=== PATIENT | male | born 1955 | race African-American/Black ===

== ENCOUNTER 2017-11-13 11:47 | Inpatient (IN) | payer OTHER, MEDICAID, MEDICARE ==
[2017-11-13] VITALS (7 sets, daily range): BP systolic 172–244; BP diastolic 81–112; PULSE 74–89; RESP 18–20; TEMP 97.5–99.2; O2SAT 97–100
[~2017-11-13] VITALS: Ht 188 cm; Wt 121.9 kg
[~2017-11-13 11:47] MED LIST: ALPR1TAB3 PO; BENGAY TOP; CALTTAB2 PO; CARB1DRO EACH EYE; CYAN100017 PO; DOCU100T9 PO; FURO40TA PO; GABA600T PO; GLIP5TAB8 PO; HYDROPHILIC TOP; INSU100V3 SQ; LISI10TA PO; MELOPOW PO; METF850T PO; MIRA33502 PO; OMEP20TA PO; OXYC1SOL5 PO; OXYC30TA PO; POTA1TAB4 PO; PROS5TAB2 PO; ROSU20 PO; SOMA350T PO; TERA5CAP3 PO; TERB1CRE2 TOP
[2017-11-13] MEDS ORDERED: SODIUM CHLOR 0.9% 1000 ML INJ 1,000 ML IV SCH (12:06)
[2017-11-13] MEDS ORDERED: SODIUM CHLORIDE 0.9% FLUSH 10 ML FLUSH IV FLUSH PRN ×2 (12:15→14:45)
[2017-11-13] MEDS ORDERED: ONDANSETRON HCL 4 MG/2 ML VIAL IVP ONE (12:15)
[2017-11-13] MEDS ORDERED: MORPHINE SULFATE 4 MG/ML INJ IV PUSH ONE ×2 (12:15→14:15)
--- NOTE | 2017-11-13 12:26 | PD ---
HPI Chief Complaint: Flank/Kidney Pain Time Seen by Provider: 12:00 Travel History International Travel<30 days: No Contact w/Intl Traveler<30days: No Traveled to known affect area: No History of Present Illness HPI The patient is a 62-year-old [place] male who presents emergency department for hematuria, dysuria, suprapubic discomfort, and left flank pain. The patient states his symptoms started this morning, he notes gross hematuria with visible blood clots. He does complain of dribbling with decreased ability to urinate. He does note lower abdominal pain and distention. He also complains of left flank pain. He denies any history nephrolithiasis. He does have a history of remote prostate cancer that underwent radiation therapy, he denies any previous surgeries. He does state the blood in the urine is bright, visible clots, no previous history. He denies any assisted fever, chills, or sweats. The patient's primary physician is Dr. Holt as well as the [facility]. [facility] Past Medical History Anemia: Yes Autoimmune Disease: No Blood Disorders: No Anxiety: Yes Depression: Yes Cancer: Yes (PROSTATE) High Cholesterol: Yes Chemotherapy: No Diabetes: Yes Diminished Hearing: No Endocrine: No Gastrointestinal Disorders: Yes (COLON POLYP) GERD: Yes Glaucoma: No Hypertension: Yes Immune Disorder: No Musculoskeletal: Yes (CERVICAL STENOSIS, DISC DEGENERATIVE) Neurologic: Yes (PERIPHERAL NEUROPATHY) Psychiatric: Yes Integumentary: Yes Radiation Therapy: Yes (2009) Sickle Cell Disease: No Thyroid Disease: No Past Surgical History AICD: No Arteriovenous Shunt: No Insulin Pump: No Joint Replacement: No Pacemaker: No Other Surgery: Yes (TITANIAN RODS PLACED IN LOW BACK 1996) Social History Alcohol Use: No Tobacco Use: No Substance Use: No Allergies-Medications (Allergen,Severity, Reaction): Coded Allergies: No Known Allergies (Verified Adverse Reaction, Unknown, 11/13/17) Reported Meds & Prescriptions Reported Meds & Active Scripts Active Active Prescriptions or Reported Medications Unobtainable Review of Systems Except as stated in HPI: all other systems reviewed are Neg Cardiovascular: No: Chest Pain or Discomfort Respiratory: No: Shortness of Breath Gastrointestinal: Positive: Abdominal Pain, No: Nausea, Vomiting, Diarrhea Genitourinary: Positive: Dysuria, Hematuria, Decreased Urinary Output, Pelvic Pain Musculoskeletal: No: Edema Physical Exam Narrative GENERAL: Awake, alert, pleasant 62-year-old male who appears his stated age and appears in moderate discomfort. SKIN: Focused skin assessment warm/dry. HEAD: Atraumatic. Normocephalic. EYES: No injection or drainage. ENT: No nasal bleeding or discharge. Mucous membranes pink and moist. NECK: Trachea midline. No JVD. CARDIOVASCULAR: Regular rate and rhythm. No murmur appreciated. RESPIRATORY: No accessory muscle use. Clear to auscultation. Breath sounds equal bilaterally. GASTROINTESTINAL: Abdomen distended, distended bladder to the umbilicus. Genitourinary: Uncircumcised phallus. Gross blood at the meatus with visible clots. Back: No CVA tenderness. MUSCULOSKELETAL: No obvious deformities. No clubbing. No cyanosis. No edema. NEUROLOGICAL: Awake and alert. No obvious cranial nerve deficits. Motor grossly within normal limits. Normal speech. PSYCHIATRIC: Appropriate mood and affect; insight and judgment normal. Data Data Last Documented VS Vital Signs Date Time Temp Pulse Resp B/P (MAP) Pulse Ox O2 Delivery O2 Flow Rate FiO2 11/13/17 14:23 82 19 176/81 (112) 97 Room Air 11/13/17 11:53 99.2 Orders Orders Complete Blood Count With Diff (11/13/17 12:06) Comprehensive Metabolic Panel (11/13/17 12:06) Lipase (11/13/17 12:06) Lactic Acid (11/13/17 12:06) Prothrombin Time / Inr (Pt) (11/13/17 12:06) Act Partial Throm Time (Ptt) (11/13/17 12:06) Urinalysis - C+S If Indicated (11/13/17 12:06) Iv Access Insert/Monitor (11/13/17 12:06) Ecg Monitoring (11/13/17 12:06) Oximetry (11/13/17 12:06) Morphine Inj (Morphine Inj) (11/13/17 12:15) Ondansetron Inj (Zofran Inj) (11/13/17 12:15) Sodium Chlor 0.9% 1000 Ml Inj (Ns 1000 M (11/13/17 12:06) Sodium Chloride 0.9% Flush (Ns Flush) (11/13/17 12:15) Ed Poc Ultrasound (11/13/17 ) Ct Abd/Pel W Iv Contrast(Rout) (11/13/17 ) Urine Culture (11/13/17 12:30) Ceftriaxone Inj (Rocephin Inj) (11/13/17 14:00) Morphine Inj (Morphine Inj) (11/13/17 14:15) Labs Laboratory Tests Test 11/13/17 12:20 11/13/17 12:30 White Blood Count 9.6 TH/MM3 Red Blood Count 3.62 MIL/MM3 Hemoglobin 10.1 GM/DL Hematocrit 30.0 % Mean Corpuscular Volume 82.9 FL Mean Corpuscular Hemoglobin 28.0 PG Mean Corpuscular Hemoglobin Concent 33.8 % Red Cell Distribution Width 14.2 % Platelet Count 227 TH/MM3 Mean Platelet Volume 7.2 FL Neutrophils (%) (Auto) 83.5 % Lymphocytes (%) (Auto) 9.2 % Monocytes (%) (Auto) 5.8 % Eosinophils (%) (Auto) 1.2 % Basophils (%) (Auto) 0.3 % Neutrophils # (Auto) 8.0 TH/MM3 Lymphocytes # (Auto) 0.9 TH/MM3 Monocytes # (Auto) 0.6 TH/MM3 Eosinophils # (Auto) 0.1 TH/MM3 Basophils # (Auto) 0.0 TH/MM3 CBC Comment DIFF FINAL Differential Comment Prothrombin Time 9.9 SEC Prothromb Time International Ratio 1.0 RATIO Activated Partial Thromboplast Time 25.8 SEC Blood Urea Nitrogen 26 MG/DL Creatinine 1.51 MG/DL Random Glucose 135 MG/DL Total Protein 6.7 GM/DL Albumin 3.6 GM/DL Calcium Level 8.6 MG/DL Alkaline Phosphatase 70 U/L Aspartate Amino Transf (AST/SGOT) 47 U/L Alanine Aminotransferase (ALT/SGPT) 42 U/L Total Bilirubin 0.3 MG/DL Sodium Level 136 MEQ/L Potassium Level 4.1 MEQ/L Chloride Level 99 MEQ/L Carbon Dioxide Level 30.4 MEQ/L Anion Gap 7 MEQ/L Estimat Glomerular Filtration Rate 57 ML/MIN Lactic Acid Level 1.8 mmol/L Lipase 66 U/L Urine Color RED Urine Turbidity CLOUDY Urine pH 8.5 Urine Specific [place] 1.018 Urine Protein 300 OR GREATER mg/dL Urine Glucose (UA) NEG mg/dL Urine Ketones 15 mg/dL Urine Occult Blood LARGE Urine Nitrite POS Urine Bilirubin NEG Urine Urobilinogen 2.0 MG/DL Urine Leukocyte Esterase LARGE Urine RBC /hpf Urine WBC 0-2 /hpf Urine Bacteria RARE /hpf Microscopic Urinalysis Comment CATH-CULTURE IND MDM Medical Decision Making Medical Screen Exam Complete: Yes Emergency Medical Condition: Yes Medical Record Reviewed: Yes Interpretation(s) Laboratory Tests Test 11/13/17 12:20 11/13/17 12:30 White Blood Count 9.6 TH/MM3 Red Blood Count 3.62 MIL/MM3 Hemoglobin 10.1 GM/DL Hematocrit 30.0 % Mean Corpuscular Volume 82.9 FL Mean Corpuscular Hemoglobin 28.0 PG Mean Corpuscular Hemoglobin Concent 33.8 % Red Cell Distribution Width 14.2 % Platelet Count 227 TH/MM3 Mean Platelet Volume 7.2 FL Neutrophils (%) (Auto) 83.5 % Lymphocytes (%) (Auto) 9.2 % Monocytes (%) (Auto) 5.8 % Eosinophils (%) (Auto) 1.2 % Basophils (%) (Auto) 0.3 % Neutrophils # (Auto) 8.0 TH/MM3 Lymphocytes # (Auto) 0.9 TH/MM3 Monocytes # (Auto) 0.6 TH/MM3 Eosinophils # (Auto) 0.1 TH/MM3 Basophils # (Auto) 0.0 TH/MM3 CBC Comment DIFF FINAL Differential Comment Prothrombin Time 9.9 SEC Prothromb Time International Ratio 1.0 RATIO Activated Partial Thromboplast Time 25.8 SEC Blood Urea Nitrogen 26 MG/DL Creatinine 1.51 MG/DL Random Glucose 135 MG/DL Total Protein 6.7 GM/DL Albumin 3.6 GM/DL Calcium Level 8.6 MG/DL Alkaline Phosphatase 70 U/L Aspartate Amino Transf (AST/SGOT) 47 U/L Alanine Aminotransferase (ALT/SGPT) 42 U/L Total Bilirubin 0.3 MG/DL Sodium Level 136 MEQ/L Potassium Level 4.1 MEQ/L Chloride Level 99 MEQ/L Carbon Dioxide Level 30.4 MEQ/L Anion Gap 7 MEQ/L Estimat Glomerular Filtration Rate 57 ML/MIN Lactic Acid Level 1.8 mmol/L Lipase 66 U/L Urine Color RED Urine Turbidity CLOUDY Urine pH 8.5 Urine Specific [place] 1.018 Urine Protein 300 OR GREATER mg/dL Urine Glucose (UA) NEG mg/dL Urine Ketones 15 mg/dL Urine Occult Blood LARGE Urine Nitrite POS Urine Bilirubin NEG Urine Urobilinogen 2.0 MG/DL Urine Leukocyte Esterase LARGE Urine RBC /hpf Urine WBC 0-2 /hpf Urine Bacteria RARE /hpf Microscopic Urinalysis Comment CATH-CULTURE IND CT abdomen and pelvis with IV contrast reveals large apparent clot within the bladder. I believe the majority of the density in the bladder is clot and not tumor. Amaya is in good position. There is mild thickening base of the bladder from 4 to 6 PM that could be mass. There is bilateral hydronephrosis with dilated ureters extending down to the bladder which has large spontaneously dense mass within the bladder containing and is probably all hematoma. Differential Diagnosis Differential diagnosis includes hydronephrosis, bladder cancer, hemorrhagic cystitis, nephrolithiasis, obstructive uropathy, acute renal failure. Narrative Course IV was established, labs are drawn and sent, and the patient was placed on cardiac telemetry monitoring and continuous pulse oximetry monitoring. Bedside ultrasound was performed, the patient has a large distended bladder with visible mass and/or clot within the bladder. Therefore, Amaya catheter, 3-way for CBI, was ordered to alleviate the patient's obstructive uropathy and distended bladder. CT of the abdomen and pelvis with IV contrast was ordered to evaluate the bladder mass. BMP and CBC as well as coags were sent to lab. The patient was administered morphine and Zofran for his symptoms. The patient' s Amaya catheter with drain, however, then would stop draining. Bedside ultrasound was performed, the patient has a large intra-bladder mass that appears to obstructive Amaya catheter, this was removed to the edge the mass, we were able to irrigate get a little more urine drainage, up to 600 cc. However, once again stop draining. The patient still had a distended bladder. Therefore, the on-call urologist was paged at 12:50 PM. I discussed the patient with Dr. Alcazar who recommends taking out the 3-way catheter in place in a larger [place] catheter for irrigation as needed and to help drain the blood. Therefore, the 3-way was removed and a 24 Albanian catheter was placed. Patient had urine output over [address] reveals bilateral hydronephrosis with large hematuria/blood clot in the bladder. The patient was provided morphine medication. A call was placed to Dr. Alcazar once again and to the on- call medical team for admission. Procedures Procedure Narrative Bedside ultrasound was performed using a curvilinear probe which reveals a large and distended bladder with visible mass and/or clot within the bladder. The patient tolerated the procedure without difficulty. There was no obvious complications. Physician Communication Phys[facility] Communication [facility]. Diagnosis Primary Impression: Obstructive uropathy Additional Impressions: Bilateral hydronephrosis Hematuria Qualified Codes: R31.9 - Hematuria, unspecified Admitting Information Admitting Physician Requests: Admit Scripts Unable to Obtain Active Prescriptions or Reported Meds Condition: Stable Mitch Alejo MD Nov 13, 2017 12:26
[2017-11-13 13:00] LABS: BASOPHIL % 0.3 % (0.0-2.0); EOSINOPHIL # 0.1 TH/MM3 (0-0.4); EOSINOPHIL % 1.2 % (0.0-4.0); HEMOGLOBIN 10.1 GM/DL (13.0-17.0); LYMPH % 9.2 % (9.0-44.0); LYMPHOCYTE # 0.9 TH/MM3 (1.0-4.8); MEAN CELL VOLUME 82.9 FL (80.0-100.0); MEAN CORPUSCULAR HGB CONC 33.8 % (32.0-36.0); MEAN PLATELET VOLUME 7.2 FL (7.0-11.0); MONO % 5.8 % (0.0-8.0); MONOCYTE # 0.6 TH/MM3 (0-0.9); NEUT % 83.5 % (16.0-70.0); PLATELET COUNT 227 TH/MM3 (150-450); RED BLOOD COUNT 3.62 MIL/MM3 (4.50-5.90); RED CELL DISTRIBUTION WIDTH 14.2 % (11.6-17.2); WHITE BLOOD COUNT 9.6 TH/MM3 (4.0-11.0)
[2017-11-13 13:09] LABS: PROTHROMBIN TIME - PATIENT 9.9 SEC (9.8-11.6)
[2017-11-13 13:15] LABS: ALBUMIN 3.6 GM/DL (3.4-5.0); AST (GOT) 47 U/L (15-37); BICARBONATE 30.4 MEQ/L (21.0-32.0); BLOOD UREA NITROGEN 26 MG/DL (7-18); CALCIUM 8.6 MG/DL (8.5-10.1); CHLORIDE 99 MEQ/L (98-107); CREATININE 1.51 MG/DL (0.60-1.30); GLOMERULAR FILTRATION RATE 57 ML/MIN (>89); GLUCOSE,RANDOM 135 MG/DL (74-106); SODIUM (NA) 136 MEQ/L (136-145)
[2017-11-13 13:22] LABS: ALKALINE PHOSPHATASE 70 U/L (45-117); ALT (GPT) 42 U/L (12-78); TOTAL BILIRUBIN ADULT 0.3 MG/DL (0.2-1.0); TOTAL PROTEIN 6.7 GM/DL (6.4-8.2)
[2017-11-13] MEDS ORDERED: IOHEXOL 350 MG/ML 10 ML VIAL (for RAD DIAG) IVCONTRAST ONE (13:41)
[2017-11-13 13:42] LABS: PH, URINE 8.5 (5.0-8.5); URINE COLOR RED (YELLW/STRAW)
[2017-11-13 13:45] LABS: BILIRUBIN, URINE NEG (NEG); GLUCOSE,URINE NEG (NEG); KETONE, URINE 15 mg/dL (NEG)
[2017-11-13 13:46] LABS: BACTERIA, URINE RARE /hpf; BLOOD, URINE LARGE (NEG); NITRITE,URINE POS (NEG); URINE LEUKOCYTE ESTERASE LARGE (NEG); WBC, URINE 0-2 /hpf (0-5)
[2017-11-13] MEDS ORDERED: cefTRIAXone INJ 1,000 MG in SODIUM CHLORIDE 0.9% INJ 100 ML IV ONE (14:00)
--- NOTE | 2017-11-13 14:24 | RADRPT ---
EXAM DATE/TIME: 11/13/2017 13:41 [place] COMPARISON: No previous studies available for comparison. INDICATIONS : Hematuria IV CONTRAST: 96 cc Omnipaque 350 (iohexol) IV ORAL CONTRAST: No oral contrast ingested. RADIATION DOSE: 16.34 CTDIvol (mGy) MEDICAL HISTORY : Hypertension. Carcinoma, prostate. Diabetes mellitus type 1. SURGICAL HISTORY : None. ENCOUNTER: Initial ACUITY: 2 days PAIN SCALE: 5/10 LOCATION: Left flank and lower pelvis TECHNIQUE: Volumetric scanning of the abdomen and pelvis was performed. Using automated exposure control and ad justment of the mA and/or kV according to patient size, radiation dose was kept as low as reasonably achievable to obtain optimal diagnostic quality images. DICOM format image data is available electro nically for review and comparison. FINDINGS: Lung base is are clear. The liver, spleen, pancreas are unremarkable There is bilateral hydronephrosis with dilated ureters extending down to the bladder which has large spontaneously dense mass within the bladder containing and is probably all hematoma. There is mild t hickening base of the bladder from 4 to 6 PM that could be mass. Prostate fiducials are noted. Ther e is no adenopathy. There is no free air. Review of bone windows reveals degenerative changes in the lumbar spine are previous with CONCLUSION: Large apparent clot within the bladder. I believe the majority of the density in the bladder is clot and not tumor. Amaya is in good position. Jones Lopez MD FACR on November 13, 2017 at 14:18 Board Certified Radiologist. This report was verified electronically.
[2017-11-13] MEDS ORDERED: NALOXONE HCL 0.4 MG/ML AMP IV PUSH PRN (14:45)
[2017-11-13] MEDS ORDERED: MORPHINE SULFATE 2 MG/ML INJ IV PUSH PRN ×2 (14:45→17:45)
[2017-11-13] MEDS: SODIUM CHLOR 0.9% 1000 ML INJ 1,000 ML IV SCH (14:56)
--- NOTE | 2017-11-13 15:56 | HHI.HP ---
[facility] Service [place] [facility] Primary Care Physician [facility] Admission Diagnosis bilateral hydronephrosis, obstructive uropathy, hematuria, MIAH Diagnoses: Travel History International Travel<30 Days: No Contact w/Intl Traveler <30 Da: No Traveled to Known Affected Are: No History of Present Illness History from patient, family members at the bedside, ER physician communication , and review of medical records. Patient is having severe pain at the time of my exam because of his Velazquez catheter and blood clots. He did however give history in between his cries for pain. He reports he was not able to urinate since the morning. He was also having severe pain in his bladder area. He reports it was blood in his urine with large amount of clots. Denies fever. Next and reports of nausea but did not vomit. Next I denies diarrhea. Denies seeing any black color or red color stool. Also reports of back pain. However this is chronic as well. In the emergency room, patient was found to be acutely retaining urine. Bedside sonogram was done which shows large clots of blood. Velazquez catheter initially three-way catheter was placed for irrigation. After discussion with urologist, the catheter was changed to a larger caliber for irrigation purpose. Case was discussed with urologist on-call by ER physician in detail. Patient drained 1500 cc of urine after insertion of Velazquez. Review of Systems Except as stated in HPI: all other systems reviewed are Neg Past Family Social History Past Medical History htn dm obesity prostate CA s/p radiation seedds sleep apnea anxiety Past Surgical History back sx x 2 prostate cancer radiation seeds implants right shoulder sx Allergies: Coded Allergies: No Known Allergies (Verified Allergy, Unknown, 11/13/17) Family History none that he knows of Social History denies smoking/etoh abuse/ drug abuse Physical Exam Vital Signs Vital Signs Date Time Temp Pulse Resp B/P (MAP) Pulse Ox O2 Delivery O2 Flow Rate FiO2 11/13/17 14:23 82 19 176/81 (112) 97 Room Air 11/13/17 12:37 97 Room Air 11/13/17 11:53 99.2 84 18 244/112 (521) 97 Room Air Physical Exam GENERAL: This is a well-nourished, well-developed patient, in distress from severe pain. Also seems to have anxiety. SKIN: No rashes, ecchymoses or lesions. Cool and dry. HEAD: Atraumatic. Normocephalic. No temporal or scalp tenderness. EYES: No scleral icterus. No injection or drainage. ENT: Nose without bleeding, purulent drainage or septal hematoma. Airway patent. NECK: Trachea midline. No JVD Supple, nontender, no meningeal signs. CARDIOVASCULAR: Regular rate and rhythm without murmurs, gallops, or rubs. RESPIRATORY: Clear to auscultation. Breath sounds equal bilaterally. No wheezes , rales, or rhonchi. GASTROINTESTINAL: Abdomen soft, non-tender, nondistended.. No guarding. : Velazquez catheter in place with zenaida hematuria. Pain at suprapubic MUSCULOSKELETAL: Extremities without clubbing, cyanosis, or edema. . No calf tenderness. NEUROLOGICAL: Awake and alert. Motor and sensory grossly within normal limits. Normal speech. Laboratory Laboratory Tests Test 11/13/17 12:20 11/13/17 12:30 White Blood Count 9.6 Red Blood Count 3.62 Hemoglobin 10.1 Hematocrit 30.0 Mean Corpuscular Volume 82.9 Mean Corpuscular Hemoglobin 28.0 Mean Corpuscular Hemoglobin Concent 33.8 Red Cell Distribution Width 14.2 Platelet Count 227 Mean Platelet Volume 7.2 Neutrophils (%) (Auto) 83.5 Lymphocytes (%) (Auto) 9.2 Monocytes (%) (Auto) 5.8 Eosinophils (%) (Auto) 1.2 Basophils (%) (Auto) 0.3 Neutrophils # (Auto) 8.0 Lymphocytes # (Auto) 0.9 Monocytes # (Auto) 0.6 Eosinophils # (Auto) 0.1 Basophils # (Auto) 0.0 CBC Comment DIFF FINAL Differential Comment Prothrombin Time 9.9 Prothromb Time International Ratio 1.0 Activated Partial Thromboplast Time 25.8 Blood Urea Nitrogen 26 Creatinine 1.51 Random Glucose 135 Total Protein 6.7 Albumin 3.6 Calcium Level 8.6 Alkaline Phosphatase 70 Aspartate Amino Transf (AST/SGOT) 47 Alanine Aminotransferase (ALT/SGPT) 42 Total Bilirubin 0.3 Sodium Level 136 Potassium Level 4.1 Chloride Level 99 Carbon Dioxide Level 30.4 Anion Gap 7 Estimat Glomerular Filtration Rate 57 Lactic Acid Level 1.8 Lipase 66 Urine Color RED Urine Turbidity CLOUDY Urine pH 8.5 Urine Specific [place] 1.018 Urine Protein 300 OR GREATER Urine Glucose (UA) NEG Urine Ketones 15 Urine Occult Blood LARGE Urine Nitrite POS Urine Bilirubin NEG Urine Urobilinogen 2.0 Urine Leukocyte Esterase LARGE Urine RBC Urine WBC 0-2 Urine Bacteria RARE Microscopic Urinalysis Comment CATH-CULTURE IND Date/Time Source Procedure Growth Status 11/13/17 12:30 Urine Catheterized Urine Urine Culture Pending Received Result Diagram: 11/13/17 1220 11/13/17 1220 Imaging Last 48 hours Impressions Abdomen/Pelvis CT 11/13/17 0000 Signed Impressions: Service Date/Time: Monday, November 13, 2017 13:41 - CONCLUSION: Large apparent clot within the bladder. I believe the majority of the density in the bladder is clot and not tumor. Velazquez is in good position. Jones Lopez MD FACR Caprini VTE Risk Assessment Caprini VTE Risk Assessment: Mod/High Risk (score >= 2) Caprini Risk Assessment Model Point Value = 1 Point Value = 2 Point Value = 3 Point Value = 5 Age 41-60 Minor surgery BMI > 25 kg/m2 Swollen legs Varicose veins or History of unexplained or recurrent spontaneous Oral contraceptives or hormone replacement Sepsis (< 1 month) Serious lung disease, including pneumonia (< 1 month) Abnormal pulmonary function Acute myocardial infarction Congestive heart failure (< 1 month) History of inflammatory bowel disease Medical patient at bed rest Age 61-74 Arthroscopic surgery Major open surgery (> 45 min) Laparoscopic surgery (> 45 min) Malignancy Confined to bed (> 72 hours) Immobilizing plaster cast Central venous access Age >= 75 History of VTE Family history of VTE Factor V Leiden Prothrombin [id number] Lupus anticoagulant Anticardiolipin antibodies Elevated serum homocysteine Heparin-induced thrombocytopenia Other congenital or acquired thrombophilia Stroke (< 1 month) Elective arthroplasty Hip, pelvis, or leg fracture Acute spinal cord injury (< 1 month) Prophylaxis Regimen Total Risk Factor Score Risk Level Prophylaxis Regimen 0-1 Low Early ambulation 2 Moderate Order ONE of the following: *Sequential Compression Device (SCD) *Heparin 5000 units SQ BID 3-4 Higher Order ONE of the following medications: *Heparin 5000 units SQ TID *Enoxaparin/Lovenox 40 mg SQ daily (WT < 150 kg, CrCl > 30 mL/min) *Enoxaparin/Lovenox 30 mg SQ daily (WT < 150 kg, CrCl > 10-29 mL/min) *Enoxaparin/Lovenox 30 mg SQ BID (WT < 150 kg, CrCl > 30 mL/min) AND/OR *Sequential Compression Device (SCD) 5 or more Highest Order ONE of the following medications: *Heparin 5000 units SQ TID (Preferred with Epidurals) *Enoxaparin/Lovenox 40 mg SQ daily (WT < 150 kg, CrCl > 30 mL/min) *Enoxaparin/Lovenox 30 mg SQ daily (WT < 150 kg, CrCl > 10-29 mL/min) *Enoxaparin/Lovenox 30 mg SQ BID (WT < 150 kg, CrCl > 30 mL/min) AND *Sequential Compression Device (SCD) Assessment and Plan Assessment and Plan Impression: gross hematuria with clots anxiety severe pain obstructive uropathy htn dm obesity prostate CA s/p radiation seedds sleep apnea anxiety Plan: flush velazquez q1hr urology consulted and discussed over phone by er md Likely need cystoscopy npo past midnight will cover with antibiotics for upcoming urology procedure . Ciprofloxacin 400 mg IV every 12 hours. Pain control with morphine 4 mg IV every 4 hours when necessary. Ativan 1 mg IV 1 dose now. Watch for oversedation since patient is obese, and likely has underlying sleep apnea from history. Monitor fingersticks every 4 hours. No sliding scale coverage. Start patient on D5 normal saline at 42 cc per hour. Also continue normal saline at 100 cc per hour for hydration. Patient does not remember the names and doses of his medications. Orders have been written for nursing staff to call his pharmacy to verify. DVT prophylaxis with SCD. Discussed Condition With Patient, ER physician, nursing staff Physician Certification 2 Midnight Certification Type: Admission for Inpatient Services Order for Inpatient Services The services are ordered in accordance with Medicare regulations or non- Medicare payer requirements, as applicable. In the case of services not specified as inpatient-only, they are appropriately provided as inpatient services in accordance with the 2-midnight benchmark. Estimated LOS (days): 2 days is the estimated time the patient will need to remain in the hospital, assuming treatment plan goals are met and no additional complications. Post-Hospital Plan: Home Eli Garcia MD Nov 13, 2017 15:56
[2017-11-13] MEDS ORDERED: DEXTROSE 50% IN WATER 50 ML VIAL(D50) IV PUSH PRN ×2 (16:15→20:15)
[2017-11-13] MEDS ORDERED: GLUCAGON 1 MG/ML VIAL OTHER PRN ×2 (16:15→20:15)
--- NOTE | 2017-11-13 17:24 | PD.CONS ---
[facility] Service Urology Consult Requested By Dr. Alejo Reason for Consult Gross hematuria Primary Care Physician [facility] Diagnosis: History of Present Illness Pleasant 62-year-old gentleman with history prostate cancer status post treatment with radiation therapy approximately 6-7 years ago who presents now with urinary retention and gross hematuria. A Amaya catheter was placed in the emergency room with evacuation of multiple clots. A CT scan of the abdomen and pelvis was also performed that demonstrated a markedly distended bladder with large clots and bilateral hydronephrosis. After consulting with the emergency room physician over the phone, a larger bore Amaya catheter was placed with improved drainage. At least 1500 cc of grossly bloody urine was evacuated soon after the Amaya catheter was placed. At the time of consultation the Amaya catheter continued to drain well and the patient's bladder was not distended. Patient denies a prior history of hematuria. Patient follows up over at the CT. Review of Systems Constitutional: DENIES: Fever, Night Sweats Cardiovascular: DENIES: Chest pain Gastrointestinal: COMPLAINS OF: Abdominal pain (lower abdomen) Genitourinary: COMPLAINS OF: Hematuria (gross hematuria) Musculoskeletal: COMPLAINS OF: Back pain (left flank) Except as stated in HPI: all other systems reviewed are Neg Past Family Social History Past Medical History Prostate cancer Hypertension Diabetes mellitus Sleep apnea Anxiety Past Surgical History Status post prostate brachytherapy Status post back surgery 2 Status post surgery involving the right shoulder Reported Medications Refer to EMR Allergies: Coded Allergies: No Known Allergies (Verified Allergy, Unknown, 11/13/17) Active Ordered Medications Refer to EMR Family History Reviewed and noncontributory Social History Denies tobacco, alcohol or intravenous drug abuse Physical Exam Vital Signs Date Time Temp Pulse Resp B/P (MAP) Pulse Ox O2 Delivery O2 Flow Rate FiO2 11/13/17 16:25 11/13/17 16:04 74 18 172/90 (117) 98 Room Air 11/13/17 14:23 82 19 176/81 (112) 97 Room Air 11/13/17 12:37 97 Room Air 11/13/17 11:53 99.2 84 18 244/112 (156) 97 Room Air Physical Exam GENERAL: This is a well-nourished, well-developed patient, in no apparent distress. SKIN: No rashes, ecchymoses or lesions. Cool and dry. HEAD: Atraumatic. Normocephalic. No temporal or scalp tenderness. EYES: Pupils equal round and reactive. Extraocular motions intact. No scleral icterus. No injection or drainage. ENT: Nose without bleeding, purulent drainage or septal hematoma. Throat without erythema, tonsillar hypertrophy or exudate. Uvula midline. Airway patent. NECK: Trachea midline. No JVD or lymphadenopathy. Supple, nontender, no meningeal signs. GASTROINTESTINAL: Abdomen soft, non-tender, nondistended. No hepato-splenomegaly , or palpable masses. No guarding. GENITOURINARY: Amaya catheter draining medium red urine with a few small clots, bladder not distended MUSCULOSKELETAL: Extremities without clubbing, cyanosis, or edema. No joint tenderness, effusion, or edema noted. No calf tenderness. Negative Homans sign bilaterally. NEUROLOGICAL: Awake and alert. Cranial nerves II through XII intact. Motor and sensory grossly within normal limits. Five out of 5 muscle strength in all muscle groups. Normal speech. Lab results reviewed: Yes Laboratory Tests Test 11/13/17 12:20 11/13/17 12:30 White Blood Count 9.6 Red Blood Count 3.62 Hemoglobin 10.1 Hematocrit 30.0 Mean Corpuscular Volume 82.9 Mean Corpuscular Hemoglobin 28.0 Mean Corpuscular Hemoglobin Concent 33.8 Red Cell Distribution Width 14.2 Platelet Count 227 Mean Platelet Volume 7.2 Neutrophils (%) (Auto) 83.5 Lymphocytes (%) (Auto) 9.2 Monocytes (%) (Auto) 5.8 Eosinophils (%) (Auto) 1.2 Basophils (%) (Auto) 0.3 Neutrophils # (Auto) 8.0 Lymphocytes # (Auto) 0.9 Monocytes # (Auto) 0.6 Eosinophils # (Auto) 0.1 Basophils # (Auto) 0.0 CBC Comment DIFF FINAL Differential Comment Prothrombin Time 9.9 Prothromb Time International Ratio 1.0 Activated Partial Thromboplast Time 25.8 Blood Urea Nitrogen 26 Creatinine 1.51 Random Glucose 135 Total Protein 6.7 Albumin 3.6 Calcium Level 8.6 Alkaline Phosphatase 70 Aspartate Amino Transf (AST/SGOT) 47 Alanine Aminotransferase (ALT/SGPT) 42 Total Bilirubin 0.3 Sodium Level 136 Potassium Level 4.1 Chloride Level 99 Carbon Dioxide Level 30.4 Anion Gap 7 Estimat Glomerular Filtration Rate 57 Lactic Acid Level 1.8 Lipase 66 Urine Color RED Urine Turbidity CLOUDY Urine pH 8.5 Urine Specific [place] 1.018 Urine Protein 300 OR GREATER Urine Glucose (UA) NEG Urine Ketones 15 Urine Occult Blood LARGE Urine Nitrite POS Urine Bilirubin NEG Urine Urobilinogen 2.0 Urine Leukocyte Esterase LARGE Urine RBC Urine WBC 0-2 Urine Bacteria RARE Microscopic Urinalysis Comment CATH-CULTURE IND Date/Time Source Procedure Growth Status 11/13/17 12:30 Urine Catheterized Urine Urine Culture Pending Received Result Diagram: 11/13/17 1220 11/13/17 1220 Personally reviewed images: Yes Imaging Last Impressions Abdomen/Pelvis CT 11/13/17 0000 Signed Impressions: Service Date/Time: Monday, November 13, 2017 13:41 - CONCLUSION: Large apparent clot within the bladder. I believe the majority of the density in the bladder is clot and not tumor. Amaya is in good position. Jones Lopez MD FACR Assessment and Plan Assessment and Plan Urologic impression: #1 history prostate cancer status post radiation therapy #2 gross hematuria of indeterminate etiology Recommendations: #1 continue with Amaya catheter and irrigate when necessary #2 nothing by mouth after midnight #3 will reassess tomorrow regarding further management Darryl Alcazar MD Nov 13, 2017 17:24
[2017-11-13] MEDS ORDERED: ONDANSETRON HCL 4 MG/2 ML VIAL IV PUSH PRN (17:30)
[2017-11-13] MEDS ORDERED: MORPHINE SULFATE 4 MG/ML INJ IV PUSH PRN (18:00)
[2017-11-13] MEDS: ENALAPRILAT 2.5 MG/2 ML VIAL IV PUSH PRN (18:31)
[2017-11-13] MEDS: PHENAZOPYRIDINE HCL 200 MG TAB PO PRN (18:32)
[2017-11-13] MEDS: DEXT 5%-NACL 0.9% 1000 ML INJ 1,000 ML IV SCH (18:50)
[2017-11-13] MEDS: LORazepam 2 MG/ML VIAL IV PUSH PRN (21:22)
[2017-11-13] MEDS: INSULIN ASPART SUPPLEMENTAL SCALE SQ SCH (21:28)
[2017-11-13] MEDS: oxyCODONE/ACETAMINOPHEN 5 MG/325 MG TAB PO PRN (21:29)
[2017-11-13] MEDS: SODIUM CHLORIDE 0.9% FLUSH 10 ML FLUSH IV FLUSH SCH (21:32)
[2017-11-14 00:15] VITALS: BP 137/70; PULSE 86; RESP 18; TEMP 98.1; O2SAT 95
[2017-11-14] MEDS: INSULIN ASPART SUPPLEMENTAL SCALE SQ SCH ×6 (00:19→20:00)
[2017-11-14] MEDS: SODIUM CHLOR 0.9% 1000 ML INJ 1,000 ML IV SCH ×3 (00:20→20:38)
[2017-11-14 03:35] VITALS: BP 157/66; PULSE 97; RESP 18; TEMP 99.2; O2SAT 97
[2017-11-14] MEDS: LORazepam 2 MG/ML VIAL IV PUSH PRN (04:32)
[2017-11-14] MEDS: oxyCODONE/ACETAMINOPHEN 5 MG/325 MG TAB PO PRN ×3 (04:33→20:08)
[2017-11-14] MEDS ORDERED: LACTATED RINGER'S 1000 ML IV PRN (04:45)
[2017-11-14] MEDS ORDERED: CHLORHEXIDINE GLUCONATE 2 % 1 PACK (2 CLOTHS) TOPICAL PRN (04:45)
[2017-11-14] MEDS ORDERED: POVIDONE IODINE 5% (ANTISEPSIS KIT) 4 APPLICATIONS EACH NARE PRN (04:45)
[2017-11-14 05:33] LABS: AUTOMATED NEUTROPHIL # 6.8 TH/MM3 (1.8-7.7); BASOPHIL % 0.2 % (0.0-2.0); EOSINOPHIL % 0.6 % (0.0-4.0); HEMATOCRIT 28.3 % (39.0-51.0); HEMOGLOBIN 9.4 GM/DL (13.0-17.0); LYMPH % 12.7 % (9.0-44.0); LYMPHOCYTE # 1.1 TH/MM3 (1.0-4.8); MEAN CELL VOLUME 82.4 FL (80.0-100.0); MEAN CORPUSCULAR HEMOGLOBIN 27.3 PG (27.0-34.0); MEAN CORPUSCULAR HGB CONC 33.1 % (32.0-36.0); MEAN PLATELET VOLUME 7.4 FL (7.0-11.0); MONO % 5.9 % (0.0-8.0); MONOCYTE # 0.5 TH/MM3 (0-0.9); NEUT % 80.6 % (16.0-70.0); PLATELET COUNT 229 TH/MM3 (150-450); RED BLOOD COUNT 3.44 MIL/MM3 (4.50-5.90); RED CELL DISTRIBUTION WIDTH 14.4 % (11.6-17.2); WHITE BLOOD COUNT 8.5 TH/MM3 (4.0-11.0)
[2017-11-14 05:41] LABS: BICARBONATE 29.1 MEQ/L (21.0-32.0); CALCIUM 8.5 MG/DL (8.5-10.1); CREATININE 1.35 MG/DL (0.60-1.30)
[2017-11-14 08:00] VITALS: BP 129/66; PULSE 78; PULSE 80; RESP 16; TEMP 98.5; O2SAT 96
[2017-11-14] MEDS: PHENAZOPYRIDINE HCL 200 MG TAB PO PRN ×2 (08:22→16:22)
[2017-11-14] MEDS: CIPROFLOXACIN 400 MG PREMIX 200 ML IV SCH ×2 (08:22→21:02)
[2017-11-14] MEDS: SODIUM CHLORIDE 0.9% FLUSH 10 ML FLUSH IV FLUSH SCH ×2 (09:00→21:02)
[2017-11-14 12:00] VITALS: BP 129/84; PULSE 93; RESP 18; TEMP 99.4; O2SAT 100
--- NOTE | 2017-11-14 13:20 | HHI.PR ---
Subjective Patient symptoms today Feeling better today Reports that the Amaya catheter has been draining well Objective Vital Signs Vital Signs Date Time Temp Pulse Resp B/P (MAP) Pulse Ox O2 Delivery O2 Flow Rate FiO2 11/14/17 08:00 78 11/14/17 08:00 98.5 80 16 129/66 (87) 96 11/14/17 03:35 99.2 97 18 157/66 (96) 97 11/14/17 00:15 98.1 86 18 137/70 (92) 95 11/13/17 21:45 98 Nasal Cannula 1.00 11/13/17 20:25 97.5 89 20 197/92 (127) 99 11/13/17 16:30 98.5 88 18 197/99 (131) 100 11/13/17 16:25 11/13/17 16:04 74 18 172/90 (117) 98 Room Air 11/13/17 14:23 82 19 176/81 (112) 97 Room Air Intake & Output 11/14/17 11/14/17 07:00 19:00 Intake Total 960 ml 0 ml Output Total 1500 ml 4150 ml Balance -540 ml -4150 ml Intake Oral 960 ml 0 ml Output Urine Total 1500 ml 4150 ml # Bowel Movements 1 0 Result Diagram: 11/14/17 0332 11/14/17 033 Objective Remarks Amaya catheter draining medium red-colored urine without clots Bladder not distended Medications and IVs Current Medications Medications (Trade) Dose Ordered Sig/Daisy Route Start Time Stop Time Status Last Admin Sodium Chloride 1,000 ml @ 100 mls/hr Q10H IV 11/13/17 14:38 11/13/17 14:56 (NS Flush) 2 ml UNSCH PRN IV FLUSH 11/13/17 14:45 (NS Flush) 2 ml BID IV FLUSH 11/13/17 21:00 (Narcan Inj) 0.4 mg UNSCH PRN IV PUSH 11/13/17 14:45 (Pyridium) 200 mg Q8H PRN PO 11/13/17 16:00 11/14/17 08:22 (Ativan Inj) 1 mg Q2H PRN IV PUSH 11/13/17 16:00 11/14/17 04:32 (Vasotec Inj) 2.5 mg Q6H PRN IV PUSH 11/13/17 16:15 11/13/17 18:31 Dextrose/Sodium Chloride 1,000 ml @ 42 mls/hr [id number] IV 11/13/17 16:15 11/13/17 18:50 Ciprofloxacin/ Dextrose 200 ml @ 200 mls/hr Q12H IV 11/14/17 09:00 11/14/17 08:22 (Percocet 5-325 Mg) 2 tab Q6H PRN PO 11/13/17 17:30 11/14/17 12:51 (Zofran Inj) 4 mg Q6HR PRN IV PUSH 11/13/17 17:30 11/13/17 18:32 (Morphine Inj) 4 mg Q3H PRN IV PUSH 11/13/17 18:00 (D50w (Vial) Inj) 50 ml UNSCH PRN IV PUSH 11/13/17 20:15 (Glucagon Inj) 1 mg UNSCH PRN OTHER 11/13/17 20:15 (NovoLOG SUPPLEMENTAL SCALE) 1 Q4HR SQ 11/13/17 20:15 11/14/17 00:19 Lactated Ringer's 1,000 ml @ 30 mls/hr Q24H PRN IV 11/14/17 04:45 11/17/17 04:44 11/14/17 05:02 (Betadine 5% Antisepsis Kit) 1 applic PUMP OPERATOR BYPRODUCTS PRN EACH NARE 11/14/17 04:45 11/17/17 04:44 (Chlorhexidine 2% Cloth) 3 pack PUMP OPERATOR [employer]PRODU[employer] PRN TOPICAL 11/14/17 04:45 11/17/17 04:44 Assessment and Plan Assessment and Plan Urologic impression: #1 history prostate cancer status post radiation therapy #2 gross hematuria of indeterminate etiology Recommendations: #1 continue with Amaya catheter and irrigate when necessary #2 nothing by mouth after midnight #3 schedule for cystoscopy with fulguration of bleeding sites tomorrow morning Darryl Alcazar MD Nov 14, 2017 13:20
--- NOTE | 2017-11-14 15:50 | HHI.PR ---
Subjective Remarks Plan for cystoscopy tomorrow. Renal function is improving. Hemoglobin levels are stable. Objective Vital Signs Date Time Temp Pulse Resp B/P (MAP) Pulse Ox O2 Delivery O2 Flow Rate FiO2 11/14/17 12:00 99.4 93 18 129/84 (99) 100 11/14/17 08:00 78 11/14/17 08:00 98.5 80 16 129/66 (87) 96 11/14/17 03:35 99.2 97 18 157/66 (96) 97 11/14/17 00:15 98.1 86 18 137/70 (92) 95 11/13/17 21:45 98 Nasal Cannula 1.00 11/13/17 20:25 97.5 89 20 197/92 (127) 99 11/13/17 16:30 98.5 88 18 197/99 (131) 100 11/13/17 16:25 11/13/17 16:04 74 18 172/90 (117) 98 Room Air I/O 11/13/17 11/13/17 11/13/17 11/14/17 11/14/17 11/14/17 07:00 15:00 23:00 07:00 15:00 23:00 Intake Total 388 ml 960 ml 0 ml Output Total 4350 ml 4150 ml Balance 388 ml -3390 ml -4150 ml Intake Oral 960 ml 0 ml IV Total 388 ml Output Urine Total 4350 ml 4150 ml # Voids 0 0 # Bowel Movements 1 0 Result Diagram: 11/14/17 0332 11/14/17 0332 Objective Remarks GENERAL: NAD, A&Ox3 HEAD: Normocephalic. NECK: Supple, trachea midline. No lymphadenopathy. EYES: No scleral icterus. No injection or drainage. CARDIOVASCULAR: Regular rate and rhythm without murmurs, gallops, or rubs. RESPIRATORY: Breath sounds equal bilaterally. No accessory muscle use. GASTROINTESTINAL: Abdomen soft, non-tender, nondistended. MUSCULOSKELETAL: No cyanosis, or edema. SKIN: Warm and dry. URINARY: Dark red urine in Amaya Bag. NEURO: No focal neurological deficitis. A/P Problem List: (1) Hematuria ICD Code: R31.9 - Hematuria, unspecified Status: Acute (2) Obstructive uropathy ICD Code: N13.9 - Obstructive and reflux uropathy, unspecified Status: Acute (3) Bilateral hydronephrosis ICD Code: N13.30 - Unspecified hydronephrosis Status: Acute Assessment and Plan 62-year-old male admitted secondary to gross hematuria with urinary obstruction. Gross hematuria Anemia Follow CBC Hematuria remains No obstruction after Amaya catheter placement Urology following Plan for cystoscopy tomorrow Continue morphine for pain Continue ciprofloxacin Obstructive uropathy Acute kidney injury Monitor renal function Improvement in renal function present as far Continue IV hydration Gen. anxiety disorder Sleep apnea Obesity No change to baseline treatments Continue Ativan Diabetes mellitus type 2 Follow blood sugars Insulin sliding scale Diabetic diet Hypertension Continue baseline treatment Follow blood pressures Adjust treatments as needed Hx of Prostate Cancer Possibly contributory either directly or related to treatment Hx of radiation (seeds) DVT prophylaxis SCD Problem Qualifiers (1) Hematuria: Qualified Codes: R31.9 - Hematuria, unspecified Ronan Golden MD Nov 14, 2017 15:50
[2017-11-14 16:00] VITALS: BP 153/67; PULSE 76; RESP 18; TEMP 99.4; O2SAT 96
[2017-11-14] MEDS: DEXT 5%-NACL 0.9% 1000 ML INJ 1,000 ML IV SCH (16:04)
[2017-11-14 20:05] VITALS: BP 142/69; PULSE 82; RESP 18; TEMP 99.5; O2SAT 96
--- NOTE | 2017-11-14 23:01 | EKG ---
Date Performed: 11/14/2017 Time Performed: 08:24:46 PTAGE: 62 years EKG: Sinus rhythm . Normal ECG PREVIOUS TRACING : 05/26/2012 13.10 Since the prior tracing, there has been no significant brooke DOCTOR: Fabio Shaw Interpretating Date/Time 11/14/2017 23:01:13
[2017-11-15 00:05] VITALS: BP 151/77; PULSE 76; RESP 18; TEMP 98.6; O2SAT 99
[2017-11-15] MEDS: INSULIN ASPART SUPPLEMENTAL SCALE SQ SCH ×6 (04:00→20:13)
[2017-11-15 04:03] VITALS: BP 148/85; PULSE 76; RESP 18; TEMP 99.2; O2SAT 98
[2017-11-15 05:13] LABS: AUTOMATED NEUTROPHIL # 4.8 TH/MM3 (1.8-7.7); BASOPHIL % 0.4 % (0.0-2.0); EOSINOPHIL # 0.2 TH/MM3 (0-0.4); EOSINOPHIL % 3.1 % (0.0-4.0); HEMATOCRIT 26.1 % (39.0-51.0); HEMOGLOBIN 8.7 GM/DL (13.0-17.0); LYMPH % 18.8 % (9.0-44.0); LYMPHOCYTE # 1.3 TH/MM3 (1.0-4.8); MEAN CELL VOLUME 82.6 FL (80.0-100.0); MEAN CORPUSCULAR HEMOGLOBIN 27.5 PG (27.0-34.0); MEAN CORPUSCULAR HGB CONC 33.3 % (32.0-36.0); MEAN PLATELET VOLUME 7.2 FL (7.0-11.0); MONO % 8.5 % (0.0-8.0); MONOCYTE # 0.6 TH/MM3 (0-0.9); NEUT % 69.2 % (16.0-70.0); PLATELET COUNT 196 TH/MM3 (150-450); RED BLOOD COUNT 3.16 MIL/MM3 (4.50-5.90); RED CELL DISTRIBUTION WIDTH 14.4 % (11.6-17.2); WHITE BLOOD COUNT 6.9 TH/MM3 (4.0-11.0)
[2017-11-15 05:53] LABS: ALBUMIN 2.8 GM/DL (3.4-5.0); ALKALINE PHOSPHATASE 65 U/L (45-117); ALT (GPT) 45 U/L (12-78); AST (GOT) 38 U/L (15-37); BICARBONATE 28.3 MEQ/L (21.0-32.0); BLOOD UREA NITROGEN 15 MG/DL (7-18); CALCIUM 8.5 MG/DL (8.5-10.1); CHLORIDE 106 MEQ/L (98-107); CREATININE 1.05 MG/DL (0.60-1.30); GLOMERULAR FILTRATION RATE 87 ML/MIN (>89); GLUCOSE,RANDOM 109 MG/DL (74-106); SODIUM (NA) 141 MEQ/L (136-145); TOTAL BILIRUBIN ADULT 0.3 MG/DL (0.2-1.0); TOTAL PROTEIN 5.9 GM/DL (6.4-8.2)
[2017-11-15] MEDS: SODIUM CHLOR 0.9% 1000 ML INJ 1,000 ML IV SCH ×2 (06:38→17:38)
[2017-11-15 07:31] VITALS: BP 192/85; PULSE 81; RESP 19; TEMP 99.7; O2SAT 96
[2017-11-15] MEDS: SODIUM CHLORIDE 0.9% FLUSH 10 ML FLUSH IV FLUSH SCH ×2 (09:00→20:32)
--- NOTE | 2017-11-15 11:26 | PD.OP ---
Operative Report Date of Surgery: Nov 15, 2017 Preoperative Diagnosis: (1) Hematuria Postoperative Diagnosis: (1) Radiation cystitis (2) Hematuria Procedure: Cystoscopy, clot evacuation and fulguration of bleeding sites Anesthesia: General Surgeon: Darryl Alcazar Ramp Lead(s): None Operation and Findings: Indication for procedures: Case of a pleasant 62-year-old gentleman with history prostate cancer status post creation therapy who presents now with gross hematuria and clot urinary retention. Operative procedure detail: Patient was brought to the operating room suite and placed supine on the OR table. Present placed under general anesthesia. He was then repositioned in the dorsolithotomy position and prepped and draped in normal sterile fashion. After appropriate timeout was undertaken proceed with cystoscopic evaluation utilizing the rigid cystoscope with a 22 Jamaican sheath and the 30 lens. The urethra was patent without stricture formation, the prostatic urethra was nonobstructing however there was marked enlargement to the median lobe which had dilated blood vessels that were oozing blood. Further passive cystoscope within the urinary bladder revealed dilated blood vessels at the bladder neck region oozing blood as well. The bladder was full of clots. I then proceeded with bladder irrigation with the Elik evacuator until all the clots were removed. I then proceeded with further cystoscopic evaluation and fulguration of the bleeding sites involving the median lobe of the prostate and the bladder neck region. At conclusion of procedure the still was some oozing of blood noted diffusely from the bladder related to the radiation cystitis. A decision was thus made to place a 24 [place] three-way Amaya catheter and implement continuous bladder irrigation. The patient tolerated the procedures without complications and was transferred to the PACU in satisfactory condition. Darryl Alcazar MD Nov 15, 2017 11:26
[2017-11-15] MEDS ORDERED: DO NOT ADM ANY ANTICOAGULANT DRUGS PRN (11:32)
[2017-11-15] MEDS ORDERED: MIDAZOLAM HCL 2 MG/2 ML VIAL ONE (11:44)
[2017-11-15] MEDS ORDERED: *morphine SULFATE 10 MG/ML PERIprocedure ONLY ONE (11:45)
[2017-11-15] MEDS ORDERED: LACTATED RINGER'S 1000 ML INJ 1,000 ML IV ONE (12:00)
[2017-11-15] MEDS ORDERED: LIDOCAINE HCL 1% PF 5 ML SYRINGE OTHER ONE (12:00)
[2017-11-15] MEDS ORDERED: PROPOFOL 200 MG/20 ML AMP IV ONE (12:00)
[2017-11-15] MEDS ORDERED: DEXAMETHASONE SOD PHOS 4 MG/ML VIAL IV ONE (12:00)
[2017-11-15] MEDS ORDERED: ONDANSETRON HCL 4 MG/2 ML VIAL IV ONE (12:00)
[2017-11-15] MEDS ORDERED: ROCURONIUM INJ 50 MG/5 ML SYRINGE IV PUSH ONE (12:00)
[2017-11-15] MEDS: CIPROFLOXACIN 400 MG PREMIX 200 ML IV SCH ×2 (14:01→20:13)
[2017-11-15 15:45] VITALS: BP 189/88; PULSE 77; RESP 19; TEMP 98.6; O2SAT 94
[2017-11-15] MEDS: DEXT 5%-NACL 0.9% 1000 ML INJ 1,000 ML IV SCH (15:53)
[2017-11-15] MEDS: oxyCODONE/ACETAMINOPHEN 5 MG/325 MG TAB PO PRN ×2 (15:55→22:00)
--- NOTE | 2017-11-15 17:21 | HHI.PR ---
Subjective Remarks Status post cystoscopy.. Bleed identified and cauterized. Patient seen after procedure and urine has a cad administrator color. Currently he is on CBI. Objective Vital Signs Date Time Temp Pulse Resp B/P (MAP) Pulse Ox O2 Delivery O2 Flow Rate FiO2 11/15/17 15:45 98.6 77 19 189/88 (121) 94 11/15/17 12:15 82 17 168/91 (116) 99 Room Air 11/15/17 12:00 82 17 167/94 (118) 99 Room Air 11/15/17 11:45 91 15 163/88 (113) 99 Room Air 11/15/17 11:33 97.6 95 15 153/90 (111) 99 Simple Mask 6 11/15/17 08:00 100.2 85 18 154/78 (103) 98 11/15/17 07:31 99.7 81 19 192/85 (120) 96 11/15/17 04:03 99.2 76 18 148/85 (106) 98 11/15/17 00:05 98.6 76 18 151/77 (101) 99 11/14/17 20:05 99.5 82 18 142/69 (93) 96 I/O 11/14/17 11/14/17 11/14/17 11/15/17 11/15/17 11/15/17 07:00 15:00 23:00 07:00 15:00 23:00 Intake Total 120 ml 560 ml 0 ml 1150 ml Output Total 7400 ml 750 ml 1900 ml 1210 ml 800 ml Balance -7280 ml -190 ml -1900 ml -60 ml -800 ml Intake Oral 120 ml 560 ml 0 ml IV Total 1150 ml Output Urine Total 7400 ml 750 ml 1900 ml 1200 ml 800 ml Estimated Blood Loss 10 ml # Bowel Movements 0 0 0 Result Diagram: 11/15/174 11/15/17413 Objective Remarks GENERAL: NAD, A&Ox3 HEAD: Normocephalic. NECK: Supple, trachea midline. No lymphadenopathy. EYES: No scleral icterus. No injection or drainage. CARDIOVASCULAR: Regular rate and rhythm without murmurs, gallops, or rubs. RESPIRATORY: Breath sounds equal bilaterally. No accessory muscle use. GASTROINTESTINAL: Abdomen soft, non-tender, nondistended. MUSCULOSKELETAL: No cyanosis, or edema. SKIN: Warm and dry. URINARY: Dark red urine in Amaya Bag. NEURO: No focal neurological deficitis. A/P Problem List: (1) Hematuria ICD Code: R31.9 - Hematuria, unspecified Status: Acute (2) Obstructive uropathy ICD Code: N13.9 - Obstructive and reflux uropathy, unspecified Status: Acute (3) Bilateral hydronephrosis ICD Code: N13.30 - Unspecified hydronephrosis Status: Acute Assessment and Plan 62-year-old male admitted secondary to gross hematuria with urinary obstruction. Postprocedure, cauterization performed. Presently on CBI. Continue to monitor CBC. Labs ordered for further monitoring. Gross hematuria Anemia Follow CBC Hematuria improving post procedure. No obstruction after Amaya catheter placement Urology following Continue morphine for pain Continue ciprofloxacin Obstructive uropathy Acute kidney injury Monitor renal function Improvement in renal function present as far Continue IV hydration Gen. anxiety disorder Sleep apnea Obesity No change to baseline treatments Continue Ativan Diabetes mellitus type 2 Follow blood sugars Insulin sliding scale Diabetic diet Hypertension Continue baseline treatment Follow blood pressures Adjust treatments as needed Hx of Prostate Cancer Possibly contributory either directly or related to treatment Hx of radiation (seeds) DVT prophylaxis SCD Problem Qualifiers (1) Hematuria: Qualified Codes: R31.9 - Hematuria, unspecified Ronan Golden MD Nov 15, 2017 17:21
[2017-11-15 20:00] VITALS: BP 160/78; PULSE 79; RESP 18; TEMP 100; O2SAT 98
[2017-11-16] VITALS (9 sets, daily range): BP systolic 159–172; BP diastolic 77–91; PULSE 63–78; RESP 17–18; TEMP 96.2–99.6; O2SAT 98–100
[2017-11-16] MEDS: INSULIN ASPART SUPPLEMENTAL SCALE SQ SCH ×6 (04:00→19:42)
[2017-11-16] MEDS: oxyCODONE/ACETAMINOPHEN 5 MG/325 MG TAB PO PRN ×4 (04:04→21:30)
[2017-11-16 08:32] LABS: AUTOMATED NEUTROPHIL # 5.2 TH/MM3 (1.8-7.7); BASOPHIL % 0.3 % (0.0-2.0); EOSINOPHIL # 0.2 TH/MM3 (0-0.4); EOSINOPHIL % 2.6 % (0.0-4.0); HEMATOCRIT 26.3 % (39.0-51.0); HEMOGLOBIN 8.5 GM/DL (13.0-17.0); LYMPH % 18.7 % (9.0-44.0); LYMPHOCYTE # 1.4 TH/MM3 (1.0-4.8); MEAN CELL VOLUME 83.6 FL (80.0-100.0); MEAN CORPUSCULAR HEMOGLOBIN 26.8 PG (27.0-34.0); MEAN CORPUSCULAR HGB CONC 32.1 % (32.0-36.0); MEAN PLATELET VOLUME 7.5 FL (7.0-11.0); MONO % 7.7 % (0.0-8.0); MONOCYTE # 0.6 TH/MM3 (0-0.9); NEUT % 70.7 % (16.0-70.0); PLATELET COUNT 196 TH/MM3 (150-450); RED BLOOD COUNT 3.15 MIL/MM3 (4.50-5.90); RED CELL DISTRIBUTION WIDTH 14.5 % (11.6-17.2); WHITE BLOOD COUNT 7.3 TH/MM3 (4.0-11.0)
[2017-11-16 08:40] LABS: ALBUMIN 2.7 GM/DL (3.4-5.0); AST (GOT) 31 U/L (15-37); BICARBONATE 27.4 MEQ/L (21.0-32.0); BLOOD UREA NITROGEN 11 MG/DL (7-18); CALCIUM 8.9 MG/DL (8.5-10.1); CHLORIDE 106 MEQ/L (98-107); CREATININE 1.01 MG/DL (0.60-1.30); GLOMERULAR FILTRATION RATE 91 ML/MIN (>89); GLUCOSE,RANDOM 121 MG/DL (74-106); SODIUM (NA) 140 MEQ/L (136-145)
[2017-11-16 08:41] LABS: ALT (GPT) 41 U/L (12-78)
[2017-11-16 08:44] LABS: ALKALINE PHOSPHATASE 69 U/L (45-117); TOTAL BILIRUBIN ADULT 0.3 MG/DL (0.2-1.0); TOTAL PROTEIN 5.7 GM/DL (6.4-8.2)
[2017-11-16] MEDS: SODIUM CHLORIDE 0.9% FLUSH 10 ML FLUSH IV FLUSH SCH ×2 (09:00→21:30)
[2017-11-16] MEDS: CIPROFLOXACIN 400 MG PREMIX 200 ML IV SCH ×2 (10:16→21:31)
[2017-11-16] MEDS: SODIUM CHLOR 0.9% 1000 ML INJ 1,000 ML IV SCH ×2 (12:38→21:31)
--- NOTE | 2017-11-16 13:22 | HHI.PR ---
Subjective Patient symptoms today Pt seen and examined. Still with gross hematuria. CBI on moderate rate. Objective Vital Signs Vital Signs Date Time Temp Pulse Resp B/P (MAP) Pulse Ox O2 Delivery O2 Flow Rate FiO2 11/16/17 12:28 63 11/16/17 11:40 96.6 67 18 165/90 (115) 100 11/16/17 07:37 96.2 72 18 168/91 (116) 98 11/16/17 04:00 99.1 78 18 159/77 (104) 100 11/16/17 00:00 98.9 76 18 161/80 (107) 98 11/15/17 20:00 100.0 79 18 160/78 (105) 98 11/15/17 16:55 16 11/15/17 15:45 98.6 77 19 189/88 (121) 94 Intake & Output 11/16/17 11/16/17 07:00 19:00 Intake Total 720 ml Output Total 2175 ml 1750 ml Balance -1455 ml -1750 ml Intake Oral 720 ml Output Urine Total 2175 ml 1750 ml # Bowel Movements 0 Result Diagram: 11/16/17 0652 11/16/17 0652 Objective Remarks Velazquez catheter draining medium red-colored urine without clots Bladder not distended 11/16 Abd:soft,nt,nd Velazquez on CBI with blood tinged urine Medications and IVs Current Medications Medications (Trade) Dose Ordered Sig/Daisy Route Start Time Stop Time Status Last Admin Sodium Chloride 1,000 ml @ 100 mls/hr Q10H IV 11/13/17 14:38 11/15/17 17:38 (NS Flush) 2 ml UNSCH PRN IV FLUSH 11/13/17 14:45 (NS Flush) 2 ml BID IV FLUSH 11/13/17 21:00 (Narcan Inj) 0.4 mg UNSCH PRN IV PUSH 11/13/17 14:45 (Pyridium) 200 mg Q8H PRN PO 11/13/17 16:00 11/14/17 16:22 (Ativan Inj) 1 mg Q2H PRN IV PUSH 11/13/17 16:00 11/14/17 04:32 (Vasotec Inj) 2.5 mg Q6H PRN IV PUSH 11/13/17 16:15 11/13/17 18:31 Dextrose/Sodium Chloride 1,000 ml @ 42 mls/hr [id number] IV 11/13/17 16:15 11/13/17 18:50 Ciprofloxacin/ Dextrose 200 ml @ 200 mls/hr Q12H IV 11/14/17 09:00 11/16/17 10:16 (Percocet 5-325 Mg) 2 tab Q6H PRN PO 11/13/17 17:30 11/16/17 10:22 (Zofran Inj) 4 mg Q6HR PRN IV PUSH 11/13/17 17:30 11/13/17 18:32 (Morphine Inj) 4 mg Q3H PRN IV PUSH 11/13/17 18:00 11/15/17 09:33 (D50w (Vial) Inj) 50 ml UNSCH PRN IV PUSH 11/13/17 20:15 (Glucagon Inj) 1 mg UNSCH PRN OTHER 11/13/17 20:15 (NovoLOG SUPPLEMENTAL SCALE) 1 Q4HR SQ 11/13/17 20:15 11/16/17 10:34 Lactated Ringer's 1,000 ml @ 30 mls/hr Q24H PRN IV 11/14/17 04:45 11/17/17 04:44 11/14/17 05:02 (Betadine 5% Antisepsis Kit) 1 applic RELOCATION COORDINATOR PRN EACH NARE 11/14/17 04:45 11/17/17 04:44 (Chlorhexidine 2% Cloth) 3 pack RELOCATION COORDINATOR PRN TOPICAL 11/14/17 04:45 11/17/17 04:44 (Catapres) 0.1 mg Q6H PRN PO 11/16/17 08:45 Assessment and Plan Assessment and Plan Urologic impression: #1 history prostate cancer status post radiation therapy #2 gross hematuria of indeterminate etiology Recommendations: #1 continue with Velazquez catheter and irrigate when necessary #2 nothing by mouth after midnight #3 schedule for cystoscopy with fulguration of bleeding sites tomorrow morning 11/16 62 y.o male with gross hematuria due to radiation cystitis Start Amicar CBI Irrigate velazquez prn clots Ramos Carrera DO Nov 16, 2017 13:22
[2017-11-16] MEDS: DEXT 5%-NACL 0.9% 1000 ML INJ 1,000 ML IV SCH (15:42)
--- NOTE | 2017-11-16 17:22 | HHI.PR ---
Subjective Remarks Hemoglobin and hematocrit are remaining stable. CBI continued. Urine has a bright red hue but is clearing up compared to previous days. Objective Vital Signs Date Time Temp Pulse Resp B/P (MAP) Pulse Ox O2 Delivery O2 Flow Rate FiO2 11/16/17 15:47 99.6 68 17 165/81 (109) 100 11/16/17 12:28 63 11/16/17 11:40 96.6 67 18 165/90 (115) 100 11/16/17 07:37 96.2 72 18 168/91 (116) 98 11/16/17 04:00 99.1 78 18 159/77 (104) 100 11/16/17 00:00 98.9 76 18 161/80 (107) 98 11/15/17 20:00 100.0 79 18 160/78 (105) 98 I/O 11/15/17 11/15/17 11/15/17 11/16/17 11/16/17 11/16/17 07:00 15:00 23:00 07:00 15:00 23:00 Intake Total 0 ml 1150 ml 480 ml 240 ml 200 ml 405 ml Output Total 1900 ml 1210 ml 1000 ml 1975 ml 1850 ml 150 ml Balance -1900 ml -60 ml -520 ml -1735 ml -1650 ml 255 ml Intake Oral 0 ml 480 ml 240 ml IV Total 1150 ml 200 ml 405 ml Output Urine Total 1900 ml 1200 ml 1000 ml 1975 ml 1850 ml 150 ml Estimated Blood Loss 10 ml # Bowel Movements 0 0 0 Result Diagram: 11/16/17 0652 11/16/17 0652 Objective Remarks GENERAL: NAD, A&Ox3 HEAD: Normocephalic. NECK: Supple, trachea midline. No lymphadenopathy. EYES: No scleral icterus. No injection or drainage. CARDIOVASCULAR: Regular rate and rhythm without murmurs, gallops, or rubs. RESPIRATORY: Breath sounds equal bilaterally. No accessory muscle use. GASTROINTESTINAL: Abdomen soft, non-tender, nondistended. MUSCULOSKELETAL: No cyanosis, or edema. SKIN: Warm and dry. URINARY: Dark red urine in Amaya Bag. NEURO: No focal neurological deficitis. A/P Problem List: (1) Hematuria ICD Code: R31.9 - Hematuria, unspecified Status: Acute (2) Obstructive uropathy ICD Code: N13.9 - Obstructive and reflux uropathy, unspecified Status: Acute (3) Bilateral hydronephrosis ICD Code: N13.30 - Unspecified hydronephrosis Status: Acute Assessment and Plan 62-year-old male admitted secondary to gross hematuria with urinary obstruction. Postprocedure, cauterization performed. Presently on CBI. Continue to monitor CBC. Labs ordered for further monitoring. Thus far hemoglobin and hematocrit are remaining relatively stable. Gradual improvement is seen in qualities hematuria. Gross hematuria Anemia Follow CBC Hematuria improving post procedure. No obstruction after Amaya catheter placement Urology following Continue morphine for pain Continue ciprofloxacin Obstructive uropathy Acute kidney injury Monitor renal function Improvement in renal function present as far Continue IV hydration Gen. anxiety disorder Sleep apnea Obesity No change to baseline treatments Continue Ativan Diabetes mellitus type 2 Follow blood sugars Insulin sliding scale Diabetic diet Hypertension Continue baseline treatment Follow blood pressures Adjust treatments as needed Hx of Prostate Cancer Possibly contributory either directly or related to treatment Hx of radiation (seeds) DVT prophylaxis SCD Problem Qualifiers (1) Hematuria: Qualified Codes: R31.9 - Hematuria, unspecified Ronan Golden MD Nov 16, 2017 17:22
[2017-11-16] MEDS: AMINOCAPROIC ACID INJ 3,000 MG in SODIUM CHLORIDE 0.9% IRR BAG 3,000 ML IRRIGATION SCH (19:45)
[2017-11-17] VITALS (9 sets, daily range): BP systolic 147–173; BP diastolic 73–89; PULSE 61–76; RESP 18; TEMP 97.5–99.6; O2SAT 95–99
[2017-11-17] MEDS: oxyCODONE/ACETAMINOPHEN 5 MG/325 MG TAB PO PRN ×4 (03:31→21:39)
[2017-11-17] MEDS: INSULIN ASPART SUPPLEMENTAL SCALE SQ SCH ×6 (03:39→20:00)
[2017-11-17] MEDS: AMINOCAPROIC ACID INJ 3,000 MG in SODIUM CHLORIDE 0.9% IRR BAG 3,000 ML IRRIGATION SCH ×2 (06:23→21:47)
[2017-11-17 07:01] LABS: AUTOMATED NEUTROPHIL # 4.9 TH/MM3 (1.8-7.7); BASOPHIL % 0.3 % (0.0-2.0); EOSINOPHIL # 0.3 TH/MM3 (0-0.4); EOSINOPHIL % 3.7 % (0.0-4.0); HEMATOCRIT 25.3 % (39.0-51.0); HEMOGLOBIN 8.3 GM/DL (13.0-17.0); LYMPH % 19.2 % (9.0-44.0); LYMPHOCYTE # 1.4 TH/MM3 (1.0-4.8); MEAN CELL VOLUME 82.7 FL (80.0-100.0); MEAN CORPUSCULAR HEMOGLOBIN 27.1 PG (27.0-34.0); MEAN CORPUSCULAR HGB CONC 32.7 % (32.0-36.0); MEAN PLATELET VOLUME 7.6 FL (7.0-11.0); MONO % 7.4 % (0.0-8.0); MONOCYTE # 0.5 TH/MM3 (0-0.9); NEUT % 69.4 % (16.0-70.0); PLATELET COUNT 202 TH/MM3 (150-450); RED BLOOD COUNT 3.06 MIL/MM3 (4.50-5.90); RED CELL DISTRIBUTION WIDTH 14.1 % (11.6-17.2); WHITE BLOOD COUNT 7.1 TH/MM3 (4.0-11.0)
[2017-11-17 07:45] LABS: ALBUMIN 2.6 GM/DL (3.4-5.0); ALT (GPT) 38 U/L (12-78); AST (GOT) 25 U/L (15-37); BICARBONATE 26.8 MEQ/L (21.0-32.0); BLOOD UREA NITROGEN 10 MG/DL (7-18); CALCIUM 8.4 MG/DL (8.5-10.1); CHLORIDE 108 MEQ/L (98-107); CREATININE 0.92 MG/DL (0.60-1.30); GLOMERULAR FILTRATION RATE 101 ML/MIN (>89); GLUCOSE,RANDOM 115 MG/DL (74-106); SODIUM (NA) 141 MEQ/L (136-145)
[2017-11-17 07:47] LABS: ALKALINE PHOSPHATASE 70 U/L (45-117); TOTAL BILIRUBIN ADULT 0.2 MG/DL (0.2-1.0); TOTAL PROTEIN 5.7 GM/DL (6.4-8.2)
[2017-11-17] MEDS: SODIUM CHLORIDE 0.9% FLUSH 10 ML FLUSH IV FLUSH SCH ×2 (09:19→20:30)
[2017-11-17] MEDS: CIPROFLOXACIN 400 MG PREMIX 200 ML IV SCH ×2 (09:19→20:32)
[2017-11-17] MEDS: SODIUM CHLOR 0.9% 1000 ML INJ 1,000 ML IV SCH ×2 (09:29→18:38)
--- NOTE | 2017-11-17 11:47 | HHI.PR ---
Subjective Patient symptoms today Pt seen and examined. Urine clearing. Now on Amicar CBI. Objective Vital Signs Vital Signs Date Time Temp Pulse Resp B/P (MAP) Pulse Ox O2 Delivery O2 Flow Rate FiO2 11/17/17 08:00 98.7 69 18 166/86 (112) 98 11/17/17 04:30 18 11/17/17 04:00 99.5 76 18 173/83 (113) 96 11/17/17 03:51 64 11/17/17 00:00 99.5 74 18 163/75 (104) 95 11/16/17 23:47 65 11/16/17 21:50 Room Air 11/16/17 20:00 98.5 66 18 172/89 (116) 98 11/16/17 19:42 68 11/16/17 15:47 99.6 68 17 165/81 (109) 100 11/16/17 12:28 63 Intake & Output 11/17/17 11/17/17 07:00 19:00 Intake Total 4515 ml Output Total 3025 ml Balance 1490 ml Intake Oral 720 ml IV Total 3795 ml Output Urine Total 3025 ml # Bowel Movements 0 Result Diagram: 11/17/1751811/17/17518 Objective Remarks Velazquez catheter draining medium red-colored urine without clots Bladder not distended 11/16 Abd:soft,nt,nd Velazquez on CBI with blood tinged urine 11/17 Abd:soft,nt,nd Velazquez: clearing on Amicar CBI Medications and IVs Current Medications Medications (Trade) Dose Ordered Sig/Daisy Route Start Time Stop Time Status Last Admin Sodium Chloride 1,000 ml @ 100 mls/hr Q10H IV 11/13/17 14:38 11/17/17 09:29 (NS Flush) 2 ml UNSCH PRN IV FLUSH 11/13/17 14:45 (NS Flush) 2 ml BID IV FLUSH 11/13/17 21:00 11/17/17 09:19 (Narcan Inj) 0.4 mg UNSCH PRN IV PUSH 11/13/17 14:45 (Pyridium) 200 mg Q8H PRN PO 11/13/17 16:00 11/14/17 16:22 (Ativan Inj) 1 mg Q2H PRN IV PUSH 11/13/17 16:00 11/14/17 04:32 (Vasotec Inj) 2.5 mg Q6H PRN IV PUSH 11/13/17 16:15 11/13/17 18:31 Dextrose/Sodium Chloride 1,000 ml @ 42 mls/hr [id number] IV 11/13/17 16:15 11/13/17 18:50 Ciprofloxacin/ Dextrose 200 ml @ 200 mls/hr Q12H IV 11/14/17 09:00 11/17/17 09:19 (Percocet 5-325 Mg) 2 tab Q6H PRN PO 11/13/17 17:30 11/17/17 09:19 (Zofran Inj) 4 mg Q6HR PRN IV PUSH 11/13/17 17:30 11/13/17 18:32 (Morphine Inj) 4 mg Q3H PRN IV PUSH 11/13/17 18:00 11/15/17 09:33 (D50w (Vial) Inj) 50 ml UNSCH PRN IV PUSH 11/13/17 20:15 (Glucagon Inj) 1 mg UNSCH PRN OTHER 11/13/17 20:15 (NovoLOG SUPPLEMENTAL SCALE) 1 Q4HR SQ 11/13/17 20:15 11/17/17 09:41 (Catapres) 0.1 mg Q6H PRN PO 11/16/17 08:45 Aminocaproic Acid 3000 mg/Sodium Chloride 3,012 ml @ 0 mls/hr UNSCH IRRIGATION 11/16/17 15:00 11/17/17 06:23 Assessment and Plan Assessment and Plan Urologic impression: #1 history prostate cancer status post radiation therapy #2 gross hematuria of indeterminate etiology Recommendations: #1 continue with Velazquez catheter and irrigate when necessary #2 nothing by mouth after midnight #3 schedule for cystoscopy with fulguration of bleeding sites tomorrow morning 11/16 62 y.o male with 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
[2017-11-17] MEDS: DEXT 5%-NACL 0.9% 1000 ML INJ 1,000 ML IV SCH (15:31)
[2017-11-17] MEDS: PHENAZOPYRIDINE HCL 200 MG TAB PO PRN (15:54)
--- NOTE | 2017-11-17 16:32 | HHI.PR ---
Subjective Remarks Pt is feeling ok today, main complaint is lower back pain, left side. He has a history of low back pain and is requesting a better mattress. Objective Vitals Vital Signs Date Time Temp Pulse Resp B/P (MAP) Pulse Ox O2 Delivery O2 Flow Rate FiO2 11/17/17 12:00 97.5 65 18 147/81 (103) 98 11/17/17 08:00 98.7 69 18 166/86 (112) 98 11/17/17 04:30 18 11/17/17 04:00 99.5 76 18 173/83 (113) 96 11/17/17 03:51 64 11/17/17 00:00 99.5 74 18 163/75 (104) 95 11/16/17 23:47 65 11/16/17 21:50 Room Air 11/16/17 20:00 98.5 66 18 172/89 (116) 98 11/16/17 19:42 68 I/O 11/16/17 11/16/17 11/16/17 11/17/17 11/17/17 11/17/17 07:00 15:00 23:00 07:00 15:00 23:00 Intake Total 240 ml 200 ml 1680 ml 3240 ml 600 ml Output Total 1975 ml 1850 ml 1325 ml 1850 ml 1000 ml Balance -1735 ml -1650 ml 355 ml 1390 ml -400 ml Intake Oral 240 ml 480 ml 240 ml 600 ml IV Total 200 ml 1200 ml 3000 ml Output Urine Total 1975 ml 1850 ml 1325 ml 1850 ml 1000 ml # Bowel Movements 0 0 0 0 Result Diagram: 11/17/1751811/17/17518 Objective Remarks GENERAL: Well-nourished, well-developed patient. SKIN: Warm and dry. HEAD: Normocephalic. EYES: No scleral icterus. No injection or drainage. NECK: Supple, trachea midline. No JVD or lymphadenopathy. CARDIOVASCULAR: Regular rate and rhythm without murmurs, gallops, or rubs. RESPIRATORY: Breath sounds equal bilaterally. No accessory muscle use. GASTROINTESTINAL: Abdomen soft, non-tender, nondistended. URINARY: Gross hematuria in catheter bag BACK: Nontender without obvious deformity. No CVA tenderness. EXTREMITIES: no edema A/P Problem List: (1) Obstructive uropathy ICD Code: N13.9 - Obstructive and reflux uropathy, unspecified Status: Acute (2) Bilateral hydronephrosis ICD Code: N13.30 - Unspecified hydronephrosis Status: Acute (3) Hematuria ICD Code: R31.9 - Hematuria, unspecified Status: Acute Assessment and Plan Gross hematuria Anemia Follow CBC Hematuria improving slowly on continuous bladder irrigation No obstruction after Amaay catheter placement Urology following Continue morphine PRN Continue ciprofloxacin Obstructive uropathy Acute kidney injury History of prostate cancer and radiation Monitor renal function Continue IV hydration Gen. anxiety disorder Sleep apnea Obesity No change to baseline treatments Continue Ativan PRN Diabetes mellitus type 2 Insulin sliding scale w/ accuchecks Diabetic diet Hypertension Continue baseline treatment Follow blood pressures Adjust treatments as needed Hx of Prostate Cancer Possibly contributory either directly or related to treatment Hx of radiation (seeds) DVT prophylaxis SCD Problem Qualifiers (1) Hematuria: Qualified Codes: R31.9 - Hematuria, unspecified Missael Golden MD Nov 17, 2017 16:32
[2017-11-18] VITALS (9 sets, daily range): BP systolic 157–197; BP diastolic 82–96; PULSE 66–75; RESP 17–19; TEMP 96.8–99.4; O2SAT 98–100
[2017-11-18] MEDS: SODIUM CHLOR 0.9% 1000 ML INJ 1,000 ML IV SCH ×2 (00:30→14:38)
[2017-11-18] MEDS: AMINOCAPROIC ACID INJ 3,000 MG in SODIUM CHLORIDE 0.9% IRR BAG 3,000 ML IRRIGATION SCH ×4 (01:02→17:59)
[2017-11-18] MEDS: oxyCODONE/ACETAMINOPHEN 5 MG/325 MG TAB PO PRN ×4 (03:40→21:38)
[2017-11-18] MEDS: ENALAPRILAT 2.5 MG/2 ML VIAL IV PUSH PRN (03:49)
[2017-11-18] MEDS: INSULIN ASPART SUPPLEMENTAL SCALE SQ SCH ×6 (03:50→20:00)
[2017-11-18] MEDS: PHENAZOPYRIDINE HCL 200 MG TAB PO PRN ×2 (09:19→21:44)
[2017-11-18] MEDS: CIPROFLOXACIN 400 MG PREMIX 200 ML IV SCH ×2 (09:19→21:26)
[2017-11-18] MEDS: SODIUM CHLORIDE 0.9% FLUSH 10 ML FLUSH IV FLUSH SCH ×2 (09:36→21:00)
[2017-11-18] MEDS: DEXT 5%-NACL 0.9% 1000 ML INJ 1,000 ML IV SCH (15:20)
--- NOTE | 2017-11-18 15:39 | HHI.PR ---
Subjective Patient symptoms today Denies complaints. Reports catheter draining well. Objective Vital Signs Vital Signs Date Time Temp Pulse Resp B/P (MAP) Pulse Ox O2 Delivery O2 Flow Rate FiO2 11/18/17 12:00 97.1 68 19 177/86 (116) 98 11/18/17 08:00 99.4 69 18 182/84 (116) 98 11/18/17 04:21 19 11/18/17 03:47 75 11/18/17 03:00 98.7 70 18 193/89 (123) 98 11/18/17 00:00 96.8 66 18 157/82 (107) 99 11/17/17 22:42 Room Air 11/17/17 20:00 99.6 71 18 159/73 (101) 96 11/17/17 19:46 72 11/17/17 17:27 74 11/17/17 16:00 99.1 61 18 169/89 (115) 99 Intake & Output 11/18/17 11/18/17 07:00 19:00 Intake Total 4141 ml Output Total 2925 ml 2550 ml Balance 1216 ml -2550 ml Intake Oral 720 ml IV Total 3421 ml Output Urine Total 2925 ml 2550 ml # Bowel Movements 0 Result Diagram: 11/17/1751811/17/17518 Objective Remarks Velazquez catheter draining medium red-colored urine without clots Bladder not distended 11/16 Abd:soft,nt,nd Velazquez on CBI with blood tinged urine 11/17 Abd:soft,nt,nd Velazquez: clearing on Amicar CBI 11/18 Bladder not distended Velazquez catheter in place with light pink output, CBI almost completely clamped off Medications and IVs Current Medications Medications (Trade) Dose Ordered Sig/Daisy Route Start Time Stop Time Status Last Admin Sodium Chloride 1,000 ml @ 100 mls/hr Q10H IV 11/13/17 14:38 11/18/17 00:30 (NS Flush) 2 ml UNSCH PRN IV FLUSH 11/13/17 14:45 (NS Flush) 2 ml BID IV FLUSH 11/13/17 21:00 11/17/17 09:19 (Narcan Inj) 0.4 mg UNSCH PRN IV PUSH 11/13/17 14:45 (Pyridium) 200 mg Q8H PRN PO 11/13/17 16:00 11/18/17 09:19 (Ativan Inj) 1 mg Q2H PRN IV PUSH 11/13/17 16:00 11/14/17 04:32 (Vasotec Inj) 2.5 mg Q6H PRN IV PUSH 11/13/17 16:15 11/18/17 03:49 Dextrose/Sodium Chloride 1,000 ml @ 42 mls/hr [id number] IV 11/13/17 16:15 11/13/17 18:50 Ciprofloxacin/ Dextrose 200 ml @ 200 mls/hr Q12H IV 11/14/17 09:00 11/18/17 09:19 (Percocet 5-325 Mg) 2 tab Q6H PRN PO 11/13/17 17:30 11/18/17 09:53 (Zofran Inj) 4 mg Q6HR PRN IV PUSH 11/13/17 17:30 11/13/17 18:32 (Morphine Inj) 4 mg Q3H PRN IV PUSH 11/13/17 18:00 11/15/17 09:33 (D50w (Vial) Inj) 50 ml UNSCH PRN IV PUSH 11/13/17 20:15 (Glucagon Inj) 1 mg UNSCH PRN OTHER 11/13/17 20:15 (NovoLOG SUPPLEMENTAL SCALE) 1 Q4HR SQ 11/13/17 20:15 11/18/17 11:59 (Catapres) 0.1 mg Q6H PRN PO 11/16/17 08:45 Aminocaproic Acid 3000 mg/Sodium Chloride 3,012 ml @ 0 mls/hr UNSCH IRRIGATION 11/16/17 15:00 11/18/17 11:59 Assessment and Plan Assessment and Plan Urologic impression: #1 history prostate cancer status post radiation therapy #2 gross hematuria of indeterminate etiology Recommendations: #1 continue with Velazquez catheter and irrigate when necessary #2 nothing by mouth after midnight #3 schedule for cystoscopy with fulguration of bleeding sites tomorrow morning 11/16 62 y.o male with 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 Once urine output remains clear yellow for a minimum of 48 hours, the Velazquez can be removed either at my office for over at the [facility]. Darryl Alcazar MD Nov 18, 2017 15:39
--- NOTE | 2017-11-18 18:15 | HHI.PR ---
Subjective Remarks Only complaint is low back pain, persistant. He notes daily improvement in the clarity of his hematuria tinted urine. Objective Vitals Vital Signs Date Time Temp Pulse Resp B/P (MAP) Pulse Ox O2 Delivery O2 Flow Rate FiO2 11/18/17 16:00 99.0 66 17 172/84 (113) 99 11/18/17 12:00 97.1 68 19 177/86 (116) 98 11/18/17 08:00 99.4 69 18 182/84 (116) 98 11/18/17 04:21 19 11/18/17 03:47 75 11/18/17 03:00 98.7 70 18 193/89 (123) 98 11/18/17 00:00 96.8 66 18 157/82 (107) 99 11/17/17 22:42 Room Air 11/17/17 20:00 99.6 71 18 159/73 (101) 96 11/17/17 19:46 72 I/O 11/17/17 11/17/17 11/17/17 11/18/17 11/18/17 11/18/17 07:00 15:00 23:00 07:00 15:00 23:00 Intake Total 3240 ml 800 ml 1219 ml 3701 ml Output Total 1850 ml 1000 ml 900 ml 2025 ml 2550 ml 2950 ml Balance 1390 ml -200 ml 319 ml 1676 ml -2550 ml -2950 ml Intake Oral 240 ml 600 ml 240 ml 480 ml IV Total 3000 ml 200 ml 979 ml 3221 ml Output Urine Total 1850 ml 1000 ml 900 ml 2025 ml 2550 ml 2950 ml # Bowel Movements 0 0 0 0 Result Diagram: 11/17/1751811/17/17 05 Objective Remarks GENERAL: Well-nourished, well-developed patient. SKIN: Warm and dry. HEAD: Normocephalic. EYES: No scleral icterus. No injection or drainage. NECK: Supple, trachea midline. No JVD or lymphadenopathy. CARDIOVASCULAR: Regular rate and rhythm without murmurs, gallops, or rubs. RESPIRATORY: Breath sounds equal bilaterally. No accessory muscle use. GASTROINTESTINAL: Abdomen soft, non-tender, nondistended. URINARY: Gross hematuria in catheter bag BACK: Nontender without obvious deformity. No CVA tenderness. EXTREMITIES: no edema A/P Problem List: (1) Obstructive uropathy ICD Code: N13.9 - Obstructive and reflux uropathy, unspecified Status: Acute (2) Bilateral hydronephrosis ICD Code: N13.30 - Unspecified hydronephrosis Status: Acute (3) Hematuria ICD Code: R31.9 - Hematuria, unspecified Status: Acute Assessment and Plan Gross hematuria Anemia Hematuria improving slowly on continuous bladder irrigation Urology following Continue ciprofloxacin Following CBC trend Obstructive uropathy Acute kidney injury History of prostate cancer and radiation Monitor renal function Continue IV hydration Gen. anxiety disorder Sleep apnea Obesity No change to baseline treatments Continue Ativan PRN Diabetes mellitus type 2 Insulin sliding scale w/ accuchecks Diabetic diet Hypertension Continue home meds, monitor BP, adjust meds as needed Hx of Prostate Cancer Possibly contributory either directly or related to treatment Hx of radiation (seeds) DVT prophylaxis SCD Encouraged ambulation as possible Problem Qualifiers (1) Hematuria: Qualified Codes: R31.9 - Hematuria, unspecified Missael Golden MD Nov 18, 2017 18:15
[2017-11-18] MEDS: cloNIDine HCL 0.1 MG TAB PO PRN (21:26)
[2017-11-19] VITALS (7 sets, daily range): BP systolic 153–181; BP diastolic 80–86; PULSE 58–73; RESP 18–20; TEMP 97.1–99.8; O2SAT 97–100
[2017-11-19] MEDS: SODIUM CHLOR 0.9% 1000 ML INJ 1,000 ML IV SCH ×3 (00:38→20:38)
[2017-11-19] MEDS: oxyCODONE/ACETAMINOPHEN 5 MG/325 MG TAB PO PRN ×4 (03:39→21:26)
[2017-11-19] MEDS: INSULIN ASPART SUPPLEMENTAL SCALE SQ SCH ×6 (03:44→20:00)
[2017-11-19] MEDS: CIPROFLOXACIN 400 MG PREMIX 200 ML IV SCH ×2 (08:11→21:27)
[2017-11-19] MEDS: SODIUM CHLORIDE 0.9% FLUSH 10 ML FLUSH IV FLUSH SCH ×2 (08:13→21:27)
[2017-11-19] MEDS: cloNIDine HCL 0.1 MG TAB PO PRN ×2 (08:19→08:20)
[2017-11-19] MEDS ORDERED: LISI10TA PO (08:22)
[2017-11-19] MEDS: AMINOCAPROIC ACID INJ 3,000 MG in SODIUM CHLORIDE 0.9% IRR BAG 3,000 ML IRRIGATION SCH (09:24)
[2017-11-19] MEDS: DEXT 5%-NACL 0.9% 1000 ML INJ 1,000 ML IV SCH (15:09)
[2017-11-19] MEDS: PHENAZOPYRIDINE HCL 200 MG TAB PO PRN (15:18)
--- NOTE | 2017-11-19 18:26 | HHI.PR ---
Subjective Remarks Hematuria slowly improving. Urology is anticipating timing for discharge soon with indwelling catheter. Patient is apprehensive about this and says he is not sure he can take care of himself at home, prepare meals, etc. Objective Vitals Vital Signs Date Time Temp Pulse Resp B/P (MAP) Pulse Ox O2 Delivery O2 Flow Rate FiO2 11/19/17 16:19 18 11/19/17 16:00 97.1 68 20 153/86 (108) 97 11/19/17 16:00 63 11/19/17 12:37 68 11/19/17 12:00 98.4 58 20 159/80 (106) 97 11/19/17 08:10 98 Room Air 11/19/17 08:00 98.1 73 19 172/83 (112) 98 11/19/17 08:00 60 11/19/17 04:00 97.3 66 18 169/82 (111) 99 11/19/17 00:00 97.8 63 18 171/84 (113) 100 11/18/17 23:54 66 11/18/17 20:00 Room Air 11/18/17 20:00 98.3 68 18 197/96 (129) 100 11/18/17 19:45 66 I/O 11/18/17 11/18/17 11/18/17 11/19/17 11/19/17 11/19/17 07:00 15:00 23:00 07:00 15:00 23:00 Intake Total 3701 ml 360 ml 120 ml Output Total 2025 ml 2550 ml 2950 ml 4500 ml 4825 ml 900 ml Balance 1676 ml -2550 ml -2590 ml -4500 ml -4705 ml -900 ml Intake Oral 480 ml 360 ml 120 ml IV Total 3221 ml Output Urine Total 2025 ml 2550 ml 2950 ml 4500 ml 4825 ml 900 ml # Voids 0 # Bowel Movements 0 0 Result Diagram: 11/17/1751811/17/17518 Objective Remarks GENERAL: Well-nourished, well-developed patient. SKIN: Warm and dry. HEAD: Normocephalic. EYES: No scleral icterus. No injection or drainage. NECK: Supple, trachea midline. No JVD or lymphadenopathy. CARDIOVASCULAR: Regular rate and rhythm without murmurs, gallops, or rubs. RESPIRATORY: Breath sounds equal bilaterally. No accessory muscle use. GASTROINTESTINAL: Abdomen soft, non-tender, nondistended. URINARY: Gross hematuria in catheter bag BACK: Nontender without obvious deformity. No CVA tenderness. EXTREMITIES: no edema A/P Problem List: (1) Obstructive uropathy ICD Code: N13.9 - Obstructive and reflux uropathy, unspecified Status: Acute (2) Bilateral hydronephrosis ICD Code: N13.30 - Unspecified hydronephrosis Status: Acute (3) Hematuria ICD Code: R31.9 - Hematuria, unspecified Status: Acute Assessment and Plan Gross hematuria Anemia Hematuria improving slowly on continuous bladder irrigation Urology following Continue ciprofloxacin Discharge anticipated soon, SNF vs. [facility] Obstructive uropathy Acute kidney injury History of prostate cancer and radiation Monitor renal function Continue IV hydration Gen. anxiety disorder Sleep apnea Obesity No change to baseline treatments Continue Ativan PRN Diabetes mellitus type 2 Insulin sliding scale w/ accuchecks Diabetic diet Hypertension Continue home meds, monitor BP, adjust meds as needed Hx of Prostate Cancer Possibly contributory either directly or related to treatment Hx of radiation (seeds) DVT prophylaxis SCD Encouraged ambulation as possible Discharge Planning Patient feels he will not be able to do well at home alone, he is anxious about the prospect of cooking, bathing, etc. Problem Qualifiers (1) Hematuria: Qualified Codes: R31.9 - Hematuria, unspecified Missael Golden MD Nov 19, 2017 18:26
[2017-11-19] MEDS ORDERED: LISINOPRIL PO SCH (21:00)
[2017-11-19] MEDS ORDERED: HCTZ PO SCH (21:00)
[2017-11-19] MEDS: LISINOPRIL 10 MG TAB PO SCH (21:25)
[2017-11-19] MEDS: HYDROCHLOROTHIAZIDE 25 MG TAB PO SCH (21:25)
[2017-11-20] VITALS (7 sets, daily range): BP systolic 134–174; BP diastolic 67–84; PULSE 66–77; RESP 16–20; TEMP 99.1–100; O2SAT 95–100
[2017-11-20] MEDS: PHENAZOPYRIDINE HCL 200 MG TAB PO PRN ×3 (01:30→18:04)
[2017-11-20] MEDS: oxyCODONE/ACETAMINOPHEN 5 MG/325 MG TAB PO PRN ×4 (03:31→21:31)
[2017-11-20] MEDS: SODIUM CHLOR 0.9% 1000 ML INJ 1,000 ML IV SCH ×2 (03:34→16:38)
[2017-11-20] MEDS: INSULIN ASPART SUPPLEMENTAL SCALE SQ SCH ×6 (03:34→21:40)
[2017-11-20] MEDS: HYDROCHLOROTHIAZIDE 25 MG TAB PO SCH ×2 (09:00→21:30)
[2017-11-20] MEDS: SODIUM CHLORIDE 0.9% FLUSH 10 ML FLUSH IV FLUSH SCH ×2 (09:00→21:33)
[2017-11-20] MEDS: LISINOPRIL 10 MG TAB PO SCH ×2 (09:09→21:31)
[2017-11-20] MEDS: CIPROFLOXACIN 400 MG PREMIX 200 ML IV SCH ×2 (09:10→21:33)
--- NOTE | 2017-11-20 12:48 | HHI.PR ---
Subjective Patient symptoms today Reports feeling somewhat better today Velazquez catheter has been draining well Objective Vital Signs Vital Signs Date Time Temp Pulse Resp B/P (MAP) Pulse Ox O2 Delivery O2 Flow Rate FiO2 11/20/17 12:00 99.1 74 18 165/79 (107) 96 11/20/17 08:00 99.7 66 17 168/84 (112) 98 11/20/17 04:00 99.7 70 20 174/83 (113) 98 11/20/17 01:25 66 11/20/17 00:00 99.6 67 20 157/77 (103) 100 11/19/17 20:00 99.8 69 20 181/86 (117) 100 11/19/17 16:19 18 11/19/17 16:00 97.1 68 20 153/86 (108) 97 11/19/17 16:00 63 Intake & Output 11/20/17 11/20/17 07:00 19:00 Intake Total 440 ml Output Total 1690 ml Balance -1250 ml Intake Oral 240 ml IV Total 200 ml Output Urine Total 1690 ml # Bowel Movements 1 Result Diagram: 11/17/1751811/17/17518 Objective Remarks Urologic impression: #1 hematuria related to radiation cystitis which is slowly improving #2 history prostate cancer status post radiation therapy Recommendations: #1 continue with Amicar CBI and titrate off as urine clears #2 would not remove Velazquez until urine remains clear yellow for at least 2 days after CBI discontinued #3 eventual outpatient follow up with [facility] Medications and IVs Current Medications Medications (Trade) Dose Ordered Sig/Daisy Route Start Time Stop Time Status Last Admin Sodium Chloride 1,000 ml @ 100 mls/hr Q10H IV 11/13/17 14:38 11/18/17 00:30 (NS Flush) 2 ml UNSCH PRN IV FLUSH 11/13/17 14:45 11/19/17 09:23 (NS Flush) 2 ml BID IV FLUSH 11/13/17 21:00 11/20/17 09:00 (Narcan Inj) 0.4 mg UNSCH PRN IV PUSH 11/13/17 14:45 (Pyridium) 200 mg Q8H PRN PO 11/13/17 16:00 11/20/17 09:09 (Ativan Inj) 1 mg Q2H PRN IV PUSH 11/13/17 16:00 11/14/17 04:32 (Vasotec Inj) 2.5 mg Q6H PRN IV PUSH 11/13/17 16:15 11/18/17 03:49 Dextrose/Sodium Chloride 1,000 ml @ 42 mls/hr [id number] IV 11/13/17 16:15 11/13/17 18:50 Ciprofloxacin/ Dextrose 200 ml @ 200 mls/hr Q12H IV 11/14/17 09:00 11/20/17 09:10 (Percocet 5-325 Mg) 2 tab Q6H PRN PO 11/13/17 17:30 11/20/17 09:09 (Zofran Inj) 4 mg Q6HR PRN IV PUSH 11/13/17 17:30 11/13/17 18:32 (Morphine Inj) 4 mg Q3H PRN IV PUSH 11/13/17 18:00 11/15/17 09:33 (D50w (Vial) Inj) 50 ml UNSCH PRN IV PUSH 11/13/17 20:15 (Glucagon Inj) 1 mg UNSCH PRN OTHER 11/13/17 20:15 (NovoLOG SUPPLEMENTAL SCALE) 1 Q4HR SQ 11/13/17 20:15 11/20/17 12:00 (Catapres) 0.1 mg Q6H PRN PO 11/16/17 08:45 11/19/17 08:20 Aminocaproic Acid 3000 mg/Sodium Chloride 3,012 ml @ 0 mls/hr UNSCH IRRIGATION 11/16/17 15:00 11/19/17 09:24 (Prinivil) 10 mg BID PO 11/19/17 21:00 11/20/17 09:09 (Hydrodiuril) 12.5 mg BID PO 11/19/17 21:00 11/20/17 09:00 Assessment and Plan Assessment and Plan Urologic impression: #1 history prostate cancer status post radiation therapy #2 gross hematuria of indeterminate etiology Recommendations: #1 continue with Velazquez catheter and irrigate when necessary #2 nothing by mouth after midnight #3 schedule for cystoscopy with fulguration of bleeding sites tomorrow morning 11/16 62 y.o male with 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 Once urine output remains clear yellow for a minimum of 48 hours, the Velazquez can be removed either at [facility]. Darryl Alcazar MD Nov 20, 2017 12:48
[2017-11-20] MEDS: DEXT 5%-NACL 0.9% 1000 ML INJ 1,000 ML IV SCH (14:58)
--- NOTE | 2017-11-20 19:00 | HHI.PR ---
Subjective Remarks Pt is concerned about urine leakage around catheter, it is a small amount. The urine looks improved, yellow today instead of pink. Objective Vitals Vital Signs Date Time Temp Pulse Resp B/P (MAP) Pulse Ox O2 Delivery O2 Flow Rate FiO2 11/20/17 16:00 100.0 77 16 134/67 (89) 95 11/20/17 12:00 99.1 74 18 165/79 (107) 96 11/20/17 08:00 99.7 66 17 168/84 (112) 98 11/20/17 04:00 99.7 70 20 174/83 (113) 98 11/20/17 01:25 66 11/20/17 00:00 99.6 67 20 157/77 (103) 100 11/19/17 20:00 99.8 69 20 181/86 (117) 100 I/O 11/19/17 11/19/17 11/19/17 11/20/17 11/20/17 11/20/17 07:00 15:00 23:00 07:00 15:00 23:00 Intake Total 120 ml 960 ml 440 ml 1800 ml Output Total 4500 ml 4825 ml 2110 ml 1690 ml Balance -4500 ml -4705 ml -1150 ml -1250 ml 1800 ml Intake Oral 120 ml 960 ml 240 ml 1800 ml IV Total 200 ml Output Urine Total 4500 ml 4825 ml 2110 ml 1690 ml # Bowel Movements 0 1 0 Result Diagram: 11/17/1751811/17/17518 Objective Remarks GENERAL: Well-nourished, well-developed patient. SKIN: Warm and dry. HEAD: Normocephalic. EYES: No scleral icterus. No injection or drainage. NECK: Supple, trachea midline. No JVD or lymphadenopathy. CARDIOVASCULAR: Regular rate and rhythm without murmurs, gallops, or rubs. RESPIRATORY: Breath sounds equal bilaterally. No accessory muscle use. GASTROINTESTINAL: Abdomen soft, non-tender, nondistended. URINARY: Gross hematuria in catheter bag BACK: Nontender without obvious deformity. No CVA tenderness. EXTREMITIES: no edema A/P Problem List: (1) Obstructive uropathy ICD Code: N13.9 - Obstructive and reflux uropathy, unspecified Status: Acute (2) Bilateral hydronephrosis ICD Code: N13.30 - Unspecified hydronephrosis Status: Acute (3) Hematuria ICD Code: R31.9 - Hematuria, unspecified Status: Acute Assessment and Plan Gross hematuria Anemia Hematuria appears mostly resolved today, urine is yellow in color Urology following Continue ciprofloxacin Obstructive uropathy Acute kidney injury History of prostate cancer and radiation Monitor renal function Gen. anxiety disorder Sleep apnea Obesity Home meds Ativan PRN Diabetes mellitus type 2 Insulin sliding scale w/ accuchecks Diabetic diet Hypertension Continue home meds, monitor BP, adjust meds as needed Hx of Prostate Cancer Possibly contributory either directly or related to treatment Hx of radiation (seeds) DVT prophylaxis SCD Discharge Planning Pt did not qualify for SNF, so home health care will need to be arrange on discharge Problem Qualifiers (1) Hematuria: Qualified Codes: R31.9 - Hematuria, unspecified Missael Golden MD Nov 20, 2017 19:00
[2017-11-21] VITALS: BP 159/83; PULSE 73; RESP 20; TEMP 100.2; O2SAT 98
--- NOTE | 2017-11-21 00:27 | HHI.FF ---
Face to Face Verification Diagnosis: (1) Hematuria (2) Obstructive uropathy Physical Therapy Order: Evaluate and Treat Home Health Nursing Order: Amaya catheter maintenance I have seen patient Sid Mckeon on 11/21/17. My clinical findings support the need for the requested home health care services because: Deconditioned w/ increased weakness I certify that my clinical findings support that this patient is homebound because: Post-op weakness Columba Naranjo MD Nov 21, 2017 00:27
[2017-11-21] MEDS: SODIUM CHLOR 0.9% 1000 ML INJ 1,000 ML IV SCH ×3 (02:38→21:43)
[2017-11-21] MEDS: oxyCODONE/ACETAMINOPHEN 5 MG/325 MG TAB PO PRN ×4 (03:34→21:36)
[2017-11-21] MEDS: INSULIN ASPART SUPPLEMENTAL SCALE SQ SCH ×5 (03:34→15:41)
[2017-11-21 05:11] VITALS: BP 142/73; PULSE 74; RESP 18; TEMP 99.7; O2SAT 97
[2017-11-21] MEDS: SODIUM CHLORIDE 0.9% FLUSH 10 ML FLUSH IV FLUSH SCH ×2 (08:40→21:43)
[2017-11-21] MEDS: HYDROCHLOROTHIAZIDE 25 MG TAB PO SCH ×2 (08:44→21:36)
[2017-11-21] MEDS: LISINOPRIL 10 MG TAB PO SCH ×2 (08:45→21:36)
[2017-11-21 12:00] VITALS: BP 163/81; PULSE 72; RESP 18; TEMP 99.1; O2SAT 97
[2017-11-21 13:33] VITALS: PULSE 72
--- NOTE | 2017-11-21 13:42 | HHI.PR ---
Subjective Patient symptoms today Reports catheter draining well Objective Vital Signs Vital Signs Date Time Temp Pulse Resp B/P (MAP) Pulse Ox O2 Delivery O2 Flow Rate FiO2 11/21/17 13:33 72 11/21/17 12:00 99.1 72 18 163/81 (108) 97 11/21/17 05:11 99.7 74 18 142/73 (96) 97 11/21/17 00:00 100.2 73 20 159/83 (108) 98 11/20/17 20:00 99.1 72 20 150/74 (99) 97 11/20/17 16:00 100.0 77 16 134/67 (89) 95 Intake & Output 11/21/17 11/21/17 07:00 19:00 Intake Total 980 ml 0 ml Output Total 3500 ml Balance -2520 ml 0 ml Intake Oral 780 ml IV Total 200 ml 0 ml Output Urine Total 3500 ml # Bowel Movements 0 Result Diagram: 11/17/1751811/17/17518 Objective Remarks CBI running at slow rate with white-pink output Medications and IVs Current Medications Medications (Trade) Dose Ordered Sig/Daisy Route Start Time Stop Time Status Last Admin Sodium Chloride 1,000 ml @ 100 mls/hr Q10H IV 11/13/17 14:38 11/18/17 00:30 (NS Flush) 2 ml UNSCH PRN IV FLUSH 11/13/17 14:45 11/19/17 09:23 (NS Flush) 2 ml BID IV FLUSH 11/13/17 21:00 11/20/17 21:33 (Narcan Inj) 0.4 mg UNSCH PRN IV PUSH 11/13/17 14:45 (Pyridium) 200 mg Q8H PRN PO 11/13/17 16:00 11/20/17 18:04 (Ativan Inj) 1 mg Q2H PRN IV PUSH 11/13/17 16:00 11/14/17 04:32 (Vasotec Inj) 2.5 mg Q6H PRN IV PUSH 11/13/17 16:15 11/18/17 03:49 Dextrose/Sodium Chloride 1,000 ml @ 42 mls/hr [id number] IV 11/13/17 16:15 11/13/17 18:50 (Percocet 5-325 Mg) 2 tab Q6H PRN PO 11/13/17 17:30 11/21/17 09:40 (Zofran Inj) 4 mg Q6HR PRN IV PUSH 11/13/17 17:30 11/13/17 18:32 (Morphine Inj) 4 mg Q3H PRN IV PUSH 11/13/17 18:00 11/15/17 09:33 (D50w (Vial) Inj) 50 ml UNSCH PRN IV PUSH 11/13/17 20:15 (Glucagon Inj) 1 mg UNSCH PRN OTHER 11/13/17 20:15 (NovoLOG SUPPLEMENTAL SCALE) 1 Q4HR SQ 11/13/17 20:15 11/21/17 12:00 (Catapres) 0.1 mg Q6H PRN PO 11/16/17 08:45 11/19/17 08:20 Aminocaproic Acid 3000 mg/Sodium Chloride 3,012 ml @ 0 mls/hr UNSCH IRRIGATION 11/16/17 15:00 11/19/17 09:24 (Prinivil) 10 mg BID PO 11/19/17 21:00 11/21/17 08:45 (Hydrodiuril) 12.5 mg BID PO 11/19/17 21:00 11/21/17 08:44 Assessment and Plan Assessment and Plan Urologic impression: #1 history prostate cancer status post radiation therapy #2 radiation cystitis #3 status post recent cystoscopy with fulguration of bleeding sites #4 slowly resolving hematuria with Amicar CBI Recommendations: #1 slowly titrate off CBI as urine continues to clear #2 Amaya catheter should not be removed until urine remains clear yellow for at least 2 days #3 Follow-up as an outpatient over at [facility] with his established physicians Darryl Alcazar MD Nov 21, 2017 13:42
[2017-11-21] MEDS: DEXT 5%-NACL 0.9% 1000 ML INJ 1,000 ML IV SCH ×2 (14:30→21:44)
--- NOTE | 2017-11-21 15:48 | HHI.PR ---
Subjective Remarks Patient states some discomfort around catheter area otherwise no significant abdominal pain. Tolerating diet Objective Vitals Vital Signs Date Time Temp Pulse Resp B/P (MAP) Pulse Ox O2 Delivery O2 Flow Rate FiO2 11/21/17 13:33 72 11/21/17 12:00 99.1 72 18 163/81 (108) 97 11/21/17 05:11 99.7 74 18 142/73 (96) 97 11/21/17 00:00 100.2 73 20 159/83 (108) 98 11/20/17 20:00 99.1 72 20 150/74 (99) 97 11/20/17 16:00 100.0 77 16 134/67 (89) 95 I/O 11/20/17 11/20/17 11/20/17 11/21/17 11/21/17 11/21/17 06:59 14:59 22:59 06:59 14:59 22:59 Intake Total 440 ml 1800 ml 980 ml 0 ml Output Total 1690 ml 1000 ml 3500 ml Balance -1250 ml 800 ml -2520 ml 0 ml Intake Oral 240 ml 1800 ml 780 ml IV Total 200 ml 200 ml 0 ml Output Urine Total 1690 ml 1000 ml 3500 ml # Bowel Movements 1 0 0 Result Diagram: 11/17/17 0519 11/17/17 0519 Other Results Microbiology Date/Time Source Procedure Growth Status 11/13/17 12:30 Urine Catheterized Urine Urine Culture - Final NO GROWTH IN 48 HOURS. Complete Item Value Date Time Bedside Blood Glucose 206 mg/dl 11/21/17 1258 Bedside Blood Glucose 158 mg/dl 11/21/17 0800 Bedside Blood Glucose 136 mg/dl 11/21/17 0334 Objective Remarks GENERAL: This is a well-nourished, well-developed patient, in no apparent distress. CARDIOVASCULAR: Regular rate and rhythm RESPIRATORY: Clear to auscultation. Breath sounds equal bilaterally. No wheezes , rales, or rhonchi. GASTROINTESTINAL: Abdomen soft, non-tender, nondistended. Normal active bowel sounds MUSCULOSKELETAL: Extremities without clubbing, cyanosis, or edema. NEURO: Alert & Oriented x4 to person, place, time, situation. Moves all ext x4 A/P Problem List: (1) Obstructive uropathy ICD Code: N13.9 - Obstructive and reflux uropathy, unspecified Status: Acute (2) Bilateral hydronephrosis ICD Code: N13.30 - Unspecified hydronephrosis Status: Acute (3) Hematuria ICD Code: R31.9 - Hematuria, unspecified Status: Acute Assessment and Plan Gross hematuria Anemia Hematuria appears to be improving and slightly clearing up Urology following recommending continuing with CBI but slowing down and transitioning to stopping it in the next 24 hours Continue ciprofloxacin After continuous bladder irrigation stops will need indwelling Amaya catheter for next 48 hours and then removal for trial voiding Obstructive uropathy Acute kidney injury History of prostate cancer and radiation Monitor renal function General. anxiety disorder Sleep apnea Obesity Home meds Ativan PRN Diabetes mellitus type 2 - Overall blood sugars controlled ; Insulin sliding scale w/ accuchecks Diabetic diet Hypertension Continue home medications, lisinopril, monitor BP, adjust meds as needed Hx of Prostate Cancer -follow-up as an outpatient with urology Hx of radiation (seeds) DVT prophylaxis SCD Discharge Planning Significant other prefers going to [facility] facility however patient does not qualify through insurance, will need to consider home health care nursing care for Amaya bag and continued PT Problem Qualifiers (1) Hematuria: Qualified Codes: R31.9 - Hematuria, unspecified Columba Naranjo MD Nov 21, 2017 15:48
[2017-11-21 16:00] VITALS: BP 138/78; PULSE 80; RESP 18; TEMP 98.3; O2SAT 93
[2017-11-21] MEDS ORDERED: BISACODYL 10 MG SUPP RECTAL PRN (16:00)
[2017-11-21] MEDS ORDERED: MAGNESIUM HYDROXIDE SUSP 30 ML CUP PO PRN (16:00)
[2017-11-21] MEDS ORDERED: SENNOSIDES 8.6 MG TAB PO PRN (16:00)
[2017-11-21] MEDS ORDERED: LACTULOSE SYRUP 20 GM/30 ML CUP PO PRN (16:00)
[2017-11-21] MEDS ORDERED: GLUCAGON 1 MG/ML VIAL OTHER PRN (16:30)
[2017-11-21] MEDS ORDERED: DEXTROSE 50% IN WATER 50 ML VIAL(D50) IV PUSH PRN (16:30)
[2017-11-21 20:00] VITALS: BP 160/70; PULSE 85; RESP 20; TEMP 100.4; O2SAT 97
[2017-11-21] MEDS: PHENAZOPYRIDINE HCL 200 MG TAB PO PRN (21:37)
[2017-11-22] VITALS (7 sets, daily range): BP systolic 119–154; BP diastolic 59–74; PULSE 70–77; RESP 18; TEMP 97.6–99.9; O2SAT 93–100
[2017-11-22] MEDS: oxyCODONE/ACETAMINOPHEN 5 MG/325 MG TAB PO PRN ×4 (03:56→22:06)
[2017-11-22] MEDS ORDERED: METF1000 PO (06:46)
[2017-11-22] MEDS: SODIUM CHLOR 0.9% 1000 ML INJ 1,000 ML IV SCH ×2 (08:38→17:35)
[2017-11-22] MEDS: HYDROCHLOROTHIAZIDE 25 MG TAB PO SCH ×2 (08:57→22:05)
[2017-11-22] MEDS: LISINOPRIL 10 MG TAB PO SCH ×2 (08:57→22:05)
[2017-11-22] MEDS: SODIUM CHLORIDE 0.9% FLUSH 10 ML FLUSH IV FLUSH SCH ×2 (08:59→22:22)
--- NOTE | 2017-11-22 10:24 | RADRPT ---
EXAM DATE/TIME: 11/22/2017 09:19 [facility] COMPARISON: No previous studies available for comparison. INDICATIONS : Left arm swelling and pain. MEDICAL HISTORY : Hypercholesterolemia. Carcinoma, prostate. Peripheral neuropathy. HTN. Sleep apnea. Colon polyp. VIRAL D. Hematuria. Cervical stenosis. Disc degenerative. Diabetes. Anemia. PTSD. Anxiety. SURGICAL HISTORY : Bone fusion with titanium in back. Right shoulder surgery. Both knees orthoscopic. Blood transfusions . Radiation therapy. ENCOUNTER: Initial ACUITY: 4 - 6 days PAIN SCORE: 10/10 LOCATION: Left arm. FINDINGS: There is spontaneous flow documented in the brachial, basilic, axillary, and subclavian veins. There is superficial thrombosis of the cephalic vein extending into the forearm. The flow is phasic with re spiration. Direction of flow in the jugular vein is caudal. CONCLUSION: 1. Superficial thrombus in the cephalic vein. 2. No deep venous thrombosis. Noe Ray MD on November 22, 2017 at 10:21 Board Certified Radiologist. This report was verified electronically.
--- NOTE | 2017-11-22 12:46 | HHI.PR ---
Subjective Remarks Patient reports no abdominal pain overnight. No chills or fever. Objective Vitals Vital Signs Date Time Temp Pulse Resp B/P (MAP) Pulse Ox O2 Delivery O2 Flow Rate FiO2 11/22/17 12:00 98.4 76 18 134/71 (92) 93 11/22/17 08:00 98.4 70 18 126/59 (81) 95 11/22/17 03:38 97.6 75 18 134/64 (87) 96 11/22/17 00:00 98.8 72 18 154/74 (100) 100 11/21/17 20:00 100.4 85 20 160/70 (100) 97 11/21/17 16:00 98.3 80 18 138/78 (98) 93 11/21/17 13:33 72 I/O 11/21/17 11/21/17 11/21/17 11/22/17 11/22/17 11/22/17 07:00 15:00 23:00 07:00 15:00 23:00 Intake Total 980 ml 0 ml 1614 ml 0 ml Output Total 3500 ml 2450 ml Balance -2520 ml 0 ml 1614 ml -2450 ml 0 ml Intake Oral 780 ml 1320 ml IV Total 200 ml 0 ml 294 ml 0 ml Output Urine Total 3500 ml 2450 ml # Bowel Movements 0 1 Other Results Item Value Date Time Bedside Blood Glucose 200 mg/dl 11/22/17 1126 Bedside Blood Glucose 139 mg/dl 11/22/17 0949 Imaging Last 24 hours Impressions Upper Extremity Ultrasound 11/22/17 0000 Signed Impressions: Service Date/Time: Wednesday, November 22, 2017 09:19 - CONCLUSION: 1. Superficial thrombus in the cephalic vein. 2. No deep venous thrombosis. Noe Ray MD Objective Remarks GENERAL: This is a well-nourished, well-developed patient, in no apparent distress. CARDIOVASCULAR: Regular rate and rhythm RESPIRATORY: Clear to auscultation. Breath sounds equal bilaterally. No wheezes , rales, or rhonchi. GASTROINTESTINAL: Abdomen soft, non-tender, nondistended. Normal active bowel sounds Extremities : Left upper antecubital area showed more swelling and hardness with no induration seen NEURO: Alert & Oriented x4 to person, place, time, situation. Moves all ext x4 A/P Problem List: (1) Obstructive uropathy ICD Code: N13.9 - Obstructive and reflux uropathy, unspecified Status: Acute (2) Bilateral hydronephrosis ICD Code: N13.30 - Unspecified hydronephrosis Status: Acute (3) Hematuria ICD Code: R31.9 - Hematuria, unspecified Status: Acute Assessment and Plan Gross hematuria Anemia Hematuria appears to be improving with CBI Urology following recommending continuing with CBI but slowing down and transitioning to stopping it in the next 24 hours Discontinued ciprofloxacin After continuous bladder irrigation stops will need indwelling Amaya catheter for next 48 hours and then removal for trial voiding; Patient can be sent home with a indwelling Amaya catheter with home health care and follow-up with urology for Amaya catheter removal next week if CBI is able to be discontinued in the morning. Obstructive uropathy Acute kidney injury History of prostate cancer and radiation Monitor renal function General. anxiety disorder Sleep apnea Obesity Home meds Ativan PRN Diabetes mellitus type 2 - Overall blood sugars controlled ; Insulin sliding scale w/ accuchecks Diabetic diet Hypertension Continue home medications, lisinopril, monitor BP, adjust meds as needed Hx of Prostate Cancer -follow-up as an outpatient with urology Hx of radiation (seeds) Left arm swelling from previous IV site, ultrasound revealed no deep venous thrombosis. Ice pack to the area, elevation. DVT prophylaxis SCD Discharge Planning Significant other prefers going to nursing home facility however patient does not qualify through insurance, will need to consider home health care nursing care for Amaya bag and continued PT; discharge to home with home health care in the morning if CBI is discontinued a hematuria improves. Follow- up with urology in the office next week for Amaya removal Problem Qualifiers (1) Hematuria: Qualified Codes: R31.9 - Hematuria, unspecified Columba Naranjo MD Nov 22, 2017 12:46
[2017-11-22] MEDS: INSULIN ASPART SUPPLEMENTAL SCALE SQ SCH ×2 (16:51→22:20)
[2017-11-23] VITALS: BP 122/65; PULSE 77; RESP 18; TEMP 99.7; O2SAT 92
[2017-11-23] MEDS: oxyCODONE/ACETAMINOPHEN 5 MG/325 MG TAB PO PRN ×4 (03:31→21:55)
[2017-11-23] MEDS: SODIUM CHLOR 0.9% 1000 ML INJ 1,000 ML IV SCH ×2 (04:38→14:38)
[2017-11-23] MEDS: AMINOCAPROIC ACID INJ 3,000 MG in SODIUM CHLORIDE 0.9% IRR BAG 3,000 ML IRRIGATION SCH (06:43)
[2017-11-23 08:00] VITALS: BP 139/72; PULSE 73; RESP 17; TEMP 98.2; O2SAT 97
[2017-11-23] MEDS: INSULIN ASPART SUPPLEMENTAL SCALE SQ SCH ×4 (08:00→19:30)
[2017-11-23] MEDS: HYDROCHLOROTHIAZIDE 25 MG TAB PO SCH ×2 (08:42→19:26)
[2017-11-23] MEDS: LISINOPRIL 10 MG TAB PO SCH ×2 (08:42→19:26)
[2017-11-23] MEDS: SODIUM CHLORIDE 0.9% FLUSH 10 ML FLUSH IV FLUSH SCH ×2 (08:43→19:26)
--- NOTE | 2017-11-23 11:06 | HHI.PR ---
Subjective Patient symptoms today CBI running at a very low rate Denies bladder pain. Objective Vital Signs Vital Signs Date Time Temp Pulse Resp B/P (MAP) Pulse Ox O2 Delivery O2 Flow Rate FiO2 11/23/17 08:00 98.2 73 17 139/72 (94) 97 11/23/17 00:00 99.7 77 18 122/65 (84) 92 11/22/17 20:00 98.2 72 18 146/70 (95) 99 11/22/17 19:56 76 11/22/17 16:00 99.9 77 18 119/67 (84) 97 11/22/17 12:00 98.4 76 18 134/71 (92) 93 Intake & Output 11/23/17 11/23/17 07:00 19:00 Output Total 800 ml Balance -800 ml Output Urine Total 800 ml # Voids 0 Objective Remarks CBI running at slow rate with white-pink output Medications and IVs Current Medications Medications (Trade) Dose Ordered Sig/Daisy Route Start Time Stop Time Status Last Admin Sodium Chloride 1,000 ml @ 100 mls/hr Q10H IV 11/13/17 14:38 11/18/17 00:30 (NS Flush) 2 ml UNSCH PRN IV FLUSH 11/13/17 14:45 11/19/17 09:23 (NS Flush) 2 ml BID IV FLUSH 11/13/17 21:00 11/23/17 08:43 (Narcan Inj) 0.4 mg UNSCH PRN IV PUSH 11/13/17 14:45 (Pyridium) 200 mg Q8H PRN PO 11/13/17 16:00 11/21/17 21:37 (Ativan Inj) 1 mg Q2H PRN IV PUSH 11/13/17 16:00 11/14/17 04:32 (Vasotec Inj) 2.5 mg Q6H PRN IV PUSH 11/13/17 16:15 11/18/17 03:49 Dextrose/Sodium Chloride 1,000 ml @ 42 mls/hr [id number] IV 11/13/17 16:15 11/13/17 18:50 (Percocet 5-325 Mg) 2 tab Q6H PRN PO 11/13/17 17:30 11/23/17 09:55 (Zofran Inj) 4 mg Q6HR PRN IV PUSH 11/13/17 17:30 11/13/17 18:32 (Morphine Inj) 4 mg Q3H PRN IV PUSH 11/13/17 18:00 11/15/17 09:33 (Catapres) 0.1 mg Q6H PRN PO 11/16/17 08:45 11/19/17 08:20 Aminocaproic Acid 3000 mg/Sodium Chloride 3,012 ml @ 0 mls/hr UNSCH IRRIGATION 11/16/17 15:00 11/23/17 06:43 (Prinivil) 10 mg BID PO 11/19/17 21:00 11/23/17 08:42 (Hydrodiuril) 12.5 mg BID PO 11/19/17 21:00 11/23/17 08:42 (Milk Of Magnesia Liq) 30 ml Q12H PRN PO 11/21/17 16:00 (Senokot) 17.2 mg Q12H PRN PO 11/21/17 16:00 (Dulcolax Supp) 10 mg DAILY PRN RECTAL 11/21/17 16:00 (Lactulose Liq) 30 ml DAILY PRN PO 11/21/17 16:00 (D50w (Vial) Inj) 50 ml UNSCH PRN IV PUSH 11/21/17 16:30 (Glucagon Inj) 1 mg UNSCH PRN OTHER 11/21/17 16:30 (NovoLOG SUPPLEMENTAL SCALE) 1 ACHS SLIDING SCALE SQ 11/22/17 17:00 11/22/17 22:20 Assessment and Plan Assessment and Plan Urologic impression: #1 history prostate cancer status post radiation therapy #2 radiation cystitis #3 status post recent cystoscopy with fulguration of bleeding sites #4 slowly resolving hematuria with Amicar CBI Recommendations: #1 titrate off CBI as urine continues to clear #2 Amaya catheter should not be removed until urine remains clear yellow for at least 2 days #3 Follow-up as an outpatient over at [facility] with his established physicians Darryl Alcazar MD Nov 23, 2017 11:06
--- NOTE | 2017-11-23 11:09 | HHI.PR ---
Subjective Remarks Still having hematuria from the Amaya Denies any abdominal pain Explained that he will need to be discharged with the Amaya catheter in place Not ready for discharge YET We'll get stat labs today since then it been on multiple days Discussed with urology Objective Vitals Vital Signs Date Time Temp Pulse Resp B/P (MAP) Pulse Ox O2 Delivery O2 Flow Rate FiO2 11/23/17 08:00 98.2 73 17 139/72 (94) 97 11/23/17 00:00 99.7 77 18 122/65 (84) 92 11/22/17 20:00 98.2 72 18 146/70 (95) 99 11/22/17 19:56 76 11/22/17 16:00 99.9 77 18 119/67 (84) 97 11/22/17 12:00 98.4 76 18 134/71 (92) 93 I/O 11/22/17 11/22/17 11/22/17 11/23/17 11/23/17 11/23/17 07:00 15:00 23:00 07:00 15:00 23:00 Intake Total 0 ml 960 ml Output Total 2450 ml 800 ml Balance -2450 ml 0 ml 160 ml Intake Oral 960 ml IV Total 0 ml Output Urine Total 2450 ml 800 ml # Voids 0 # Bowel Movements 0 Imaging Last Impressions Upper Extremity Ultrasound 11/22/17 0000 Signed Impressions: Service Date/Time: Wednesday, November 22, 2017 09:19 - CONCLUSION: 1. Superficial thrombus in the cephalic vein. 2. No deep venous thrombosis. Noe Ray MD Abdomen/Pelvis CT 11/13/17 0000 Signed Impressions: Service Date/Time: Monday, November 13, 2017 13:41 - CONCLUSION: Large apparent clot within the bladder. I believe the majority of the density in the bladder is clot and not tumor. Amaya is in good position. Jones Lopez MD FACR Objective Remarks GENERAL: Awake alert oriented talkative and cooperative SKIN: Warm and dry. HEAD: Atraumatic. Normocephalic. EYES: Pupils equal and round. No scleral icterus. No injection or drainage. Extraocular muscles intact ENT: No nasal bleeding or discharge. Mucous membranes pink and moist. Tongue is midline NECK: Trachea midline. No JVD. Supple CARDIOVASCULAR: Regular rate and rhythm. S1 and S2 no S3 or S4 RESPIRATORY: No accessory muscle use. Clear to auscultation. Breath sounds equal bilaterally. GASTROINTESTINAL: Abdomen soft, non-tender, nondistended. Hepatic and splenic margins not palpable. Obese MUSCULOSKELETAL: Extremities without clubbing, cyanosis, or edema. No obvious deformities. NEUROLOGICAL: Awake and alert. No obvious cranial nerve deficits. Motor grossly within normal limits. Five out of 5 muscle strength in the arms and legs. Normal speech. PSYCHIATRIC: Appropriate mood and affect; insight and judgment normal. Amaya catheter in place with "fruit punch colored urine" Procedures Operative Report Date of Surgery: Nov 15, 2017 Preoperative Diagnosis: (1) Hematuria Postoperative Diagnosis: (1) Radiation cystitis (2) Hematuria Procedure: Cystoscopy, clot evacuation and fulguration of bleeding sites Anesthesia: General Surgeon: Darryl Alcazar Title Agent(s): None Operation and Findings: Indication for procedures: Case of a pleasant 62-year-old gentleman with history prostate cancer status post creation therapy who presents now with gross hematuria and clot urinary retention. Operative procedure detail: Patient was brought to the operating room suite and placed supine on the OR table. Present placed under general anesthesia. He was then repositioned in the dorsolithotomy position and prepped and draped in normal sterile fashion. After appropriate timeout was undertaken proceed with cystoscopic evaluation utilizing the rigid cystoscope with a 22 Burkinan sheath and the 30 lens. The urethra was patent without stricture formation, the prostatic urethra was nonobstructing however there was marked enlargement to the median lobe which had dilated blood vessels that were oozing blood. Further passive cystoscope within the urinary bladder revealed dilated blood vessels at the bladder neck region oozing blood as well. The bladder was full of clots. I then proceeded with bladder irrigation with the Elik evacuator until all the clots were removed. I then proceeded with further cystoscopic evaluation and fulguration of the bleeding sites involving the median lobe of the prostate and the bladder neck region. At conclusion of procedure the still was some oozing of blood noted diffusely from the bladder related to the radiation cystitis. A decision was thus made to place a 24 Burkinan three-way Amaya catheter and implement continuous bladder irrigation. The patient tolerated the procedures without complications and was transferred to the PACU in satisfactory condition. Darryl Alcazar MD Nov 15, 2017 11:26 Medications and IVs Current Medications Morphine Sulfate (Morphine Inj) 4 mg ONCE ONCE IV PUSH Last administered on at 12:17; Start 11/13/17 at 12:15; Stop 11/13/17 at 12:16; Status DC Ondansetron HCl (Zofran Inj) 4 mg ONCE ONCE IVP Last administered on at 12:17; Start 11/13/17 at 12:15; Stop 11/13/17 at 12:16; Status DC Sodium Chloride 1,000 ml @ 125 mls/hr Q8H IV Last administered on 11/13/17at 12 :16; Start 11/13/17 at 12:06; Stop 11/13/17 at 15:58; Status DC Sodium Chloride (NS Flush) 2 ml UNSCH PRN IV FLUSH FLUSH AFTER USING IV ACCESS ; Start 11/13/17 at 12:15; Stop 11/13/17 at 15:51; Status DC Ceftriaxone Sodium 1000 mg/ Sodium Chloride 100 ml @ 200 mls/hr ONCE ONCE IV Last administered on 11/13/17at 14:21; Start 11/13/17 at 14:00; Stop 11/13/17 at 14:29; Status DC Morphine Sulfate (Morphine Inj) 4 mg ONCE ONCE IV PUSH Last administered on at 14:21; Start 11/13/17 at 14:15; Stop 11/13/17 at 14:16; Status DC Sodium Chloride 1,000 ml @ 100 mls/hr Q10H IV Last administered on 11/18/17at 00:30; Start 11/13/17 at 14:38 Sodium Chloride (NS Flush) 2 ml UNSCH PRN IV FLUSH FLUSH AFTER USING IV ACCESS Last administered on 11/19/17at 09:23; Start 11/13/17 at 14:45 Sodium Chloride (NS Flush) 2 ml BID IV FLUSH Last administered on 11/23/17at 08: 43; Start 11/13/17 at 21:00 Naloxone HCl (Narcan Inj) 0.4 mg UNSCH PRN IV PUSH SEE LABEL COMMENTS; Start at 14:45 Morphine Sulfate (Morphine Inj) 2 mg Q3H PRN IV PUSH pain >5; Start 11/13/17 at 14:45; Stop 11/13/17 at 15:50; Status DC Morphine Sulfate (Morphine Inj) 4 mg Q3H PRN IV PUSH pain >5 Last administered on 11/13/17 16:04; Start 11/13/17 at 17:45; Stop 11/13/17 at 17:46; Status DC Phenazopyridine HCl (Pyridium) 200 mg Q8H PRN PO urethral spasms Last administered on 11/21/17at 21:37; Start 11/13/17 at 16:00 Lorazepam (Ativan Inj) 1 mg Q2H PRN IV PUSH anxiety Last administered on at 04:32; Start 11/13/17 at 16:00 Enalaprilat (Vasotec Inj) 2.5 mg Q6H PRN IV PUSH bp>160/90 despite pain control Last administered on 11/18/17 03:49; Start 11/13/17 at 16:15 Dextrose (D50w (Vial) Inj) 50 ml UNSCH PRN IV PUSH HYPOGLYCEMIA-SEE COMMENTS; Start 11/13/17 at 16:15; Stop 11/13/17 at 21:14; Status DC Glucagon (Glucagon Inj) 1 mg UNSCH PRN OTHER HYPOGLYCEMIA-SEE COMMENTS; Start 11/13/17 at 16:15; Stop 11/13/17 at 21:14; Status DC Dextrose/Sodium Chloride 1,000 ml @ 42 mls/hr [id number] IV Last administered on 11/13/17at 18:50; Start 11/13/17 at 16:15 Ciprofloxacin/ Dextrose 200 ml @ 200 mls/hr Q12H IV Last administered on at 21:33; Start 11/14/17 at 09:00; Stop 11/21/17 at 00:24; Status DC Oxycodone/ Acetaminophen (Percocet 5-325 Mg) 2 tab Q6H PRN PO PAIN SCALE 1 TO 10 Last administered on 11/23/17at 09:55; Start 11/13/17 at 17:30 Ondansetron HCl (Zofran Inj) 4 mg Q6HR PRN IV PUSH NAUSEA Last administered on 11/13/17at 18:32; Start 11/13/17 at 17:30 Morphine Sulfate (Morphine Inj) 4 mg Q3H PRN IV PUSH pain >5 Last administered on 11/15/17at 09:33; Start 11/13/17 at 18:00 Dextrose (D50w (Vial) Inj) 50 ml UNSCH PRN IV PUSH HYPOGLYCEMIA-SEE COMMENTS; Start 11/13/17 at 20:15; Stop 11/21/17 at 16:54; Status DC Glucagon (Glucagon Inj) 1 mg UNSCH PRN OTHER HYPOGLYCEMIA-SEE COMMENTS; Start 11/13/17 at 20:15; Stop 11/21/17 at 16:54; Status DC Insulin Aspart (NovoLOG SUPPLEMENTAL SCALE) 1 Q4HR SQ Last administered on at 15:41; Start 11/13/17 at 20:15; Stop 11/21/17 at 16:54; Status DC Lactated Ringer's 1,000 ml @ 30 mls/hr Q24H PRN IV SEE LABEL COMMENTS Last administered on 11/14/17at 05:02; Start 11/14/17 at 04:45; Stop 11/17/17 at 04:44 ; Status DC Povidone Iodine (Betadine 5% Antisepsis Kit) 1 applic [employer]MENT [employer]INEER PRN EACH NARE SEE LABEL COMMENTS; Start 11/14/17 at 04:45; Stop 11/17/17 at 04:44; Status DC Chlorhexidine Gluconate (Chlorhexidine 2% Cloth) 3 pack [employer]ER PRN TOPICAL SEE LABEL COMMENTS; Start 11/14/17 at 04:45; Stop 11/17/17 at 04:44; Status DC Midazolam HCl (Versed Inj) 2 mg STK-MED ONCE .ROUTE ; Start 11/15/17 at 11:44; Stop 11/15/17 at 11:45; Status DC Fentanyl Citrate (fentaNYL INJ) 200 mcg STK-MED ONCE .ROUTE ; Start 11/15/17 at 11:44; Stop 11/15/17 at 11:45; Status DC Morphine Sulfate (*morphine INJ PERIprocedure ONLY) 10 mg STK-MED ONCE .ROUTE Last administered on 11/15/17at 11:45; Start 11/15/17 at 11:45; Stop 11/15/17 at 11:46; Status DC Miscellaneous Information ALL NURSING DEPARTME... UNSCH PRN .XX SEE LABEL COMMENTS; Start 11/15/17 at 11:32; Stop 11/16/17 at 11:31; Status DC Clonidine (Catapres) 0.1 mg Q6H PRN PO SBP>160, DBP>90 Last administered on at 08:20; Start 11/16/17 at 08:45 Aminocaproic Acid 3000 mg/Sodium Chloride 3,012 ml @ 0 mls/hr UNSCH IRRIGATION Last administered on 11/23/17at 06:43; Start 11/16/17 at 15:00 Iohexol (Omnipaque 350 Inj) 96 ml STK-MED ONCE IVCONTRAST Last administered on 11/13/17at 13:41; Start 11/13/17 at 13:41; Stop 11/18/17 at 14:33; Status DC Non-Formulary Medication 1 tab BID PO ; Start 11/19/17 at 21:00; Status UNV Lisinopril (Prinivil) 10 mg BID PO Last administered on 11/23/17at 08:42; Start 11/19/17 at 21:00 Hydrochlorothiazide (Hydrodiuril) 12.5 mg BID PO Last administered on 11/23/17at 08:42; Start 11/19/17 at 21:00 Magnesium Hydroxide (Milk Of Magnesia Liq) 30 ml Q12H PRN PO Mild constipation ; Start 11/21/17 at 16:00 Sennosides (Senokot) 17.2 mg Q12H PRN PO Moderate constipation; Start 11/21/17 at 16:00 Bisacodyl (Dulcolax Supp) 10 mg DAILY PRN RECTAL SEVERE CONSITIPATION; Start at 16:00 Lactulose (Lactulose Liq) 30 ml DAILY PRN PO SEVERE CONSITIPATION; Start at 16:00 Dextrose (D50w (Vial) Inj) 50 ml UNSCH PRN IV PUSH HYPOGLYCEMIA-SEE COMMENTS; Start 11/21/17 at 16:30 Glucagon (Glucagon Inj) 1 mg UNSCH PRN OTHER HYPOGLYCEMIA-SEE COMMENTS; Start 11/21/17 at 16:30 Insulin Aspart (NovoLOG SUPPLEMENTAL SCALE) 1 ACHS SLIDING SCALE SQ Last administered on 11/22/17at 22:20; Start 11/22/17 at 17:00 A/P Problem List: (1) Obstructive uropathy ICD Code: N13.9 - Obstructive and reflux uropathy, unspecified Status: Acute (2) Bilateral hydronephrosis ICD Code: N13.30 - Unspecified hydronephrosis Status: Acute (3) Hematuria ICD Code: R31.9 - Hematuria, unspecified Status: Acute Assessment and Plan Assessment and Plan Gross hematuria Anemia Hematuria appears to be improving with CBI Urology following recommending continuing with CBI but slowing down and transitioning to stopping it in the next 24 hours Discontinued ciprofloxacin After continuous bladder irrigation stops will need indwelling Amaya catheter for next 48 hours and then removal for trial voiding; Patient can be sent home with a indwelling Amaya catheter with home health care and follow-up with urology for Amaya catheter removal next week if CBI is able to be discontinued in the morning. Obstructive uropathy Acute kidney injury History of prostate cancer and radiation Monitor renal function General. anxiety disorder Sleep apnea Obesity Home meds Ativan PRN Diabetes mellitus type 2 - Overall blood sugars controlled ; Insulin sliding scale w/ accuchecks Diabetic diet Hypertension Continue home medications, lisinopril, monitor BP, adjust meds as needed Hx of Prostate Cancer -follow-up as an outpatient with urology Hx of radiation (seeds) Left arm swelling from previous IV site, ultrasound revealed no deep venous thrombosis. Ice pack to the area, elevation. DVT prophylaxis SCD Discharge Planning Will need home health care at discharge Did not qualify FOR SNF Problem Qualifiers (1) Hematuria: Qualified Codes: R31.9 - Hematuria, unspecified Jones Valentine DO Nov 23, 2017 11:09
[2017-11-23 12:00] VITALS: BP 145/76; PULSE 77; RESP 17; TEMP 99.1; O2SAT 97
[2017-11-23] MEDS: DEXT 5%-NACL 0.9% 1000 ML INJ 1,000 ML IV SCH (14:25)
[2017-11-23] MEDS: NEOMYCIN/POLYMYXIN/BACITRACIN OINT 15 GM TUBE TOPICAL SCH ×2 (15:22→19:27)
[2017-11-23 15:40] LABS: AUTOMATED NEUTROPHIL # 4.7 TH/MM3 (1.8-7.7); BASOPHIL % 0.5 % (0.0-2.0); EOSINOPHIL # 0.2 TH/MM3 (0-0.4); EOSINOPHIL % 3.1 % (0.0-4.0); HEMATOCRIT 26.6 % (39.0-51.0); HEMOGLOBIN 8.6 GM/DL (13.0-17.0); LYMPH % 14.4 % (9.0-44.0); LYMPHOCYTE # 0.9 TH/MM3 (1.0-4.8); MEAN CELL VOLUME 81.9 FL (80.0-100.0); MEAN CORPUSCULAR HEMOGLOBIN 26.5 PG (27.0-34.0); MEAN CORPUSCULAR HGB CONC 32.3 % (32.0-36.0); MONO % 9.5 % (0.0-8.0); MONOCYTE # 0.6 TH/MM3 (0-0.9); NEUT % 72.5 % (16.0-70.0); PLATELET COUNT 402 TH/MM3 (150-450); RED BLOOD COUNT 3.25 MIL/MM3 (4.50-5.90); RED CELL DISTRIBUTION WIDTH 14.3 % (11.6-17.2); WHITE BLOOD COUNT 6.5 TH/MM3 (4.0-11.0)
[2017-11-23 16:00] VITALS: BP 120/66; PULSE 77; RESP 17; TEMP 98.9; O2SAT 98
[2017-11-23 16:03] LABS: ALBUMIN 2.8 GM/DL (3.4-5.0); ALT (GPT) 25 U/L (12-78); AST (GOT) 13 U/L (15-37); BICARBONATE 31.6 MEQ/L (21.0-32.0); BLOOD UREA NITROGEN 9 MG/DL (7-18); CALCIUM 8.7 MG/DL (8.5-10.1); CHLORIDE 100 MEQ/L (98-107); CREATININE 0.99 MG/DL (0.60-1.30); GLOMERULAR FILTRATION RATE 93 ML/MIN (>89); GLUCOSE,RANDOM 177 MG/DL (74-106); PHOSPHORUS 3.1 MG/DL (2.5-4.9); SODIUM (NA) 138 MEQ/L (136-145)
[2017-11-23 16:13] LABS: ALKALINE PHOSPHATASE 99 U/L (45-117); FREE T4 0.93 NG/DL (0.76-1.46); TOTAL BILIRUBIN ADULT 0.2 MG/DL (0.2-1.0)
[2017-11-23 20:00] VITALS: BP 118/61; PULSE 84; RESP 19; TEMP 99.3; O2SAT 99
[2017-11-24] VITALS: BP 140/74; PULSE 71; RESP 19; TEMP 98.5; O2SAT 100
[2017-11-24] MEDS: SODIUM CHLOR 0.9% 1000 ML INJ 1,000 ML IV SCH ×3 (00:38→19:40)
[2017-11-24] MEDS: oxyCODONE/ACETAMINOPHEN 5 MG/325 MG TAB PO PRN ×4 (03:52→21:53)
[2017-11-24 06:35] LABS: AUTOMATED NEUTROPHIL # 3.6 TH/MM3 (1.8-7.7); BASOPHIL % 0.8 % (0.0-2.0); EOSINOPHIL # 0.3 TH/MM3 (0-0.4); EOSINOPHIL % 4.8 % (0.0-4.0); HEMOGLOBIN 8.3 GM/DL (13.0-17.0); LYMPH % 22.7 % (9.0-44.0); LYMPHOCYTE # 1.3 TH/MM3 (1.0-4.8); MEAN CELL VOLUME 80.6 FL (80.0-100.0); MEAN CORPUSCULAR HEMOGLOBIN 26.7 PG (27.0-34.0); MEAN CORPUSCULAR HGB CONC 33.1 % (32.0-36.0); MEAN PLATELET VOLUME 7.1 FL (7.0-11.0); MONO % 11.8 % (0.0-8.0); MONOCYTE # 0.7 TH/MM3 (0-0.9); NEUT % 59.9 % (16.0-70.0); PLATELET COUNT 374 TH/MM3 (150-450); RED CELL DISTRIBUTION WIDTH 14.1 % (11.6-17.2); WHITE BLOOD COUNT 5.9 TH/MM3 (4.0-11.0)
[2017-11-24 06:39] LABS: ALBUMIN 2.6 GM/DL (3.4-5.0); AST (GOT) 14 U/L (15-37); BICARBONATE 32.1 MEQ/L (21.0-32.0); BLOOD UREA NITROGEN 8 MG/DL (7-18); CHLORIDE 101 MEQ/L (98-107); CREATININE 0.96 MG/DL (0.60-1.30); GLOMERULAR FILTRATION RATE 97 ML/MIN (>89); GLUCOSE,RANDOM 128 MG/DL (74-106); MAGNESIUM 1.9 MG/DL (1.5-2.5); PHOSPHORUS 3.6 MG/DL (2.5-4.9); SODIUM (NA) 139 MEQ/L (136-145)
[2017-11-24 06:40] LABS: ALT (GPT) 23 U/L (12-78)
[2017-11-24 06:43] LABS: ALKALINE PHOSPHATASE 91 U/L (45-117); TOTAL BILIRUBIN ADULT 0.3 MG/DL (0.2-1.0); TOTAL PROTEIN 6.3 GM/DL (6.4-8.2)
[2017-11-24 08:00] VITALS: BP 132/63; PULSE 75; RESP 17; TEMP 98.9; O2SAT 99
[2017-11-24] MEDS: NEOMYCIN/POLYMYXIN/BACITRACIN OINT 15 GM TUBE TOPICAL SCH ×2 (08:33→19:44)
[2017-11-24] MEDS: SODIUM CHLORIDE 0.9% FLUSH 10 ML FLUSH IV FLUSH SCH ×2 (08:33→19:44)
[2017-11-24] MEDS: HYDROCHLOROTHIAZIDE 25 MG TAB PO SCH ×2 (08:33→19:43)
[2017-11-24] MEDS: LISINOPRIL 10 MG TAB PO SCH ×2 (08:33→19:44)
[2017-11-24] MEDS: INSULIN ASPART SUPPLEMENTAL SCALE SQ SCH ×4 (08:39→19:46)
--- NOTE | 2017-11-24 11:31 | HHI.PR ---
Subjective Remarks 2-3 Still having hematuria from the Solitario Denies any abdominal pain Explained that he will need to be discharged with the Solitario catheter in place Not ready for discharge YET We'll get stat labs today since then it been on multiple days Discussed with urology 2-4 STILL HAVING DARK HEMATURIA PER SOLITARIO DW PT AND RN AND FAMILY MONITOR UNTIL TOMORROW AM LABS Objective Vitals Vital Signs Date Time Temp Pulse Resp B/P (MAP) Pulse Ox O2 Delivery O2 Flow Rate FiO2 11/24/17 08:00 98.9 75 17 132/63 (86) 99 11/24/17 04:52 18 11/24/17 00:00 98.5 71 19 140/74 (96) 100 11/23/17 20:00 99.3 84 19 118/61 (80) 99 11/23/17 16:00 98.9 77 17 120/66 (84) 98 11/23/17 12:00 99.1 77 17 145/76 (99) 97 I/O 11/23/17 11/23/17 11/23/17 11/24/17 11/24/17 11/24/17 07:00 15:00 23:00 07:00 15:00 23:00 Intake Total 3960 ml 3000 ml Output Total 3600 ml 3150 ml Balance 360 ml -150 ml Intake Oral 3960 ml 3000 ml Output Urine Total 3600 ml 3150 ml # Voids 0 # Bowel Movements 0 0 Result Diagram: 11/24/17 0500 11/24/17 0500 Other Results Laboratory Tests Test 11/23/17 14:58 11/24/17 05:00 White Blood Count 6.5 TH/MM3 5.9 TH/MM3 Red Blood Count 3.25 MIL/MM3 3.10 MIL/MM3 Hemoglobin 8.6 GM/DL 8.3 GM/DL Hematocrit 26.6 % 25.0 % Mean Corpuscular Volume 81.9 FL 80.6 FL Mean Corpuscular Hemoglobin 26.5 PG 26.7 PG Mean Corpuscular Hemoglobin Concent 32.3 % 33.1 % Red Cell Distribution Width 14.3 % 14.1 % Platelet Count 402 TH/MM3 374 TH/MM3 Mean Platelet Volume 7.0 FL 7.1 FL Neutrophils (%) (Auto) 72.5 % 59.9 % Lymphocytes (%) (Auto) 14.4 % 22.7 % Monocytes (%) (Auto) 9.5 % 11.8 % Eosinophils (%) (Auto) 3.1 % 4.8 % Basophils (%) (Auto) 0.5 % 0.8 % Neutrophils # (Auto) 4.7 TH/MM3 3.6 TH/MM3 Lymphocytes # (Auto) 0.9 TH/MM3 1.3 TH/MM3 Monocytes # (Auto) 0.6 TH/MM3 0.7 TH/MM3 Eosinophils # (Auto) 0.2 TH/MM3 0.3 TH/MM3 Basophils # (Auto) 0.0 TH/MM3 0.0 TH/MM3 CBC Comment DIFF FINAL DIFF FINAL Differential Comment Blood Urea Nitrogen 9 MG/DL 8 MG/DL Creatinine 0.99 MG/DL 0.96 MG/DL Random Glucose 177 MG/DL 128 MG/DL Total Protein 7.0 GM/DL 6.3 GM/DL Albumin 2.8 GM/DL 2.6 GM/DL Calcium Level 8.7 MG/DL 9.0 MG/DL Phosphorus Level 3.1 MG/DL 3.6 MG/DL Alkaline Phosphatase 99 U/L 91 U/L Aspartate Amino Transf (AST/SGOT) 13 U/L 14 U/L Alanine Aminotransferase (ALT/SGPT) 25 U/L 23 U/L Total Bilirubin 0.2 MG/DL 0.3 MG/DL Sodium Level 138 MEQ/L 139 MEQ/L Potassium Level 3.9 MEQ/L 3.6 MEQ/L Chloride Level 100 MEQ/L 101 MEQ/L Carbon Dioxide Level 31.6 MEQ/L 32.1 MEQ/L Anion Gap 6 MEQ/L 6 MEQ/L Estimat Glomerular Filtration Rate 93 ML/MIN 97 ML/MIN Magnesium Level 2.0 MG/DL 1.9 MG/DL Free Thyroxine 0.93 NG/DL Thyroid Stimulating Hormone 3rd Gen 1.770 uIU/ML Imaging Last Impressions Upper Extremity Ultrasound 11/22/17 0000 Signed Impressions: Service Date/Time: Wednesday, November 22, 2017 09:19 - CONCLUSION: 1. Superficial thrombus in the cephalic vein. 2. No deep venous thrombosis. Noe Ray MD Abdomen/Pelvis CT 11/13/17 0000 Signed Impressions: Service Date/Time: Monday, November 13, 2017 13:41 - CONCLUSION: Large apparent clot within the bladder. I believe the majority of the density in the bladder is clot and not tumor. Solitario is in good position. Jones Lopez MD FACR Objective Remarks GENERAL: Awake alert oriented talkative and cooperative SKIN: Warm and dry. HEAD: Atraumatic. Normocephalic. EYES: Pupils equal and round. No scleral icterus. No injection or drainage. Extraocular muscles intact ENT: No nasal bleeding or discharge. Mucous membranes pink and moist. Tongue is midline NECK: Trachea midline. No JVD. Supple CARDIOVASCULAR: Regular rate and rhythm. S1 and S2 no S3 or S4 RESPIRATORY: No accessory muscle use. Clear to auscultation. Breath sounds equal bilaterally. GASTROINTESTINAL: Abdomen soft, non-tender, nondistended. Hepatic and splenic margins not palpable. Obese MUSCULOSKELETAL: Extremities without clubbing, cyanosis, or edema. No obvious deformities. NEUROLOGICAL: Awake and alert. No obvious cranial nerve deficits. Motor grossly within normal limits. Five out of 5 muscle strength in the arms and legs. Normal speech. PSYCHIATRIC: Appropriate mood and affect; insight and judgment normal. Solitario catheter in place with "fruit punch colored urine" Procedures Operative Report Date of Surgery: Nov 15, 2017 Preoperative Diagnosis: (1) Hematuria Postoperative Diagnosis: (1) Radiation cystitis (2) Hematuria Procedure: Cystoscopy, clot evacuation and fulguration of bleeding sites Anesthesia: General Surgeon: Darryl Alcazar Cdl Team Truck Driver(s): None Operation and Findings: Indication for procedures: Case of a pleasant 62-year-old gentleman with history prostate cancer status post creation therapy who presents now with gross hematuria and clot urinary retention. Operative procedure detail: Patient was brought to the operating room suite and placed supine on the OR table. Present placed under general anesthesia. He was then repositioned in the dorsolithotomy position and prepped and draped in normal sterile fashion. After appropriate timeout was undertaken proceed with cystoscopic evaluation utilizing the rigid cystoscope with a 22 Montenegrin sheath and the 30 lens. The urethra was patent without stricture formation, the prostatic urethra was nonobstructing however there was marked enlargement to the median lobe which had dilated blood vessels that were oozing blood. Further passive cystoscope within the urinary bladder revealed dilated blood vessels at the bladder neck region oozing blood as well. The bladder was full of clots. I then proceeded with bladder irrigation with the Elik evacuator until all the clots were removed. I then proceeded with further cystoscopic evaluation and fulguration of the bleeding sites involving the median lobe of the prostate and the bladder neck region. At conclusion of procedure the still was some oozing of blood noted diffusely from the bladder related to the radiation cystitis. A decision was thus made to place a 24 Montenegrin three-way Solitario catheter and implement continuous bladder irrigation. The patient tolerated the procedures without complications and was transferred to the PACU in satisfactory condition. Darryl Alcazar MD Nov 15, 2017 11:26 Medications and IVs Current Medications Morphine Sulfate (Morphine Inj) 4 mg ONCE ONCE IV PUSH Last administered on 12:17; Start 11/13/17 at 12:15; Stop 11/13/17 at 12:16; Status DC Ondansetron HCl (Zofran Inj) 4 mg ONCE ONCE IVP Last administered on 12:17; Start 11/13/17 at 12:15; Stop 11/13/17 at 12:16; Status DC Sodium Chloride 1,000 ml @ 125 mls/hr Q8H IV Last administered on 11/13/17at 12 :16; Start 11/13/17 at 12:06; Stop 11/13/17 at 15:58; Status DC Sodium Chloride (NS Flush) 2 ml UNSCH PRN IV FLUSH FLUSH AFTER USING IV ACCESS ; Start 11/13/17 at 12:15; Stop 11/13/17 at 15:51; Status DC Ceftriaxone Sodium 1000 mg/ Sodium Chloride 100 ml @ 200 mls/hr ONCE ONCE IV Last administered on 11/13/17at 14:21; Start 11/13/17 at 14:00; Stop 11/13/17 at 14:29; Status DC Morphine Sulfate (Morphine Inj) 4 mg ONCE ONCE IV PUSH Last administered on at 14:21; Start 11/13/17 at 14:15; Stop 11/13/17 at 14:16; Status DC Sodium Chloride 1,000 ml @ 100 mls/hr Q10H IV Last administered on 11/18/17at 00:30; Start 11/13/17 at 14:38 Sodium Chloride (NS Flush) 2 ml UNSCH PRN IV FLUSH FLUSH AFTER USING IV ACCESS Last administered on 11/19/17at 09:23; Start 11/13/17 at 14:45 Sodium Chloride (NS Flush) 2 ml BID IV FLUSH Last administered on 11/24/17at 08: 33; Start 11/13/17 at 21:00 Naloxone HCl (Narcan Inj) 0.4 mg UNSCH PRN IV PUSH SEE LABEL COMMENTS; Start at 14:45 Morphine Sulfate (Morphine Inj) 2 mg Q3H PRN IV PUSH pain >5; Start 11/13/17 at 14:45; Stop 11/13/17 at 15:50; Status DC Morphine Sulfate (Morphine Inj) 4 mg Q3H PRN IV PUSH pain >5 Last administered on 11/13/17at 16:04; Start 11/13/17 at 17:45; Stop 11/13/17 at 17:46; Status DC Phenazopyridine HCl (Pyridium) 200 mg Q8H PRN PO urethral spasms Last administered on 11/21/17at 21:37; Start 11/13/17 at 16:00 Lorazepam (Ativan Inj) 1 mg Q2H PRN IV PUSH anxiety Last administered on at 04:32; Start 11/13/17 at 16:00 Enalaprilat (Vasotec Inj) 2.5 mg Q6H PRN IV PUSH bp>160/90 despite pain control Last administered on 11/18/17at 03:49; Start 11/13/17 at 16:15 Dextrose (D50w (Vial) Inj) 50 ml UNSCH PRN IV PUSH HYPOGLYCEMIA-SEE COMMENTS; Start 11/13/17 at 16:15; Stop 11/13/17 at 21:14; Status DC Glucagon (Glucagon Inj) 1 mg UNSCH PRN OTHER HYPOGLYCEMIA-SEE COMMENTS; Start 11/13/17 at 16:15; Stop 11/13/17 at 21:14; Status DC Dextrose/Sodium Chloride 1,000 ml @ 42 mls/hr [id number] IV Last administered on 11/13/17at 18:50; Start 11/13/17 at 16:15 Ciprofloxacin/ Dextrose 200 ml @ 200 mls/hr Q12H IV Last administered on at 21:33; Start 11/14/17 at 09:00; Stop 11/21/17 at 00:24; Status DC Oxycodone/ Acetaminophen (Percocet 5-325 Mg) 2 tab Q6H PRN PO PAIN SCALE 1 TO 10 Last administered on 11/24/17at 09:51; Start 11/13/17 at 17:30 Ondansetron HCl (Zofran Inj) 4 mg Q6HR PRN IV PUSH NAUSEA Last administered on 11/13/17at 18:32; Start 11/13/17 at 17:30 Morphine Sulfate (Morphine Inj) 4 mg Q3H PRN IV PUSH pain >5 Last administered on 11/15/17at 09:33; Start 11/13/17 at 18:00 Dextrose (D50w (Vial) Inj) 50 ml UNSCH PRN IV PUSH HYPOGLYCEMIA-SEE COMMENTS; Start 11/13/17 at 20:15; Stop 11/21/17 at 16:54; Status DC Glucagon (Glucagon Inj) 1 mg UNSCH PRN OTHER HYPOGLYCEMIA-SEE COMMENTS; Start 11/13/17 at 20:15; Stop 11/21/17 at 16:54; Status DC Insulin Aspart (NovoLOG SUPPLEMENTAL SCALE) 1 Q4HR SQ Last administered on at 15:41; Start 11/13/17 at 20:15; Stop 11/21/17 at 16:54; Status DC Lactated Ringer's 1,000 ml @ 30 mls/hr Q24H PRN IV SEE LABEL COMMENTS Last administered on 11/14/17at 05:02; Start 11/14/17 at 04:45; Stop 11/17/17 at 04:44 ; Status DC Povidone Iodine (Betadine 5% Antisepsis Kit) 1 applic RESTAURANT SERVICE MANAGER PRN EACH NARE SEE LABEL COMMENTS; Start 11/14/17 at 04:45; Stop 11/17/17 at 04:44; Status DC Chlorhexidine Gluconate (Chlorhexidine 2% Cloth) 3 pack RESTAURANT SERVICE MANAGER PRN TOPICAL SEE LABEL COMMENTS; Start 11/14/17 at 04:45; Stop 11/17/17 at 04:44; Status DC Midazolam HCl (Versed Inj) 2 mg STK-MED ONCE .ROUTE ; Start 11/15/17 at 11:44; Stop 11/15/17 at 11:45; Status DC Fentanyl Citrate (fentaNYL INJ) 200 mcg STK-MED ONCE .ROUTE ; Start 11/15/17 at 11:44; Stop 11/15/17 at 11:45; Status DC Morphine Sulfate (*morphine INJ PERIprocedure ONLY) 10 mg STK-MED ONCE .ROUTE Last administered on 11/15/17at 11:45; Start 11/15/17 at 11:45; Stop 11/15/17 at 11:46; Status DC Miscellaneous Information ALL NURSING DEPARTME... UNSCH PRN .XX SEE LABEL COMMENTS; Start 11/15/17 at 11:32; Stop 11/16/17 at 11:31; Status DC Clonidine (Catapres) 0.1 mg Q6H PRN PO SBP>160, DBP>90 Last administered on at 08:20; Start 11/16/17 at 08:45 Aminocaproic Acid 3000 mg/Sodium Chloride 3,012 ml @ 0 mls/hr UNSCH IRRIGATION Last administered on 11/23/17at 06:43; Start 11/16/17 at 15:00 Iohexol (Omnipaque 350 Inj) 96 ml STK-MED ONCE IVCONTRAST Last administered on 11/13/17at 13:41; Start 11/13/17 at 13:41; Stop 11/18/17 at 14:33; Status DC Non-Formulary Medication 1 tab BID PO ; Start 11/19/17 at 21:00; Status UNV Lisinopril (Prinivil) 10 mg BID PO Last administered on 11/24/17at 08:33; Start 11/19/17 at 21:00 Hydrochlorothiazide (Hydrodiuril) 12.5 mg BID PO Last administered on 11/24/17at 08:33; Start 11/19/17 at 21:00 Magnesium Hydroxide (Milk Of Magnesia Liq) 30 ml Q12H PRN PO Mild constipation ; Start 11/21/17 at 16:00 Sennosides (Senokot) 17.2 mg Q12H PRN PO Moderate constipation; Start 11/21/17 at 16:00 Bisacodyl (Dulcolax Supp) 10 mg DAILY PRN RECTAL SEVERE CONSITIPATION; Start at 16:00 Lactulose (Lactulose Liq) 30 ml DAILY PRN PO SEVERE CONSITIPATION; Start at 16:00 Dextrose (D50w (Vial) Inj) 50 ml UNSCH PRN IV PUSH HYPOGLYCEMIA-SEE COMMENTS; Start 11/21/17 at 16:30 Glucagon (Glucagon Inj) 1 mg UNSCH PRN OTHER HYPOGLYCEMIA-SEE COMMENTS; Start 11/21/17 at 16:30 Insulin Aspart (NovoLOG SUPPLEMENTAL SCALE) 1 ACHS SLIDING SCALE SQ Last administered on 11/24/17at 08:39; Start 11/22/17 at 17:00 Neomycin/ Polymyxin/ Bacitracin (Neosporin Oint) 1 applic BID TOPICAL Last administered on 11/24/17at 08:33; Start 11/23/17 at 13:06 Urinary Catheter: Yes Assessment to: Continue Solitario insert reason: Obstruction/Retention A/P Problem List: (1) Obstructive uropathy ICD Code: N13.9 - Obstructive and reflux uropathy, unspecified Status: Acute (2) Bilateral hydronephrosis ICD Code: N13.30 - Unspecified hydronephrosis Status: Acute (3) Hematuria ICD Code: R31.9 - Hematuria, unspecified Status: Acute Assessment and Plan Assessment and Plan Gross hematuria Anemia Hematuria appears to be improving with CBI Urology following recommending continuing with CBI but slowing down and transitioning to stopping it in the next 24 hours Discontinued ciprofloxacin After continuous bladder irrigation stops will need indwelling Solitario catheter for next 48 hours and then removal for trial voiding; Patient can be sent home with a indwelling Solitario catheter with home health care and follow-up with urology for Solitario catheter removal next week if CBI is able to be discontinued in the morning. PROBABLE DC TO HOME TOMORROW- WATCH ONE MORE DAY Obstructive uropathy Acute kidney injury History of prostate cancer and radiation Monitor renal function General. anxiety disorder Sleep apnea Obesity Home meds Ativan PRN Diabetes mellitus type 2 - Overall blood sugars controlled ; Insulin sliding scale w/ accuchecks Diabetic diet Hypertension Continue home medications, lisinopril, monitor BP, adjust meds as needed Hx of Prostate Cancer -follow-up as an outpatient with urology Hx of radiation (seeds) Left arm swelling from previous IV site, ultrasound revealed no deep venous thrombosis. Ice pack to the area, elevation. DVT prophylaxis SCD AM LABS Discharge Planning Will need home health care at discharge Did not qualify FOR SNF Problem Qualifiers (1) Hematuria: Qualified Codes: R31.9 - Hematuria, unspecified Jones Valentine DO Nov 24, 2017 11:31
[2017-11-24 12:00] VITALS: BP 129/58; PULSE 78; RESP 17; TEMP 98; O2SAT 98
[2017-11-24 12:05] LABS: HEMOGLOBIN A1C 6.5 % (4.3-6.0)
[2017-11-24] MEDS: DEXT 5%-NACL 0.9% 1000 ML INJ 1,000 ML IV SCH (14:14)
[2017-11-24 16:00] VITALS: BP 121/62; PULSE 63; RESP 17; TEMP 98.4; O2SAT 100
[2017-11-24 20:00] VITALS: BP 112/57; PULSE 89; RESP 20; TEMP 99.6; O2SAT 97
[2017-11-25] VITALS: BP 111/57; PULSE 73; RESP 18; TEMP 97.8; O2SAT 97
[2017-11-25] MEDS: oxyCODONE/ACETAMINOPHEN 5 MG/325 MG TAB PO PRN ×4 (04:15→21:51)
[2017-11-25] MEDS: SODIUM CHLOR 0.9% 1000 ML INJ 1,000 ML IV SCH ×3 (06:38→21:20)
[2017-11-25 08:00] VITALS: BP 128/69; PULSE 111; RESP 18; TEMP 98.2; O2SAT 92
[2017-11-25] MEDS: INSULIN ASPART SUPPLEMENTAL SCALE SQ SCH ×4 (08:00→21:19)
[2017-11-25] MEDS: SODIUM CHLORIDE 0.9% FLUSH 10 ML FLUSH IV FLUSH SCH ×2 (08:55→21:19)
[2017-11-25] MEDS: HYDROCHLOROTHIAZIDE 25 MG TAB PO SCH ×2 (08:56→21:17)
[2017-11-25] MEDS: NEOMYCIN/POLYMYXIN/BACITRACIN OINT 15 GM TUBE TOPICAL SCH ×2 (08:57→21:20)
[2017-11-25] MEDS: LISINOPRIL 10 MG TAB PO SCH ×2 (08:57→21:18)
--- NOTE | 2017-11-25 11:57 | HHI.PR ---
Subjective Remarks in no acute distress. denies pain or sob or dizziness. velazquez in place - still with reddish urine. d/w the RN. Objective Vitals Vital Signs Date Time Temp Pulse Resp B/P (MAP) Pulse Ox O2 Delivery O2 Flow Rate FiO2 11/25/17 08:00 98.2 111 18 128/69 (88) 92 11/25/17 05:15 18 11/25/17 00:00 97.8 73 18 111/57 (75) 97 11/24/17 20:00 99.6 89 20 112/57 (75) 97 11/24/17 16:00 98.4 63 17 121/62 (81) 100 11/24/17 12:00 98.0 78 17 129/58 (81) 98 I/O 11/24/17 11/24/17 11/24/17 11/25/17 11/25/17 11/25/17 07:00 15:00 23:00 07:00 15:00 23:00 Intake Total 3000 ml 3000 ml 780 ml Output Total 3150 ml 2300 ml 3000 ml Balance -150 ml 700 ml -2220 ml Intake Oral 3000 ml 3000 ml 780 ml Output Urine Total 3150 ml 2300 ml 3000 ml # Bowel Movements 0 1 0 Result Diagram: 11/24/17 0500 11/24/17 0500 Imaging Last Impressions Upper Extremity Ultrasound 11/22/17 0000 Signed Impressions: Service Date/Time: Wednesday, November 22, 2017 09:19 - CONCLUSION: 1. Superficial thrombus in the cephalic vein. 2. No deep venous thrombosis. Noe Ray MD Abdomen/Pelvis CT 11/13/17 0000 Signed Impressions: Service Date/Time: Monday, November 13, 2017 13:41 - CONCLUSION: Large apparent clot within the bladder. I believe the majority of the density in the bladder is clot and not tumor. Velazquez is in good position. Jones Lopez MD FACR Objective Remarks GENERAL: This is a well-nourished, well-developed patient, in no apparent distress. CARDIOVASCULAR: Regular rate and regular rhythm without murmurs, gallops, or rubs. RESPIRATORY: Clear to auscultation. Breath sounds equal bilaterally. No wheezes , rales, or rhonchi. GASTROINTESTINAL: Abdomen soft, non-tender, nondistended. Normal, active bowel sounds MUSCULOSKELETAL: Extremities without clubbing, cyanosis, or edema. NEURO: Alert & Oriented x4 to person, place, time, situation. Moves all ext x4 Procedures Operative Report Date of Surgery: Nov 15, 2017 Preoperative Diagnosis: (1) Hematuria Postoperative Diagnosis: (1) Radiation cystitis (2) Hematuria Procedure: Cystoscopy, clot evacuation and fulguration of bleeding sites Anesthesia: General Surgeon: Darryl Alcazar Tools Programmer(s): None Operation and Findings: Indication for procedures: Case of a pleasant 62-year-old gentleman with history prostate cancer status post creation therapy who presents now with gross hematuria and clot urinary retention. Operative procedure detail: Patient was brought to the operating room suite and placed supine on the OR table. Present placed under general anesthesia. He was then repositioned in the dorsolithotomy position and prepped and draped in normal sterile fashion. After appropriate timeout was undertaken proceed with cystoscopic evaluation utilizing the rigid cystoscope with a 22 Kyrgyz sheath and the 30 lens. The urethra was patent without stricture formation, the prostatic urethra was nonobstructing however there was marked enlargement to the median lobe which had dilated blood vessels that were oozing blood. Further passive cystoscope within the urinary bladder revealed dilated blood vessels at the bladder neck region oozing blood as well. The bladder was full of clots. I then proceeded with bladder irrigation with the Elik evacuator until all the clots were removed. I then proceeded with further cystoscopic evaluation and fulguration of the bleeding sites involving the median lobe of the prostate and the bladder neck region. At conclusion of procedure the still was some oozing of blood noted diffusely from the bladder related to the radiation cystitis. A decision was thus made to place a 24 Kyrgyz three-way Velazquez catheter and implement continuous bladder irrigation. The patient tolerated the procedures without complications and was transferred to the PACU in satisfactory condition. Darryl Alcazar MD Nov 15, 2017 11:26 Medications and IVs Inpatient Medications Aminocaproic Acid 3000 mg/Sodium Chloride 3,012 ml @ 0 mls/hr UNSCH IRRIGATION Last administered on 11/23/17at 06:43; Start 11/16/17 at 15:00 Bisacodyl (Dulcolax Supp) 10 mg DAILY PRN RECTAL SEVERE CONSITIPATION; Start at 16:00 Ceftriaxone Sodium 1000 mg/ Sodium Chloride 100 ml @ 200 mls/hr ONCE ONCE IV Last administered on 11/13/17at 14:21; Start 11/13/17 at 14:00; Stop 11/13/17 at 14:29; Status DC Chlorhexidine Gluconate (Chlorhexidine 2% Cloth) 3 pack COMMUNITY RECREATION COORDINATOR PRN TOPICAL SEE LABEL COMMENTS; Start 11/14/17 at 04:45; Stop 11/17/17 at 04:44; Status DC Ciprofloxacin/ Dextrose 200 ml @ 200 mls/hr Q12H IV Last administered on at 21:33; Start 11/14/17 at 09:00; Stop 11/21/17 at 00:24; Status DC Clonidine (Catapres) 0.1 mg Q6H PRN PO SBP>160, DBP>90 Last administered on at 08:20; Start 11/16/17 at 08:45 Dextrose (D50w (Vial) Inj) 50 ml UNSCH PRN IV PUSH HYPOGLYCEMIA-SEE COMMENTS; Start 11/21/17 at 16:30 Dextrose/Sodium Chloride 1,000 ml @ 42 mls/hr [id number] IV Last administered on 11/13/17at 18:50; Start 11/13/17 at 16:15 Enalaprilat (Vasotec Inj) 2.5 mg Q6H PRN IV PUSH bp>160/90 despite pain control Last administered on 11/18/17at 03:49; Start 11/13/17 at 16:15 Glucagon (Glucagon Inj) 1 mg UNSCH PRN OTHER HYPOGLYCEMIA-SEE COMMENTS; Start 11/21/17 at 16:30 Hydrochlorothiazide (Hydrodiuril) 12.5 mg BID PO Last administered on 11/25/17at 08:56; Start 11/19/17 at 21:00 Insulin Aspart (NovoLOG SUPPLEMENTAL SCALE) 1 ACHS SLIDING SCALE SQ Last administered on 11/24/17at 19:46; Start 11/22/17 at 17:00 Lactated Ringer's 1,000 ml @ 30 mls/hr Q24H PRN IV SEE LABEL COMMENTS Last administered on 11/14/17at 05:02; Start 11/14/17 at 04:45; Stop 11/17/17 at 04:44 ; Status DC Lactulose (Lactulose Liq) 30 ml DAILY PRN PO SEVERE CONSITIPATION; Start at 16:00 Lisinopril (Prinivil) 10 mg BID PO Last administered on 11/25/17at 08:57; Start 11/19/17 at 21:00 Lorazepam (Ativan Inj) 1 mg Q2H PRN IV PUSH anxiety Last administered on at 04:32; Start 11/13/17 at 16:00 Magnesium Hydroxide (Milk Of Magnesia Liq) 30 ml Q12H PRN PO Mild constipation ; Start 11/21/17 at 16:00 Miscellaneous Information ALL NURSING DEPARTME... UNSCH PRN .XX SEE LABEL COMMENTS; Start 11/15/17 at 11:32; Stop 11/16/17 at 11:31; Status DC Morphine Sulfate (Morphine Inj) 4 mg Q3H PRN IV PUSH pain >5 Last administered on 11/15/17at 09:33; Start 11/13/17 at 18:00 Naloxone HCl (Narcan Inj) 0.4 mg UNSCH PRN IV PUSH SEE LABEL COMMENTS; Start at 14:45 Neomycin/ Polymyxin/ Bacitracin (Neosporin Oint) 1 applic BID TOPICAL Last administered on 11/25/17at 08:57; Start 11/23/17 at 13:06 Ondansetron HCl (Zofran Inj) 4 mg Q6HR PRN IV PUSH NAUSEA Last administered on 11/13/17at 18:32; Start 11/13/17 at 17:30 Oxycodone/ Acetaminophen (Percocet 5-325 Mg) 2 tab Q6H PRN PO PAIN SCALE 1 TO 10 Last administered on 11/25/17at 10:23; Start 11/13/17 at 17:30 Phenazopyridine HCl (Pyridium) 200 mg Q8H PRN PO urethral spasms Last administered on 11/21/17at 21:37; Start 11/13/17 at 16:00 Povidone Iodine (Betadine 5% Antisepsis Kit) 1 applic COMMUNITY RECREATION COORDINATOR PRN EACH NARE SEE LABEL COMMENTS; Start 11/14/17 at 04:45; Stop 11/17/17 at 04:44; Status DC Sennosides (Senokot) 17.2 mg Q12H PRN PO Moderate constipation; Start 11/21/17 at 16:00 Sodium Chloride (NS Flush) 2 ml BID IV FLUSH Last administered on 11/25/17at 08: 55; Start 11/13/17 at 21:00 A/P Problem List: (1) Obstructive uropathy ICD Code: N13.9 - Obstructive and reflux uropathy, unspecified Status: Acute (2) Bilateral hydronephrosis ICD Code: N13.30 - Unspecified hydronephrosis Status: Acute (3) Hematuria ICD Code: R31.9 - Hematuria, unspecified Status: Acute Assessment and Plan Gross hematuria Anemia Hematuria appears to be improving with CBI- although urine is still not clear. Urology following recommending continuing with CBI but slowing down . Discontinued ciprofloxacin After continuous bladder irrigation stops will need indwelling Velazquez catheter for next 48 hours and then removal for trial voiding; Patient can be sent home with a indwelling Velazquez catheter with home health care and follow-up with urology for Velazquez catheter removal next week if CBI is able to be discontinued in the morning. Obstructive uropathy Acute kidney injury History of prostate cancer and radiation Monitor renal function General. anxiety disorder Sleep apnea Obesity Home meds Ativan PRN Diabetes mellitus type 2 - Overall blood sugars controlled ; Insulin sliding scale w/ accuchecks Diabetic diet Hypertension Continue home medications, lisinopril, monitor BP, adjust meds as needed Hx of Prostate Cancer -follow-up as an outpatient with urology Hx of radiation (seeds) Left arm swelling from previous IV site, ultrasound revealed no deep venous thrombosis. Ice pack to the area, elevation. DVT prophylaxis SCD Discharge Planning urine is still reddish- is back on CBI. will monitor for one more day and hopefully discharge home tomorrow. Problem Qualifiers (1) Hematuria: Qualified Codes: R31.9 - Hematuria, unspecified Yovani Meade MD Nov 25, 2017 11:56
[2017-11-25 12:00] VITALS: BP 130/65; PULSE 67; RESP 18; TEMP 98.7; O2SAT 98
[2017-11-25 12:18] LABS: AUTOMATED NEUTROPHIL # 3.3 TH/MM3 (1.8-7.7); BASOPHIL % 0.5 % (0.0-2.0); EOSINOPHIL # 0.2 TH/MM3 (0-0.4); EOSINOPHIL % 4.4 % (0.0-4.0); HEMATOCRIT 24.9 % (39.0-51.0); HEMOGLOBIN 8.1 GM/DL (13.0-17.0); LYMPH % 22.4 % (9.0-44.0); LYMPHOCYTE # 1.2 TH/MM3 (1.0-4.8); MEAN CORPUSCULAR HEMOGLOBIN 26.4 PG (27.0-34.0); MEAN CORPUSCULAR HGB CONC 32.6 % (32.0-36.0); MEAN PLATELET VOLUME 6.8 FL (7.0-11.0); MONO % 9.8 % (0.0-8.0); MONOCYTE # 0.5 TH/MM3 (0-0.9); NEUT % 62.9 % (16.0-70.0); PLATELET COUNT 404 TH/MM3 (150-450); RED BLOOD COUNT 3.07 MIL/MM3 (4.50-5.90); RED CELL DISTRIBUTION WIDTH 14.6 % (11.6-17.2); WHITE BLOOD COUNT 5.3 TH/MM3 (4.0-11.0)
[2017-11-25 12:43] LABS: ALBUMIN 2.6 GM/DL (3.4-5.0); AST (GOT) 15 U/L (15-37); BLOOD UREA NITROGEN 12 MG/DL (7-18); CALCIUM 9.2 MG/DL (8.5-10.1); CHLORIDE 100 MEQ/L (98-107); CREATININE 0.98 MG/DL (0.60-1.30); GLOMERULAR FILTRATION RATE 94 ML/MIN (>89); GLUCOSE,RANDOM 174 MG/DL (74-106); MAGNESIUM 1.9 MG/DL (1.5-2.5); SODIUM (NA) 138 MEQ/L (136-145)
[2017-11-25 12:47] LABS: ALKALINE PHOSPHATASE 96 U/L (45-117); ALT (GPT) 22 U/L (12-78); PHOSPHORUS 3.5 MG/DL (2.5-4.9); TOTAL BILIRUBIN ADULT 0.2 MG/DL (0.2-1.0); TOTAL PROTEIN 6.3 GM/DL (6.4-8.2)
--- NOTE | 2017-11-25 13:49 | HHI.PR ---
Subjective Patient symptoms today Denies complaints Reports Amaya draining well Objective Vital Signs Vital Signs Date Time Temp Pulse Resp B/P (MAP) Pulse Ox O2 Delivery O2 Flow Rate FiO2 11/25/17 12:00 98.7 67 18 130/65 (86) 98 11/25/17 08:00 98.2 111 18 128/69 (88) 92 11/25/17 05:15 18 11/25/17 00:00 97.8 73 18 111/57 (75) 97 11/24/17 20:00 99.6 89 20 112/57 (75) 97 11/24/17 16:00 98.4 63 17 121/62 (81) 100 Intake & Output 11/25/17 11/25/17 07:00 19:00 Intake Total 780 ml Output Total 3000 ml Balance -2220 ml Intake Oral 780 ml Output Urine Total 3000 ml # Bowel Movements 0 Result Diagram: 11/25/17 1123 11/25/17 1123 Objective Remarks CBI running at slow rate with pink output Medications and IVs Current Medications Medications (Trade) Dose Ordered Sig/Daisy Route Start Time Stop Time Status Last Admin Sodium Chloride 1,000 ml @ 100 mls/hr Q10H IV 11/13/17 14:38 11/18/17 00:30 (NS Flush) 2 ml UNSCH PRN IV FLUSH 11/13/17 14:45 11/19/17 09:23 (NS Flush) 2 ml BID IV FLUSH 11/13/17 21:00 11/25/17 08:55 (Narcan Inj) 0.4 mg UNSCH PRN IV PUSH 11/13/17 14:45 (Pyridium) 200 mg Q8H PRN PO 11/13/17 16:00 11/21/17 21:37 (Ativan Inj) 1 mg Q2H PRN IV PUSH 11/13/17 16:00 11/14/17 04:32 (Vasotec Inj) 2.5 mg Q6H PRN IV PUSH 11/13/17 16:15 11/18/17 03:49 Dextrose/Sodium Chloride 1,000 ml @ 42 mls/hr [id number] IV 11/13/17 16:15 11/13/17 18:50 (Percocet 5-325 Mg) 2 tab Q6H PRN PO 11/13/17 17:30 11/25/17 10:23 (Zofran Inj) 4 mg Q6HR PRN IV PUSH 11/13/17 17:30 11/13/17 18:32 (Morphine Inj) 4 mg Q3H PRN IV PUSH 11/13/17 18:00 11/15/17 09:33 (Catapres) 0.1 mg Q6H PRN PO 11/16/17 08:45 11/19/17 08:20 Aminocaproic Acid 3000 mg/Sodium Chloride 3,012 ml @ 0 mls/hr UNSCH IRRIGATION 11/16/17 15:00 11/23/17 06:43 (Prinivil) 10 mg BID PO 11/19/17 21:00 11/25/17 08:57 (Hydrodiuril) 12.5 mg BID PO 11/19/17 21:00 11/25/17 08:56 (Milk Of Magnesia Liq) 30 ml Q12H PRN PO 11/21/17 16:00 (Senokot) 17.2 mg Q12H PRN PO 11/21/17 16:00 (Dulcolax Supp) 10 mg DAILY PRN RECTAL 11/21/17 16:00 (Lactulose Liq) 30 ml DAILY PRN PO 11/21/17 16:00 (D50w (Vial) Inj) 50 ml UNSCH PRN IV PUSH 11/21/17 16:30 (Glucagon Inj) 1 mg UNSCH PRN OTHER 11/21/17 16:30 (NovoLOG SUPPLEMENTAL SCALE) 1 ACHS SLIDING SCALE SQ 11/22/17 17:00 11/25/17 13:17 (Neosporin Oint) 1 applic BID TOPICAL 11/23/17 13:06 11/25/17 08:57 Assessment and Plan Assessment and Plan Urologic impression: #1 history prostate cancer status post radiation therapy #2 radiation cystitis #3 status post recent cystoscopy with fulguration of bleeding sites #4 Hematuria almost completely resolved Recommendations: #1 Discontinue CBI and resume as needed #2 Amaya catheter should not be removed until urine remains clear yellow for at least 2 days #3 Urologically cleared for discharge home tomorrow if urine output remains light red to clear #4 Follow-up as an outpatient over at the [facility] with his established physicians Darryl Alcazar MD Nov 25, 2017 13:49
[2017-11-25] MEDS: DEXT 5%-NACL 0.9% 1000 ML INJ 1,000 ML IV SCH ×2 (14:03→21:23)
--- NOTE | 2017-11-25 14:04 | HHI.DS ---
Discharge Summary Admission Date Nov 13, 2017 at 15:00 Discharge Date: Nov 26, 2017 Admitting Diagnosis bilateral hydronephrosis, obstructive uropathy, hematuria, MIAH (1) Obstructive uropathy ICD Code: N13.9 - Obstructive and reflux uropathy, unspecified Diagnosis: Principal Status: Acute (2) Bilateral hydronephrosis ICD Code: N13.30 - Unspecified hydronephrosis Diagnosis: Principal Status: Acute (3) Hematuria ICD Code: R31.9 - Hematuria, unspecified Diagnosis: Principal Status: Acute Procedures Operative Report Date of Surgery: Nov 15, 2017 Preoperative Diagnosis: (1) Hematuria Postoperative Diagnosis: (1) Radiation cystitis (2) Hematuria Procedure: Cystoscopy, clot evacuation and fulguration of bleeding sites Anesthesia: General Surgeon: Darryl Alcazar Slot Router(s): None Operation and Findings: Indication for procedures: Case of a pleasant 62-year-old gentleman with history prostate cancer status post creation therapy who presents now with gross hematuria and clot urinary retention. Operative procedure detail: Patient was brought to the operating room suite and placed supine on the OR table. Present placed under general anesthesia. He was then repositioned in the dorsolithotomy position and prepped and draped in normal sterile fashion. After appropriate timeout was undertaken proceed with cystoscopic evaluation utilizing the rigid cystoscope with a 22 [place] sheath and the 30 lens. The urethra was patent without stricture formation, the prostatic urethra was nonobstructing however there was marked enlargement to the median lobe which had dilated blood vessels that were oozing blood. Further passive cystoscope within the urinary bladder revealed dilated blood vessels at the bladder neck region oozing blood as well. The bladder was full of clots. I then proceeded with bladder irrigation with the Elik evacuator until all the clots were removed. I then proceeded with further cystoscopic evaluation and fulguration of the bleeding sites involving the median lobe of the prostate and the bladder neck region. At conclusion of procedure the still was some oozing of blood noted diffusely from the bladder related to the radiation cystitis. A decision was thus made to place a 24 [place] three-way Amaya catheter and implement continuous bladder irrigation. The patient tolerated the procedures without complications and was transferred to the PACU in satisfactory condition. Darryl Alcazar MD Nov 15, 2017 11:26 Brief History - From Admission History from patient, family members at the bedside, ER physician communication , and review of medical records. Patient is having severe pain at the time of my exam because of his Amaya catheter and blood clots. He did however give history in between his cries for pain. He reports he was not able to urinate since the morning. He was also having severe pain in his bladder area. He reports it was blood in his urine with large amount of clots. Denies fever. Next and reports of nausea but did not vomit. Next I denies diarrhea. Denies seeing any black color or red color stool. Also reports of back pain. However this is chronic as well. In the emergency room, patient was found to be acutely retaining urine. Bedside sonogram was done which shows large clots of blood. Amaya catheter initially three-way catheter was placed for irrigation. After discussion with urologist, the catheter was changed to a larger caliber for irrigation purpose. Case was discussed with urologist on-call by ER physician in detail. Patient drained 1500 cc of urine after insertion of Amaya. CBC/BMP: 11/25/17 1123 11/25/17 1123 Significant Findings Laboratory Tests Test 11/23/17 14:58 11/24/17 05:00 11/25/17 11:23 Red Blood Count 3.25 MIL/MM3 (4.50-5.90) 3.10 MIL/MM3 (4.50-5.90) 3.07 MIL/MM3 (4.50-5.90) Hemoglobin 8.6 GM/DL (13.0-17.0) 8.3 GM/DL (13.0-17.0) 8.1 GM/DL (13.0-17.0) Hematocrit 26.6 % (39.0-51.0) 25.0 % (39.0-51.0) 24.9 % (39.0-51.0) Mean Corpuscular Hemoglobin 26.5 PG (27.0-34.0) 26.7 PG (27.0-34.0) 26.4 PG (27.0-34.0) Neutrophils (%) (Auto) 72.5 % (16.0-70.0) Monocytes (%) (Auto) 9.5 % (0.0-8.0) 11.8 % (0.0-8.0) 9.8 % (0.0-8.0) Lymphocytes # (Auto) 0.9 TH/MM3 (1.0-4.8) Random Glucose 177 MG/DL (74-106) 128 MG/DL (74-106) 174 MG/DL (74-106) Albumin 2.8 GM/DL (3.4-5.0) 2.6 GM/DL (3.4-5.0) 2.6 GM/DL (3.4-5.0) Aspartate Amino Transf (AST/SGOT) 13 U/L (15-37) 14 U/L (15-37) Hemoglobin A1c 6.5 % (4.3-6.0) Eosinophils (%) (Auto) 4.8 % (0.0-4.0) 4.4 % (0.0-4.0) Total Protein 6.3 GM/DL (6.4-8.2) 6.3 GM/DL (6.4-8.2) Carbon Dioxide Level 32.1 MEQ/L (21.0-32.0) Mean Platelet Volume 6.8 FL (7.0-11.0) Imaging Last Impressions Upper Extremity Ultrasound 11/22/17 0000 Signed Impressions: Service Date/Time: Wednesday, November 22, 2017 09:19 - CONCLUSION: 1. Superficial thrombus in the cephalic vein. 2. No deep venous thrombosis. Noe Ray MD Abdomen/Pelvis CT 11/13/17 0000 Signed Impressions: Service Date/Time: Monday, November 13, 2017 13:41 - CONCLUSION: Large apparent clot within the bladder. I believe the majority of the density in the bladder is clot and not tumor. Amaya is in good position. Jones Lopez MD FACR PE at Discharge GENERAL: This is a well-nourished, well-developed patient, in no apparent distress. CARDIOVASCULAR: Regular rate and regular rhythm without murmurs, gallops, or rubs. RESPIRATORY: Clear to auscultation. Breath sounds equal bilaterally. No wheezes , rales, or rhonchi. GASTROINTESTINAL: Abdomen soft, non-tender, nondistended. Normal, active bowel sounds MUSCULOSKELETAL: Extremities without clubbing, cyanosis, or edema. NEURO: Alert & Oriented x4 to person, place, time, situation. Moves all ext x4 Hospital Course patient was admitted with hematuria. he underwent cystoscopy and clot evacuation. he was started on CBI. he will be discharged home with f/u with pcp and urology as outpatient. Pt Condition on Discharge: Fair Discharge Disposition: Discharge Home Discharge Time: <= 30 minutes Discharge Instructions DIET: Follow Instructions for: Heart Healthy Diet, Diabetic Diet Activities you can perform: Regular-No Restrictions Yovani Meade MD Nov 25, 2017 14:04
[2017-11-25 16:00] VITALS: BP 113/64; PULSE 90; RESP 18; TEMP 99.5; O2SAT 95
[2017-11-25 20:00] VITALS: BP 101/57; PULSE 73; RESP 16; TEMP 99; O2SAT 98
[2017-11-26] VITALS: BP 107/55; PULSE 72; RESP 16; TEMP 97.3; O2SAT 96
[2017-11-26] MEDS: oxyCODONE/ACETAMINOPHEN 5 MG/325 MG TAB PO PRN ×4 (03:53→21:15)
[2017-11-26 08:00] VITALS: BP 117/55; PULSE 72; RESP 18; TEMP 98.6; O2SAT 98
--- NOTE | 2017-11-26 08:33 | HHI.PR ---
Subjective Remarks in no acute distress. velazquez in place; still with some hematuria. has mild lower abdominal pain. afebrile. d/w the RN. Objective Vitals Vital Signs Date Time Temp Pulse Resp B/P (MAP) Pulse Ox O2 Delivery O2 Flow Rate FiO2 11/26/17 00:00 97.3 72 16 107/55 (72) 96 11/25/17 20:00 99.0 73 16 101/57 (72) 98 11/25/17 16:00 99.5 90 18 113/64 (80) 95 11/25/17 12:00 98.7 67 18 130/65 (86) 98 I/O 11/25/17 11/25/17 11/25/17 11/26/17 11/26/17 11/26/17 07:00 15:00 23:00 07:00 15:00 23:00 Intake Total 780 ml 640 ml Output Total 3000 ml 1850 ml 2500 ml Balance -2220 ml -1210 ml -2500 ml Intake Oral 780 ml 640 ml Output Urine Total 3000 ml 1850 ml 2500 ml # Bowel Movements 0 0 Result Diagram: 11/25/17 1123 11/25/17 1123 Imaging Last Impressions Upper Extremity Ultrasound 11/22/17 0000 Signed Impressions: Service Date/Time: Wednesday, November 22, 2017 09:19 - CONCLUSION: 1. Superficial thrombus in the cephalic vein. 2. No deep venous thrombosis. Noe Ray MD Abdomen/Pelvis CT 11/13/17 0000 Signed Impressions: Service Date/Time: Monday, November 13, 2017 13:41 - CONCLUSION: Large apparent clot within the bladder. I believe the majority of the density in the bladder is clot and not tumor. Velazquez is in good position. Jones Lopez MD FACR Objective Remarks GENERAL: This is a well-nourished, well-developed patient, in no apparent distress. CARDIOVASCULAR: Regular rate and regular rhythm without murmurs, gallops, or rubs. RESPIRATORY: Clear to auscultation. Breath sounds equal bilaterally. No wheezes , rales, or rhonchi. GASTROINTESTINAL: Abdomen soft, non-tender, nondistended. Normal, active bowel sounds MUSCULOSKELETAL: Extremities without clubbing, cyanosis, or edema. NEURO: Alert & Oriented x4 to person, place, time, situation. Moves all ext x4 Procedures Operative Report Date of Surgery: Nov 15, 2017 Preoperative Diagnosis: (1) Hematuria Postoperative Diagnosis: (1) Radiation cystitis (2) Hematuria Procedure: Cystoscopy, clot evacuation and fulguration of bleeding sites Anesthesia: General Surgeon: Darryl Alcazar Baby Doctor(s): None Operation and Findings: Indication for procedures: Case of a pleasant 62-year-old gentleman with history prostate cancer status post creation therapy who presents now with gross hematuria and clot urinary retention. Operative procedure detail: Patient was brought to the operating room suite and placed supine on the OR table. Present placed under general anesthesia. He was then repositioned in the dorsolithotomy position and prepped and draped in normal sterile fashion. After appropriate timeout was undertaken proceed with cystoscopic evaluation utilizing the rigid cystoscope with a 22 [place]ian sheath and the 30 lens. The urethra was patent without stricture formation, the prostatic urethra was nonobstructing however there was marked enlargement to the median lobe which had dilated blood vessels that were oozing blood. Further passive cystoscope within the urinary bladder revealed dilated blood vessels at the bladder neck region oozing blood as well. The bladder was full of clots. I then proceeded with bladder irrigation with the Elik evacuator until all the clots were removed. I then proceeded with further cystoscopic evaluation and fulguration of the bleeding sites involving the median lobe of the prostate and the bladder neck region. At conclusion of procedure the still was some oozing of blood noted diffusely from the bladder related to the radiation cystitis. A decision was thus made to place a 24 [place]ian three-way Velazquez catheter and implement continuous bladder irrigation. The patient tolerated the procedures without complications and was transferred to the PACU in satisfactory condition. Darryl Alcazar MD Nov 15, 2017 11:26 Medications and IVs Inpatient Medications Aminocaproic Acid 3000 mg/Sodium Chloride 3,012 ml @ 0 mls/hr UNSCH IRRIGATION Last administered on 11/23/17at 06:43; Start 11/16/17 at 15:00 Bisacodyl (Dulcolax Supp) 10 mg DAILY PRN RECTAL SEVERE CONSITIPATION; Start at 16:00 Ceftriaxone Sodium 1000 mg/ Sodium Chloride 100 ml @ 200 mls/hr ONCE ONCE IV Last administered on 11/13/17at 14:21; Start 11/13/17 at 14:00; Stop 11/13/17 at 14:29; Status DC Chlorhexidine Gluconate (Chlorhexidine 2% Cloth) 3 pack [facility] PRN TOPICAL SEE LABEL COMMENTS; Start 11/14/17 at 04:45; Stop 11/17/17 at 04:44; Status DC Ciprofloxacin/ Dextrose 200 ml @ 200 mls/hr Q12H IV Last administered on at 21:33; Start 11/14/17 at 09:00; Stop 11/21/17 at 00:24; Status DC Clonidine (Catapres) 0.1 mg Q6H PRN PO SBP>160, DBP>90 Last administered on at 08:20; Start 11/16/17 at 08:45 Dextrose (D50w (Vial) Inj) 50 ml UNSCH PRN IV PUSH HYPOGLYCEMIA-SEE COMMENTS; Start 11/21/17 at 16:30 Dextrose/Sodium Chloride 1,000 ml @ 42 mls/hr [id number] IV Last administered on 11/13/17at 18:50; Start 11/13/17 at 16:15 Enalaprilat (Vasotec Inj) 2.5 mg Q6H PRN IV PUSH bp>160/90 despite pain control Last administered on 11/18/17at 03:49; Start 11/13/17 at 16:15 Glucagon (Glucagon Inj) 1 mg UNSCH PRN OTHER HYPOGLYCEMIA-SEE COMMENTS; Start 11/21/17 at 16:30 Hydrochlorothiazide (Hydrodiuril) 12.5 mg BID PO Last administered on 11/25/17at 21:17; Start 11/19/17 at 21:00 Insulin Aspart (NovoLOG SUPPLEMENTAL SCALE) 1 ACHS SLIDING SCALE SQ Last administered on 11/25/17at 21:19; Start 11/22/17 at 17:00 Lactated Ringer's 1,000 ml @ 30 mls/hr Q24H PRN IV SEE LABEL COMMENTS Last administered on 11/14/17at 05:02; Start 11/14/17 at 04:45; Stop 11/17/17 at 04:44 ; Status DC Lactulose (Lactulose Liq) 30 ml DAILY PRN PO SEVERE CONSITIPATION; Start at 16:00 Lisinopril (Prinivil) 10 mg BID PO Last administered on 11/25/17 21:18; Start 11/19/17 at 21:00 Lorazepam (Ativan Inj) 1 mg Q2H PRN IV PUSH anxiety Last administered on at 04:32; Start 11/13/17 at 16:00 Magnesium Hydroxide (Milk Of Magnkarlee Liq) 30 ml Q12H PRN PO Mild constipation ; Start 11/21/17 at 16:00 Miscellaneous Information ALL NURSING DEPARTME... UNSCH PRN .XX SEE LABEL COMMENTS; Start 11/15/17 at 11:32; Stop 11/16/17 at 11:31; Status DC Morphine Sulfate (Morphine Inj) 4 mg Q3H PRN IV PUSH pain >5 Last administered on 11/15/17at 09:33; Start 11/13/17 at 18:00 Naloxone HCl (Narcan Inj) 0.4 mg UNSCH PRN IV PUSH SEE LABEL COMMENTS; Start at 14:45 Neomycin/ Polymyxin/ Bacitracin (Neosporin Oint) 1 applic BID TOPICAL Last administered on 11/25/17at 21:20; Start 11/23/17 at 13:06 Ondansetron HCl (Zofran Inj) 4 mg Q6HR PRN IV PUSH NAUSEA Last administered on 11/13/17at 18:32; Start 11/13/17 at 17:30 Oxycodone/ Acetaminophen (Percocet 5-325 Mg) 2 tab Q6H PRN PO PAIN SCALE 1 TO 10 Last administered on 11/26/17 03:53; Start 11/13/17 at 17:30 Phenazopyridine HCl (Pyridium) 200 mg Q8H PRN PO urethral spasms Last administered on 11/21/17at 21:37; Start 11/13/17 at 16:00 Povidone Iodine (Betadine 5% Antisepsis Kit) 1 applic [facility] PRN EACH NARE SEE LABEL COMMENTS; Start 11/14/17 at 04:45; Stop 11/17/17 at 04:44; Status DC Sennosides (Senokot) 17.2 mg Q12H PRN PO Moderate constipation; Start 11/21/17 at 16:00 Sodium Chloride (NS Flush) 2 ml BID IV FLUSH Last administered on 11/25/17at 21: 19; Start 11/13/17 at 21:00 A/P Problem List: (1) Obstructive uropathy ICD Code: N13.9 - Obstructive and reflux uropathy, unspecified Status: Acute (2) Bilateral hydronephrosis ICD Code: N13.30 - Unspecified hydronephrosis Status: Acute (3) Hematuria ICD Code: R31.9 - Hematuria, unspecified Status: Acute Assessment and Plan Gross hematuria Anemia Hematuria appears to be improving with CBI- although urine is still not clear. Urology following recommending continuing with CBI but slowing down . Patient can be sent home with a indwelling Velazquez catheter with home health care and follow-up with urology for Velazquez catheter removal next week if CBI is able to be discontinued in the morning. Obstructive uropathy Acute kidney injury History of prostate cancer and radiation Monitor renal function General. anxiety disorder Sleep apnea Obesity Home meds Ativan PRN Diabetes mellitus type 2 - Insulin sliding scale w/ accuchecks Diabetic diet Hypertension Continue home medications, lisinopril, monitor BP, adjust meds as needed Hx of Prostate Cancer -follow-up as an outpatient with urology Hx of radiation (seeds) Left arm swelling from previous IV site, ultrasound revealed no deep venous thrombosis. Ice pack to the area, elevation. DVT prophylaxis SCD Discharge Planning urine is still reddish- awaiting urology recommendations; dc home when cleared by urology. d/w the patient. Problem Qualifiers (1) Hematuria: Qualified Codes: R31.9 - Hematuria, unspecified Yovani Meade MD Nov 26, 2017 08:33
[2017-11-26] MEDS: LISINOPRIL 10 MG TAB PO SCH ×2 (08:53→21:05)
[2017-11-26] MEDS: HYDROCHLOROTHIAZIDE 25 MG TAB PO SCH ×2 (08:53→21:05)
[2017-11-26] MEDS: INSULIN ASPART SUPPLEMENTAL SCALE SQ SCH ×4 (08:54→20:30)
[2017-11-26] MEDS: SODIUM CHLORIDE 0.9% FLUSH 10 ML FLUSH IV FLUSH SCH ×2 (08:54→20:27)
[2017-11-26] MEDS: NEOMYCIN/POLYMYXIN/BACITRACIN OINT 15 GM TUBE TOPICAL SCH ×2 (08:55→22:09)
[2017-11-26 12:00] VITALS: BP 123/63; PULSE 75; RESP 18; TEMP 98.1; O2SAT 99
[2017-11-26] MEDS: SODIUM CHLOR 0.9% 1000 ML INJ 1,000 ML IV SCH ×2 (12:38→22:38)
--- NOTE | 2017-11-26 15:24 | HHI.PR ---
Subjective Patient symptoms today Patient reports that catheter was not draining well early this morning and had leakage around the catheter. The leakage resolved after the catheter was irrigated. Continues to have mild hematuria. Objective Vital Signs Vital Signs Date Time Temp Pulse Resp B/P (MAP) Pulse Ox O2 Delivery O2 Flow Rate FiO2 11/26/17 12:00 98.1 75 18 123/63 (83) 99 11/26/17 08:00 98.6 72 18 117/55 (75) 98 11/26/17 00:00 97.3 72 16 107/55 (72) 96 11/25/17 20:00 99.0 73 16 101/57 (72) 98 11/25/17 16:00 99.5 90 18 113/64 (80) 95 Intake & Output 11/26/17 11/26/17 06:59 18:59 Output Total 2500 ml Balance -2500 ml Output Urine Total 2500 ml Result Diagram: 11/25/17 1123 11/25/17 1123 Objective Remarks CBI clamped off Amaya draining light red colored urine Medications and IVs Current Medications Medications (Trade) Dose Ordered Sig/Daisy Route Start Time Stop Time Status Last Admin Sodium Chloride 1,000 ml @ 100 mls/hr Q10H IV 11/13/17 14:38 11/18/17 00:30 (NS Flush) 2 ml UNSCH PRN IV FLUSH 11/13/17 14:45 11/19/17 09:23 (NS Flush) 2 ml BID IV FLUSH 11/13/17 21:00 11/25/17 21:19 (Narcan Inj) 0.4 mg UNSCH PRN IV PUSH 11/13/17 14:45 (Pyridium) 200 mg Q8H PRN PO 11/13/17 16:00 11/21/17 21:37 (Ativan Inj) 1 mg Q2H PRN IV PUSH 11/13/17 16:00 11/14/17 04:32 (Vasotec Inj) 2.5 mg Q6H PRN IV PUSH 11/13/17 16:15 11/18/17 03:49 Dextrose/Sodium Chloride 1,000 ml @ 42 mls/hr [id number] IV 11/13/17 16:15 11/13/17 18:50 (Percocet 5-325 Mg) 2 tab Q6H PRN PO 11/13/17 17:30 11/26/17 09:38 (Zofran Inj) 4 mg Q6HR PRN IV PUSH 11/13/17 17:30 11/13/17 18:32 (Morphine Inj) 4 mg Q3H PRN IV PUSH 11/13/17 18:00 11/15/17 09:33 (Catapres) 0.1 mg Q6H PRN PO 11/16/17 08:45 11/19/17 08:20 Aminocaproic Acid 3000 mg/Sodium Chloride 3,012 ml @ 0 mls/hr UNSCH IRRIGATION 11/16/17 15:00 11/23/17 06:43 (Prinivil) 10 mg BID PO 11/19/17 21:00 11/26/17 08:53 (Hydrodiuril) 12.5 mg BID PO 11/19/17 21:00 11/26/17 08:53 (Milk Of Magnesia Liq) 30 ml Q12H PRN PO 11/21/17 16:00 (Senokot) 17.2 mg Q12H PRN PO 11/21/17 16:00 (Dulcolax Supp) 10 mg DAILY PRN RECTAL 11/21/17 16:00 (Lactulose Liq) 30 ml DAILY PRN PO 11/21/17 16:00 (D50w (Vial) Inj) 50 ml UNSCH PRN IV PUSH 11/21/17 16:30 (Glucagon Inj) 1 mg UNSCH PRN OTHER 11/21/17 16:30 (NovoLOG SUPPLEMENTAL SCALE) 1 ACHS SLIDING SCALE SQ 11/22/17 17:00 11/26/17 12:52 (Neosporin Oint) 1 applic BID TOPICAL 11/23/17 13:06 11/26/17 08:55 Assessment and Plan Assessment and Plan Urologic impression: #1 history prostate cancer status post radiation therapy #2 radiation cystitis #3 status post recent cystoscopy with fulguration of bleeding sites #4 Hematuria almost completely resolved Recommendations: #1 Discontinue CBI #2 replace CBI catheter with a 20 [place]i two-way Amaya catheter. #2 Amaya catheter should not be removed until urine remains clear yellow for at least 2 days #3 Urologically cleared for discharge home tomorrow if urine output remains light red to clear #4 Follow-up as an outpatient over at the [facility] with his established physicians Darryl Alcazar MD Nov 26, 2017 15:24
[2017-11-26 15:25] VITALS: BP 120/61; PULSE 78; RESP 16; TEMP 99; O2SAT 99
[2017-11-26 20:00] VITALS: BP 142/69; PULSE 70; RESP 18; TEMP 97.8; O2SAT 100
[2017-11-27] VITALS: BP 111/53; PULSE 72; RESP 18; TEMP 98.6; O2SAT 98
[2017-11-27] MEDS: oxyCODONE/ACETAMINOPHEN 5 MG/325 MG TAB PO PRN ×2 (03:48→09:54)
[2017-11-27 08:00] VITALS: BP 118/59; PULSE 76; RESP 16; TEMP 98.2; O2SAT 96
[2017-11-27] MEDS: SODIUM CHLORIDE 0.9% FLUSH 10 ML FLUSH IV FLUSH SCH (08:20)
[2017-11-27] MEDS: LISINOPRIL 10 MG TAB PO SCH (08:20)
[2017-11-27] MEDS: HYDROCHLOROTHIAZIDE 25 MG TAB PO SCH (08:20)
[2017-11-27] MEDS: SODIUM CHLOR 0.9% 1000 ML INJ 1,000 ML IV SCH (08:20)
[2017-11-27] MEDS: NEOMYCIN/POLYMYXIN/BACITRACIN OINT 15 GM TUBE TOPICAL SCH (08:21)
[2017-11-27] MEDS: INSULIN ASPART SUPPLEMENTAL SCALE SQ SCH ×2 (08:21→11:50)
--- NOTE | 2017-11-27 08:39 | HHI.PR ---
Subjective Remarks in no acute distress. denies pain. no fever. velazquez in place- urine is not clear yet. d/w the RN and no acute issues over night. Objective Vitals Vital Signs Date Time Temp Pulse Resp B/P (MAP) Pulse Ox O2 Delivery O2 Flow Rate FiO2 11/27/17 00:00 98.6 72 18 111/53 (72) 98 11/26/17 20:00 97.8 70 18 142/69 (93) 100 11/26/17 15:25 99.0 78 16 120/61 (80) 99 11/26/17 12:00 98.1 75 18 123/63 (83) 99 I/O 11/26/17 11/26/17 11/26/17 11/27/17 11/27/17 11/27/17 07:00 15:00 23:00 07:00 15:00 23:00 Intake Total 720 ml Output Total 2500 ml 4450 ml 2400 ml Balance -2500 ml -3730 ml -2400 ml Intake Oral 720 ml Output Urine Total 2500 ml 4450 ml 2400 ml # Bowel Movements 0 Result Diagram: 11/25/17 1123 11/25/17 1123 Imaging Last Impressions Upper Extremity Ultrasound 11/22/17 0000 Signed Impressions: Service Date/Time: Wednesday, November 22, 2017 09:19 - CONCLUSION: 1. Superficial thrombus in the cephalic vein. 2. No deep venous thrombosis. Noe Ray MD Abdomen/Pelvis CT 11/13/17 0000 Signed Impressions: Service Date/Time: Monday, November 13, 2017 13:41 - CONCLUSION: Large apparent clot within the bladder. I believe the majority of the density in the bladder is clot and not tumor. Velazquez is in good position. Jones Lopez MD FACR Objective Remarks GENERAL: This is a well-nourished, well-developed patient, in no apparent distress. CARDIOVASCULAR: Regular rate and regular rhythm without murmurs, gallops, or rubs. RESPIRATORY: Clear to auscultation. Breath sounds equal bilaterally. No wheezes , rales, or rhonchi. GASTROINTESTINAL: Abdomen soft, non-tender, nondistended. Normal, active bowel sounds MUSCULOSKELETAL: Extremities without clubbing, cyanosis, or edema. NEURO: Alert & Oriented x4 to person, place, time, situation. Moves all ext x4 Procedures Operative Report Date of Surgery: Nov 15, 2017 Preoperative Diagnosis: (1) Hematuria Postoperative Diagnosis: (1) Radiation cystitis (2) Hematuria Procedure: Cystoscopy, clot evacuation and fulguration of bleeding sites Anesthesia: General Surgeon: Darryl Alcazar Pediatric Social Worker(s): None Operation and Findings: Indication for procedures: Case of a pleasant 62-year-old gentleman with history prostate cancer status post creation therapy who presents now with gross hematuria and clot urinary retention. Operative procedure detail: Patient was brought to the operating room suite and placed supine on the OR table. Present placed under general anesthesia. He was then repositioned in the dorsolithotomy position and prepped and draped in normal sterile fashion. After appropriate timeout was undertaken proceed with cystoscopic evaluation utilizing the rigid cystoscope with a 22 Tongan sheath and the 30 lens. The urethra was patent without stricture formation, the prostatic urethra was nonobstructing however there was marked enlargement to the median lobe which had dilated blood vessels that were oozing blood. Further passive cystoscope within the urinary bladder revealed dilated blood vessels at the bladder neck region oozing blood as well. The bladder was full of clots. I then proceeded with bladder irrigation with the Elik evacuator until all the clots were removed. I then proceeded with further cystoscopic evaluation and fulguration of the bleeding sites involving the median lobe of the prostate and the bladder neck region. At conclusion of procedure the still was some oozing of blood noted diffusely from the bladder related to the radiation cystitis. A decision was thus made to place a 24 Tongan three-way Velazquez catheter and implement continuous bladder irrigation. The patient tolerated the procedures without complications and was transferred to the PACU in satisfactory condition. Darryl Alcazar MD Nov 15, 2017 11:26 Medications and IVs Inpatient Medications Aminocaproic Acid 3000 mg/Sodium Chloride 3,012 ml @ 0 mls/hr UNSCH IRRIGATION Last administered on 11/23/17at 06:43; Start 11/16/17 at 15:00 Bisacodyl (Dulcolax Supp) 10 mg DAILY PRN RECTAL SEVERE CONSITIPATION; Start at 16:00 Ceftriaxone Sodium 1000 mg/ Sodium Chloride 100 ml @ 200 mls/hr ONCE ONCE IV Last administered on 11/13/17at 14:21; Start 11/13/17 at 14:00; Stop 11/13/17 at 14:29; Status DC Chlorhexidine Gluconate (Chlorhexidine 2% Cloth) 3 pack INVESTMENT BANKER PRN TOPICAL SEE LABEL COMMENTS; Start 11/14/17 at 04:45; Stop 11/17/17 at 04:44; Status DC Ciprofloxacin/ Dextrose 200 ml @ 200 mls/hr Q12H IV Last administered on at 21:33; Start 11/14/17 at 09:00; Stop 11/21/17 at 00:24; Status DC Clonidine (Catapres) 0.1 mg Q6H PRN PO SBP>160, DBP>90 Last administered on at 08:20; Start 11/16/17 at 08:45 Dextrose (D50w (Vial) Inj) 50 ml UNSCH PRN IV PUSH HYPOGLYCEMIA-SEE COMMENTS; Start 11/21/17 at 16:30 Dextrose/Sodium Chloride 1,000 ml @ 42 mls/hr [id number] IV Last administered on 11/13/17at 18:50; Start 11/13/17 at 16:15 Enalaprilat (Vasotec Inj) 2.5 mg Q6H PRN IV PUSH bp>160/90 despite pain control Last administered on 11/18/17at 03:49; Start 11/13/17 at 16:15 Glucagon (Glucagon Inj) 1 mg UNSCH PRN OTHER HYPOGLYCEMIA-SEE COMMENTS; Start 11/21/17 at 16:30 Hydrochlorothiazide (Hydrodiuril) 12.5 mg BID PO Last administered on 11/27/17at 08:20; Start 11/19/17 at 21:00 Insulin Aspart (NovoLOG SUPPLEMENTAL SCALE) 1 ACHS SLIDING SCALE SQ Last administered on 11/27/17at 08:21; Start 11/22/17 at 17:00 Lactated Ringer's 1,000 ml @ 30 mls/hr Q24H PRN IV SEE LABEL COMMENTS Last administered on 11/14/17at 05:02; Start 11/14/17 at 04:45; Stop 11/17/17 at 04:44 ; Status DC Lactulose (Lactulose Liq) 30 ml DAILY PRN PO SEVERE CONSITIPATION; Start at 16:00 Lisinopril (Prinivil) 10 mg BID PO Last administered on 11/27/17 08:20; Start 11/19/17 at 21:00 Lorazepam (Ativan Inj) 1 mg Q2H PRN IV PUSH anxiety Last administered on 04:32; Start 11/13/17 at 16:00 Magnesium Hydroxide (Milk Of Magnkarlee Liq) 30 ml Q12H PRN PO Mild constipation ; Start 11/21/17 at 16:00 Miscellaneous Information ALL NURSING DEPARTME... UNSCH PRN .XX SEE LABEL COMMENTS; Start 11/15/17 at 11:32; Stop 11/16/17 at 11:31; Status DC Morphine Sulfate (Morphine Inj) 4 mg Q3H PRN IV PUSH pain >5 Last administered on 11/15/17 09:33; Start 11/13/17 at 18:00 Naloxone HCl (Narcan Inj) 0.4 mg UNSCH PRN IV PUSH SEE LABEL COMMENTS; Start at 14:45 Neomycin/ Polymyxin/ Bacitracin (Neosporin Oint) 1 applic BID TOPICAL Last administered on 11/27/17at 08:21; Start 11/23/17 at 13:06 Ondansetron HCl (Zofran Inj) 4 mg Q6HR PRN IV PUSH NAUSEA Last administered on 11/13/17 18:32; Start 11/13/17 at 17:30 Oxycodone/ Acetaminophen (Percocet 5-325 Mg) 2 tab Q6H PRN PO PAIN SCALE 1 TO 10 Last administered on 11/27/17 03:48; Start 11/13/17 at 17:30 Phenazopyridine HCl (Pyridium) 200 mg Q8H PRN PO urethral spasms Last administered on 11/21/17at 21:37; Start 11/13/17 at 16:00 Povidone Iodine (Betadine 5% Antisepsis Kit) 1 applic INVESTMENT BANKER PRN EACH NARE SEE LABEL COMMENTS; Start 11/14/17 at 04:45; Stop 11/17/17 at 04:44; Status DC Sennosides (Senokot) 17.2 mg Q12H PRN PO Moderate constipation; Start 11/21/17 at 16:00 Sodium Chloride (NS Flush) 2 ml BID IV FLUSH Last administered on 2/5/18at 21: 19; Start 11/13/17 at 21:00 A/P Problem List: (1) Obstructive uropathy ICD Code: N13.9 - Obstructive and reflux uropathy, unspecified Status: Acute (2) Bilateral hydronephrosis ICD Code: N13.30 - Unspecified hydronephrosis Status: Acute (3) Hematuria ICD Code: R31.9 - Hematuria, unspecified Status: Acute Assessment and Plan Gross hematuria Anemia Hematuria appears to be improving with CBI- although urine is still not clear. Urology following. Patient can be sent home with a indwelling Velazquez catheter with home health care and follow-up with urology for Velazuqez catheter removal next week . Obstructive uropathy Acute kidney injury History of prostate cancer and radiation Monitor renal function General. anxiety disorder Sleep apnea Obesity Home meds Ativan PRN Diabetes mellitus type 2 - Insulin sliding scale w/ accuchecks Diabetic diet Hypertension Continue home medications, lisinopril, monitor BP, adjust meds as needed Hx of Prostate Cancer -follow-up as an outpatient with urology Hx of radiation (seeds) Left arm swelling from previous IV site, ultrasound revealed no deep venous thrombosis. Ice pack to the area, elevation. DVT prophylaxis SCD Discharge Planning dc home today if cleared by Urology. see med list. f/u; pcp and urology. d/w the patient and RN. Problem Qualifiers (1) Hematuria: Qualified Codes: R31.9 - Hematuria, unspecified Yovani Meade MD Nov 27, 2017 08:39
--- NOTE | 2017-11-27 10:57 | HHI.PR ---
Subjective Patient symptoms today CBI has been off since yesterday and catheter replaced. Patient reports that the catheter has been draining well. Anxious to go home. Reports taking baby aspirin and I advised patient to stop this until the hematuria is fully resolved. Objective Vital Signs Vital Signs Date Time Temp Pulse Resp B/P (MAP) Pulse Ox O2 Delivery O2 Flow Rate FiO2 11/27/17 08:00 98.2 76 16 118/59 (78) 96 11/27/17 00:00 98.6 72 18 111/53 (72) 98 11/26/17 20:00 97.8 70 18 142/69 (93) 100 11/26/17 15:25 99.0 78 16 120/61 (80) 99 11/26/17 12:00 98.1 75 18 123/63 (83) 99 Intake & Output 11/27/17 11/27/17 07:00 19:00 Output Total 3850 ml Balance -3850 ml Output Urine Total 3850 ml Result Diagram: 11/25/17 1123 11/25/17 1123 Objective Remarks Amaya draining light red colored urine without clots. Bladder not distended. Medications and IVs Current Medications Medications (Trade) Dose Ordered Sig/Daisy Route Start Time Stop Time Status Last Admin Sodium Chloride 1,000 ml @ 100 mls/hr Q10H IV 11/13/17 14:38 11/18/17 00:30 (NS Flush) 2 ml UNSCH PRN IV FLUSH 11/13/17 14:45 11/19/17 09:23 (NS Flush) 2 ml BID IV FLUSH 11/13/17 21:00 11/25/17 21:19 (Narcan Inj) 0.4 mg UNSCH PRN IV PUSH 11/13/17 14:45 (Pyridium) 200 mg Q8H PRN PO 11/13/17 16:00 11/21/17 21:37 (Ativan Inj) 1 mg Q2H PRN IV PUSH 11/13/17 16:00 11/14/17 04:32 (Vasotec Inj) 2.5 mg Q6H PRN IV PUSH 11/13/17 16:15 11/18/17 03:49 Dextrose/Sodium Chloride 1,000 ml @ 42 mls/hr [id number] IV 11/13/17 16:15 11/13/17 18:50 (Percocet 5-325 Mg) 2 tab Q6H PRN PO 11/13/17 17:30 11/27/17 09:54 (Zofran Inj) 4 mg Q6HR PRN IV PUSH 11/13/17 17:30 11/13/17 18:32 (Morphine Inj) 4 mg Q3H PRN IV PUSH 11/13/17 18:00 11/15/17 09:33 (Catapres) 0.1 mg Q6H PRN PO 11/16/17 08:45 11/19/17 08:20 Aminocaproic Acid 3000 mg/Sodium Chloride 3,012 ml @ 0 mls/hr UNSCH IRRIGATION 11/16/17 15:00 11/23/17 06:43 (Prinivil) 10 mg BID PO 11/19/17 21:00 11/27/17 08:20 (Hydrodiuril) 12.5 mg BID PO 11/19/17 21:00 11/27/17 08:20 (Milk Of Magnesia Liq) 30 ml Q12H PRN PO 11/21/17 16:00 (Senokot) 17.2 mg Q12H PRN PO 11/21/17 16:00 (Dulcolax Supp) 10 mg DAILY PRN RECTAL 11/21/17 16:00 (Lactulose Liq) 30 ml DAILY PRN PO 11/21/17 16:00 (D50w (Vial) Inj) 50 ml UNSCH PRN IV PUSH 11/21/17 16:30 (Glucagon Inj) 1 mg UNSCH PRN OTHER 11/21/17 16:30 (NovoLOG SUPPLEMENTAL SCALE) 1 ACHS SLIDING SCALE SQ 11/22/17 17:00 11/27/17 08:21 (Neosporin Oint) 1 applic BID TOPICAL 11/23/17 13:06 11/27/17 08:21 Assessment and Plan Assessment and Plan Urologic impression: #1 history prostate cancer status post radiation therapy #2 radiation cystitis #3 status post recent cystoscopy with fulguration of bleeding sites #4 Hematuria slowly resolving/CBI discontinued #5 hematocrit has remained stable Recommendations: #1 urologically cleared to discharge home with Amaya to leg bag. #2 Amaya catheter should not be removed until urine remains clear yellow for at least 2 days #3 patient advised to contact my office if the urine is not light pink to clear by Saturday as I may want to repeat a hematocrit #4 patient advised not to take baby aspirin until urine remains clear yellow. #5 Follow-up as an outpatient over at the [facility] with his established physicians Darryl Alcazar MD Nov 27, 2017 10:57
[2017-11-27 12:00] VITALS: BP 112/68; PULSE 92; RESP 16; TEMP 99.6; O2SAT 97
== END 2017-11-27 14:43 | disposition home health service (06) | DRG 663 ==
LOC: NEPC 11:47 → NEDA 15:00 → N06A 17:04 → N07B 11-18 15:31
PROVIDERS: ADMIT Internal Medicine; ATTEND Internal Medicine
PROC: 0T9B70Z Drainage of Bladder with Drainage Device, Via Natural or Artificial Opening (ICD-10-PCS; 2017-11-13)
PROC: 0TCB8ZZ Extirpation of Matter from Bladder, Via Natural or Artificial Opening Endoscopic (ICD-10-PCS; 2017-11-15)
PROC: 0T9B80Z Drainage of Bladder with Drainage Device, Via Natural or Artificial Opening Endoscopic (ICD-10-PCS; 2017-11-15)
PROC: 0W3R8ZZ Control Bleeding in Genitourinary Tract, Via Natural or Artificial Opening Endoscopic (ICD-10-PCS; principal; 2017-11-15 09:40)
DX: N30.41 Irradiation cystitis with hematuria (principal); N17.9 Acute kidney failure, unspecified; N13.30 Unspecified hydronephrosis; E11.9 Type 2 diabetes mellitus without complications; I10 Essential (primary) hypertension; D64.9 Anemia, unspecified; F41.1 Generalized anxiety disorder; R33.9 Retention of urine, unspecified; G47.30 Sleep apnea, unspecified; R22.32 Localized swelling, mass and lump, left upper limb; E66.9 Obesity, unspecified; Y84.2 Radiological procedure and radiotherapy as the cause of abnormal reaction of the patient, or of later complication, without mention of misadventure at the time of the procedure; Z85.46 Personal history of malignant neoplasm of prostate; Z92.3 Personal history of irradiation; Z68.34 Body mass index [BMI] 34.0-34.9, adult
CPT/HCPCS: 51700; 74177; 76937; 80048; 80053; 81001; 82948; 83036; 83605; 83690; 83735; 84100; 84439; 84443; 85025; 85610; 85730; 87086; 93005; 93971; 96361; 96365; 96375; 96376; J0696; J0744; J1100; J1815; J2060; J2250; J2270; J2405; J3010; J7030; J7042; J7120; Q9967

== ENCOUNTER 2017-12-16 17:54 | Inpatient (IN) | payer OTHER, MEDICARE ==
[~2017-12-16] VITALS: Ht 188 cm; Wt 118.8 kg
[2017-12-16] VITALS (7 sets, daily range): BP systolic 121–159; BP diastolic 57–99; PULSE 79–101; RESP 16–20; TEMP 96.7–99.9; O2SAT 97–100
[~2017-12-16 17:54] MED LIST changes: -ALPR1TAB3 PO; -BENGAY TOP; -CALTTAB2 PO; -CARB1DRO EACH EYE; -CYAN100017 PO; -DOCU100T9 PO; -FURO40TA PO; -GABA600T PO; -GLIP5TAB8 PO; -HYDROPHILIC TOP; -INSU100V3 SQ; -MELOPOW PO; +METF1000 PO; -METF850T PO; -MIRA33502 PO; -OMEP20TA PO; -OXYC1SOL5 PO; -OXYC30TA PO; -POTA1TAB4 PO; -PROS5TAB2 PO; -ROSU20 PO; -SOMA350T PO; -TERA5CAP3 PO; -TERB1CRE2 TOP
[2017-12-16 18:37] LABS: AUTOMATED NEUTROPHIL # 4.7 TH/MM3 (1.8-7.7); BASOPHIL # 0.1 TH/MM3 (0-0.2); BASOPHIL % 0.8 % (0.0-2.0); EOSINOPHIL # 0.3 TH/MM3 (0-0.4); EOSINOPHIL % 4.5 % (0.0-4.0); LYMPH % 20.6 % (9.0-44.0); LYMPHOCYTE # 1.5 TH/MM3 (1.0-4.8); MEAN CELL VOLUME 79.4 FL (80.0-100.0); MEAN CORPUSCULAR HEMOGLOBIN 25.8 PG (27.0-34.0); MEAN CORPUSCULAR HGB CONC 32.4 % (32.0-36.0); MEAN PLATELET VOLUME 6.3 FL (7.0-11.0); MONOCYTE # 0.6 TH/MM3 (0-0.9); NEUT % 65.1 % (16.0-70.0); PLATELET COUNT 375 TH/MM3 (150-450); RED BLOOD COUNT 2.36 MIL/MM3 (4.50-5.90); RED CELL DISTRIBUTION WIDTH 16.3 % (11.6-17.2); WHITE BLOOD COUNT 7.2 TH/MM3 (4.0-11.0)
[2017-12-16 18:46] LABS: PROTHROMBIN TIME - PATIENT 10.2 SEC (9.8-11.6)
[2017-12-16 18:53] LABS: BICARBONATE 30.6 MEQ/L (21.0-32.0); BLOOD UREA NITROGEN 14 MG/DL (7-18); CHLORIDE 100 MEQ/L (98-107); CREATININE 1.11 MG/DL (0.60-1.30); GLOMERULAR FILTRATION RATE 82 ML/MIN (>89); GLUCOSE,RANDOM 116 MG/DL (74-106); MAGNESIUM 2.4 MG/DL (1.5-2.5); SODIUM (NA) 135 MEQ/L (136-145)
--- NOTE | 2017-12-16 18:54 | PD ---
HPI Chief Complaint: Abnormal Results Time Seen by Provider: 18:27 Travel History International Travel<30 days: No Contact w/Intl Traveler<30days: No Traveled to known affect area: No History of Present Illness HPI 62-year-old male presents to the emergency department sent by his physician for anemia. He states he was told his hemoglobin was critically low. The patient has a Amaya catheter in place. Hematuria noted. Patient was recently discharged on November 26, 2017 for bilateral hydronephrosis, obstructing uropathy, hematuria, acute kidney injury. Patient had cystoscopy completed on November 15, 2017 which showed dilated blood vessels of the bladder neck region oozing blood and the bladder was full of clots. He was discharged home to follow primary care physician and urology. He states his urologist is Dr. Del Toro. Patient reports some low back pain, but denies any abdominal pain. He states that he feels weak and fatigued. Patient denies any chest pain or shortness of breath. He states that his urine was clearing up, but then became more bloody again recently. Patient denies any history of anemia or needing blood transfusions. He denies any black or tarry stools. No blood in his stool. PFSH Past Medical History Anemia: Yes Autoimmune Disease: No Blood Disorders: No Anxiety: Yes Depression: Yes Cancer: Yes (PROSTATE) Cardiovascular Problems: Yes High Cholesterol: Yes Chemotherapy: No Diabetes: Yes Diminished Hearing: No Endocrine: No Gastrointestinal Disorders: Yes (COLON POLYP) GERD: Yes Glaucoma: No Genitourinary: Yes (prostate CA) Hypertension: Yes Immune Disorder: No Musculoskeletal: Yes (CERVICAL STENOSIS, DISC DEGENERATIVE) Neurologic: Yes (PERIPHERAL NEUROPATHY) Psychiatric: Yes Reproductive: No Respiratory: Yes (sleep apnea) Integumentary: Yes Radiation Therapy: Yes (2009) Sickle Cell Disease: No Sleep Apnea: Yes (no Cpap) Thyroid Disease: No Past Surgical History AICD: No Arteriovenous Shunt: No Insulin Pump: No Joint Replacement: No Pacemaker: No Other Surgery: Yes (TITANIAN RODS PLACED IN LOW BACK 1996) Social History Alcohol Use: No Tobacco Use: No Substance Use: No Allergies-Medications (Allergen,Severity, Reaction): Coded Allergies: No Known Allergies (Verified Allergy, Unknown, 11/13/17) Reported Meds & Prescriptions Reported Meds & Active Scripts Active Reported Hydrocodone-Acetaminophen 10-325 mg Tab 1 Tab PO Q6H PRN Soma (Carisoprodol) 350 Mg Tab 350 Mg PO DAILY PRN Oxycodone (Oxycodone HCl) 30 Mg Tab 30 Mg PO Q6H PRN Hydrochlorothiazide 12.5 Mg Cap 12.5 Mg PO BID Lisinopril 10 Mg Tab 10 Mg PO DAILY Metformin (Metformin HCl) 1,000 Mg Tab 1,000 Mg PO BIDPC Review of Systems Except as stated in HPI: all other systems reviewed are Neg Physical Exam Narrative GENERAL: Well-nourished, well-developed male patient, afebrile. SKIN: Focused skin assessment warm/dry. HEAD: Normocephalic. Atraumatic. EYES: No scleral icterus. No injection or drainage. NECK: Supple, trachea midline. No JVD or lymphadenopathy. CARDIOVASCULAR: Regular rate and rhythm without murmurs, gallops, or rubs. RESPIRATORY: Breath sounds equal bilaterally. No accessory muscle use. Lungs sounds are clear to auscultation. GASTROINTESTINAL: Abdomen soft, non-tender, nondistended. Amaya catheter is noted with bloody urine in tube. Amaya is draining well. MUSCULOSKELETAL: No cyanosis, or edema. BACK: Nontender without obvious deformity. No CVA tenderness. RECTAL EXAM: No masses or tenderness, stool is brown. Hemoccult is negative. This exam was done with RN at bedside. Data Data Last Documented VS Vital Signs Date Time Temp Pulse Resp B/P (MAP) Pulse Ox O2 Delivery O2 Flow Rate FiO2 12/16/17 19:12 89 20 146/99 (115) 99 Room Air 12/16/17 18:04 99.9 Orders Orders Electrocardiogram (12/16/17 18:07) Basic Metabolic Panel (Bmp) (12/16/17 18:07) Ckmb (Isoenzyme) Profile (12/16/17 18:07) Complete Blood Count With Diff (12/16/17 18:07) Magnesium (Mg) (12/16/17 18:07) Prothrombin Time / Inr (Pt) (12/16/17 18:07) Act Partial Throm Time (Ptt) (12/16/17 18:07) Troponin I (12/16/17 18:07) Chest, Pa & Lat (12/16/17 18:07) Type And Screen (12/16/17 18:07) Urinalysis - C+S If Indicated (12/16/17 18:54) CKMB (12/16/17 18:15) CKMB% (12/16/17 18:15) Red Blood Cells (Rbc) (12/16/17 18:58) Blood Product Administration (12/16/17 18:58) Sodium Chlor 0.9% 250 Ml Inj (Ns 250 Ml (12/16/17 19:00) Admit Order (Ed Use Only) (12/16/17 19:31) Labs Laboratory Tests Test 12/16/17 18:15 12/16/17 19:00 White Blood Count 7.2 TH/MM3 Red Blood Count 2.36 MIL/MM3 Hemoglobin 6.1 GM/DL Hematocrit 18.8 % Mean Corpuscular Volume 79.4 FL Mean Corpuscular Hemoglobin 25.8 PG Mean Corpuscular Hemoglobin Concent 32.4 % Red Cell Distribution Width 16.3 % Platelet Count 375 TH/MM3 Mean Platelet Volume 6.3 FL Neutrophils (%) (Auto) 65.1 % Lymphocytes (%) (Auto) 20.6 % Monocytes (%) (Auto) 9.0 % Eosinophils (%) (Auto) 4.5 % Basophils (%) (Auto) 0.8 % Neutrophils # (Auto) 4.7 TH/MM3 Lymphocytes # (Auto) 1.5 TH/MM3 Monocytes # (Auto) 0.6 TH/MM3 Eosinophils # (Auto) 0.3 TH/MM3 Basophils # (Auto) 0.1 TH/MM3 CBC Comment DIFF FINAL Differential Comment Prothrombin Time 10.2 SEC Prothromb Time International Ratio 1.0 RATIO Activated Partial Thromboplast Time 22.9 SEC Blood Urea Nitrogen 14 MG/DL Creatinine 1.11 MG/DL Random Glucose 116 MG/DL Calcium Level 9.0 MG/DL Magnesium Level 2.4 MG/DL Sodium Level 135 MEQ/L Potassium Level 3.8 MEQ/L Chloride Level 100 MEQ/L Carbon Dioxide Level 30.6 MEQ/L Anion Gap 4 MEQ/L Estimat Glomerular Filtration Rate 82 ML/MIN Total Creatine Kinase 281 U/L Creatine Kinase MB 3.4 NG/ML Troponin I 0.03 NG/ML MDM Medical Decision Making Medical Screen Exam Complete: Yes Emergency Medical Condition: Yes Medical Record Reviewed: Yes Differential Diagnosis Symptomatic anemia versus hematuria versus electrolyte abnormality Narrative Course 62-year-old male presents to the emergency department sent by his primary care physician for low hemoglobin. Reports weakness and feeling fatigued. EKG shows sinus rhythm, 81, no acute ST changes. CBC, BMP, CK, magnesium, troponin , PTT, PT/INR, UA, type and screen, chest x-ray are ordered and pending. CBC shows anemia with hemoglobin 6.1, hematocrit 18.8. BMP shows no acute abnormality. CK is 281. Troponin 0.03. Magnesium is 2.4. Coags show no acute abnormality. UA is pending. Chest x-ray shows no acute disease. 2 units PRBCs are ordered. Dr. Capps [facility] Internal Pos. & Neg. Controls: Passed Fecal Specimen Occult Blood: Negative Diagnosis Primary Impression: Symptomatic anemia Additional Impression: Hematuria Qualified Codes: R31.0 - Gross hematuria Admitting Information Admitting Physician Requests: Admit Valentine Armendariz Dec 16, 2017 18:54
[2017-12-16 18:55] LABS: HEMATOCRIT 18.8 % (39.0-51.0); HEMOGLOBIN 6.1 GM/DL (13.0-17.0)
[2017-12-16] MEDS ORDERED: HYDR12.57 PO (18:55)
[2017-12-16] MEDS ORDERED: HYDR-3583 PO (18:55)
[2017-12-16] MEDS ORDERED: SOMA350T PO (18:55)
[2017-12-16] MEDS ORDERED: OXYC30TA PO (18:55)
[2017-12-16] MEDS ORDERED: LISI10TA3 PO (18:55)
--- NOTE | 2017-12-16 18:55 | RADRPT ---
EXAM DATE/TIME: 12/16/2017 18:35 [facility] COMPARISON: No previous studies available for comparison. INDICATIONS : Short of breath since bladder surgery last week. MEDICAL HISTORY : Diabetes mellitus type II. SURGICAL HISTORY : Bladder surgery. ENCOUNTER: Initial ACUITY: 3 days PAIN SCORE: 0/10 LOCATION: Bilateral chest FINDINGS: PA and lateral views of the chest demonstrate the lungs to be symmetrically aerated without evidence of mass, infiltrate or effusion. The cardiomediastinal contours are unremarkable. Osseous structure s are intact. CONCLUSION: No acute disease. Naga Stewart MD on December 16, 2017 at 18:54 Board Certified Radiologist. This report was verified electronically.
[2017-12-16 18:57] LABS: TROPONIN I 0.03 NG/ML (0.02-0.05)
[2017-12-16] MEDS ORDERED: SODIUM CHLOR 0.9% 250 ML INJ 250 ML IV ONE (19:00)
[2017-12-16] MEDS ORDERED: ONDANSETRON HCL 4 MG/2 ML VIAL IVP PRN (19:45)
[2017-12-16] MEDS ORDERED: GLUCAGON 1 MG/ML VIAL OTHER PRN (19:45)
[2017-12-16] MEDS ORDERED: SODIUM CHLORIDE 0.9% FLUSH 10 ML FLUSH IV FLUSH PRN (19:45)
[2017-12-16] MEDS ORDERED: ACETAMINOPHEN 325 MG TAB PO PRN (19:45)
[2017-12-16] MEDS ORDERED: NALOXONE HCL 0.4 MG/ML AMP IV PUSH PRN (19:45)
[2017-12-16] MEDS ORDERED: DEXTROSE 50% IN WATER 50 ML VIAL(D50) IV PUSH PRN (19:45)
[2017-12-16 19:56] LABS: BILIRUBIN, URINE NEG (NEG); BLOOD, URINE LARGE (NEG); GLUCOSE,URINE NEG (NEG); KETONE, URINE NEG (NEG); NITRITE,URINE NEG (NEG); PH, URINE 8.5 (5.0-8.5); URINE LEUKOCYTE ESTERASE TRACE (NEG)
[2017-12-16 19:57] LABS: BACTERIA, URINE OCC /hpf; URINE COLOR RED (YELLW/STRAW)
[2017-12-16] MEDS: INSULIN ASPART SUPPLEMENTAL SCALE SQ SCH (21:00)
--- NOTE | 2017-12-16 21:09 | HHI.HP ---
HPI Service [facility] Primary Care Physician [facility] Admission Diagnosis symptomatic anemia, hematuria Diagnoses: Travel History International Travel<30 Days: No Contact w/Intl Traveler <30 Da: No Traveled to Known Affected Are: No History of Present Illness 62-year-old male with a past medical history significant for prostate cancer status post radiation seeds, GABRIELE, anxiety, hypertension, diabetes mellitus, hyperlipidemia, GERD, chronic back pain and recent hematuria presents to the emergency department with a one-day history of middleton-colored urine. The patient reports that he was sent to the emergency department by his physician for anemia. He has a Amaya catheter in place. The patient was discharged on 11/26/17 for bilateral hydronephrosis with obstructing uropathy hematuria and AK I. He had a cystoscopy completed by Dr. Alcazar which showed dilated blood vessels of the bladder neck region oozing blood and the bladder was full of clots. He was discharged home to follow-up with his primary care physician and urology with a Amaya catheter in place. His H&H is 6.1/18.8. He denies any dizziness or lightheadedness. Denies fatigue. Denies chest pain or shortness of breath. No nausea/vomiting/diarrhea. No fever/chills. Review of Systems Except as stated in HPI: all other systems reviewed are Neg Past Family Social History Past Medical History prostate cancer status post radiation seeds, GABRIELE, anxiety, hypertension, diabetes mellitus, hyperlipidemia, GERD, chronic back pain and recent hematuria Past Surgical History Back surgery Right shoulder surgery Right carpal tunnel release Reported Medications Reported Meds & Active Scripts Active Reported Hydrocodone-Acetaminophen 10-325 mg Tab 1 Tab PO Q6H PRN Soma (Carisoprodol) 350 Mg Tab 350 Mg PO DAILY PRN Oxycodone (Oxycodone HCl) 30 Mg Tab 30 Mg PO Q6H PRN Hydrochlorothiazide 12.5 Mg Cap 12.5 Mg PO BID Lisinopril 10 Mg Tab 10 Mg PO DAILY Metformin (Metformin HCl) 1,000 Mg Tab 1,000 Mg PO BIDPC Allergies: Coded Allergies: No Known Allergies (Verified Allergy, Unknown, 11/13/17) Family History Father with diabetes mellitus Social History Negative for alcohol, tobacco and illicit drugs. Physical Exam Vital Signs Vital Signs Date Time Temp Pulse Resp B/P (MAP) Pulse Ox O2 Delivery O2 Flow Rate FiO2 12/16/17 20:33 12/16/17 19:12 89 20 146/99 (115) 99 Room Air 12/16/17 18:48 83 18 121/57 (78) 99 Room Air 12/16/17 18:45 Room Air 12/16/17 18:04 99.9 86 18 159/66 (97) 100 Physical Exam GENERAL: male sitting up in bed SKIN: No rashes, ecchymoses or lesions. Cool and dry. HEAD: Atraumatic. Normocephalic. No temporal or scalp tenderness. EYES: Pupils equal round and reactive. Extraocular motions intact. No scleral icterus. No injection or drainage. ENT: Nose without bleeding, purulent drainage or septal hematoma. Throat without erythema, tonsillar hypertrophy or exudate. Uvula midline. Airway patent. NECK: Trachea midline. No JVD or lymphadenopathy. Supple, nontender, no meningeal signs. CARDIOVASCULAR: Regular rate and rhythm without murmurs, gallops, or rubs. RESPIRATORY: Clear to auscultation. Breath sounds equal bilaterally. No wheezes , rales, or rhonchi. GASTROINTESTINAL: Abdomen soft, non-tender, nondistended. No hepato-splenomegaly , or palpable masses. No guarding. : Amaya in place draining middleton-colored urine. No clots visible in the bag. MUSCULOSKELETAL: Extremities without clubbing, cyanosis, or edema. No joint tenderness, effusion, or edema noted. No calf tenderness. NEUROLOGICAL: Awake and alert. Cranial nerves II through XII intact. Motor and sensory grossly within normal limits. Normal speech. Laboratory Laboratory Tests Test 12/16/17 18:15 12/16/17 19:00 White Blood Count 7.2 Red Blood Count 2.36 Hemoglobin 6.1 Hematocrit 18.8 Mean Corpuscular Volume 79.4 Mean Corpuscular Hemoglobin 25.8 Mean Corpuscular Hemoglobin Concent 32.4 Red Cell Distribution Width 16.3 Platelet Count 375 Mean Platelet Volume 6.3 Neutrophils (%) (Auto) 65.1 Lymphocytes (%) (Auto) 20.6 Monocytes (%) (Auto) 9.0 Eosinophils (%) (Auto) 4.5 Basophils (%) (Auto) 0.8 Neutrophils # (Auto) 4.7 Lymphocytes # (Auto) 1.5 Monocytes # (Auto) 0.6 Eosinophils # (Auto) 0.3 Basophils # (Auto) 0.1 CBC Comment DIFF FINAL Differential Comment Prothrombin Time 10.2 Prothromb Time International Ratio 1.0 Activated Partial Thromboplast Time 22.9 Blood Urea Nitrogen 14 Creatinine 1.11 Random Glucose 116 Calcium Level 9.0 Magnesium Level 2.4 Sodium Level 135 Potassium Level 3.8 Chloride Level 100 Carbon Dioxide Level 30.6 Anion Gap 4 Estimat Glomerular Filtration Rate 82 Total Creatine Kinase 281 Creatine Kinase MB 3.4 Troponin I 0.03 Urine Color RED Urine Turbidity MOD Urine pH 8.5 Urine Specific [place] 1.014 Urine Protein 300 Urine Glucose (UA) NEG Urine Ketones NEG Urine Occult Blood LARGE Urine Nitrite NEG Urine Bilirubin NEG Urine Urobilinogen LESS THAN 2.0 Urine Leukocyte Esterase TRACE Urine RBC Urine WBC 104 Urine Bacteria OCC Microscopic Urinalysis Comment CATH-CULTURE IND Date/Time Source Procedure Growth Status 12/16/17 19:00 Urine Catheterized Urine Urine Culture Pending Received Result Diagram: 12/16/17181412/16/171814 Caprini VTE Risk Assessment Caprini VTE Risk Assessment: Mod/High Risk (score >= 2) Caprini Risk Assessment Model Point Value = 1 Point Value = 2 Point Value = 3 Point Value = 5 Age 41-60 Minor surgery BMI > 25 kg/m2 Swollen legs Varicose veins or History of unexplained or recurrent spontaneous Oral contraceptives or hormone replacement Sepsis (< 1 month) Serious lung disease, including pneumonia (< 1 month) Abnormal pulmonary function Acute myocardial infarction Congestive heart failure (< 1 month) History of inflammatory bowel disease Medical patient at bed rest Age 61-74 Arthroscopic surgery Major open surgery (> 45 min) Laparoscopic surgery (> 45 min) Malignancy Confined to bed (> 72 hours) Immobilizing plaster cast Central venous access Age >= 75 History of VTE Family history of VTE Factor V Leiden Prothrombin [id number] Lupus anticoagulant Anticardiolipin antibodies Elevated serum homocysteine Heparin-induced thrombocytopenia Other congenital or acquired thrombophilia Stroke (< 1 month) Elective arthroplasty Hip, pelvis, or leg fracture Acute spinal cord injury (< 1 month) Prophylaxis Regimen Total Risk Factor Score Risk Level Prophylaxis Regimen 0-1 Low Early ambulation 2 Moderate Order ONE of the following: *Sequential Compression Device (SCD) *Heparin 5000 units SQ BID 3-4 Higher Order ONE of the following medications: *Heparin 5000 units SQ TID *Enoxaparin/Lovenox 40 mg SQ daily (WT < 150 kg, CrCl > 30 mL/min) *Enoxaparin/Lovenox 30 mg SQ daily (WT < 150 kg, CrCl > 10-29 mL/min) *Enoxaparin/Lovenox 30 mg SQ BID (WT < 150 kg, CrCl > 30 mL/min) AND/OR *Sequential Compression Device (SCD) 5 or more Highest Order ONE of the following medications: *Heparin 5000 units SQ TID (Preferred with Epidurals) *Enoxaparin/Lovenox 40 mg SQ daily (WT < 150 kg, CrCl > 30 mL/min) *Enoxaparin/Lovenox 30 mg SQ daily (WT < 150 kg, CrCl > 10-29 mL/min) *Enoxaparin/Lovenox 30 mg SQ BID (WT < 150 kg, CrCl > 30 mL/min) AND *Sequential Compression Device (SCD) Assessment and Plan Assessment and Plan Assessment/plan: 1. Hematuria/severe anemia Transfuse 2 units PRBCs Urology consulted, appreciate recommendations Monitor CBC 2. Diabetes mellitus Sliding scale insulin Monitor blood glucose 3. Hypertension/hyperlipidemia Continue home medications 4. Chronic pain Continue home [place] FEN NPO Electrolytes: monitor and replete prn Holding pharmacologic anticoagulation for active bleed Physician Certification 2 Midnight Certification Type: Admission for Inpatient Services Order for Inpatient Services The services are ordered in accordance with Medicare regulations or non- Medicare payer requirements, as applicable. In the case of services not specified as inpatient-only, they are appropriately provided as inpatient services in accordance with the 2-midnight benchmark. Estimated LOS (days): 2 2 days is the estimated time the patient will need to remain in the hospital, assuming treatment plan goals are met and no additional complications. Post-Hospital Plan: Not yet determined Grace Capps MD Dec 16, 2017 21:09
[2017-12-16] MEDS: HYDROCHLOROTHIAZIDE 12.5 MG CAP PO SCH (21:52)
[2017-12-16] MEDS: SODIUM CHLORIDE 0.9% FLUSH 10 ML FLUSH IV FLUSH SCH (21:53)
[2017-12-17] VITALS (11 sets, daily range): BP systolic 117–168; BP diastolic 68–84; PULSE 72–85; RESP 15–18; TEMP 98.8–99.8; O2SAT 97–100
[2017-12-17] MEDS ORDERED: PHENAZOPYRIDINE HCL 100 MG TAB PO ONE (00:45)
[2017-12-17] MEDS ORDERED: FUROSEMIDE 20 MG/2 ML VIAL IV PUSH ONE (00:45)
[2017-12-17] MEDS: ACETAMINOPHEN/HYDROcodone 325 MG/10 MG TAB PO PRN ×4 (01:35→22:06)
[2017-12-17] MEDS: INSULIN ASPART SUPPLEMENTAL SCALE SQ SCH ×4 (08:00→20:55)
[2017-12-17] MEDS: SODIUM CHLORIDE 0.9% FLUSH 10 ML FLUSH IV FLUSH SCH ×2 (08:09→20:52)
[2017-12-17] MEDS: HYDROCHLOROTHIAZIDE 12.5 MG CAP PO SCH ×2 (08:09→20:52)
[2017-12-17] MEDS: LISINOPRIL 10 MG TAB PO SCH (08:09)
[2017-12-17 08:14] LABS: BASOPHIL # 0.1 TH/MM3 (0-0.2); BASOPHIL % 0.8 % (0.0-2.0); EOSINOPHIL # 0.4 TH/MM3 (0-0.4); HEMATOCRIT 23.8 % (39.0-51.0); HEMOGLOBIN 7.8 GM/DL (13.0-17.0); LYMPH % 17.6 % (9.0-44.0); LYMPHOCYTE # 1.3 TH/MM3 (1.0-4.8); MEAN CELL VOLUME 81.2 FL (80.0-100.0); MEAN CORPUSCULAR HEMOGLOBIN 26.8 PG (27.0-34.0); MEAN PLATELET VOLUME 6.4 FL (7.0-11.0); MONO % 7.9 % (0.0-8.0); MONOCYTE # 0.6 TH/MM3 (0-0.9); NEUT % 68.7 % (16.0-70.0); PLATELET COUNT 362 TH/MM3 (150-450); RED BLOOD COUNT 2.93 MIL/MM3 (4.50-5.90); WHITE BLOOD COUNT 7.3 TH/MM3 (4.0-11.0)
[2017-12-17 08:57] LABS: ALBUMIN 3.3 GM/DL (3.4-5.0); AST (GOT) 22 U/L (15-37); BICARBONATE 31.7 MEQ/L (21.0-32.0); BLOOD UREA NITROGEN 12 MG/DL (7-18); CALCIUM 9.6 MG/DL (8.5-10.1); CHLORIDE 100 MEQ/L (98-107); CREATININE 1.01 MG/DL (0.60-1.30); GLOMERULAR FILTRATION RATE 91 ML/MIN (>89); GLUCOSE,RANDOM 129 MG/DL (74-106); SODIUM (NA) 137 MEQ/L (136-145)
[2017-12-17 09:02] LABS: ALKALINE PHOSPHATASE 94 U/L (45-117); ALT (GPT) 24 U/L (12-78); TOTAL BILIRUBIN ADULT 0.4 MG/DL (0.2-1.0); TOTAL PROTEIN 6.5 GM/DL (6.4-8.2)
--- NOTE | 2017-12-17 11:43 | HHI.PR ---
Subjective Remarks 62-year-old male with a past medical history significant for prostate cancer status post radiation seeds, GABRIELE, anxiety, hypertension, diabetes mellitus, hyperlipidemia, GERD, chronic back pain and recent hematuria presents to the emergency department with a one-day history of middleton-colored urine. The patient reports that he was sent to the emergency department by his physician for anemia. He has a Amaya catheter in place. The patient was discharged on 11/26/17 for bilateral hydronephrosis with obstructing uropathy hematuria and AK I. He had a cystoscopy completed by Dr. Alcazar which showed dilated blood vessels of the bladder neck region oozing blood and the bladder was full of clots. He was discharged home to follow-up with his primary care physician and urology with a Amaya catheter in place. His H&H is 6.1/18.8. He denies any dizziness or lightheadedness. Denies fatigue. Denies chest pain or shortness of breath. No nausea/vomiting/diarrhea. No fever/chills. 12-17 still having some hematuria from the Amaya Has Amaya catheter in place Wants to eat Await urology input Will hang IV fluids Discussed with patient and RN Objective Vitals Vital Signs Date Time Temp Pulse Resp B/P (MAP) Pulse Ox O2 Delivery O2 Flow Rate FiO2 12/17/17 09:18 18 12/17/17 08:23 98.8 85 17 150/81 (104) 97 12/17/17 04:39 99.2 74 18 158/78 100 12/17/17 04:00 99.2 74 18 158/78 (104) 100 12/17/17 01:44 99.0 72 16 148/76 99 12/17/17 01:22 99.1 72 18 151/84 99 12/17/17 00:32 99.4 76 18 135/77 98 12/17/17 00:00 99.0 76 15 126/68 (87) 98 12/16/17 22:52 99.5 82 18 124/70 98 12/16/17 22:27 99.0 79 18 136/69 97 12/16/17 21:43 101 12/16/17 20:33 12/16/17 20:00 96.7 80 16 142/66 (91) 97 12/16/17 19:12 89 20 146/99 (115) 99 Room Air 12/16/17 18:48 83 18 121/57 (78) 99 Room Air 12/16/17 18:45 Room Air 12/16/17 18:04 99.9 86 18 159/66 (97) 100 I/O 12/16/17 12/16/17 12/16/17 12/17/17 12/17/17 12/17/17 07:00 15:00 23:00 07:00 15:00 23:00 Intake Total 510 ml 870 ml Output Total 1000 ml 1450 ml Balance -490 ml -580 ml Intake Oral 500 ml Packed Cells 800 ml Blood Product IV Normal Saline Flush 10 ml 70 ml Output Urine Total 1000 ml 1450 ml Result Diagram: 12/17/17 0747 12/17/17 0747 Other Results Laboratory Tests Test 12/16/17 18:15 12/16/17 19:00 12/17/17 07:47 White Blood Count 7.2 TH/MM3 7.3 TH/MM3 Red Blood Count 2.36 MIL/MM3 2.93 MIL/MM3 Hemoglobin 6.1 GM/DL 7.8 GM/DL Hematocrit 18.8 % 23.8 % Mean Corpuscular Volume 79.4 FL 81.2 FL Mean Corpuscular Hemoglobin 25.8 PG 26.8 PG Mean Corpuscular Hemoglobin Concent 32.4 % 33.0 % Red Cell Distribution Width 16.3 % 17.0 % Platelet Count 375 TH/MM3 362 TH/MM3 Mean Platelet Volume 6.3 FL 6.4 FL Neutrophils (%) (Auto) 65.1 % 68.7 % Lymphocytes (%) (Auto) 20.6 % 17.6 % Monocytes (%) (Auto) 9.0 % 7.9 % Eosinophils (%) (Auto) 4.5 % 5.0 % Basophils (%) (Auto) 0.8 % 0.8 % Neutrophils # (Auto) 4.7 TH/MM3 5.0 TH/MM3 Lymphocytes # (Auto) 1.5 TH/MM3 1.3 TH/MM3 Monocytes # (Auto) 0.6 TH/MM3 0.6 TH/MM3 Eosinophils # (Auto) 0.3 TH/MM3 0.4 TH/MM3 Basophils # (Auto) 0.1 TH/MM3 0.1 TH/MM3 CBC Comment DIFF FINAL DIFF FINAL Differential Comment Prothrombin Time 10.2 SEC Prothromb Time International Ratio 1.0 RATIO Activated Partial Thromboplast Time 22.9 SEC Blood Urea Nitrogen 14 MG/DL 12 MG/DL Creatinine 1.11 MG/DL 1.01 MG/DL Random Glucose 116 MG/DL 129 MG/DL Calcium Level 9.0 MG/DL 9.6 MG/DL Magnesium Level 2.4 MG/DL Sodium Level 135 MEQ/L 137 MEQ/L Potassium Level 3.8 MEQ/L 4.1 MEQ/L Chloride Level 100 MEQ/L 100 MEQ/L Carbon Dioxide Level 30.6 MEQ/L 31.7 MEQ/L Anion Gap 4 MEQ/L 5 MEQ/L Estimat Glomerular Filtration Rate 82 ML/MIN 91 ML/MIN Total Creatine Kinase 281 U/L Creatine Kinase MB 3.4 NG/ML Troponin I 0.03 NG/ML Urine Color RED Urine Turbidity MOD Urine pH 8.5 Urine Specific [place] 1.014 Urine Protein 300 mg/dL Urine Glucose (UA) NEG mg/dL Urine Ketones NEG mg/dL Urine Occult Blood LARGE Urine Nitrite NEG Urine Bilirubin NEG Urine Urobilinogen LESS THAN 2.0 MG/DL Urine Leukocyte Esterase TRACE Urine RBC /hpf Urine WBC 104 /hpf Urine Bacteria OCC /hpf Microscopic Urinalysis Comment CATH-CULTURE IND Total Protein 6.5 GM/DL Albumin 3.3 GM/DL Alkaline Phosphatase 94 U/L Aspartate Amino Transf (AST/SGOT) 22 U/L Alanine Aminotransferase (ALT/SGPT) 24 U/L Total Bilirubin 0.4 MG/DL Imaging Last Impressions Chest X-Ray 12/16/17 1807 Signed Impressions: Service Date/Time: Saturday, December 16, 2017 18:35 - CONCLUSION: No acute disease. Naga Stewart MD Objective Remarks GENERAL: Awake alert oriented 3 talkative and cooperative and in no acute distress SKIN: Warm and dry. HEAD: Atraumatic. Normocephalic. EYES: Pupils equal and round. No scleral icterus. No injection or drainage. Extraocular muscles intact ENT: No nasal bleeding or discharge. Mucous membranes pink and moist. Tongue is midline NECK: Trachea midline. No JVD. Supple CARDIOVASCULAR: Regular rate and rhythm. S1-S2 no S3 or S4 RESPIRATORY: No accessory muscle use. Clear to auscultation. Breath sounds equal bilaterally. GASTROINTESTINAL: Abdomen soft, non-tender, nondistended. Hepatic and splenic margins not palpable. MUSCULOSKELETAL: Extremities without clubbing, cyanosis, or edema. No obvious deformities. NEUROLOGICAL: Awake and alert. No obvious cranial nerve deficits. Motor grossly within normal limits. Five out of 5 muscle strength in the arms and legs. Normal speech. PSYCHIATRIC: Appropriate mood and affect; insight and judgment normal. Amaya catheter in place with hematuria Medications and IVs Current Medications Sodium Chloride 250 ml @ 15 mls/hr ONCE ONCE IV Last administered on at 21:54; Start 12/16/17 at 19:00; Stop 12/17/17 at 11:39 Sodium Chloride (NS Flush) 2 ml UNSCH PRN IV FLUSH FLUSH AFTER USING IV ACCESS ; Start 12/16/17 at 19:45 Sodium Chloride (NS Flush) 2 ml BID IV FLUSH Last administered on 12/17/17at 08: 09; Start 12/16/17 at 21:00 Acetaminophen (Tylenol) 650 mg Q4H PRN PO TEMP > 100.4; Start 12/16/17 at 19:45 Ondansetron HCl (Zofran Inj) 4 mg Q6H PRN IVP NAUSEA OR VOMITING; Start at 19:45 Naloxone HCl (Narcan Inj) 0.4 mg UNSCH PRN IV PUSH SEE LABEL COMMENTS; Start at 19:45 Hydrochlorothiazide (Microzide) 12.5 mg BID PO Last administered on 12/17/17at 08:09; Start 12/16/17 at 21:00 Acetaminophen/ Hydrocodone Bitart ([place] 10-325 Mg) 1 tab Q6H PRN PO PAIN Last administered on 12/17/17at 08:10; Start 12/16/17 at 19:45 Lisinopril (Prinivil) 10 mg DAILY PO Last administered on 12/17/17at 08:09; Start 12/17/17 at 09:00 Dextrose (D50w (Vial) Inj) 50 ml UNSCH PRN IV PUSH HYPOGLYCEMIA-SEE COMMENTS; Start 12/16/17 at 19:45 Glucagon (Glucagon Inj) 1 mg UNSCH PRN OTHER HYPOGLYCEMIA-SEE COMMENTS; Start 12/16/17 at 19:45 Insulin Aspart (NovoLOG SUPPLEMENTAL SCALE) 1 ACHS SLIDING SCALE SQ ; Start at 21:00 Furosemide (Lasix Inj) 20 mg ONCE ONCE IV PUSH Last administered on 12/17/17at 01:09; Start 12/17/17 at 00:45; Stop 12/17/17 at 00:54; Status DC Phenazopyridine HCl (Pyridium) 100 mg ONCE ONCE PO ; Start 12/17/17 at 00:45; Stop 12/17/17 at 00:54; Status DC A/P Assessment and Plan Assessment/plan: 1. Hematuria/severe anemia Transfuse 2 units PRBCs Urology consulted, appreciate recommendations Monitor CBC 2. Diabetes mellitus Sliding scale insulin Monitor blood glucose 3. Hypertension/hyperlipidemia Continue home medications 4. Chronic pain Continue home [place] FEN NPO Electrolytes: monitor and replete prn Holding pharmacologic anticoagulation for active bleed Discharge Planning Pending urology improvement and clearance Jones Valentine DO Dec 17, 2017 11:42
[2017-12-17] MEDS ORDERED: DEXTROSE 50% IN WATER 50 ML VIAL(D50) IV PUSH PRN (11:45)
[2017-12-17] MEDS ORDERED: GLUCAGON 1 MG/ML VIAL OTHER PRN (11:45)
[2017-12-17] MEDS: CARISOPRODOL 350 MG TAB PO PRN ×2 (12:05→23:02)
[2017-12-17] MEDS: DEXT 5%-NACL 0.9% 1000 ML INJ 1,000 ML IV SCH ×2 (12:06→21:45)
--- NOTE | 2017-12-17 12:13 | PD.CONS ---
HPI Service Urology Consult Requested By Purnima Reason for Consult Hematuria Primary Care Physician [facility] Diagnosis: (1) Prostate cancer ICD Code: C61 - Malignant neoplasm of prostate (2) Hematuria ICD Code: R31.9 - Hematuria, unspecified (3) Radiation cystitis ICD Code: N30.40 - Irradiation cystitis without hematuria History of Present Illness 62-year-old male with a past medical history significant for prostate cancer status post radiation, GABRIELE, anxiety, hypertension, diabetes mellitus, hyperlipidemia, GERD, chronic back pain presents to the emergency department with a one-day history of middleton-colored urine. The patient reports that he was sent to the emergency department by his physician for anemia. He has a Velazquez catheter in place. The patient was discharged on 11/26/17 for bilateral hydronephrosis with obstructing uropathy hematuria and AK I. He had a cystoscopy completed by Dr. Alcazar which showed dilated blood vessels of the bladder neck region oozing blood and the bladder was full of clots. He was discharged home to follow-up with his primary care physician and urology with a Velazquez catheter in place. His H&H is 6.1/18.8. He denies any dizziness or lightheadedness. Denies fatigue. Denies chest pain or shortness of breath. No nausea/vomiting/diarrhea. No fever/chills. He has 20Fr velazquez in place which is draining light red color urine, no clots seen. He also admits having bladder spasms. he came with Hgb of 6.1, had blood transfusion and now its 7.8. UC is c/ w no growth in 24hrs. Cr is stable at 1.01 Review of Systems Except as stated in HPI: all other systems reviewed are Neg Past Family Social History Past Medical History prostate cancer status post radiation seeds, GABRIELE, anxiety, hypertension, diabetes mellitus, hyperlipidemia, GERD, chronic back pain and recent hematuria Past Surgical History Back surgery Right shoulder surgery Right carpal tunnel release Allergies: Coded Allergies: No Known Allergies (Verified Allergy, Unknown, 11/13/17) Family History Father with diabetes mellitus Social History Negative for alcohol, tobacco and illicit drugs Physical Exam Vital Signs Date Time Temp Pulse Resp B/P (MAP) Pulse Ox O2 Delivery O2 Flow Rate FiO2 12/17/17 12:00 99.3 72 18 168/83 (111) 100 12/17/17 09:18 18 12/17/17 08:23 98.8 85 17 150/81 (104) 97 12/17/17 04:39 99.2 74 18 158/78 100 12/17/17 04:00 99.2 74 18 158/78 (104) 100 12/17/17 01:44 99.0 72 16 148/76 99 12/17/17 01:22 99.1 72 18 151/84 99 12/17/17 00:32 99.4 76 18 135/77 98 12/17/17 00:00 99.0 76 15 126/68 (87) 98 12/16/17 22:52 99.5 82 18 124/70 98 12/16/17 22:27 99.0 79 18 136/69 97 12/16/17 21:43 101 12/16/17 20:33 12/16/17 20:00 96.7 80 16 142/66 (91) 97 12/16/17 19:12 89 20 146/99 (115) 99 Room Air 12/16/17 18:48 83 18 121/57 (78) 99 Room Air 12/16/17 18:45 Room Air 12/16/17 18:04 99.9 86 18 159/66 (97) 100 Physical Exam GENERAL: This is a well-nourished, well-developed patient, in no apparent distress. SKIN: No rashes, ecchymoses or lesions. HEAD: Atraumatic. Normocephalic. CARDIOVASCULAR: Regular rate and rhythm without murmurs, gallops, or rubs. RESPIRATORY: Clear to auscultation. Breath sounds equal bilaterally. No wheezes , rales, or rhonchi. GASTROINTESTINAL: Abdomen soft, non-tender, nondistended. GENITOURINARY:Normal exam. Velazquez catheter is in place MUSCULOSKELETAL: Not assessed NEUROLOGICAL: Awake and alert. . Lab results reviewed: Yes Laboratory Tests Test 12/16/17 18:15 12/16/17 19:00 12/17/17 07:47 White Blood Count 7.2 7.3 Red Blood Count 2.36 2.93 Hemoglobin 6.1 7.8 Hematocrit 18.8 23.8 Mean Corpuscular Volume 79.4 81.2 Mean Corpuscular Hemoglobin 25.8 26.8 Mean Corpuscular Hemoglobin Concent 32.4 33.0 Red Cell Distribution Width 16.3 17.0 Platelet Count 375 362 Mean Platelet Volume 6.3 6.4 Neutrophils (%) (Auto) 65.1 68.7 Lymphocytes (%) (Auto) 20.6 17.6 Monocytes (%) (Auto) 9.0 7.9 Eosinophils (%) (Auto) 4.5 5.0 Basophils (%) (Auto) 0.8 0.8 Neutrophils # (Auto) 4.7 5.0 Lymphocytes # (Auto) 1.5 1.3 Monocytes # (Auto) 0.6 0.6 Eosinophils # (Auto) 0.3 0.4 Basophils # (Auto) 0.1 0.1 CBC Comment DIFF FINAL DIFF FINAL Differential Comment Prothrombin Time 10.2 Prothromb Time International Ratio 1.0 Activated Partial Thromboplast Time 22.9 Blood Urea Nitrogen 14 12 Creatinine 1.11 1.01 Random Glucose 116 129 Calcium Level 9.0 9.6 Magnesium Level 2.4 Sodium Level 135 137 Potassium Level 3.8 4.1 Chloride Level 100 100 Carbon Dioxide Level 30.6 31.7 Anion Gap 4 5 Estimat Glomerular Filtration Rate 82 91 Total Creatine Kinase 281 Creatine Kinase MB 3.4 Troponin I 0.03 Urine Color RED Urine Turbidity MOD Urine pH 8.5 Urine Specific [place] 1.014 Urine Protein 300 Urine Glucose (UA) NEG Urine Ketones NEG Urine Occult Blood LARGE Urine Nitrite NEG Urine Bilirubin NEG Urine Urobilinogen LESS THAN 2.0 Urine Leukocyte Esterase TRACE Urine RBC Urine WBC 104 Urine Bacteria OCC Microscopic Urinalysis Comment CATH-CULTURE IND Total Protein 6.5 Albumin 3.3 Alkaline Phosphatase 94 Aspartate Amino Transf (AST/SGOT) 22 Alanine Aminotransferase (ALT/SGPT) 24 Total Bilirubin 0.4 Date/Time Source Procedure Growth Status 12/16/17 19:00 Urine Catheterized Urine Urine Culture Pending Received Result Diagram: 12/17/17 0747 12/17/17 0747 Personally reviewed images: Yes Imaging Last Impressions Chest X-Ray 12/16/17 3156 Signed Impressions: Service Date/Time: Saturday, December 16, 2017 18:35 - CONCLUSION: No acute disease. Naga Stewart MD Assessment and Plan Assessment and Plan 62y.o. m with Hemorrhagic radiation cystitis. He has h/o Prostate cancer treated with radiation 7y/a. Also came with low h/h which is slightly improving after 2U blood transfusion - Continue management as per primary team - No acute intervention needed. Keep velazquez cath in - Perform bladder scan to make sure velazquez is draining urine well and he has no high residual - Irrigate velazquez/bladder if clogging is suspected - Start Proscar daily and Oxybutynin daily - Pt needs to follow up as outpt with Dr Wallace as planned previously for Velazquez removal and further management. Possibly will need hyperbaric treatment for radiation cystitis . Discussed Condition With Discussed with Dr Matthew SOLOMON attending who agrees with this plan Problem Qualifiers (1) Hematuria: Qualified Codes: R31.0 - Gross hematuria Barry Howard Dec 17, 2017 12:13
[2017-12-17] MEDS ORDERED: OXYBUTYNIN CHLORIDE 5 MG TAB PO ONE ×2 (15:15→23:30)
--- NOTE | 2017-12-17 22:37 | EKG ---
Date Performed: 12/16/2017 Time Performed: 18:10:42 PTAGE: 62 years EKG: Sinus rhythm WITH OCCASIONAL SUPRAVENTRICULAR PREMATURE COMPLEXES NONSPECIFIC T-WAVE ABNORMALITY BORDERLINE ECG PREVIOUS TRACING : 11/14/2017 08.24 Since the prior tracing, there has been no significant brooke DOCTOR: Herrera Noland Interpretating Date/Time 12/17/2017 22:35:56
[2017-12-18] VITALS (11 sets, daily range): BP systolic 107–175; BP diastolic 65–92; PULSE 65–96; RESP 18–20; TEMP 96.1–100.1; O2SAT 97–100
[2017-12-18] MEDS: ACETAMINOPHEN/HYDROcodone 325 MG/10 MG TAB PO PRN ×3 (03:53→17:49)
[2017-12-18 07:15] LABS: AUTOMATED NEUTROPHIL # 6.6 TH/MM3 (1.8-7.7); BASOPHIL # 0.1 TH/MM3 (0-0.2); BASOPHIL % 0.7 % (0.0-2.0); EOSINOPHIL # 0.4 TH/MM3 (0-0.4); HEMATOCRIT 22.6 % (39.0-51.0); HEMOGLOBIN 7.5 GM/DL (13.0-17.0); LYMPH % 14.3 % (9.0-44.0); LYMPHOCYTE # 1.3 TH/MM3 (1.0-4.8); MEAN CELL VOLUME 81.5 FL (80.0-100.0); MEAN CORPUSCULAR HEMOGLOBIN 26.9 PG (27.0-34.0); MEAN PLATELET VOLUME 6.3 FL (7.0-11.0); MONO % 7.5 % (0.0-8.0); MONOCYTE # 0.7 TH/MM3 (0-0.9); NEUT % 73.5 % (16.0-70.0); PLATELET COUNT 360 TH/MM3 (150-450); RED BLOOD COUNT 2.77 MIL/MM3 (4.50-5.90); RED CELL DISTRIBUTION WIDTH 17.6 % (11.6-17.2)
[2017-12-18] MEDS: LISINOPRIL 10 MG TAB PO SCH (07:17)
[2017-12-18] MEDS: FINASTERIDE 5 MG TAB PO SCH (07:17)
[2017-12-18] MEDS: CARISOPRODOL 350 MG TAB PO PRN (07:18)
[2017-12-18] MEDS: HYDROCHLOROTHIAZIDE 12.5 MG CAP PO SCH ×2 (07:18→20:41)
[2017-12-18] MEDS: DEXT 5%-NACL 0.9% 1000 ML INJ 1,000 ML IV SCH ×2 (07:18→17:32)
[2017-12-18] MEDS: SODIUM CHLORIDE 0.9% FLUSH 10 ML FLUSH IV FLUSH SCH ×2 (07:18→20:42)
[2017-12-18 07:32] LABS: ALBUMIN 3.3 GM/DL (3.4-5.0); AST (GOT) 15 U/L (15-37); BICARBONATE 29.3 MEQ/L (21.0-32.0); BLOOD UREA NITROGEN 14 MG/DL (7-18); CALCIUM 8.9 MG/DL (8.5-10.1); CHLORIDE 98 MEQ/L (98-107); CREATININE 1.05 MG/DL (0.60-1.30); GLOMERULAR FILTRATION RATE 87 ML/MIN (>89); GLUCOSE,RANDOM 129 MG/DL (74-106); MAGNESIUM 1.9 MG/DL (1.5-2.5); SODIUM (NA) 134 MEQ/L (136-145)
[2017-12-18 07:43] LABS: ALKALINE PHOSPHATASE 93 U/L (45-117); ALT (GPT) 21 U/L (12-78); FREE T4 0.96 NG/DL (0.76-1.46); PHOSPHORUS 4.1 MG/DL (2.5-4.9); TOTAL BILIRUBIN ADULT 0.5 MG/DL (0.2-1.0); TOTAL PROTEIN 6.4 GM/DL (6.4-8.2)
[2017-12-18] MEDS: INSULIN ASPART SUPPLEMENTAL SCALE SQ SCH ×4 (07:43→20:41)
[2017-12-18 10:47] LABS: HEMOGLOBIN A1C 6.1 % (4.3-6.0)
[2017-12-18] MEDS ORDERED: SODIUM CHLOR 0.9% 250 ML INJ 250 ML IV ONE (11:30)
--- NOTE | 2017-12-18 15:57 | HHI.PR ---
Subjective Remarks Patient is feeling discouraged today after 1 month of ongoing hematuria. He received a transfusion of blood yesterday that had minimal impact on his still low hemoglobin. His chief complaint this morning was bladder pain. Nurse did a bladder scan which revealed 900 cc in the bladder. Amaya was removed and multiple clots came out. Objective Vitals Vital Signs Date Time Temp Pulse Resp B/P (MAP) Pulse Ox O2 Delivery O2 Flow Rate FiO2 12/18/17 15:10 99.9 96 18 175/92 100 12/18/17 13:11 98.8 65 18 139/76 100 12/18/17 13:09 18 12/18/17 13:01 98.8 70 18 116/65 99 12/18/17 11:47 98.4 69 18 144/71 (95) 100 12/18/17 08:50 18 12/18/17 08:00 98.0 73 18 141/67 (91) 99 12/18/17 04:00 98.7 70 20 175/84 (114) 100 12/18/17 04:00 65 12/18/17 00:00 100.1 76 20 107/69 (82) 97 12/17/17 23:30 75 12/17/17 20:00 99.8 82 18 117/69 (85) 100 12/17/17 20:00 77 12/17/17 16:00 98.8 73 18 150/82 (104) 99 I/O 12/17/17 12/17/17 12/17/17 12/18/17 12/18/17 12/18/17 06:59 14:59 22:59 06:59 14:59 22:59 Intake Total 870 ml 0 ml 580 ml 480 ml 420 ml Output Total 1450 ml 1200 ml 460 ml 825 ml Balance -580 ml -1200 ml 120 ml -345 ml 420 ml Intake Oral 0 ml 580 ml 480 ml Packed Cells 800 ml 400 ml Blood Product IV Normal Saline Flush 70 ml 20 ml Output Urine Total 1450 ml 1200 ml 460 ml 825 ml Bladder Scan Volume Amount 160 ml 99 ml # Bowel Movements 0 1 0 Result Diagram: 12/18/1753 12/18/17 06 Objective Remarks GENERAL: Well-nourished, well-developed patient. SKIN: Warm and dry. HEAD: Normocephalic. EYES: No scleral icterus. No injection or drainage. NECK: Supple, trachea midline. No JVD or lymphadenopathy. CARDIOVASCULAR: Regular rate and rhythm without murmurs, gallops, or rubs. RESPIRATORY: Breath sounds equal bilaterally. No accessory muscle use. GASTROINTESTINAL: Abdomen soft, lower abdominal tenderness (bladder), nondistended. EXTREMITIES: No cyanosis, or edema. NEUROLOGICAL: Awake, alert, and oriented x 3. Non-focal. 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 Urinary Retention Patient had worsening bladder pain, bladder scan revealed 900 cc retention. Current Amaya was removed after being in place for 1 month, 4-5 thumb-sized clots were produced on the floor, she immediately became much more comfortable Recommend monitoring urine output for the next 6 hours and replace with dual- lumen Amaya if necessary for option of continuous bladder irrigation Diabetes mellitus Accu-Cheks with sliding scale insulin coverage Diabetic diet Hypertension/hyperlipidemia Continue home medications Chronic pain Continue home [place] DVT prophylaxis Holding anticoagulation for active bleed Discharge Planning Currently still in need of blood transfusions Problem Qualifiers (1) Hematuria: Qualified Codes: R31.0 - Gross hematuria Missael Golden MD Dec 18, 2017 15:57
[2017-12-18] MEDS: OXYBUTYNIN CHLORIDE 5 MG TAB PO SCH (20:41)
[2017-12-18 21:23] LABS: HEMATOCRIT 27.3 % (39.0-51.0); HEMOGLOBIN 9.2 GM/DL (13.0-17.0)
[2017-12-19] VITALS (8 sets, daily range): BP systolic 123–149; BP diastolic 59–83; PULSE 56–89; RESP 17–18; TEMP 98.3–99.7; O2SAT 98–100
[2017-12-19] MEDS: ACETAMINOPHEN/HYDROcodone 325 MG/10 MG TAB PO PRN ×4 (03:37→20:34)
[2017-12-19] MEDS: DEXT 5%-NACL 0.9% 1000 ML INJ 1,000 ML IV SCH ×3 (03:45→23:45)
[2017-12-19 07:14] LABS: AUTOMATED NEUTROPHIL # 5.1 TH/MM3 (1.8-7.7); BASOPHIL # 0.1 TH/MM3 (0-0.2); BASOPHIL % 0.7 % (0.0-2.0); EOSINOPHIL # 0.4 TH/MM3 (0-0.4); EOSINOPHIL % 5.5 % (0.0-4.0); HEMATOCRIT 25.6 % (39.0-51.0); HEMOGLOBIN 8.8 GM/DL (13.0-17.0); LYMPH % 15.2 % (9.0-44.0); LYMPHOCYTE # 1.1 TH/MM3 (1.0-4.8); MEAN CELL VOLUME 80.4 FL (80.0-100.0); MEAN CORPUSCULAR HEMOGLOBIN 27.5 PG (27.0-34.0); MEAN CORPUSCULAR HGB CONC 34.2 % (32.0-36.0); MEAN PLATELET VOLUME 6.8 FL (7.0-11.0); MONO % 8.3 % (0.0-8.0); MONOCYTE # 0.6 TH/MM3 (0-0.9); NEUT % 70.3 % (16.0-70.0); PLATELET COUNT 330 TH/MM3 (150-450); RED BLOOD COUNT 3.18 MIL/MM3 (4.50-5.90); RED CELL DISTRIBUTION WIDTH 16.8 % (11.6-17.2); WHITE BLOOD COUNT 7.2 TH/MM3 (4.0-11.0)
[2017-12-19] MEDS: OXYBUTYNIN CHLORIDE 5 MG TAB PO SCH ×2 (07:37→20:34)
[2017-12-19] MEDS: FINASTERIDE 5 MG TAB PO SCH (07:37)
[2017-12-19] MEDS: LISINOPRIL 10 MG TAB PO SCH (07:37)
[2017-12-19] MEDS: HYDROCHLOROTHIAZIDE 12.5 MG CAP PO SCH ×2 (07:37→20:34)
[2017-12-19] MEDS: INSULIN ASPART SUPPLEMENTAL SCALE SQ SCH ×4 (07:39→21:00)
[2017-12-19] MEDS: SODIUM CHLORIDE 0.9% FLUSH 10 ML FLUSH IV FLUSH SCH ×2 (07:39→20:34)
[2017-12-19] MEDS: LIDOCAINE HCL 5% PATCH T-DERMAL SCH (09:49)
--- NOTE | 2017-12-19 11:21 | HHI.PR ---
Subjective Remarks Patient is more comfortable today compared to yesterday. Continuous bladder irrigation is in place. Objective Vitals Vital Signs Date Time Temp Pulse Resp B/P (MAP) Pulse Ox O2 Delivery O2 Flow Rate FiO2 12/19/17 10:53 18 12/19/17 08:10 99.0 62 17 149/83 (105) 100 12/19/17 04:59 98.3 70 18 139/73 (95) 99 12/19/17 04:00 66 12/19/17 00:10 59 12/18/17 23:44 98.2 75 18 127/66 (86) 98 12/18/17 21:11 99.5 71 18 119/65 (83) 99 12/18/17 20:00 73 12/18/17 16:00 96.1 78 18 175/91 (119) 100 12/18/17 15:10 99.9 96 18 175/92 100 12/18/17 13:11 98.8 65 18 139/76 100 12/18/17 13:01 98.8 70 18 116/65 99 12/18/17 11:47 98.4 69 18 144/71 (95) 100 I/O 12/18/17 12/18/17 12/18/17 12/19/17 12/19/17 12/19/17 07:00 15:00 23:00 07:00 15:00 23:00 Intake Total 480 ml 900 ml 880 ml 720 ml Output Total 825 ml 1525 ml 4950 ml 5950 ml Balance -345 ml -625 ml -4070 ml -5230 ml Intake Oral 480 ml 480 ml 480 ml 720 ml Packed Cells 400 ml 400 ml Blood Product IV Normal Saline Flush 20 ml Output Urine Total 825 ml 1525 ml 4950 ml 5950 ml Bladder Scan Volume Amount 950 ml 672 ml 674 ml 674 ml # Voids 4 # Bowel Movements 0 0 0 Result Diagram: 12/19/17 0502 12/18/17 0653 Objective Remarks GENERAL: Well-nourished, well-developed patient. SKIN: Warm and dry. HEAD: Normocephalic. EYES: No scleral icterus. No injection or drainage. NECK: Supple, trachea midline. No JVD or lymphadenopathy. CARDIOVASCULAR: Regular rate and rhythm without murmurs, gallops, or rubs. RESPIRATORY: Breath sounds equal bilaterally. No accessory muscle use. GASTROINTESTINAL: Abdomen soft, lower abdominal tenderness (bladder), nondistended. EXTREMITIES: No cyanosis, or edema. NEUROLOGICAL: Awake, alert, and oriented x 3. Non-focal. 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 4-5 thumb-sized clots were produced on the floor when Amaya was removed, immediate improvement to discomfort Patient then produced 1000 cc of urine, but still retained greater than 700 cc on bladder scan Three-way catheter was placed and patient was placed on continuous bladder irrigation He remains comfortable today Diabetes mellitus Accu-Cheks with sliding scale insulin coverage Diabetic diet Hypertension/hyperlipidemia Continue home medications Chronic pain Continue home [place] Lidocaine patch added Air mattress requested DVT prophylaxis Holding anticoagulation for active bleed Discharge Planning Currently still in need of blood transfusions Problem Qualifiers (1) Hematuria: Qualified Codes: R31.0 - Gross hematuria Missael Golden MD Dec 19, 2017 11:21
--- NOTE | 2017-12-19 14:30 | HHI.PR ---
Subjective Patient symptoms today 62-year-old male with a past medical history significant for prostate cancer status post radiation, GABRIELE, anxiety, hypertension, diabetes mellitus, hyperlipidemia, GERD, chronic back pain presents to the emergency department with a one-day history of [place]-colored urine. The patient reports that he was sent to the emergency department by his physician for anemia. He has a Velazquez catheter in place. The patient was discharged on 11/26/17 for bilateral hydronephrosis with obstructing uropathy hematuria and AK I. He had a cystoscopy completed by Dr. Alcazar which showed dilated blood vessels of the bladder neck region oozing blood and the bladder was full of clots. He was discharged home to follow-up with his primary care physician and urology with a Velazquez catheter in place. His H&H is 6.1/18.8. He denies any dizziness or lightheadedness. Denies fatigue. Denies chest pain or shortness of breath. No nausea/vomiting/diarrhea. No fever/chills. He has 20Fr velazquez in place which is draining light red color urine, no clots seen. He also admits having bladder spasms. he came with Hgb of 6.1, had blood transfusion and now its 7.8. UC is c/ w no growth in 24hrs. Cr is stable at 1.01 12/19/17: Pt was seen today at his bedside. NAD, no pain, no f/c/n/v. He developed clot retention and velazquez stopped draining yesterday. He is now on CBI , drains clear light red color urine. No other c/o. He had another 2U of blood transfused, his Hg improved to 9.2, this AM its 8.8 Objective Vital Signs Vital Signs Date Time Temp Pulse Resp B/P (MAP) Pulse Ox O2 Delivery O2 Flow Rate FiO2 12/19/17 12:13 99.6 67 18 123/69 (87) 100 12/19/17 10:53 18 12/19/17 08:10 99.0 62 17 149/83 (105) 100 12/19/17 08:00 56 12/19/17 04:59 98.3 70 18 139/73 (95) 99 12/19/17 04:00 66 12/19/17 00:10 59 2/28/18 23:44 98.2 75 18 127/66 (86) 98 12/18/17 21:11 99.5 71 18 119/65 (83) 99 12/18/17 20:00 73 12/18/17 16:00 96.1 78 18 175/91 (119) 100 12/18/17 15:10 99.9 96 18 175/92 100 Intake & Output 12/19/17 12/19/17 07:00 19:00 Intake Total 1200 ml Output Total 9850 ml Balance -8650 ml Intake Oral 1200 ml Output Urine Total 9850 ml Bladder Scan Volume Amount 674 ml 674 ml # Bowel Movements 0 Result Diagram: 12/19/17 0502 12/18/17 0653 Other Results GENERAL: Well-nourished, well-developed patient. SKIN: Warm and dry. HEAD: Normocephalic. EYES: No scleral icterus. No injection or drainage. NECK: Supple, trachea midline. No JVD or lymphadenopathy. CARDIOVASCULAR: Regular rate and rhythm without murmurs, gallops, or rubs. RESPIRATORY: Breath sounds equal bilaterally. No accessory muscle use. GASTROINTESTINAL: Abdomen soft, lower abdominal tenderness (bladder), nondistended. EXTREMITIES: No cyanosis, or edema. NEUROLOGICAL: Awake, alert, and oriented x 3. Non-focal. Medications and IVs Current Medications Medications (Trade) Dose Ordered Sig/Daisy Route Start Time Stop Time Status Last Admin (NS Flush) 2 ml UNSCH PRN IV FLUSH 12/16/17 19:45 (NS Flush) 2 ml BID IV FLUSH 12/16/17 21:00 12/19/17 07:39 (Tylenol) 650 mg Q4H PRN PO 12/16/17 19:45 (Zofran Inj) 4 mg Q6H PRN IVP 12/16/17 19:45 (Narcan Inj) 0.4 mg UNSCH PRN IV PUSH 12/16/17 19:45 (Microzide) 12.5 mg BID PO 12/16/17 21:00 12/19/17 07:37 ([place] 10-325 Mg) 1 tab Q6H PRN PO 12/16/17 19:45 12/19/17 09:48 (Prinivil) 10 mg DAILY PO 12/17/17 09:00 12/19/17 07:37 (D50w (Vial) Inj) 50 ml UNSCH PRN IV PUSH 12/16/17 19:45 (Glucagon Inj) 1 mg UNSCH PRN OTHER 12/16/17 19:45 (NovoLOG SUPPLEMENTAL SCALE) 1 ACHS SLIDING SCALE SQ 12/16/17 21:00 12/19/17 12:28 Dextrose/Sodium Chloride 1,000 ml @ 100 mls/hr Q10H IV 12/17/17 11:45 12/17/17 12:06 (Soma) 350 mg DAILY PRN PO 12/17/17 11:45 12/18/17 07:18 (Proscar) 5 mg DAILY PO 12/18/17 09:00 12/19/17 07:37 (Ditropan) 5 mg Q12HR PO 12/18/17 21:00 12/19/17 07:37 (Lidoderm 5% Patch.12 Hr) 1 patch DAILY T-DERMAL 12/19/17 09:45 12/19/17 09:49 Assessment and Plan Assessment and Plan 62y.o. m with Hemorrhagic radiation cystitis. He has h/o Prostate cancer treated with radiation 7y/a. H/H is improving with 4U blood transfusion - Continue management as per primary team - No acute intervention needed. Keep velazquez cath in. he will need to be d/c with velazquez catheter - Continue CBI - Continue Proscar daily and Oxybutynin daily - Pt needs to follow up as outpt with Dr Wallace as planned previously for Velazquez removal and further management. Possibly will need hyperbaric treatment for radiation cystitis Barry Howard Dec 19, 2017 14:30
[2017-12-19] MEDS: CARISOPRODOL 350 MG TAB PO PRN (20:34)
[2017-12-20] MEDS: ACETAMINOPHEN/HYDROcodone 325 MG/10 MG TAB PO PRN ×4 (02:46→19:59)
[2017-12-20 06:39] LABS: AUTOMATED NEUTROPHIL # 5.2 TH/MM3 (1.8-7.7); BASOPHIL % 0.6 % (0.0-2.0); EOSINOPHIL # 0.3 TH/MM3 (0-0.4); EOSINOPHIL % 4.2 % (0.0-4.0); HEMATOCRIT 26.1 % (39.0-51.0); HEMOGLOBIN 8.8 GM/DL (13.0-17.0); LYMPH % 18.9 % (9.0-44.0); LYMPHOCYTE # 1.5 TH/MM3 (1.0-4.8); MEAN CELL VOLUME 81.1 FL (80.0-100.0); MEAN CORPUSCULAR HEMOGLOBIN 27.2 PG (27.0-34.0); MEAN CORPUSCULAR HGB CONC 33.6 % (32.0-36.0); MEAN PLATELET VOLUME 6.7 FL (7.0-11.0); MONO % 8.8 % (0.0-8.0); MONOCYTE # 0.7 TH/MM3 (0-0.9); NEUT % 67.5 % (16.0-70.0); PLATELET COUNT 333 TH/MM3 (150-450); RED BLOOD COUNT 3.22 MIL/MM3 (4.50-5.90); RED CELL DISTRIBUTION WIDTH 17.1 % (11.6-17.2); WHITE BLOOD COUNT 7.7 TH/MM3 (4.0-11.0)
[2017-12-20 07:07] LABS: BICARBONATE 26.7 MEQ/L (21.0-32.0); CALCIUM 9.2 MG/DL (8.5-10.1)
[2017-12-20] MEDS: INSULIN ASPART SUPPLEMENTAL SCALE SQ SCH ×4 (07:23→19:51)
[2017-12-20 08:00] VITALS: BP 128/74; PULSE 75; RESP 18; TEMP 98.8; O2SAT 100
[2017-12-20] MEDS: FINASTERIDE 5 MG TAB PO SCH (08:26)
[2017-12-20] MEDS: SODIUM CHLORIDE 0.9% FLUSH 10 ML FLUSH IV FLUSH SCH ×2 (08:26→19:51)
[2017-12-20] MEDS: OXYBUTYNIN CHLORIDE 5 MG TAB PO SCH ×2 (08:26→19:50)
[2017-12-20] MEDS: HYDROCHLOROTHIAZIDE 12.5 MG CAP PO SCH ×2 (08:26→19:50)
[2017-12-20] MEDS: LIDOCAINE HCL 5% PATCH T-DERMAL SCH (08:26)
[2017-12-20] MEDS: LISINOPRIL 10 MG TAB PO SCH (08:26)
[2017-12-20] MEDS: DEXT 5%-NACL 0.9% 1000 ML INJ 1,000 ML IV SCH ×2 (08:30→19:45)
[2017-12-20 12:00] VITALS: BP 123/67; PULSE 57; RESP 19; TEMP 98.5; O2SAT 100
--- NOTE | 2017-12-20 14:31 | HHI.PR ---
Subjective Remarks 62-year-old male with 1 month of ongoing hematuria who presented 3 days ago with anemia, hemoglobin down to 6.1. He is tolerating his new catheter well following replacement after old catheter failed to pass urine. He states he is comfortable, denies any fevers, tolerating food well, pain well controlled. Objective Vitals Vital Signs Date Time Temp Pulse Resp B/P (MAP) Pulse Ox O2 Delivery O2 Flow Rate FiO2 12/20/17 12:00 98.5 57 19 123/67 (85) 100 12/20/17 08:02 Room Air 12/20/17 08:00 98.8 75 18 128/74 (92) 100 12/19/17 22:47 99.1 89 18 128/65 (86) 99 12/19/17 18:49 Room Air 12/19/17 16:55 18 12/19/17 16:40 99.7 83 17 124/59 (80) 98 I/O 12/19/17 12/19/17 12/19/17 12/20/17 12/20/17 12/20/17 07:00 15:00 23:00 07:00 15:00 23:00 Intake Total 720 ml 2000 ml Output Total 5950 ml 3925 ml 2125 ml 1780 ml 2300 ml Balance -5230 ml -1925 ml -2125 ml -1780 ml -2300 ml Intake Oral 720 ml 2000 ml Output Urine Total 5950 ml 3925 ml 2125 ml 1780 ml 2300 ml # Voids 2 Result Diagram: 12/20/17 0615 12/20/17 0615 Objective Remarks GENERAL: Well-nourished, well-developed patient. SKIN: Warm and dry. HEAD: Normocephalic. EYES: No scleral icterus. No injection or drainage. NECK: Supple, trachea midline. No JVD or lymphadenopathy. CARDIOVASCULAR: Regular rate and rhythm without murmurs, gallops, or rubs. RESPIRATORY: Breath sounds equal bilaterally. No accessory muscle use. GASTROINTESTINAL: Abdomen soft, lower abdominal tenderness (bladder), nondistended. EXTREMITIES: No cyanosis, or edema. NEUROLOGICAL: Awake, alert, and oriented x 3. Non-focal. 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 If urine turns more yellow and remains clot free to continuous bladder irrigation can be held If off of CBI urine remains clear and hemoglobin remains stable patient can be considered for discharge He has outpatient follow-up arranged for next week with urology Urinary Retention Patient had worsening bladder pain, bladder scan revealed 900 cc retention on 4-5 thumb-sized clots were produced on the floor when Amaya was removed, immediate improvement to discomfort Patient then produced 1000 cc of urine, but still retained greater than 700 cc on bladder scan Three-way catheter was placed and patient was placed on continuous bladder irrigation He remains comfortable, urine is the color is the color of strawberry lemonade ( improving) Diabetes mellitus Accu-Cheks with sliding scale insulin coverage Diabetic diet Hypertension/hyperlipidemia Continue home medications Chronic pain Continue home [place] Lidocaine patch added Air mattress requested DVT prophylaxis Holding anticoagulation for active bleed Discharge Planning If hemoglobin remains stable and urine clears up patient may go home with catheter in place He has follow-up arranged for next week with urology Problem Qualifiers (1) Hematuria: Qualified Codes: R31.0 - Gross hematuria Missael Golden MD Dec 20, 2017 14:31
[2017-12-20 16:00] VITALS: BP 112/69; PULSE 75; RESP 18; TEMP 98.4; O2SAT 100
[2017-12-20] MEDS: CARISOPRODOL 350 MG TAB PO PRN (19:59)
[2017-12-20 20:00] VITALS: BP 133/64; PULSE 80; RESP 18; TEMP 97.8; O2SAT 100
[2017-12-21] VITALS (7 sets, daily range): BP systolic 121–135; BP diastolic 61–74; PULSE 59–82; RESP 18; TEMP 97.5–99.2; O2SAT 95–100
[2017-12-21] MEDS: ACETAMINOPHEN/HYDROcodone 325 MG/10 MG TAB PO PRN ×2 (02:05→07:51)
[2017-12-21] MEDS: DEXT 5%-NACL 0.9% 1000 ML INJ 1,000 ML IV SCH ×2 (05:45→15:45)
[2017-12-21] MEDS: INSULIN ASPART SUPPLEMENTAL SCALE SQ SCH ×4 (07:09→21:20)
[2017-12-21] MEDS: LISINOPRIL 10 MG TAB PO SCH (07:51)
[2017-12-21] MEDS: LIDOCAINE HCL 5% PATCH T-DERMAL SCH (07:51)
[2017-12-21] MEDS: HYDROCHLOROTHIAZIDE 12.5 MG CAP PO SCH ×2 (07:52→20:14)
[2017-12-21] MEDS: OXYBUTYNIN CHLORIDE 5 MG TAB PO SCH ×2 (07:52→20:14)
[2017-12-21] MEDS: SODIUM CHLORIDE 0.9% FLUSH 10 ML FLUSH IV FLUSH SCH ×2 (07:52→20:14)
[2017-12-21] MEDS: FINASTERIDE 5 MG TAB PO SCH (07:52)
--- NOTE | 2017-12-21 08:15 | HHI.PR ---
Subjective Remarks Pt seen and examined this morning. AFVSS. No acute events overnight. Reports suprapubic pain and burning. States he is still having clots as of this morning. Urine in bag is bright red. Patient states Percocet works better for him than Archer and causes less constipation. No other issues, denies CP, SOB, N/ V, diarrhea. Ambulating and tolerating PO. Objective Vital Signs Date Time Temp Pulse Resp B/P (MAP) Pulse Ox O2 Delivery O2 Flow Rate FiO2 12/21/17 07:39 97.5 59 18 123/69 (87) 100 12/21/17 07:30 Room Air 12/21/17 04:00 97.8 63 18 121/68 (85) 100 12/21/17 00:00 98.8 67 18 130/61 (84) 98 12/20/17 20:00 97.8 80 18 133/64 (87) 100 12/20/17 16:00 98.4 75 18 112/69 (83) 100 12/20/17 12:00 98.5 57 19 123/67 (85) 100 I/O 12/20/17 12/20/17 12/20/17 12/21/17 12/21/17 12/21/17 07:00 15:00 23:00 07:00 15:00 23:00 Intake Total 1440 ml 480 ml 360 ml Output Total 1780 ml 2300 ml 1625 ml 1300 ml Balance -1780 ml -860 ml -1145 ml -940 ml Intake Oral 1440 ml 480 ml 360 ml Output Urine Total 1780 ml 2300 ml 1625 ml 1300 ml # Bowel Movements 2 0 Result Diagram: 12/21/17 0505 12/20/17 0615 Objective Remarks GENERAL: WN, WD male sitting up in bed in NAD. HEENT: Pupils equal and round. MMM. NECK: Supple no tender LAD or JVD. HEART: RRR no m/r/g. LUNGS: CTAB without wheezes or crackles. ABDOMEN: +BS, soft, ND. Suprapubic TTP. : Amaya in place to CBI. EXTREMITIES: No LE edema or calf tenderness. NEURO: Awake and alert. PSYCH: Appropriate mood and affect. 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 Hematuria/severe anemia Total of 4 units of blood received Hemoglobin has remained stable. Continue to follow while hospitalized If urine turns more yellow and remains clot free to continuous bladder irrigation can be held Urine continues to be bright red this morning with small clots He has outpatient follow-up arranged for next week with urology Urinary Retention Patient had worsening bladder pain, bladder scan revealed 900 cc retention on 4-5 thumb-sized clots were produced on the floor when Amaya was removed, immediate improvement to discomfort Patient then produced 1000 cc of urine, but still retained greater than 700 cc on bladder scan Three-way catheter was placed and patient was placed on continuous bladder irrigation Percocet PRN pain Diabetes mellitus Accu-Cheks with sliding scale insulin coverage Diabetic diet Hypertension/hyperlipidemia Continue home medications Chronic pain Lidocaine patch Air mattress requested Constipation Add Arianna-colace BID DVT prophylaxis Holding anticoagulation for active bleed Discharge Planning If hemoglobin remains stable and urine clears up patient may go home with catheter in place He has follow-up arranged for next week with urology Problem Qualifiers (1) Hematuria: Qualified Codes: R31.0 - Gross hematuria Jayleen Alan MD Dec 21, 2017 08:15
[2017-12-21] MEDS: DOCUSATE SODIUM 50 MG/SENNA 8.6 MG TAB PO SCH ×2 (09:58→20:14)
[2017-12-21] MEDS ORDERED: oxyCODONE/ACETAMINOPHEN 5 MG/325 MG TAB PO PRN (12:00)
[2017-12-21] MEDS ORDERED: oxyCODONE/ACETAMINOPHEN 10 MG/325 MG TAB PO PRN (18:00)
[2017-12-21] MEDS: CARISOPRODOL 350 MG TAB PO PRN (23:30)
[2017-12-22] VITALS (11 sets, daily range): BP systolic 114–156; BP diastolic 62–76; PULSE 55–78; RESP 17–18; TEMP 97.7–99.4; O2SAT 98–100
[2017-12-22] MEDS: DEXT 5%-NACL 0.9% 1000 ML INJ 1,000 ML IV SCH ×3 (01:45→21:45)
[2017-12-22] MEDS: oxyCODONE/ACETAMINOPHEN 10 MG/325 MG TAB PO PRN ×4 (01:52→20:52)
--- NOTE | 2017-12-22 07:42 | HHI.PR ---
Subjective Remarks Pt seen and examined this morning. AFVSS. Continues to have bright red urine with small clots in the tube. Still has burning discomfort in penis and mild suprapubic tenderness. Denies CP, SOB, N/V, or edema. Tolerating PO. Objective Vitals Vital Signs Date Time Temp Pulse Resp B/P (MAP) Pulse Ox O2 Delivery O2 Flow Rate FiO2 12/22/17 04:10 60 12/22/17 04:00 98.2 70 18 114/62 (79) 100 12/22/17 00:20 78 12/22/17 00:00 99.4 71 18 146/75 (98) 98 12/21/17 20:15 73 12/21/17 20:00 95 Room Air 12/21/17 19:55 97.8 82 18 121/71 (88) 95 12/21/17 16:00 98.5 72 18 131/74 (93) 100 12/21/17 11:49 99.2 67 18 135/69 (91) 100 I/O 12/21/17 12/21/17 12/21/17 12/22/17 12/22/17 12/22/17 07:00 15:00 23:00 07:00 15:00 23:00 Intake Total 360 ml 720 ml 480 ml 360 ml Output Total 1300 ml 1650 ml 2450 ml 1350 ml Balance -940 ml -930 ml -1970 ml -990 ml Intake Oral 360 ml 720 ml 480 ml 360 ml Output Urine Total 1300 ml 1650 ml 2450 ml 1350 ml # Bowel Movements 0 1 0 0 Result Diagram: 12/21/17 0505 12/20/17 0615 Objective Remarks GENERAL: WN, WD male sitting up in bed in NAD. HEENT: Pupils equal and round. MMM. NECK: Supple no tender LAD or JVD. HEART: RRR w/ 2/6 CLEVE. LUNGS: CTAB without wheezes or crackles. ABDOMEN: +BS, soft, ND. Suprapubic TTP. : Amaya in place to CBI. Bright red urine in bag with small clots. EXTREMITIES: No LE edema or calf tenderness. NEURO: Awake and alert. PSYCH: Appropriate mood and affect. 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 Hematuria/severe anemia Total of 4 units of blood received H&H improved to 9.5/28.9 today (up from mid-8's) Urine continues to be bright red this morning with small clots If urine turns more yellow and remains clot free continuous bladder irrigation can be held He has outpatient follow-up arranged for next week with urology Urinary Retention Patient had worsening bladder pain, bladder scan revealed 900 cc retention on 4-5 thumb-sized clots were produced on the floor when Amaya was removed, immediate improvement to discomfort Patient then produced 1000 cc of urine, but still retained greater than 700 cc on bladder scan Three-way catheter was placed and patient was placed on continuous bladder irrigation Percocet PRN pain Diabetes mellitus Accu-Cheks with sliding scale insulin coverage Diabetic diet Hypertension/hyperlipidemia Continue home medications Chronic pain Lidocaine patch Air mattress requested Constipation Add Arianna-colace BID DVT prophylaxis Holding anticoagulation for active bleed Discharge Planning If hemoglobin remains stable and urine clears up patient may go home with catheter in place He has follow-up arranged for with urology Problem Qualifiers (1) Hematuria: Qualified Codes: R31.0 - Gross hematuria Jayleen Alan MD Dec 22, 2017 07:42
[2017-12-22] MEDS: INSULIN ASPART SUPPLEMENTAL SCALE SQ SCH ×4 (08:00→20:59)
[2017-12-22 08:24] LABS: AUTOMATED NEUTROPHIL # 4.8 TH/MM3 (1.8-7.7); BASOPHIL # 0.1 TH/MM3 (0-0.2); BASOPHIL % 0.8 % (0.0-2.0); EOSINOPHIL # 0.4 TH/MM3 (0-0.4); EOSINOPHIL % 5.5 % (0.0-4.0); HEMATOCRIT 28.9 % (39.0-51.0); HEMOGLOBIN 9.5 GM/DL (13.0-17.0); LYMPH % 22.1 % (9.0-44.0); LYMPHOCYTE # 1.7 TH/MM3 (1.0-4.8); MEAN CELL VOLUME 80.8 FL (80.0-100.0); MEAN CORPUSCULAR HEMOGLOBIN 26.7 PG (27.0-34.0); MEAN PLATELET VOLUME 7.3 FL (7.0-11.0); MONO % 11.2 % (0.0-8.0); MONOCYTE # 0.9 TH/MM3 (0-0.9); NEUT % 60.4 % (16.0-70.0); PLATELET COUNT 333 TH/MM3 (150-450); RED BLOOD COUNT 3.57 MIL/MM3 (4.50-5.90); RED CELL DISTRIBUTION WIDTH 17.6 % (11.6-17.2); WHITE BLOOD COUNT 7.9 TH/MM3 (4.0-11.0)
[2017-12-22 08:45] LABS: POLYCHROMASIA 2.3 % (0.0-1.9)
[2017-12-22] MEDS: OXYBUTYNIN CHLORIDE 5 MG TAB PO SCH ×2 (08:49→20:21)
[2017-12-22] MEDS: DOCUSATE SODIUM 50 MG/SENNA 8.6 MG TAB PO SCH ×2 (08:49→20:21)
[2017-12-22] MEDS: HYDROCHLOROTHIAZIDE 12.5 MG CAP PO SCH ×2 (08:50→20:21)
[2017-12-22] MEDS: FINASTERIDE 5 MG TAB PO SCH (08:50)
[2017-12-22] MEDS: SODIUM CHLORIDE 0.9% FLUSH 10 ML FLUSH IV FLUSH SCH ×2 (08:50→20:21)
[2017-12-22] MEDS: LISINOPRIL 10 MG TAB PO SCH (08:50)
[2017-12-22] MEDS: LIDOCAINE HCL 5% PATCH T-DERMAL SCH (08:51)
[2017-12-22] MEDS: CARISOPRODOL 350 MG TAB PO PRN (17:30)
[2017-12-23] VITALS (11 sets, daily range): BP systolic 119–139; BP diastolic 68–85; PULSE 58–85; RESP 17–18; TEMP 98–98.8; O2SAT 95–100
[2017-12-23] MEDS: oxyCODONE/ACETAMINOPHEN 10 MG/325 MG TAB PO PRN ×4 (03:19→21:16)
[2017-12-23] MEDS: DEXT 5%-NACL 0.9% 1000 ML INJ 1,000 ML IV SCH ×3 (07:45→21:18)
[2017-12-23] MEDS: LIDOCAINE HCL 5% PATCH T-DERMAL SCH (09:00)
[2017-12-23] MEDS: SODIUM CHLORIDE 0.9% FLUSH 10 ML FLUSH IV FLUSH SCH ×3 (09:00→20:34)
[2017-12-23] MEDS: OXYBUTYNIN CHLORIDE 5 MG TAB PO SCH ×2 (09:14→20:25)
[2017-12-23] MEDS: LISINOPRIL 10 MG TAB PO SCH (09:14)
[2017-12-23] MEDS: FINASTERIDE 5 MG TAB PO SCH (09:14)
[2017-12-23] MEDS: HYDROCHLOROTHIAZIDE 12.5 MG CAP PO SCH ×2 (09:15→20:25)
[2017-12-23] MEDS: DOCUSATE SODIUM 50 MG/SENNA 8.6 MG TAB PO SCH ×2 (09:15→20:25)
[2017-12-23] MEDS: CARISOPRODOL 350 MG TAB PO PRN (09:24)
[2017-12-23] MEDS: INSULIN ASPART SUPPLEMENTAL SCALE SQ SCH ×4 (09:25→20:26)
--- NOTE | 2017-12-23 15:01 | HHI.PR ---
Subjective Remarks Patient seen this morning around 9 AM. Says he is feeling all right. Denies any chest pain shortness of breath. Denies any nausea vomiting. Denies any constipation. Objective Vital Signs Date Time Temp Pulse Resp B/P (MAP) Pulse Ox O2 Delivery O2 Flow Rate FiO2 12/23/17 13:15 67 12/23/17 11:50 98.8 72 17 126/71 (89) 100 12/23/17 08:04 58 12/23/17 08:01 98.7 59 17 123/70 (87) 95 12/23/17 04:23 98.0 60 17 131/69 (89) 100 12/22/17 23:57 97.7 72 17 156/75 (102) 98 12/22/17 20:00 65 12/22/17 20:00 100 Room Air 12/22/17 19:47 99.0 76 17 129/72 (91) 100 12/22/17 18:22 16 12/22/17 16:15 18 12/22/17 16:00 78 12/22/17 16:00 98.2 64 18 126/72 (90) 100 I/O 12/22/17 12/22/17 12/22/17 12/23/17 12/23/17 12/23/17 07:00 15:00 23:00 07:00 15:00 23:00 Intake Total 360 ml 960 ml 480 ml 360 ml Output Total 1950 ml 1775 ml 2100 ml 2050 ml Balance -1590 ml -815 ml -1620 ml -1690 ml Intake Oral 360 ml 960 ml 480 ml 360 ml Output Urine Total 1950 ml 1775 ml 2100 ml 2050 ml # Bowel Movements 0 Result Diagram: 12/22/17 0725 12/20/17 0615 Objective Remarks GENERAL: Patient sitting up on edge of bed. Appears comfortable. SKIN: Warm and dry. HEAD: Normocephalic. EYES: No scleral icterus. No injection or drainage. NECK: Supple, trachea midline. No JVD or lymphadenopathy. CARDIOVASCULAR: Regular rate and rhythm without murmurs, gallops, or rubs. RESPIRATORY: Breath sounds equal bilaterally. No accessory muscle use. GASTROINTESTINAL: Abdomen soft, non-tender, nondistended. MUSCULOSKELETAL: No cyanosis, or edema. Urine has just been flushed. BACK: Nontender without obvious deformity. No CVA tenderness. A/P Assessment and Plan 62 YOAAM admitted for symptomatic anemia secondary to gross hematuria. //Hematuria/severe anemia Total of 4 units of blood received H&H improved to 9.5/28.9 today (up from mid-8's) Urine continues to be bright red this morning with small clots If urine turns more yellow and remains clot free continuous bladder irrigation can be held He has outpatient follow-up arranged for next week with urology = Still with blood clots per nursing. Nursing to contact urology to reevaluate. //Urinary Retention Patient had worsening bladder pain, bladder scan revealed 900 cc retention on 4-5 thumb-sized clots were produced on the floor when Amaya was removed, immediate improvement to discomfort Patient then produced 1000 cc of urine, but still retained greater than 700 cc on bladder scan Three-way catheter was placed and patient was placed on continuous bladder irrigation Percocet PRN pain //Diabetes mellitus Accu-Cheks with sliding scale insulin coverage Diabetic diet = Blood sugars acceptable. Continue to monitor. //Hypertension/hyperlipidemia Continue home medications //Chronic pain Lidocaine patch Air mattress requested //Constipation Add Arianna-colace BID //DVT prophylaxis Holding anticoagulation for active bleed Discharge Planning Discussed with nursing at [facility] Waiting for urine to clear up. We will need to follow-up with urology as outpatient. Jerrell Montes MD Dec 23, 2017 15:01
[2017-12-24 01:35] VITALS: BP 127/60; PULSE 74; RESP 17; TEMP 99; O2SAT 99
[2017-12-24] MEDS: oxyCODONE/ACETAMINOPHEN 10 MG/325 MG TAB PO PRN ×2 (03:19→09:11)
[2017-12-24 07:07] VITALS: BP 132/67; PULSE 62; RESP 17; TEMP 97.7; O2SAT 99
[2017-12-24 08:00] VITALS: BP 123/75; PULSE 61; RESP 17; TEMP 97.8; O2SAT 99
[2017-12-24] MEDS: INSULIN ASPART SUPPLEMENTAL SCALE SQ SCH (08:00)
[2017-12-24] MEDS: LIDOCAINE HCL 5% PATCH T-DERMAL SCH (09:00)
[2017-12-24] MEDS: DOCUSATE SODIUM 50 MG/SENNA 8.6 MG TAB PO SCH (09:10)
[2017-12-24] MEDS: LISINOPRIL 10 MG TAB PO SCH (09:10)
[2017-12-24] MEDS: HYDROCHLOROTHIAZIDE 12.5 MG CAP PO SCH (09:10)
[2017-12-24] MEDS: FINASTERIDE 5 MG TAB PO SCH (09:10)
[2017-12-24] MEDS: OXYBUTYNIN CHLORIDE 5 MG TAB PO SCH (09:10)
[2017-12-24] MEDS: CARISOPRODOL 350 MG TAB PO PRN (09:16)
[2017-12-24] MEDS: SODIUM CHLORIDE 0.9% FLUSH 10 ML FLUSH IV FLUSH SCH (09:18)
[2017-12-24] MEDS ORDERED: OXYB5TAB8 PO (09:37)
[2017-12-24] MEDS ORDERED: FINA5TAB2 PO (09:37)
--- NOTE | 2017-12-24 09:40 | HHI.FF ---
Face to Face Verification Diagnosis: (1) Hematuria (2) Radiation cystitis (3) Prostate cancer (4) Symptomatic anemia Physical Therapy Order: Evaluate and Treat Home Health Nursing Order: Nursing assessment with vital signs Amaya catheter maintenance I have seen patient Sid Mckeon on 12/24/17. My clinical findings support the need for the requested home health care services because: Limited ability to care for self I certify that my clinical findings support that this patient is homebound because: Need for psychosocial assistance Jerrell Montes MD Dec 24, 2017 09:40
--- NOTE | 2017-12-24 13:39 | HHI.PR ---
Subjective Remarks Patient says he is feeling well. Urine is clear this morning. Objective Vital Signs Date Time Temp Pulse Resp B/P (MAP) Pulse Ox O2 Delivery O2 Flow Rate FiO2 12/24/17 08:00 97.8 61 17 123/75 (91) 99 12/24/17 07:07 97.7 62 17 132/67 (88) 99 12/24/17 01:35 99.0 74 17 127/60 (82) 99 12/23/17 22:16 18 12/23/17 21:15 98.8 80 18 139/85 (103) 99 12/23/17 17:42 80 12/23/17 15:53 98.6 65 17 119/68 (85) 100 12/23/17 15:45 61 12/23/17 14:35 59 I/O 12/23/17 12/23/17 12/23/17 12/24/17 12/24/17 12/24/17 06:59 14:59 22:59 06:59 14:59 22:59 Intake Total 360 ml 1200 ml 1020 ml Output Total 2050 ml 3300 ml 3750 ml Balance -1690 ml -2100 ml -2730 ml Intake Oral 360 ml 1200 ml 1020 ml Output Urine Total 2050 ml 3300 ml 3750 ml # Bowel Movements 0 Result Diagram: 12/22/17 0725 12/20/17 0615 Objective Remarks GENERAL: Patient sitting up on edge of bed. Appears comfortable. SKIN: Warm and dry. HEAD: Normocephalic. EYES: No scleral icterus. No injection or drainage. NECK: Supple, trachea midline. No JVD or lymphadenopathy. CARDIOVASCULAR: Regular rate and rhythm without murmurs, gallops, or rubs. RESPIRATORY: Breath sounds equal bilaterally. No accessory muscle use. GASTROINTESTINAL: Abdomen soft, non-tender, nondistended. MUSCULOSKELETAL: No cyanosis, or edema. Urine in bag is clear. BACK: Nontender without obvious deformity. No CVA tenderness. A/P Assessment and Plan 62 YOAAM admitted for symptomatic anemia secondary to gross hematuria. //Hematuria/severe anemia Total of 4 units of blood received H&H improved to 9.5/28.9 today (up from mid-8's) Urine continues to be bright red this morning with small clots If urine turns more yellow and remains clot free continuous bladder irrigation can be held He has outpatient follow-up arranged for next week with urology = Still with blood clots per nursing. Nursing to contact urology to reevaluate. = 12/24. Urine clear this morning. Discharged to follow-up with urology as outpatient. //Urinary Retention Patient had worsening bladder pain, bladder scan revealed 900 cc retention on 4-5 thumb-sized clots were produced on the floor when Amaya was removed, immediate improvement to discomfort Patient then produced 1000 cc of urine, but still retained greater than 700 cc on bladder scan Three-way catheter was placed and patient was placed on continuous bladder irrigation Percocet PRN pain = Continue with Amaya. Urine clear this morning. Follow-up with urology as outpatient //Diabetes mellitus Accu-Cheks with sliding scale insulin coverage Diabetic diet = Blood sugars acceptable. Continue to monitor. //Hypertension/hyperlipidemia Continue home medications //Chronic pain Lidocaine patch Air mattress requested //Constipation Add Arianna-colace BID //DVT prophylaxis Holding anticoagulation for active bleed Discharge Planning Discussed with nursing at [facility] again Discharge home with Amaya catheter in place. Amaya teaching administered by nursing. Follow-up with urology as outpatient. Jerrell Montes MD Dec 24, 2017 13:39
--- NOTE | 2017-12-24 13:45 | HHI.DS ---
Discharge Summary Admission Date Dec 16, 2017 at 19:33 Discharge Date: Dec 24, 2017 Admitting Diagnosis symptomatic anemia, hematuria (1) Prostate cancer ICD Code: C61 - Malignant neoplasm of prostate Status: Chronic (2) Hematuria ICD Code: R31.9 - Hematuria, unspecified Status: Acute (3) Radiation cystitis ICD Code: N30.40 - Irradiation cystitis without hematuria Status: Chronic Procedures No invasive procedures Brief History - From Admission 62-year-old male with a past medical history significant for prostate cancer status post radiation seeds, GABRIELE, anxiety, hypertension, diabetes mellitus, hyperlipidemia, GERD, chronic back pain and recent hematuria presents to the emergency department with a one-day history of middleton-colored urine. The patient reports that he was sent to the emergency department by his physician for anemia. He has a Amaya catheter in place. The patient was discharged on 11/26/17 for bilateral hydronephrosis with obstructing uropathy hematuria and AK I. He had a cystoscopy completed by Dr. Alcazar which showed dilated blood vessels of the bladder neck region oozing blood and the bladder was full of clots. He was discharged home to follow-up with his primary care physician and urology with a Amaya catheter in place. His H&H is 6.1/18.8. He denies any dizziness or lightheadedness. Denies fatigue. Denies chest pain or shortness of breath. No nausea/vomiting/diarrhea. No fever/chills. CBC/BMP: 12/22/17 0725 12/20/17 0615 Significant Findings Laboratory Tests Test 12/22/17 07:25 Red Blood Count 3.57 MIL/MM3 (4.50-5.90) Hemoglobin 9.5 GM/DL (13.0-17.0) Hematocrit 28.9 % (39.0-51.0) Mean Corpuscular Hemoglobin 26.7 PG (27.0-34.0) Red Cell Distribution Width 17.6 % (11.6-17.2) Monocytes (%) (Auto) 11.2 % (0.0-8.0) Eosinophils (%) (Auto) 5.5 % (0.0-4.0) Polychromasia 2.3 % (0.0-1.9) Imaging Last Impressions Chest X-Ray 12/16/17 1807 Signed Impressions: Service Date/Time: Saturday, December 16, 2017 18:35 - CONCLUSION: No acute disease. Naga Stewart MD Hospital Course Patient presented with hemoglobin of 6.1, which improved to 9 point 4:05 units of PRBCs. Patient found to have marketed urinary retention for which urology was consulted. Patient was started on Proscar and oxybutynin. Amaya was placed and patient underwent continuous bladder irrigation with improvement in hematuria. Continuous irrigation was discontinued on 12/23, and urine remained clear. Patient was discharged to follow-up with urology as outpatient. For problem-based summary from most recent progress note, please see below. 62 YOAAM admitted for symptomatic anemia secondary to gross hematuria. //Hematuria/severe anemia Total of 4 units of blood received H&H improved to 9.5/28.9 today (up from mid-'s) Urine continues to be bright red this morning with small clots If urine turns more yellow and remains clot free continuous bladder irrigation can be held He has outpatient follow-up arranged for next week with urology = Still with blood clots per nursing. Nursing to contact urology to reevaluate. = 12/24. Urine clear this morning. Discharged to follow-up with urology as outpatient. //Urinary Retention Patient had worsening bladder pain, bladder scan revealed 900 cc retention on 4-5 thumb-sized clots were produced on the floor when Amaya was removed, immediate improvement to discomfort Patient then produced 1000 cc of urine, but still retained greater than 700 cc on bladder scan Three-way catheter was placed and patient was placed on continuous bladder irrigation Percocet PRN pain = Continue with Amaya. Urine clear this morning. Follow-up with urology as outpatient //Diabetes mellitus Accu-Cheks with sliding scale insulin coverage Diabetic diet = Blood sugars acceptable. Continue to monitor. //Hypertension/hyperlipidemia Continue home medications //Chronic pain Lidocaine patch Air mattress requested //Constipation Add Arianna-colace BID //DVT prophylaxis Holding anticoagulation for active bleed Discharge Planning Discussed with nursing at [facility] again Discharge home with Amaya catheter in place. Amaya teaching administered by nursing. Follow-up with urology as outpatient. Pt Condition on Discharge: Good Discharge Disposition: Discharge Home Discharge Time: > 30 minutes Discharge Instructions DIET: Follow Instructions for: Diabetic Diet Activities you can perform: Regular-No Restrictions Follow up Referrals: PCP Follow-up - 1 Week with [facility] - 3-5 Days with Derrick Wallace MD New Medications: Finasteride (Finasteride) 5 Mg Tab 5 MG PO DAILY for urinary retention for 30 Days, #30 TAB Do not crush. Oxybutynin (Ditropan) 5 Mg Tab 5 MG PO Q12HR for bladder spasms for 30 Days, TAB Continued Medications: Carisoprodol (Soma) 350 Mg Tab 350 MG PO DAILY PRN for PAIN, TAB 0 Refills Hydrochlorothiazide (Hydrochlorothiazide) 12.5 Mg Cap 12.5 MG PO BID, #60 CAP 0 Refills Hydrocodone-Acetaminophen (Hydrocodone-Acetaminophen) 10-325 mg Tab 1 TAB PO Q6H PRN for PAIN, TAB 0 Refills Lisinopril (Lisinopril) 10 Mg Tab 10 MG PO DAILY, #30 TAB 0 Refills Metformin (Metformin) 1,000 Mg Tab 1000 MG PO BIDPC for Blood Sugar Management, #60 TAB 0 Refills Oxycodone (Oxycodone) 30 Mg Tab 30 MG PO Q6H PRN for PAIN, TAB 0 Refills Jerrell Montes MD Dec 24, 2017 13:45
== END 2017-12-24 11:20 | disposition home or self-care (01) | DRG 812 ==
LOC: NEPE 17:54 → NEDA 19:33 → N06B 20:41
PROVIDERS: ADMIT Internal Medicine; ATTEND Internal Medicine
PROC: 30233N1 Transfusion of Nonautologous Red Blood Cells into Peripheral Vein, Percutaneous Approach (ICD-10-PCS; principal; 2017-12-16)
DX: D50.0 Iron deficiency anemia secondary to blood loss (chronic) (principal); E11.42 Type 2 diabetes mellitus with diabetic polyneuropathy; C61 Malignant neoplasm of prostate; N30.41 Irradiation cystitis with hematuria; M48.02 Spinal stenosis, cervical region; N32.89 Other specified disorders of bladder; I10 Essential (primary) hypertension; K21.9 Gastro-esophageal reflux disease without esophagitis; G47.33 Obstructive sleep apnea (adult) (pediatric); E78.5 Hyperlipidemia, unspecified; R33.9 Retention of urine, unspecified; K59.00 Constipation, unspecified; M54.5 Low back pain; G89.29 Other chronic pain; M50.30 Other cervical disc degeneration, unspecified cervical region; F32.9 Major depressive disorder, single episode, unspecified; F41.9 Anxiety disorder, unspecified; Y84.2 Radiological procedure and radiotherapy as the cause of abnormal reaction of the patient, or of later complication, without mention of misadventure at the time of the procedure; Z79.84 Long term (current) use of oral hypoglycemic drugs; Z92.3 Personal history of irradiation
CPT/HCPCS: 36430; 71046; 80048; 80053; 81001; 82550; 82552; 82948; 83036; 83735; 84100; 84439; 84443; 84484; 85014; 85018; 85025; 85610; 85730; 86850; 86900; 86901; 86920; 87086; 93005; 99285; J1815; J1940; J7042; J7050; P9016

== ENCOUNTER 2018-01-06 01:56 | Inpatient (IN) | payer OTHER, MEDICARE ==
[~2018-01-06] VITALS: Ht 188 cm; Wt 125.0 kg
[2018-01-06] VITALS (8 sets, daily range): BP systolic 116–163; BP diastolic 59–84; PULSE 72–93; RESP 16–22; TEMP 98–99.6; O2SAT 93–100
[~2018-01-06 01:56] MED LIST changes: +FINA5TAB2 PO; +HYDR-3583 PO; +HYDR12.57 PO; -LISI10TA PO; +LISI10TA3 PO; +OXYB5TAB8 PO; +OXYC30TA PO; +SOMA350T PO
--- NOTE | 2018-01-06 02:27 | PD ---
HPI Chief Complaint: Complaint Time Seen by Provider: : Travel History International Travel<30 days: No Contact w/Intl Traveler<30days: No Traveled to known affect area: No History of Present Illness HPI 62-year-old male came to the emergency room with history of urinary retention. Patient says that he urinated last sometime yesterday afternoon. He has been passing blood clots. Patient seems to be in extreme discomfort currently. His is here with him who is giving some additional history. She mentioned that patient had a bladder surgery in November 15 of [address] Dr. Alcazar. He had a catheter in which was taken out last Saturday. Since then he has been urinating with occasional blood and up until yesterday when he developed urinary retention. Vital signs are stable. Patient denies being on any blood thinners. PFSH Past Medical History Narrative Medical List of his past medical, surgical, social and family history reviewed from the nursing note Anemia: Yes Autoimmune Disease: No Blood Disorders: No Anxiety: Yes Depression: Yes Cancer: Yes (PROSTATE) Cardiovascular Problems: Yes High Cholesterol: Yes Chemotherapy: No Diabetes: Yes Patient Takes Glucophage: Yes (01/05/2018 1600) Diminished Hearing: No Endocrine: Yes Gastrointestinal Disorders: Yes (COLON POLYP) GERD: Yes Glaucoma: No Genitourinary: Yes Heparin Induced Thrombocytopen: No Hypertension: Yes Immune Disorder: No Implanted Vascular Access Dvce: No Musculoskeletal: Yes (CERVICAL STENOSIS, DISC DEGENERATIVE) Neurologic: Yes (PERIPHERAL NEUROPATHY) Psychiatric: Yes Reproductive: No Respiratory: Yes Integumentary: Yes Immunizations Current: Yes Radiation Therapy: Yes (2009) Sickle Cell Disease: No Sleep Apnea: Yes (no Cpap) Thyroid Disease: No Tetanus Vaccination: < 5 Years Influenza Vaccination: No Past Surgical History AICD: No Arteriovenous Shunt: No Genitourinary Surgery: Yes (BLADDER SURGERY ) Insulin Pump: No Joint Replacement: No Pacemaker: No Other Surgery: Yes (TITANIAN RODS PLACED IN LOW BACK 1996) Social History Alcohol Use: No Tobacco Use: No Substance Use: No Allergies-Medications (Allergen,Severity, Reaction): Coded Allergies: No Known Allergies (Verified Allergy, Unknown, 01/06/18) Comments No known drug allergies. Reported Meds & Prescriptions Reported Meds & Active Scripts Active Finasteride 5 Mg Tab 5 Mg PO DAILY 30 Days Do not crush. Ditropan (Oxybutynin Chloride) 5 Mg Tab 5 Mg PO Q12HR 30 Days Reported Hydrocodone-Acetaminophen 10-325 mg Tab 1 Tab PO Q6H PRN Soma (Carisoprodol) 350 Mg Tab 350 Mg PO DAILY PRN Oxycodone (Oxycodone HCl) 30 Mg Tab 30 Mg PO Q6H PRN Hydrochlorothiazide 12.5 Mg Cap 12.5 Mg PO BID Lisinopril 10 Mg Tab 10 Mg PO DAILY Metformin (Metformin HCl) 1,000 Mg Tab 1,000 Mg PO BIDPC Narrative Medication List of his home medications reviewed from the nursing note. Review of Systems Except as stated in HPI: all other systems reviewed are Neg Genitourinary: Positive: Hematuria, Decreased Urinary Output Physical Exam Narrative GENERAL: Awake, alert, significant distress SKIN: Focused skin assessment warm/dry. HEAD: Atraumatic. Normocephalic. EYES: Pupils equal and round. No scleral icterus. No injection or drainage. ENT: No nasal bleeding or discharge. Mucous membranes pink and moist. NECK: Trachea midline. No JVD. CARDIOVASCULAR: Regular rate and rhythm. No murmur appreciated. RESPIRATORY: No accessory muscle use. Clear to auscultation. Breath sounds equal bilaterally. GASTROINTESTINAL: Abdomen soft, non-tender, distended. Hepatic and splenic margins not palpable. Suprapubic tenderness on palpation MUSCULOSKELETAL: No obvious deformities. No clubbing. No cyanosis. No edema. NEUROLOGICAL: Awake and alert. No obvious cranial nerve deficits. Motor grossly within normal limits. Normal speech. PSYCHIATRIC: Appropriate mood and affect; insight and judgment normal. Data Data Last Documented VS Orders Orders Urinary Catheter Insert/Apply (01/06/18 02:38) Complete Blood Count With Diff (01/06/18 02:38) Basic Metabolic Panel (Bmp) (01/06/18 02:38) Urinalysis - C+S If Indicated (01/06/18 02:38) Prothrombin Time / Inr (Pt) (01/06/18 02:38) Sodium Chlor 0.9% 1000 Ml Inj (Ns 1000 M (01/06/18 04:45) Admit Order (Ed Use Only) (01/06/18 05:08) Admit To Inpatient (01/06/18 ) Vital Signs (Adult) Q4H (01/06/18 05:06) Activity Oob Ad Vandana (01/06/18 05:06) Intake + Output WILLA.QSHIFT (01/06/18 05:06) Diet Npo (01/06/18 Breakfast) Sodium Chlor 0.9% 1000 Ml Inj (Ns 1000 M (01/06/18 05:06) Sodium Chloride 0.9% Flush (Ns Flush) (01/06/18 05:15) Sodium Chloride 0.9% Flush (Ns Flush) (01/06/18 09:00) Ondansetron Inj (Zofran Inj) (01/06/18 05:15) Basic Metabolic Panel (Bmp) (01/07/18 06:00) Complete Blood Count With Diff (01/07/18 06:00) Case Management Consult (01/06/18 05:06) Scd Bilateral/Knee High WILLA.BID (01/06/18 05:06) Naloxone Inj (Narcan Inj) (01/06/18 05:15) Inpatient Certification (01/06/18 ) Hgb & Hct (01/06/18 17:00) Consult Urology (01/06/18 ) Labs Laboratory Tests Test 01/06/18 02:47 01/06/18 03:56 White Blood Count 13.6 TH/MM3 Red Blood Count 3.18 MIL/MM3 Hemoglobin 8.0 GM/DL Hematocrit 25.1 % Mean Corpuscular Volume 78.9 FL Mean Corpuscular Hemoglobin 25.0 PG Mean Corpuscular Hemoglobin Concent 31.7 % Red Cell Distribution Width 17.1 % Platelet Count 442 TH/MM3 Mean Platelet Volume 6.6 FL Neutrophils (%) (Auto) 83.9 % Lymphocytes (%) (Auto) 8.7 % Monocytes (%) (Auto) 6.3 % Eosinophils (%) (Auto) 0.8 % Basophils (%) (Auto) 0.3 % Neutrophils # (Auto) 11.4 TH/MM3 Lymphocytes # (Auto) 1.2 TH/MM3 Monocytes # (Auto) 0.9 TH/MM3 Eosinophils # (Auto) 0.1 TH/MM3 Basophils # (Auto) 0.0 TH/MM3 CBC Comment AUTO DIFF Differential Comment AUTO DIFF CONFIRMED Platelet Estimate HIGH Platelet Morphology Comment NORMAL Polychromasia 2.9 % Spherocytes OCC Acanthocytes OCC Keratocytes OCC Prothrombin Time 10.1 SEC Prothromb Time International Ratio 1.0 RATIO Blood Urea Nitrogen 23 MG/DL Creatinine 1.66 MG/DL Random Glucose 138 MG/DL Calcium Level 8.7 MG/DL Sodium Level 137 MEQ/L Potassium Level 3.7 MEQ/L Chloride Level 100 MEQ/L Carbon Dioxide Level 28.9 MEQ/L Anion Gap 8 MEQ/L Estimat Glomerular Filtration Rate 51 ML/MIN Urine Color LIGHT-BROWN Urine Turbidity HAZY Urine pH 8.0 Urine Specific [place]um 1.015 Urine Protein 300 mg/dL Urine Glucose (UA) NEG mg/dL Urine Ketones NEG mg/dL Urine Occult Blood LARGE Urine Nitrite NEG Urine Bilirubin NEG Urine Urobilinogen LESS THAN 2.0 MG/DL Urine Leukocyte Esterase TRACE Urine RBC /hpf Urine WBC /hpf Urine WBC Clumps MANY Microscopic Urinalysis Comment CULTURE INDICATED MDM Medical Decision Making Medical Screen Exam Complete: Yes Emergency Medical Condition: Yes Medical Record Reviewed: Yes Differential Diagnosis Hematuria, UTI, urinary retention from blood clot Narrative Course 2:55 AM I looked at the operative note from November 15, 2017. Patient had similar condition then. As per the urologist this was secondary to radiation cystitis. He had done a cystoscopy and evacuated extensive amounts of blood clots and cauterized some blood vessels. I have asked the nurse to insert a Amaya catheter and manually irrigate the bladder and evacuate the blood clots. Awaiting for blood test results. 4:30 AM blood test results are back and patient has some leukocytosis. Rest of the blood test results are within acceptable limits. UA is pending. After inserting the Amaya catheter and some amount of irrigation patient put out almost 1000 L of urine. It has been gross hematuria. I'm calling Dr. Alcazar who also happens to be on today for urology. 4:36 AM as per the urologist if the catheter is draining urine then patient can be discharged home and he will see the patient in his office. I will keep the patient here for another hour and asked the nurse to check on the urine output. I reassess the patient and he says he is feeling better now. 4:51 AM upon reassessment it was noticed that patient was not making any more urine that was coming out from the Amaya tubing. I did a bedside ultrasound at this point and I see a large clot in the bladder with significant urine in the bladder around it. I have asked the nurse to repeat the manual pressure irrigation to disintegrate the blood clot. At this point I would like to admit this patient. Awaiting for the hospitalist callback. Procedures Procedure Narrative Bladder ultrasound: Bedside lateral ultrasound with curvilinear probe was done. The ultrasound showed a heterogeneous mass in the bladder which probably is a blood clot with the balloon of the Amaya catheter visualized. There is significant amount of urine distending the bladder around it. EKG Prior to Arrival: No Physician Communication Physician Communication Dr. Alcazar Diagnosis Primary Impression: Urinary retention Additional Impression: Gross hematuria Admitting Information Admitting Physician Requests: Admit Viraj Rousseau MD Jan 06, 2018 02:27
[2018-01-06 03:09] LABS: AUTOMATED NEUTROPHIL # 11.4 TH/MM3 (1.8-7.7); BASOPHIL % 0.3 % (0.0-2.0); EOSINOPHIL # 0.1 TH/MM3 (0-0.4); EOSINOPHIL % 0.8 % (0.0-4.0); HEMATOCRIT 25.1 % (39.0-51.0); LYMPH % 8.7 % (9.0-44.0); LYMPHOCYTE # 1.2 TH/MM3 (1.0-4.8); MEAN CELL VOLUME 78.9 FL (80.0-100.0); MEAN CORPUSCULAR HGB CONC 31.7 % (32.0-36.0); MEAN PLATELET VOLUME 6.6 FL (7.0-11.0); MONO % 6.3 % (0.0-8.0); MONOCYTE # 0.9 TH/MM3 (0-0.9); NEUT % 83.9 % (16.0-70.0); PLATELET COUNT 442 TH/MM3 (150-450); RED BLOOD COUNT 3.18 MIL/MM3 (4.50-5.90); RED CELL DISTRIBUTION WIDTH 17.1 % (11.6-17.2); WHITE BLOOD COUNT 13.6 TH/MM3 (4.0-11.0)
[2018-01-06 03:16] LABS: PROTHROMBIN TIME - PATIENT 10.1 SEC (9.8-11.6)
[2018-01-06 03:31] LABS: BICARBONATE 28.9 MEQ/L (21.0-32.0); CALCIUM 8.7 MG/DL (8.5-10.1); CREATININE 1.66 MG/DL (0.60-1.30)
[2018-01-06 04:16] LABS: POLYCHROMASIA 2.9 % (0.0-1.9)
[2018-01-06 04:18] LABS: ACANTHOCYTES OCC (NORMAL); KERATOCYTES OCC (NORMAL); SPHEROCYTES OCC (NORMAL)
[2018-01-06] MEDS ORDERED: SODIUM CHLOR 0.9% 1000 ML INJ 1,000 ML IV ONE (04:45)
[2018-01-06] MEDS ORDERED: NALOXONE HCL 0.4 MG/ML AMP IV PUSH PRN (05:15)
[2018-01-06] MEDS ORDERED: SODIUM CHLORIDE 0.9% FLUSH 10 ML FLUSH IV FLUSH PRN (05:15)
[2018-01-06] MEDS ORDERED: ONDANSETRON HCL 4 MG/2 ML VIAL IVP PRN (05:15)
[2018-01-06] MEDS: SODIUM CHLOR 0.9% 1000 ML INJ 1,000 ML IV SCH ×2 (05:29→21:02)
[2018-01-06 05:41] LABS: BILIRUBIN, URINE NEG (NEG); BLOOD, URINE LARGE (NEG); GLUCOSE,URINE NEG (NEG); KETONE, URINE NEG (NEG); NITRITE,URINE NEG (NEG); URINE LEUKOCYTE ESTERASE TRACE (NEG); WHITE BLOOD CELL CLUMPS MANY
[2018-01-06 05:42] LABS: URINE COLOR LIGHT-BROWN (YELLW/STRAW)
--- NOTE | 2018-01-06 08:49 | HHI.HP ---
HPI Service [facility] Primary Care Physician [facility] Admission Diagnosis Gross hematuria, urinary retention Diagnoses: Chief Complaint: Hematuria Travel History International Travel<30 Days: No Contact w/Intl Traveler <30 Da: No Traveled to Known Affected Are: No History of Present Illness 62-year-old male with a medical history significant for prostate cancer status post radiation, hypertension, diabetes, anxiety, GERD, chronic back pain. Patient presented to the emergency room with complaint of urinary retention. He has had issues with hematuria. He saw his urologist on Saturday and his Amaya catheter was removed. He was doing well up until yesterday when he noted some blood-tinged urine and eventually stopped making urine. On arrival to the emergency room, a Amaya catheter was placed but he continued to have hematuria and ultrasound revealed presence of persistent blood clots in the bladder. Patient's H&H is also dropping. Currently he reports feeling tired but denies chest pain or shortness of breath. Review of Systems Constitutional: COMPLAINS OF: Fatigue, DENIES: Fever, Chills Genitourinary: COMPLAINS OF: Hematuria, Dysuria Musculoskeletal: COMPLAINS OF: Joint pain, Muscle aches Except as stated in HPI: all other systems reviewed are Neg Past Family Social History Past Medical History Prostate cancer status post radiation seeds anxiety hypertension diabetes mellitus hyperlipidemia, GERD, chronic back pain and recent hematuria Past Surgical History Back surgery Right shoulder surgery Right carpal tunnel release Reported Medications Reported Meds & Active Scripts Active Finasteride 5 Mg Tab 5 Mg PO DAILY 30 Days Do not crush. Ditropan (Oxybutynin Chloride) 5 Mg Tab 5 Mg PO Q12HR 30 Days Reported Hydrocodone-Acetaminophen 10-325 mg Tab 1 Tab PO Q6H PRN Soma (Carisoprodol) 350 Mg Tab 350 Mg PO DAILY PRN Oxycodone (Oxycodone HCl) 30 Mg Tab 30 Mg PO Q6H PRN Hydrochlorothiazide 12.5 Mg Cap 12.5 Mg PO BID Lisinopril 10 Mg Tab 10 Mg PO DAILY Metformin (Metformin HCl) 1,000 Mg Tab 1,000 Mg PO BIDPC Allergies: Coded Allergies: No Known Allergies (Verified Allergy, Unknown, 01/06/18) Family History Father has history of diabetes Social History No tobacco, alcohol, or illicit drug use. Physical Exam Vital Signs Vital Signs Date Time Temp Pulse Resp B/P (MAP) Pulse Ox O2 Delivery O2 Flow Rate FiO2 01/06/18 07:22 77 16 151/67 (95) 99 Room Air 01/06/18 02:09 99.6 87 22 146/79 (101) 100 Physical Exam GENERAL: This is a well-nourished, well-developed patient, in no apparent distress. SKIN: No rashes, ecchymoses or lesions. Cool and dry. HEAD: Atraumatic. Normocephalic. No temporal or scalp tenderness. EYES: Pupils equal round and reactive. Extraocular motions intact. No scleral icterus. No injection or drainage. ENT: Nose without bleeding, purulent drainage or septal hematoma. Throat without erythema, tonsillar hypertrophy or exudate. Uvula midline. Airway patent. NECK: Trachea midline. No JVD or lymphadenopathy. Supple, nontender, no meningeal signs. CARDIOVASCULAR: Regular rate and rhythm without murmurs, gallops, or rubs. RESPIRATORY: Clear to auscultation. Breath sounds equal bilaterally. No wheezes , rales, or rhonchi. GASTROINTESTINAL: Abdomen soft, non-tender, nondistended. No hepato-splenomegaly , or palpable masses. No guarding. : Amaya in place draining bloody urine. MUSCULOSKELETAL: Extremities without clubbing, cyanosis, or edema. No joint tenderness, effusion, or edema noted. No calf tenderness. Negative Homans sign bilaterally. NEUROLOGICAL: Awake and alert. Cranial nerves II through XII intact. Motor and sensory grossly within normal limits. Five out of 5 muscle strength in all muscle groups. Normal speech. Laboratory Laboratory Tests Test 01/06/18 02:47 01/06/18 03:56 White Blood Count 13.6 Red Blood Count 3.18 Hemoglobin 8.0 Hematocrit 25.1 Mean Corpuscular Volume 78.9 Mean Corpuscular Hemoglobin 25.0 Mean Corpuscular Hemoglobin Concent 31.7 Red Cell Distribution Width 17.1 Platelet Count 442 Mean Platelet Volume 6.6 Neutrophils (%) (Auto) 83.9 Lymphocytes (%) (Auto) 8.7 Monocytes (%) (Auto) 6.3 Eosinophils (%) (Auto) 0.8 Basophils (%) (Auto) 0.3 Neutrophils # (Auto) 11.4 Lymphocytes # (Auto) 1.2 Monocytes # (Auto) 0.9 Eosinophils # (Auto) 0.1 Basophils # (Auto) 0.0 CBC Comment AUTO DIFF Differential Comment AUTO DIFF CONFIRMED Platelet Estimate HIGH Platelet Morphology Comment NORMAL Polychromasia 2.9 Spherocytes OCC Acanthocytes OCC Keratocytes OCC Prothrombin Time 10.1 Prothromb Time International Ratio 1.0 Blood Urea Nitrogen 23 Creatinine 1.66 Random Glucose 138 Calcium Level 8.7 Sodium Level 137 Potassium Level 3.7 Chloride Level 100 Carbon Dioxide Level 28.9 Anion Gap 8 Estimat Glomerular Filtration Rate 51 Urine Color LIGHT-BROWN Urine Turbidity HAZY Urine pH 8.0 Urine Specific [place] 1.015 Urine Protein 300 Urine Glucose (UA) NEG Urine Ketones NEG Urine Occult Blood LARGE Urine Nitrite NEG Urine Bilirubin NEG Urine Urobilinogen LESS THAN 2.0 Urine Leukocyte Esterase TRACE Urine RBC Urine WBC Urine WBC Clumps MANY Microscopic Urinalysis Comment CULTURE INDICATED Date/Time Source Procedure Growth Status 01/06/18 03:56 Urine Clean Catch Urine Culture Pending Received Result Diagram: 01/06/18 0247 01/06/18 0247 Caprini VTE Risk Assessment Caprini VTE Risk Assessment: Mod/High Risk (score >= 2) VTE Pharm Contraindication: Active bleeding Caprini Risk Assessment Model Point Value = 1 Point Value = 2 Point Value = 3 Point Value = 5 Age 41-60 Minor surgery BMI > 25 kg/m2 Swollen legs Varicose veins or History of unexplained or recurrent spontaneous Oral contraceptives or hormone replacement Sepsis (< 1 month) Serious lung disease, including pneumonia (< 1 month) Abnormal pulmonary function Acute myocardial infarction Congestive heart failure (< 1 month) History of inflammatory bowel disease Medical patient at bed rest Age 61-74 Arthroscopic surgery Major open surgery (> 45 min) Laparoscopic surgery (> 45 min) Malignancy Confined to bed (> 72 hours) Immobilizing plaster cast Central venous access Age >= 75 History of VTE Family history of VTE Factor V Leiden Prothrombin [id number] Lupus anticoagulant Anticardiolipin antibodies Elevated serum homocysteine Heparin-induced thrombocytopenia Other congenital or acquired thrombophilia Stroke (< 1 month) Elective arthroplasty Hip, pelvis, or leg fracture Acute spinal cord injury (< 1 month) Prophylaxis Regimen Total Risk Factor Score Risk Level Prophylaxis Regimen 0-1 Low Early ambulation 2 Moderate Order ONE of the following: *Sequential Compression Device (SCD) *Heparin 5000 units SQ BID 3-4 Higher Order ONE of the following medications: *Heparin 5000 units SQ TID *Enoxaparin/Lovenox 40 mg SQ daily (WT < 150 kg, CrCl > 30 mL/min) *Enoxaparin/Lovenox 30 mg SQ daily (WT < 150 kg, CrCl > 10-29 mL/min) *Enoxaparin/Lovenox 30 mg SQ BID (WT < 150 kg, CrCl > 30 mL/min) AND/OR *Sequential Compression Device (SCD) 5 or more Highest Order ONE of the following medications: *Heparin 5000 units SQ TID (Preferred with Epidurals) *Enoxaparin/Lovenox 40 mg SQ daily (WT < 150 kg, CrCl > 30 mL/min) *Enoxaparin/Lovenox 30 mg SQ daily (WT < 150 kg, CrCl > 10-29 mL/min) *Enoxaparin/Lovenox 30 mg SQ BID (WT < 150 kg, CrCl > 30 mL/min) AND *Sequential Compression Device (SCD) Assessment and Plan Problem List: (1) Acute blood loss anemia ICD Code: D62 - Acute posthemorrhagic anemia (2) Acute renal failure ICD Code: N17.9 - Acute kidney failure, unspecified (3) Gross hematuria ICD Code: R31.0 - Gross hematuria Status: Acute (4) Urinary retention ICD Code: R33.9 - Retention of urine, unspecified Status: Acute Assessment and Plan 62-year-old male with: Acute urinary retention secondary to blood clots/hematuria: - Continue Amaya. Start CBI. - Urology consulted. Appreciate recommendations - Continue finasteride and oxybutynin. Acute blood loss anemia secondary to hematuria: - H&H down compared to his baseline. I suspect he may need blood transfusion. - Repeat H&H and transfuse as needed. Acute renal failure: Likely combination of prerenal azotemia from anemia and urinary retention - IV hydration. Urology to address urinary retention. - Follow up labs. Avoid nephrotoxins Hypertension: Medicine continue home dose antihypertensives. Diabetes: - Sliding scale insulin with Accu-Cheks. Plan to resume oral diabetes medication on discharge GI prophylaxis: Stool softener PRN constipation. DVT PPx: SCD. Chemoprophylaxis contraindicated due to active bleeding. Physician Certification 2 Midnight Certification Type: Admission for Inpatient Services Order for Inpatient Services The services are ordered in accordance with Medicare regulations or non- Medicare payer requirements, as applicable. In the case of services not specified as inpatient-only, they are appropriately provided as inpatient services in accordance with the 2-midnight benchmark. Estimated LOS (days): 2 days is the estimated time the patient will need to remain in the hospital, assuming treatment plan goals are met and no additional complications. Post-Hospital Plan: Home Jaylen Valera MD Jan 06, 2018 08:49
[2018-01-06] MEDS: FINASTERIDE 5 MG TAB PO SCH (09:15)
[2018-01-06] MEDS: OXYBUTYNIN CHLORIDE 5 MG TAB PO SCH ×2 (09:15→21:01)
[2018-01-06] MEDS ORDERED: SODIUM CHLORID 0.9% 500 ML IV PRN (10:30)
[2018-01-06] MEDS ORDERED: CHLORHEXIDINE GLUCONATE 2 % 1 PACK (2 CLOTHS) TOPICAL PRN (10:30)
[2018-01-06] MEDS ORDERED: LACTATED RINGER'S 1000 ML IV PRN (10:30)
[2018-01-06] MEDS ORDERED: METOPROLOL TARTRATE 25 MG TAB PO PRN (10:30)
[2018-01-06] MEDS ORDERED: POVIDONE IODINE 5% (ANTISEPSIS KIT) 4 APPLICATIONS EACH NARE PRN (10:30)
--- NOTE | 2018-01-06 10:43 | PD.CONS ---
[facility] Service Urology Consult Requested By Dr. Rousseau Reason for Consult Gross hematuria with clots Primary Care Physician [facility] Diagnosis: History of Present Illness 62-year-old gentleman with history prostate cancer status post radiation therapy in the past who presented to the emergency room with clot urinary retention. Patient was actually evaluated by Dr. Wallace last Saturday and underwent cystoscopic evaluation. Patient reports that he had been doing well up until Saturday when the hematuria developed. Attempts were made to irrigate the bladder free of clots in the emergency room without success. There was persistent drainage around the catheter and a bladder ultrasound demonstrated persistence of clots within urinary bladder. Review of Systems Constitutional: DENIES: Fever, Chills Cardiovascular: DENIES: Chest pain Gastrointestinal: COMPLAINS OF: Abdominal pain (Lower) Genitourinary: COMPLAINS OF: Hematuria Except as stated in HPI: all other systems reviewed are Neg Past Family Social History Past Medical History Prostate cancer status post radiation therapy Anxiety Hypertension Diabetes mellitus Hyperlipidemia GERD Chronic back pain Past Surgical History Status post brachytherapy for prostate cancer Status post recent cystoscopy with fulguration Status post back surgery Status post right shoulder surgery Status post right carpal tunnel release surgery Reported Medications Refer to EMR Allergies: Coded Allergies: No Known Allergies (Verified Allergy, Unknown, 01/06/18) Active Ordered Medications Refer to EMR Family History Father with history diabetes mellitus Social History Denies history alcohol, tobacco or intravenous drug abuse Physical Exam Vital Signs Date Time Temp Pulse Resp B/P (MAP) Pulse Ox O2 Delivery O2 Flow Rate FiO2 01/06/18 07:22 77 16 151/67 (95) 99 Room Air 01/06/18 02:09 99.6 87 22 146/79 (101) 100 Physical Exam GENERAL: This is a well-nourished, well-developed patient, in no apparent distress. SKIN: No rashes, ecchymoses or lesions. Cool and dry. HEAD: Atraumatic. Normocephalic. No temporal or scalp tenderness. EYES: Pupils equal round and reactive. Extraocular motions intact. No scleral icterus. No injection or drainage. ENT: Nose without bleeding, purulent drainage or septal hematoma. Throat without erythema, tonsillar hypertrophy or exudate. Uvula midline. Airway patent. NECK: Trachea midline. No JVD or lymphadenopathy. Supple, nontender, no meningeal signs.. GASTROINTESTINAL: Abdomen soft, non-tender, nondistended. No hepato-splenomegaly , or palpable masses. No guarding. GENITOURINARY: Bladder distended. Poorly draining Amaya catheter with blood clots around meatus. MUSCULOSKELETAL: Extremities without clubbing, cyanosis, or edema. No joint tenderness, effusion, or edema noted. No calf tenderness. Negative Homans sign bilaterally. NEUROLOGICAL: Awake and alert. Cranial nerves II through XII intact. Motor and sensory grossly within normal limits. Five out of 5 muscle strength in all muscle groups. Normal speech. Lab results reviewed: Yes Laboratory Tests Test 01/06/18 02:47 01/06/18 03:56 01/06/18 10:20 White Blood Count 13.6 Red Blood Count 3.18 Hemoglobin 8.0 Hematocrit 25.1 Mean Corpuscular Volume 78.9 Mean Corpuscular Hemoglobin 25.0 Mean Corpuscular Hemoglobin Concent 31.7 Red Cell Distribution Width 17.1 Platelet Count 442 Mean Platelet Volume 6.6 Neutrophils (%) (Auto) 83.9 Lymphocytes (%) (Auto) 8.7 Monocytes (%) (Auto) 6.3 Eosinophils (%) (Auto) 0.8 Basophils (%) (Auto) 0.3 Neutrophils # (Auto) 11.4 Lymphocytes # (Auto) 1.2 Monocytes # (Auto) 0.9 Eosinophils # (Auto) 0.1 Basophils # (Auto) 0.0 CBC Comment AUTO DIFF Differential Comment AUTO DIFF CONFIRMED Platelet Estimate HIGH Platelet Morphology Comment NORMAL Polychromasia 2.9 Spherocytes OCC Acanthocytes OCC Keratocytes OCC Prothrombin Time 10.1 Prothromb Time International Ratio 1.0 Blood Urea Nitrogen 23 Creatinine 1.66 Random Glucose 138 Calcium Level 8.7 Sodium Level 137 Potassium Level 3.7 Chloride Level 100 Carbon Dioxide Level 28.9 Anion Gap 8 Estimat Glomerular Filtration Rate 51 Urine Color LIGHT-BROWN Urine Turbidity HAZY Urine pH 8.0 Urine Specific [place] 1.015 Urine Protein 300 Urine Glucose (UA) NEG Urine Ketones NEG Urine Occult Blood LARGE Urine Nitrite NEG Urine Bilirubin NEG Urine Urobilinogen LESS THAN 2.0 Urine Leukocyte Esterase TRACE Urine RBC Urine WBC Urine WBC Clumps MANY Microscopic Urinalysis Comment CULTURE INDICATED Date/Time Source Procedure Growth Status 01/06/18 03:56 Urine Clean Catch Urine Culture Pending Received Result Diagram: 01/06/1824601/06/18 0247 Assessment and Plan Assessment and Plan Urologic impression: Gross hematuria with clot urinary retention Plan: 1. Keep patient n.p.o. 2. Bring the patient to the cystoscopy suite this morning for cystoscopy, clot evacuation and fulguration of any bleeding sites. Darryl Alcazar MD Jan 06, 2018 10:43
[2018-01-06 10:46] LABS: AUTOMATED NEUTROPHIL # 8.2 TH/MM3 (1.8-7.7); BASOPHIL % 0.5 % (0.0-2.0); EOSINOPHIL # 0.1 TH/MM3 (0-0.4); EOSINOPHIL % 0.5 % (0.0-4.0); HEMATOCRIT 23.2 % (39.0-51.0); HEMOGLOBIN 7.6 GM/DL (13.0-17.0); LYMPH % 11.9 % (9.0-44.0); LYMPHOCYTE # 1.2 TH/MM3 (1.0-4.8); MEAN CELL VOLUME 79.2 FL (80.0-100.0); MEAN CORPUSCULAR HEMOGLOBIN 25.8 PG (27.0-34.0); MEAN CORPUSCULAR HGB CONC 32.5 % (32.0-36.0); MEAN PLATELET VOLUME 6.4 FL (7.0-11.0); MONO % 7.7 % (0.0-8.0); MONOCYTE # 0.8 TH/MM3 (0-0.9); NEUT % 79.4 % (16.0-70.0); PLATELET COUNT 389 TH/MM3 (150-450); RED BLOOD COUNT 2.93 MIL/MM3 (4.50-5.90); RED CELL DISTRIBUTION WIDTH 17.7 % (11.6-17.2); WHITE BLOOD COUNT 10.3 TH/MM3 (4.0-11.0)
[2018-01-06] MEDS ORDERED: PROPOFOL 200 MG/20 ML AMP IV ONE (12:00)
[2018-01-06] MEDS ORDERED: ePHEDrine/NS 25 MG/5 ML SYRINGE IV ONE (12:00)
[2018-01-06] MEDS ORDERED: LACTATED RINGER'S 1000 ML INJ 1,000 ML IV ONE (12:00)
[2018-01-06] MEDS ORDERED: LIDOCAINE HCL 1% PF 5 ML SYRINGE OTHER ONE (12:00)
[2018-01-06] MEDS ORDERED: PHENYLEPH/NS 1000 MCG/10 ML SYR IV ONE (12:00)
[2018-01-06] MEDS ORDERED: ONDANSETRON HCL 4 MG/2 ML VIAL IV ONE (12:00)
--- NOTE | 2018-01-06 13:49 | PD.OP ---
Operative Report Date of Surgery: Jan 06, 2018 Preoperative Diagnosis: (1) Gross hematuria Postoperative Diagnosis: (1) Gross hematuria (2) Radiation cystitis Procedure: Cystoscopy, evacuation of bladder clots, transurethral resection median lobe of prostate and fulguration of bleeders involving bladder neck region. Anesthesia: General Surgeon: Darryl Alcazar Mobile Developer(s): None Operation and Findings: Indication for procedures: Case of a pleasant 62-year-old gentleman who presents now with gross hematuria and clot urinary retention. Operative procedures in detail: Patient was brought to the operating room suite and placed supine on the cystoscopy table. Patient was then placed under general anesthesia. He was then repositioned in the dorsal lithotomy position and prepped and draped in normal sterile fashion. Rigid cystoscopy was performed utilizing the rigid cystoscope with the 20 Tongan sheath and 30 lens. The urethra was patent without stricture formation, the prostatic urethra was obstructing with enlargement to the lateral lobes and significant enlargement to the median lobe. Further passage of the cystoscope and then the urinary bladder revealed the bladder to be full of clots. I replaced the cystoscope with the resectoscope and utilized the Ellik evacuator to cleanse the bladder of all clots. Subsequent cystoscopic inspection demonstrated ongoing bleeder involving the bladder neck region beyond the median lobe of the prostate. It was difficult to ascertain the exact location of the bleeders due to the median lobe of the prostate and thus this lobe was partially shaved down with the cutting loop. The resected tissue was sent off to pathology. I then used the rollerball and fulgurated the bleeding sites involving the ventral bladder neck region. There were a few other small bleeders noted circumferentially around the bladder neck which were addressed as well. Once this was completed no active bleeding was noted. A 22 Tongan 30 cc Amaya was next placed with 20 cc of sterile water instilled into the balloon and connected to gravity drainage. The patient tolerated the procedures without complications and was transferred to the PACU in satisfactory condition. Darryl Alcazar MD Jan 06, 2018 13:49
[2018-01-06] MEDS ORDERED: DO NOT ADM ANY ANTICOAGULANT DRUGS PRN (13:55)
[2018-01-06] MEDS ORDERED: MIDAZOLAM HCL 2 MG/2 ML VIAL ONE (13:59)
[2018-01-06] MEDS ORDERED: *MEPERIDINE 25 MG INJ VIAL PERIprocedural Use ONLY ONE (14:08)
[2018-01-06] MEDS ORDERED: *LABETALOL HCL 100 MG/20 ML VIAL PERIprocedural Use ONLY ONE (14:17)
[2018-01-06] MEDS ORDERED: *morphine SULFATE 4 MG/ML PERIprocedure ONLY ONE (14:34)
[2018-01-06] MEDS ORDERED: DEXTROSE 50% IN WATER 50 ML VIAL(D50) IV PUSH PRN (15:00)
[2018-01-06] MEDS ORDERED: NON-FORMULARY DRUG (Oxycodone 30 MG) PO PRN (15:00)
[2018-01-06] MEDS ORDERED: SODIUM CHLOR 0.9% 250 ML INJ 250 ML IV ONE (15:00)
[2018-01-06] MEDS ORDERED: FUROSEMIDE 20 MG/2 ML VIAL IV PUSH ONE (15:00)
[2018-01-06] MEDS ORDERED: GLUCAGON 1 MG/ML VIAL OTHER PRN (15:00)
[2018-01-06] MEDS: SODIUM CHLORIDE 0.9% FLUSH 10 ML FLUSH IV FLUSH SCH ×2 (15:01→20:58)
[2018-01-06] MEDS ORDERED: FUROSEMIDE 20 MG/2 ML VIAL IV PUSH SCH (15:30)
[2018-01-06] MEDS: INSULIN ASPART SUPPLEMENTAL SCALE SQ SCH ×2 (16:54→21:04)
[2018-01-06 22:40] LABS: HEMATOCRIT 22.5 % (39.0-51.0); HEMOGLOBIN 7.3 GM/DL (13.0-17.0)
[2018-01-07] VITALS (9 sets, daily range): BP systolic 117–146; BP diastolic 59–79; PULSE 69–87; RESP 16–18; TEMP 96.9–99.1; O2SAT 94–99
[2018-01-07] MEDS: SODIUM CHLOR 0.9% 1000 ML INJ 1,000 ML IV SCH ×4 (01:06→23:08)
[2018-01-07 06:15] LABS: AUTOMATED NEUTROPHIL # 4.2 TH/MM3 (1.8-7.7); BASOPHIL % 0.4 % (0.0-2.0); EOSINOPHIL # 0.3 TH/MM3 (0-0.4); HEMATOCRIT 23.1 % (39.0-51.0); HEMOGLOBIN 7.7 GM/DL (13.0-17.0); LYMPH % 23.5 % (9.0-44.0); LYMPHOCYTE # 1.5 TH/MM3 (1.0-4.8); MEAN CELL VOLUME 78.7 FL (80.0-100.0); MEAN CORPUSCULAR HEMOGLOBIN 26.4 PG (27.0-34.0); MEAN CORPUSCULAR HGB CONC 33.6 % (32.0-36.0); MEAN PLATELET VOLUME 6.7 FL (7.0-11.0); MONO % 7.8 % (0.0-8.0); MONOCYTE # 0.5 TH/MM3 (0-0.9); NEUT % 64.3 % (16.0-70.0); PLATELET COUNT 335 TH/MM3 (150-450); RED BLOOD COUNT 2.93 MIL/MM3 (4.50-5.90); RED CELL DISTRIBUTION WIDTH 17.3 % (11.6-17.2); WHITE BLOOD COUNT 6.6 TH/MM3 (4.0-11.0)
[2018-01-07 06:29] LABS: BICARBONATE 28.7 MEQ/L (21.0-32.0); CALCIUM 8.7 MG/DL (8.5-10.1); CREATININE 1.02 MG/DL (0.60-1.30)
[2018-01-07] MEDS: INSULIN ASPART SUPPLEMENTAL SCALE SQ SCH ×4 (08:00→20:48)
[2018-01-07] MEDS: LISINOPRIL 10 MG TAB PO SCH (08:17)
[2018-01-07] MEDS: FINASTERIDE 5 MG TAB PO SCH (08:17)
[2018-01-07] MEDS: OXYBUTYNIN CHLORIDE 5 MG TAB PO SCH ×2 (08:17→20:49)
[2018-01-07] MEDS: SODIUM CHLORIDE 0.9% FLUSH 10 ML FLUSH IV FLUSH SCH ×2 (09:00→20:48)
--- NOTE | 2018-01-07 10:55 | HHI.PR ---
Subjective Remarks Follow-up anemia, acute urinary retention. Patient has no complaints at this time. Pain is well controlled. Denies shortness of breath or chest pain. Objective Vitals Vital Signs Date Time Temp Pulse Resp B/P (MAP) Pulse Ox O2 Delivery O2 Flow Rate FiO2 01/07/18 00:00 98.2 87 18 129/71 (90) 94 01/06/18 23:58 98.2 89 19 132/59 96 01/06/18 23:41 99.5 93 17 116/64 94 01/06/18 20:00 98.1 86 18 138/63 (88) 96 01/06/18 17:29 18 01/06/18 16:25 98.4 72 18 158/83 98 01/06/18 16:00 98.0 79 16 163/84 (110) 93 01/06/18 15:59 98.0 79 16 163/84 93 01/06/18 15:20 98.1 77 18 153/81 (105) 98 Room Air 01/06/18 15:00 79 20 150/80 (103) 98 Room Air 01/06/18 14:45 77 13 149/74 (99) 96 Room Air 01/06/18 14:30 75 16 169/89 (115) 98 Room Air 01/06/18 14:15 88 15 180/82 (114) 99 Room Air 01/06/18 14:00 95 19 169/72 (104) 98 Room Air 01/06/18 13:55 98.0 100 21 139/85 (103) 100 Nasal Cannula 4 I/O 01/06/18 01/06/18 01/06/18 01/07/18 01/07/18 01/07/18 07:00 15:00 23:00 07:00 15:00 23:00 Intake Total 2000 ml 1010 ml 1900 ml Output Total 1200 ml 2460 ml 500 ml 3900 ml Balance -1200 ml -460 ml 510 ml -2000 ml Intake Oral 610 ml IV Total 1200 ml 0 ml 500 ml Packed Cells 400 ml 1400 ml Other 800 ml Output Urine Total 1200 ml 2450 ml 500 ml 3900 ml Estimated Blood Loss 10 ml Result Diagram: 01/07/18 0457 01/07/18 0457 Objective Remarks General: No acute distress. Heart: Regular rate and rhythm. No murmur. Lungs: Clear to auscultation bilaterally. No wheezes, rales, or rhonchi. Breathing is nonlabored. Abdomen: Soft, nontender, nondistended. Extremities: No lower extremity edema. SCDs. Psych: Alert and oriented. Procedures 01/06/18 cystoscopy, evacuation of bladder clots, transurethral resection of the median lobe of the prostate, fulguration of bleeders involving bladder neck region Urinary Catheter: Yes Assessment to: Continue Amaya insert reason: Obstruction/Retention Vascular Central Line Catheter: No A/P Problem List: (1) Acute blood loss anemia ICD Code: D62 - Acute posthemorrhagic anemia (2) Acute renal failure ICD Code: N17.9 - Acute kidney failure, unspecified (3) Gross hematuria ICD Code: R31.0 - Gross hematuria Status: Acute (4) Urinary retention ICD Code: R33.9 - Retention of urine, unspecified Status: Acute Assessment and Plan 1. Anemia secondary to acute blood loss: Received 2 units PRBCs. Hemoglobin remains low. Transfuse 2 more units PRBCs and monitor H&H. 2. Acute urinary retention: Secondary to blood clots. Status post cystoscopy with evacuation of blood clots, transurethral resection of prostate. Management per urology. Amaya catheter in place. 3. Acute renal failure: Improved. Likely secondary to urinary retention, anemia. Continue IV fluids. Avoid nephrotoxins. 4. Hypertension: Continue home antihypertensive medications. 5. Diabetes mellitus: Monitor Accu-Cheks and cover with sliding scale insulin. Oral hypoglycemic medications on hold. 6. DVT prophylaxis: SCDs. Avoid chemical prophylaxis secondary to bleeding, anemia. Discharge Planning Pending further clinical improvement, urology clearance. Dilshad Berman MD Jan 07, 2018 10:55
[2018-01-07] MEDS ORDERED: SODIUM CHLOR 0.9% 250 ML INJ 250 ML IV ONE (11:00)
[2018-01-07 19:43] LABS: HEMATOCRIT 29.6 % (39.0-51.0); HEMOGLOBIN 9.8 GM/DL (13.0-17.0)
[2018-01-08] VITALS: BP 158/86; PULSE 73; RESP 18; TEMP 98.5; O2SAT 96
[2018-01-08 08:00] VITALS: BP 150/78; PULSE 83; RESP 17; TEMP 99.1; O2SAT 99
[2018-01-08] MEDS: INSULIN ASPART SUPPLEMENTAL SCALE SQ SCH ×2 (08:00→12:00)
[2018-01-08] MEDS: LISINOPRIL 10 MG TAB PO SCH (08:25)
[2018-01-08] MEDS: SODIUM CHLORIDE 0.9% FLUSH 10 ML FLUSH IV FLUSH SCH (08:25)
[2018-01-08] MEDS: FINASTERIDE 5 MG TAB PO SCH (08:25)
[2018-01-08] MEDS: OXYBUTYNIN CHLORIDE 5 MG TAB PO SCH (08:25)
[2018-01-08] MEDS: SODIUM CHLOR 0.9% 1000 ML INJ 1,000 ML IV SCH (11:33)
[2018-01-08 11:51] LABS: AUTOMATED NEUTROPHIL # 5.6 TH/MM3 (1.8-7.7); BASOPHIL % 0.4 % (0.0-2.0); EOSINOPHIL # 0.3 TH/MM3 (0-0.4); EOSINOPHIL % 3.3 % (0.0-4.0); HEMATOCRIT 28.5 % (39.0-51.0); HEMOGLOBIN 9.5 GM/DL (13.0-17.0); LYMPH % 13.4 % (9.0-44.0); MEAN CELL VOLUME 79.5 FL (80.0-100.0); MEAN CORPUSCULAR HEMOGLOBIN 26.3 PG (27.0-34.0); MEAN CORPUSCULAR HGB CONC 33.1 % (32.0-36.0); MEAN PLATELET VOLUME 6.5 FL (7.0-11.0); MONO % 8.2 % (0.0-8.0); MONOCYTE # 0.6 TH/MM3 (0-0.9); NEUT % 74.7 % (16.0-70.0); PLATELET COUNT 327 TH/MM3 (150-450); RED BLOOD COUNT 3.59 MIL/MM3 (4.50-5.90); RED CELL DISTRIBUTION WIDTH 17.1 % (11.6-17.2); WHITE BLOOD COUNT 7.5 TH/MM3 (4.0-11.0)
[2018-01-08 12:00] VITALS: BP 170/94; PULSE 74; RESP 17; TEMP 97.5; O2SAT 96
[2018-01-08 12:16] LABS: BICARBONATE 29.8 MEQ/L (21.0-32.0); CALCIUM 8.7 MG/DL (8.5-10.1); CREATININE 1.02 MG/DL (0.60-1.30)
[2018-01-08 12:28] VITALS: RESP 18
--- NOTE | 2018-01-08 13:22 | HHI.DCPOC ---
Discharge Care Plan Diagnosis: (1) Acute renal failure (2) Acute blood loss anemia (3) Gross hematuria (4) Urinary retention Goals to Promote Your Health * To prevent worsening of your condition and complications * To maintain your health at the optimal level Directions to Meet Your Goals Take your medications as prescribed Follow your dietary instruction Follow activity as directed Keep your appointments as scheduled Take your immunizations and boosters as scheduled If your symptoms worsen call your PCP, if no PCP go to Urgent Care Center or Emergency Room Smoking is Dangerous to Your Health. Avoid second hand smoke Call the 24-hour hour crisis hotline for domestic abuse at Dilshad Berman MD Jan 08, 2018 13:22
--- NOTE | 2018-01-08 13:24 | HHI.PR ---
Subjective Remarks Follow-up hematuria, anemia. Patient has no complaints at this time. Denies chest pain, dyspnea. No further bleeding noted. Objective Vitals Vital Signs Date Time Temp Pulse Resp B/P (MAP) Pulse Ox O2 Delivery O2 Flow Rate FiO2 01/08/18 12:28 18 01/08/18 12:00 97.5 74 17 170/94 (119) 96 01/08/18 08:00 99.1 83 17 150/78 (102) 99 01/08/18 00:00 98.5 73 18 158/86 (110) 96 01/07/18 20:00 99.1 70 18 139/79 (99) 97 01/07/18 16:00 98.7 78 16 130/72 (91) 99 01/07/18 15:38 98.6 69 16 146/64 98 01/07/18 15:05 98.7 78 18 130/72 99 I/O 01/07/18 01/07/18 01/07/18 01/08/18 01/08/18 01/08/18 07:00 15:00 23:00 07:00 15:00 23:00 Intake Total 1900 ml 5 ml 1650 ml 1488 ml Output Total 3900 ml 2100 ml 5000 ml Balance -2000 ml 5 ml -450 ml -3512 ml Intake Oral 840 ml IV Total 500 ml 1488 ml Packed Cells 1400 ml 800 ml Blood Product IV Normal Saline Flush 5 ml 10 ml Output Urine Total 3900 ml 2100 ml 5000 ml # Bowel Movements 0 Result Diagram: 01/08/18 1120 01/08/18 1120 Objective Remarks General: No acute distress. Heart: Regular rate and rhythm. No murmur. Lungs: Clear to auscultation bilaterally. No wheezes, rales, or rhonchi. Breathing is nonlabored. Abdomen: Soft, nontender, nondistended. Extremities: No lower extremity edema. SCDs. Psych: Alert and oriented. Procedures 01/06/18 cystoscopy, evacuation of bladder clots, transurethral resection of the median lobe of the prostate, fulguration of bleeders involving bladder neck region Urinary Catheter: Yes Assessment to: Continue Amaya insert reason: Obstruction/Retention Vascular Central Line Catheter: No A/P Problem List: (1) Acute blood loss anemia ICD Code: D62 - Acute posthemorrhagic anemia (2) Acute renal failure ICD Code: N17.9 - Acute kidney failure, unspecified (3) Gross hematuria ICD Code: R31.0 - Gross hematuria Status: Acute (4) Urinary retention ICD Code: R33.9 - Retention of urine, unspecified Status: Acute Assessment and Plan 1. Anemia secondary to acute blood loss: Received 2 units PRBCs. Hemoglobin remains low. Transfuse 2 more units PRBCs and monitor H&H. 2. Acute urinary retention: Secondary to blood clots. Status post cystoscopy with evacuation of blood clots, transurethral resection of prostate. Management per urology. Amaya catheter in place. 3. Acute renal failure: Improved. Likely secondary to urinary retention, anemia. Continue IV fluids. Avoid nephrotoxins. 4. Hypertension: Continue home antihypertensive medications. 5. Diabetes mellitus: Monitor Accu-Cheks and cover with sliding scale insulin. Oral hypoglycemic medications on hold. 6. DVT prophylaxis: SCDs. Avoid chemical prophylaxis secondary to bleeding, anemia. Discharge Planning Discharge home in stable condition. Follow-up with urology, PCP. Diabetic diet. Activity as tolerated. Amaya catheter to remain in place until patient evaluated by urology in their office. Dilshad Berman MD Jan 08, 2018 13:24
== END 2018-01-08 14:52 | disposition home or self-care (01) | DRG 669 ==
LOC: NEPC 01:56 → NEDA 05:09 → NEDH 09:00 → N07A 15:32
PROVIDERS: ADMIT Family Medicine; ATTEND Family Medicine
PROC: 0VB08ZX Excision of Prostate, Via Natural or Artificial Opening Endoscopic, Diagnostic (ICD-10-PCS; 2018-01-06)
PROC: 0T9B80Z Drainage of Bladder with Drainage Device, Via Natural or Artificial Opening Endoscopic (ICD-10-PCS; 2018-01-06)
PROC: 30233N1 Transfusion of Nonautologous Red Blood Cells into Peripheral Vein, Percutaneous Approach (ICD-10-PCS; 2018-01-06)
PROC: 0T5C8ZZ Destruction of Bladder Neck, Via Natural or Artificial Opening Endoscopic (ICD-10-PCS; principal; 2018-01-06 12:13)
DX: R33.8 Other retention of urine (principal); N17.9 Acute kidney failure, unspecified; D62 Acute posthemorrhagic anemia; N30.41 Irradiation cystitis with hematuria; R31.0 Gross hematuria; N32.89 Other specified disorders of bladder; I10 Essential (primary) hypertension; E11.9 Type 2 diabetes mellitus without complications; Z79.84 Long term (current) use of oral hypoglycemic drugs; Z92.3 Personal history of irradiation; Z85.46 Personal history of malignant neoplasm of prostate; F41.9 Anxiety disorder, unspecified; K21.9 Gastro-esophageal reflux disease without esophagitis; E78.5 Hyperlipidemia, unspecified; M54.9 Dorsalgia, unspecified; G89.29 Other chronic pain
CPT/HCPCS: 36430; 80048; 81001; 82948; 85014; 85018; 85025; 85610; 86850; 86900; 86901; 86920; 87077; 87086; 87186; 88305; 88307; 99285; J1815; J1940; J2175; J2250; J2270; J2370; J2405; J3010; J7030; J7050; J7120; P9016

== ENCOUNTER 2018-01-25 15:57 | Emergency (ER) | payer MEDICARE, OTHER ==
[~2018-01-25] VITALS: Ht 188 cm; Wt 115.0 kg
[2018-01-25 16:17] VITALS: BP 108/68; PULSE 83; RESP 16; TEMP 99.3; O2SAT 100
[2018-01-25] MEDS ORDERED: MULTTAB67 PO (20:56)
[2018-01-25] MEDS ORDERED: NOVOLOGP2 SQ (20:56)
[2018-01-25] MEDS ORDERED: OMEP20TA93 PO (20:56)
[2018-01-25] MEDS ORDERED: VITA10002 PO (20:56)
[2018-01-25] MEDS ORDERED: VITA1000 PO (20:56)
[2018-01-25] MEDS ORDERED: GLIP5TAB8 PO (20:56)
[2018-01-25] MEDS ORDERED: FURO40TA PO (20:57)
== END 2018-01-25 17:50 | disposition left against medical advice (07) ==
LOC: NED 15:57
DX: R31.9 Hematuria, unspecified (principal); Z53.21 Procedure and treatment not carried out due to patient leaving prior to being seen by health care provider
CPT/HCPCS: 99281

== ENCOUNTER 2018-01-25 20:33 | Inpatient (IN) | payer OTHER, MEDICARE ==
[~2018-01-25] VITALS: Ht 188 cm; Wt 118.8 kg
[2018-01-25 20:46] VITALS: BP 104/62; PULSE 66; RESP 16; TEMP 98.8; O2SAT 100
[2018-01-25] MEDS ORDERED: OMEP20TA93 PO (20:56)
[2018-01-25] MEDS ORDERED: NOVOLOGP2 SQ (20:56)
[2018-01-25] MEDS ORDERED: GLIP5TAB8 PO (20:56)
[2018-01-25] MEDS ORDERED: MULTTAB67 PO (20:56)
[2018-01-25] MEDS ORDERED: VITA10002 PO (20:56)
[2018-01-25] MEDS ORDERED: VITA1000 PO (20:56)
[2018-01-25] MEDS ORDERED: FURO40TA PO (20:57)
[2018-01-25 21:02] VITALS: BP 107/62; PULSE 77; RESP 16; O2SAT 95
--- NOTE | 2018-01-25 21:12 | PD ---
HPI Chief Complaint: Complaint Time Seen by Provider: 20:53 Travel History International Travel<30 days: No Contact w/Intl Traveler<30days: No Traveled to known affect area: No History of Present Illness HPI 62-year-old male with PMH of prostate CA, urinary obstruction status post TURP presents to the ED for evaluation of hematuria and catheter loss. Patient states that the catheter "just fell out in my pants." He states that since then he has been passing blood clots and dark red urine. He states that prior to this his urine was pale yellow and clear. He denies headache, dizziness, chest pain, palpitations, shortness of breath, abdominal pain, nausea, vomiting , weakness. He states that he had to get blood transfusions after his last bleed and is worried that his "blood is low." He is followed by Dr. Wallace, urology. Primary care is Dr. Goodson. [facility] Past Medical History Anemia: Yes Autoimmune Disease: No Blood Disorders: No Anxiety: Yes Depression: Yes Cancer: Yes (PROSTATE) Cardiovascular Problems: Yes High Cholesterol: Yes Chemotherapy: No Diabetes: Yes Patient Takes Glucophage: Yes Diminished Hearing: No Endocrine: Yes Gastrointestinal Disorders: Yes (COLON POLYP) GERD: Yes Glaucoma: No Genitourinary: Yes Heparin Induced Thrombocytopen: No Hypertension: Yes Immune Disorder: No Implanted Vascular Access Dvce: No Musculoskeletal: Yes (CERVICAL STENOSIS, DISC DEGENERATIVE) Neurologic: Yes (PERIPHERAL NEUROPATHY) Psychiatric: Yes Reproductive: No Respiratory: Yes Integumentary: Yes Immunizations Current: Yes Radiation Therapy: Yes (2009) Sickle Cell Disease: No Sleep Apnea: Yes (no Cpap) Thyroid Disease: No Past Surgical History AICD: No Arteriovenous Shunt: No Genitourinary Surgery: Yes (BLADDER SURGERY ) Insulin Pump: No Joint Replacement: No Pacemaker: No Other Surgery: Yes (TITANIAN RODS PLACED IN LOW BACK 1996) Social History Alcohol Use: No Tobacco Use: No Substance Use: No Allergies-Medications (Allergen,Severity, Reaction): Coded Allergies: No Known Allergies (Verified Allergy, Unknown, 01/25/18) Reported Meds & Prescriptions Reported Meds & Active Scripts Active Finasteride 5 Mg Tab 5 Mg PO DAILY 30 Days Do not crush. Ditropan (Oxybutynin Chloride) 5 Mg Tab 5 Mg PO Q12HR 30 Days Reported Furosemide 40 Mg Tab 40 Mg PO BID Omeprazole 20 Mg Tab 20 Mg PO DAILY Vitamin B-12 (Cyanocobalamin) 1,000 Mcg Tab 1,000 Mcg PO DAILY Multiple Vitamin 1 Tab 1 Tab PO DAILY Vitamin D-1000 (Cholecalciferol) 1,000 Unit Tab 1,000 Units PO DAILY Novolog Inj (Insulin Aspart) 1,000 Unit/10 Ml Vial 34 Units SQ BID Glipizide 5 Mg Tab 5 Mg PO BIDAC Take 30 minutes before a meal Hydrocodone-Acetaminophen 10-325 mg Tab 1 Tab PO Q6H PRN Soma (Carisoprodol) 350 Mg Tab 350 Mg PO DAILY PRN Oxycodone (Oxycodone HCl) 30 Mg Tab 30 Mg PO Q6H PRN Hydrochlorothiazide 12.5 Mg Cap 12.5 Mg PO BID Lisinopril 10 Mg Tab 10 Mg PO DAILY Metformin (Metformin HCl) 1,000 Mg Tab 1,000 Mg PO BIDPC Review of Systems Except as stated in HPI: all other systems reviewed are Neg Physical Exam Narrative GENERAL: Well-nourished, well-developed -[place] male in no acute distress. SKIN: Focused skin assessment warm/dry. HEAD: Normocephalic. EYES: No scleral icterus. No injection or drainage. NECK: Supple, trachea midline. No JVD or lymphadenopathy. CARDIOVASCULAR: Regular rate and rhythm without murmurs, gallops, or rubs. RESPIRATORY: Breath sounds clear and equal bilaterally. No accessory muscle use. GASTROINTESTINAL: Abdomen soft, non-tender, nondistended. Active bowel sounds. MUSCULOSKELETAL: No cyanosis, or edema. BACK: Nontender without obvious deformity. No CVA tenderness. Data Data Last Documented VS Vital Signs Date Time Temp Pulse Resp B/P (MAP) Pulse Ox O2 Delivery O2 Flow Rate FiO2 01/25/18 23:00 71 16 128/66 (86) 100 Room Air 01/25/18 20:46 98.8 Orders Orders Basic Metabolic Panel (Bmp) (01/25/18 21:02) Complete Blood Count With Diff (01/25/18 21:02) Urinalysis - C+S If Indicated (01/25/18 21:02) Iv Access Insert/Monitor (01/25/18 21:02) Ecg Monitoring (01/25/18 21:02) Oximetry (01/25/18 21:02) Sodium Chloride 0.9% Flush (Ns Flush) (01/25/18 21:15) Ed Poc Ultrasound (01/25/18 ) ^ Continuous Bladder Irrig - C (01/25/18 21:34) Cath, Amaya 24f 30cc 3way Ea (01/25/18 21:34) Urinary Catheter Insert/Apply (01/25/18 22:09) Urine Culture (01/25/18 21:15) Oxybutynin (Ditropan) (01/25/18 22:30) Acetamin-Hydrocod 325-5 Mg ([place] 5-325 (01/25/18 23:15) Admit Order (Ed Use Only) (01/25/18 23:52) Labs Laboratory Tests Test 01/25/18 21:15 White Blood Count 9.0 TH/MM3 Red Blood Count 4.22 MIL/MM3 Hemoglobin 10.7 GM/DL Hematocrit 33.3 % Mean Corpuscular Volume 79.0 FL Mean Corpuscular Hemoglobin 25.4 PG Mean Corpuscular Hemoglobin Concent 32.2 % Red Cell Distribution Width 17.2 % Platelet Count 410 TH/MM3 Mean Platelet Volume 7.6 FL Neutrophils (%) (Auto) 65.1 % Lymphocytes (%) (Auto) 21.6 % Monocytes (%) (Auto) 7.8 % Eosinophils (%) (Auto) 4.7 % Basophils (%) (Auto) 0.8 % Neutrophils # (Auto) 5.9 TH/MM3 Lymphocytes # (Auto) 1.9 TH/MM3 Monocytes # (Auto) 0.7 TH/MM3 Eosinophils # (Auto) 0.4 TH/MM3 Basophils # (Auto) 0.1 TH/MM3 CBC Comment DIFF FINAL Differential Comment Urine Color YELLOW Urine Turbidity HAZY Urine pH 7.5 Urine Specific [place] 1.020 Urine Protein 300 mg/dL Urine Glucose (UA) NEG mg/dL Urine Ketones NEG mg/dL Urine Occult Blood MOD Urine Nitrite NEG Urine Bilirubin NEG Urine Urobilinogen LESS THAN 2.0 MG/DL Urine Leukocyte Esterase NEG Urine RBC /hpf Urine WBC 159 /hpf Urine Bacteria RARE /hpf Microscopic Urinalysis Comment CULTURE INDICATED Blood Urea Nitrogen 19 MG/DL Creatinine 1.14 MG/DL Random Glucose 104 MG/DL Calcium Level 9.2 MG/DL Sodium Level 133 MEQ/L Potassium Level 5.1 MEQ/L Chloride Level 99 MEQ/L Carbon Dioxide Level 26.2 MEQ/L Anion Gap 8 MEQ/L Estimat Glomerular Filtration Rate 79 ML/MIN MDM Medical Decision Making Medical Screen Exam Complete: Yes Emergency Medical Condition: Yes Differential Diagnosis psychiatry adult physician failure versus prostate CA versus hemorrhagic cystitis versus urinary obstruction versus anemia versus other Narrative Course 62-year-old male with PMH of prostate CA, urinary obstruction status post TURP presents to the ED for evaluation of hematuria and catheter loss. Patient states that the catheter "just fell out in my pants." He states that since then he has been passing blood clots and dark red urine. He states that prior to this his urine was pale yellow and clear. He states that he had to get blood transfusions after his last bleed and is worried that his "blood is low." He is followed by Dr. Wallace, urology. Primary care is Dr. Godoson. Vitals reviewed. On exam the patient has some tenderness in the lower quadrants but is otherwise unremarkable. I reviewed the patient's record. He has a history of hemorrhagic cystitis. Patient was able to spontaneously void approximately 300 mL's of bright red urine. Bedside ultrasound was performed in revealed large volume of urine and clot in the bladder. Three-way catheter and continuous bladder irrigation was initiated. Patient signed out to Dr. Tamez at the end of shift. Please see his note for disposition. Celine Lindquist Jan 25, 2018 21:12
[2018-01-25] MEDS ORDERED: SODIUM CHLORIDE 0.9% FLUSH 10 ML FLUSH IV FLUSH PRN (21:15)
[2018-01-25 22:04] LABS: AUTOMATED NEUTROPHIL # 5.9 TH/MM3 (1.8-7.7); BASOPHIL # 0.1 TH/MM3 (0-0.2); BASOPHIL % 0.8 % (0.0-2.0); EOSINOPHIL # 0.4 TH/MM3 (0-0.4); EOSINOPHIL % 4.7 % (0.0-4.0); HEMATOCRIT 33.3 % (39.0-51.0); HEMOGLOBIN 10.7 GM/DL (13.0-17.0); LYMPH % 21.6 % (9.0-44.0); LYMPHOCYTE # 1.9 TH/MM3 (1.0-4.8); MEAN CORPUSCULAR HEMOGLOBIN 25.4 PG (27.0-34.0); MEAN CORPUSCULAR HGB CONC 32.2 % (32.0-36.0); MEAN PLATELET VOLUME 7.6 FL (7.0-11.0); MONO % 7.8 % (0.0-8.0); MONOCYTE # 0.7 TH/MM3 (0-0.9); NEUT % 65.1 % (16.0-70.0); PLATELET COUNT 410 TH/MM3 (150-450); RED BLOOD COUNT 4.22 MIL/MM3 (4.50-5.90); RED CELL DISTRIBUTION WIDTH 17.2 % (11.6-17.2)
[2018-01-25 22:14] VITALS: BP 118/72; PULSE 72; RESP 14; O2SAT 99
[2018-01-25 22:16] LABS: BACTERIA, URINE RARE /hpf; BILIRUBIN, URINE NEG (NEG); BLOOD, URINE MOD (NEG); GLUCOSE,URINE NEG (NEG); KETONE, URINE NEG (NEG); NITRITE,URINE NEG (NEG); PH, URINE 7.5 (5.0-8.5); URINE COLOR YELLOW (YELLW/STRAW); URINE LEUKOCYTE ESTERASE NEG (NEG)
[2018-01-25 22:21] LABS: BICARBONATE 26.2 MEQ/L (21.0-32.0); CALCIUM 9.2 MG/DL (8.5-10.1); CREATININE 1.14 MG/DL (0.60-1.30)
[2018-01-25 22:30] VITALS: BP 122/72; PULSE 69; RESP 16; O2SAT 97
[2018-01-25] MEDS ORDERED: OXYBUTYNIN CHLORIDE 5 MG TAB PO ONE (22:30)
[2018-01-25 22:45] VITALS: BP 125/73; PULSE 76; RESP 14; O2SAT 97
[2018-01-25 23:00] VITALS: BP 128/66; PULSE 71; RESP 16; O2SAT 100
[2018-01-25] MEDS ORDERED: ACETAMINOPHEN/HYDROcodone 325 MG/5 MG TAB PO ONE (23:15)
--- NOTE | 2018-01-25 23:34 | PD ---
Data Data Last Documented VS Vital Signs Date Time Temp Pulse Resp B/P (MAP) Pulse Ox O2 Delivery O2 Flow Rate FiO2 01/25/18 23:00 71 16 128/66 (86) 100 Room Air 01/25/18 20:46 98.8 Orders Orders Basic Metabolic Panel (Bmp) (01/25/18 21:02) Complete Blood Count With Diff (01/25/18 21:02) Urinalysis - C+S If Indicated (01/25/18 21:02) Iv Access Insert/Monitor (01/25/18 21:02) Ecg Monitoring (01/25/18 21:02) Oximetry (01/25/18 21:02) Sodium Chloride 0.9% Flush (Ns Flush) (01/25/18 21:15) Ed Poc Ultrasound (01/25/18 ) ^ Continuous Bladder Irrig - C (01/25/18 21:34) Cath, Amaya 24f 30cc 3way Ea (01/25/18 21:34) Urinary Catheter Insert/Apply (01/25/18 22:09) Urine Culture (01/25/18 21:15) Oxybutynin (Ditropan) (01/25/18 22:30) Acetamin-Hydrocod 325-5 Mg ([place] 5-325 (01/25/18 23:15) Labs Laboratory Tests Test 01/25/18 21:15 White Blood Count 9.0 TH/MM3 Red Blood Count 4.22 MIL/MM3 Hemoglobin 10.7 GM/DL Hematocrit 33.3 % Mean Corpuscular Volume 79.0 FL Mean Corpuscular Hemoglobin 25.4 PG Mean Corpuscular Hemoglobin Concent 32.2 % Red Cell Distribution Width 17.2 % Platelet Count 410 TH/MM3 Mean Platelet Volume 7.6 FL Neutrophils (%) (Auto) 65.1 % Lymphocytes (%) (Auto) 21.6 % Monocytes (%) (Auto) 7.8 % Eosinophils (%) (Auto) 4.7 % Basophils (%) (Auto) 0.8 % Neutrophils # (Auto) 5.9 TH/MM3 Lymphocytes # (Auto) 1.9 TH/MM3 Monocytes # (Auto) 0.7 TH/MM3 Eosinophils # (Auto) 0.4 TH/MM3 Basophils # (Auto) 0.1 TH/MM3 CBC Comment DIFF FINAL Differential Comment Urine Color YELLOW Urine Turbidity HAZY Urine pH 7.5 Urine Specific [place] 1.020 Urine Protein 300 mg/dL Urine Glucose (UA) NEG mg/dL Urine Ketones NEG mg/dL Urine Occult Blood MOD Urine Nitrite NEG Urine Bilirubin NEG Urine Urobilinogen LESS THAN 2.0 MG/DL Urine Leukocyte Esterase NEG Urine RBC /hpf Urine WBC 159 /hpf Urine Bacteria RARE /hpf Microscopic Urinalysis Comment CULTURE INDICATED Blood Urea Nitrogen 19 MG/DL Creatinine 1.14 MG/DL Random Glucose 104 MG/DL Calcium Level 9.2 MG/DL Sodium Level 133 MEQ/L Potassium Level 5.1 MEQ/L Chloride Level 99 MEQ/L Carbon Dioxide Level 26.2 MEQ/L Anion Gap 8 MEQ/L Estimat Glomerular Filtration Rate 79 ML/MIN MDM Supervised Visit with NOHELIA: Yes Narrative Course I, Dr. Tamez, have reviewed the advance practice practitioner's documentation and am in agreement, met with the patient face to face, made the diagnosis, and the medical decision making was done by me. See her note for further details. 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 Alcazar and Dr. Wallace, here for evaluation of hematuria and difficulty urinating. The patient is able to urinate, however postvoid residual was checked using a bedside ultrasound and shows a distended bladder with hyperechoic material that are likely blood clots. Three-way Amaya catheter was placed and 6 L of normal saline was used for CBI, however the patient's urine remains dark red. His hemoglobin is 10. He is hemodynamically stable. Given ongoing hematuria despite CBI, the patient will be admitted for likely urology consultation as he is required cystoscopy with fulgation in the past to achieve hemostasis. Case discussed with hospitalist Dr. Gaston who will admit the patient to her service. Diagnosis Primary Impression: Gross hematuria Admitting Information Admitting Physician Requests: Observation Kosta Tamez MD Jan 25, 2018 23:34
[2018-01-26] VITALS (7 sets, daily range): BP systolic 110–156; BP diastolic 60–81; PULSE 70–97; RESP 17–20; TEMP 97.5–98.9; O2SAT 98–100
[2018-01-26] MEDS ORDERED: ONDANSETRON HCL 4 MG/2 ML VIAL IVP PRN
[2018-01-26] MEDS ORDERED: MORPHINE SULFATE 2 MG/ML SYRINGE IV PUSH PRN
[2018-01-26] MEDS ORDERED: SODIUM CHLORIDE 0.9% FLUSH 10 ML FLUSH IV FLUSH PRN
[2018-01-26] MEDS ORDERED: GLUCAGON 1 MG/ML VIAL OTHER PRN
[2018-01-26] MEDS ORDERED: MAGNESIUM HYDROXIDE SUSP 30 ML CUP PO PRN
[2018-01-26] MEDS ORDERED: ACETAMINOPHEN 325 MG TAB PO PRN
[2018-01-26] MEDS ORDERED: LACTULOSE SYRUP 20 GM/30 ML CUP PO PRN
[2018-01-26] MEDS ORDERED: BISACODYL 10 MG SUPP RECTAL PRN
[2018-01-26] MEDS ORDERED: ACETAMINOPHEN/HYDROcodone 325 MG/5 MG TAB PO PRN
[2018-01-26] MEDS ORDERED: SENNOSIDES 8.6 MG TAB PO PRN
[2018-01-26] MEDS ORDERED: DEXTROSE 50% IN WATER 50 ML VIAL(D50) IV PUSH PRN
[2018-01-26] MEDS: cefTRIAXone INJ 1,000 MG in SODIUM CHLORIDE 0.9% INJ 100 ML IV SCH ×2 (00:16→23:12)
[2018-01-26] MEDS: SODIUM CHLOR 0.9% 1000 ML INJ 1,000 ML IV SCH ×3 (00:17→20:32)
--- NOTE | 2018-01-26 00:50 | HHI.HP ---
[facility] Admission Diagnosis Gross hematuria Diagnoses: (1) Gross hematuria Diagnosis: Principal (2) UTI (urinary tract infection) Diagnosis: Principal (3) DM (diabetes mellitus) Diagnosis: Principal Travel History International Travel<30 Days: No Contact w/Intl Traveler <30 Da: No Traveled to Known Affected Are: No History of Present Illness This is a 62-year-old male with a PMH of Anxiety, Depression, HTN, DM, Prostate CA, s/p TURP, Radiation Cystitis and Hematuria who presented to the ER after Amaya dislodged. [facility] Amaya fell out on its own and has been passing multiple clots since then. Recent admit 01/06-01/08/18 for Hematuria, found to have Anemia requiring transfusion, s/p Cystoscopy w/ evacuation of clots and TURP by Dr. Alcazar on 01/06/18. [facility] had been doing well until today, has upcoming appt w/ [place] this coming Saturday. On arrival, P10 , HR 77, O2 sat 95% RA, Afebrile. Hemoglobin 10.7. Chemistry essentially unremarkable. UA was significant hematuria and bacteriuria. S/p 3-way Amaya w/ CBI, however persistent hematuria despite 3L. Review of Systems Except as stated in HPI: all other systems reviewed are Neg ROS: 14 point review of systems otherwise negative. Past Family Social History Past Medical History PMH: Anxiety, Depression, HTN, DM, Prostate CA, s/p TURP, Radiation Cystitis and Hematuria Past Surgical History PAST SURGICAL HISTORY: Bladder Surgery, Lumbar Surgery, TURP Allergies: Coded Allergies: No Known Allergies (Verified Allergy, Unknown, 01/25/18) Family History PAST FAMILY HISTORY: Reviewed. No h/o DM or CAD Social History PAST SOCIAL HISTORY: Negative for alcohol, tobacco or drugs. Physical Exam Vital Signs Vital Signs Date Time Temp Pulse Resp B/P (MAP) Pulse Ox O2 Delivery O2 Flow Rate FiO2 01/25/18 23:00 71 16 128/66 (86) 100 Room Air 01/25/18 22:45 76 14 125/73 (90) 97 Room Air 01/25/18 22:30 69 16 122/72 (89) 97 Room Air 01/25/18 22:14 72 14 118/72 (87) 99 Room Air 01/25/18 21:02 77 16 107/62 (77) 95 Room Air 01/25/18 20:46 98.8 66 16 104/62 (76) 100 Physical Exam PE: GENERAL: Very pleasant middle-aged black male in no acute distress. HEENT: PERRLA, EOMI. No scleral icterus or conjunctival pallor. No lid lag or facial droop. CARDIOVASCULAR: Regular rate and rhythm. No obvious murmurs to auscultation. No chest tenderness to palpation. RESPIRATORY: No obvious rhonchi or wheezing. Clear to auscultation. Breath sounds equal bilaterally. GASTROINTESTINAL: Abdomen soft, non-tender, nondistended. BS normal. Three-way Amaya in place, significant hematuria MUSCULOSKELETAL: Extremities without clubbing, cyanosis, or edema. No obvious deformities. NEUROLOGICAL: Awake, alert and oriented x4. No focal neurologic deficits. Moving both upper and lower extremities spontaneously. Laboratory Laboratory Tests Test 01/25/18 21:15 White Blood Count 9.0 Red Blood Count 4.22 Hemoglobin 10.7 Hematocrit 33.3 Mean Corpuscular Volume 79.0 Mean Corpuscular Hemoglobin 25.4 Mean Corpuscular Hemoglobin Concent 32.2 Red Cell Distribution Width 17.2 Platelet Count 410 Mean Platelet Volume 7.6 Neutrophils (%) (Auto) 65.1 Lymphocytes (%) (Auto) 21.6 Monocytes (%) (Auto) 7.8 Eosinophils (%) (Auto) 4.7 Basophils (%) (Auto) 0.8 Neutrophils # (Auto) 5.9 Lymphocytes # (Auto) 1.9 Monocytes # (Auto) 0.7 Eosinophils # (Auto) 0.4 Basophils # (Auto) 0.1 CBC Comment DIFF FINAL Differential Comment Urine Color YELLOW Urine Turbidity HAZY Urine pH 7.5 Urine Specific [place] 1.020 Urine Protein 300 Urine Glucose (UA) NEG Urine Ketones NEG Urine Occult Blood MOD Urine Nitrite NEG Urine Bilirubin NEG Urine Urobilinogen LESS THAN 2.0 Urine Leukocyte Esterase NEG Urine RBC Urine WBC 159 Urine Bacteria RARE Microscopic Urinalysis Comment CULTURE INDICATED Blood Urea Nitrogen 19 Creatinine 1.14 Random Glucose 104 Calcium Level 9.2 Sodium Level 133 Potassium Level 5.1 Chloride Level 99 Carbon Dioxide Level 26.2 Anion Gap 8 Estimat Glomerular Filtration Rate 79 Date/Time Source Procedure Growth Status 01/25/18 21:15 Urine Random Urine Urine Culture Pending Received Result Diagram: 01/25/18211401/25/182114 Caprini VTE Risk Assessment Caprini VTE Risk Assessment: No/Low Risk (score <= 1) Caprini Risk Assessment Model Point Value = 1 Point Value = 2 Point Value = 3 Point Value = 5 Age 41-60 Minor surgery BMI > 25 kg/m2 Swollen legs Varicose veins or History of unexplained or recurrent spontaneous Oral contraceptives or hormone replacement Sepsis (< 1 month) Serious lung disease, including pneumonia (< 1 month) Abnormal pulmonary function Acute myocardial infarction Congestive heart failure (< 1 month) History of inflammatory bowel disease Medical patient at bed rest Age 61-74 Arthroscopic surgery Major open surgery (> 45 min) Laparoscopic surgery (> 45 min) Malignancy Confined to bed (> 72 hours) Immobilizing plaster cast Central venous access Age >= 75 History of VTE Family history of VTE Factor V Leiden Prothrombin [id number] Lupus anticoagulant Anticardiolipin antibodies Elevated serum homocysteine Heparin-induced thrombocytopenia Other congenital or acquired thrombophilia Stroke (< 1 month) Elective arthroplasty Hip, pelvis, or leg fracture Acute spinal cord injury (< 1 month) Prophylaxis Regimen Total Risk Factor Score Risk Level Prophylaxis Regimen 0-1 Low Early ambulation 2 Moderate Order ONE of the following: *Sequential Compression Device (SCD) *Heparin 5000 units SQ BID 3-4 Higher Order ONE of the following medications: *Heparin 5000 units SQ TID *Enoxaparin/Lovenox 40 mg SQ daily (WT < 150 kg, CrCl > 30 mL/min) *Enoxaparin/Lovenox 30 mg SQ daily (WT < 150 kg, CrCl > 10-29 mL/min) *Enoxaparin/Lovenox 30 mg SQ BID (WT < 150 kg, CrCl > 30 mL/min) AND/OR *Sequential Compression Device (SCD) 5 or more Highest Order ONE of the following medications: *Heparin 5000 units SQ TID (Preferred with Epidurals) *Enoxaparin/Lovenox 40 mg SQ daily (WT < 150 kg, CrCl > 30 mL/min) *Enoxaparin/Lovenox 30 mg SQ daily (WT < 150 kg, CrCl > 10-29 mL/min) *Enoxaparin/Lovenox 30 mg SQ BID (WT < 150 kg, CrCl > 30 mL/min) AND *Sequential Compression Device (SCD) Assessment and Plan Problem List: (1) Gross hematuria ICD Code: R31.0 - Gross hematuria Status: Acute (2) UTI (urinary tract infection) ICD Code: N39.0 - Urinary tract infection, site not specified (3) DM (diabetes mellitus) ICD Code: E11.9 - Type 2 diabetes mellitus without complications Assessment and Plan A/P: 1. Hematuria: recurrent, s/p Cystoscopy w/ evacuation of clots and TURP on by Dr. Alcazar, upcoming follow up w/ Dr. Wallace this Saturday. Today, Amaya dislodged and persistent hematuria, s/p 3-way Amaya w/ CBI. Persistent hematuria despite 3L. Monitor I/O, continue bladder irrigation, Consult Urology for further evaluation/intervention. Monitor Hgb closely as required transfusion on previous admission. Currently stable at 10.7. 2. UTI: U/a w/ significant hematuria/bacteriuria. Start IV Rocephin, IVF for hydration, follow up cultures. 3. DM: Sliding scale w/ Accu-Cheks. Hold Metformin for now. 4. DVT Prophylaxis: Pharmacologic contraindication secondary to hematuria 5. Social work for d/c planning as needed. 6. Case discussed w/ ER physician at length, labs/records/imaging reviewed by me. Physician Certification 2 Midnight Certification Type: Admission for Inpatient Services Order for Inpatient Services The services are ordered in accordance with Medicare regulations or non- Medicare payer requirements, as applicable. In the case of services not specified as inpatient-only, they are appropriately provided as inpatient services in accordance with the 2-midnight benchmark. Estimated LOS (days): 2 days is the estimated time the patient will need to remain in the hospital, assuming treatment plan goals are met and no additional complications. Post-Hospital Plan: Not yet determined Kristine Gaston MD Jan 26, 2018 00:50
[2018-01-26] MEDS: INSULIN ASPART 1,000 UNITS/10 ML VIAL SQ SCH ×2 (08:00→17:00)
[2018-01-26] MEDS: INSULIN ASPART SUPPLEMENTAL SCALE SQ SCH ×4 (08:00→20:33)
[2018-01-26] MEDS: FINASTERIDE 5 MG TAB PO SCH (08:13)
[2018-01-26] MEDS: glipiZIDE 5 MG TAB PO SCH ×2 (08:13→16:28)
[2018-01-26] MEDS: DOCUSATE SODIUM 50 MG/SENNA 8.6 MG TAB PO SCH ×2 (08:13→20:32)
[2018-01-26] MEDS: MULTIVITAMIN TAB PO SCH (08:13)
[2018-01-26] MEDS: OXYBUTYNIN CHLORIDE 5 MG TAB PO SCH ×2 (08:13→20:32)
[2018-01-26] MEDS: SODIUM CHLORIDE 0.9% FLUSH 10 ML FLUSH IV FLUSH SCH ×2 (08:15→20:33)
[2018-01-26 09:17] LABS: BASOPHIL % 0.5 % (0.0-2.0); EOSINOPHIL # 0.3 TH/MM3 (0-0.4); EOSINOPHIL % 4.1 % (0.0-4.0); HEMATOCRIT 29.5 % (39.0-51.0); HEMOGLOBIN 9.5 GM/DL (13.0-17.0); LYMPH % 15.3 % (9.0-44.0); LYMPHOCYTE # 1.3 TH/MM3 (1.0-4.8); MEAN CELL VOLUME 79.1 FL (80.0-100.0); MEAN CORPUSCULAR HEMOGLOBIN 25.4 PG (27.0-34.0); MEAN CORPUSCULAR HGB CONC 32.1 % (32.0-36.0); MEAN PLATELET VOLUME 7.2 FL (7.0-11.0); MONO % 7.5 % (0.0-8.0); MONOCYTE # 0.6 TH/MM3 (0-0.9); NEUT % 72.6 % (16.0-70.0); PLATELET COUNT 331 TH/MM3 (150-450); RED BLOOD COUNT 3.73 MIL/MM3 (4.50-5.90); RED CELL DISTRIBUTION WIDTH 17.6 % (11.6-17.2); WHITE BLOOD COUNT 8.3 TH/MM3 (4.0-11.0)
[2018-01-26 09:36] LABS: ALBUMIN 2.7 GM/DL (3.4-5.0); ALKALINE PHOSPHATASE 107 U/L (45-117); ALT (GPT) 17 U/L (12-78); AST (GOT) 16 U/L (15-37); BICARBONATE 25.3 MEQ/L (21.0-32.0); BLOOD UREA NITROGEN 14 MG/DL (7-18); CALCIUM 8.7 MG/DL (8.5-10.1); CHLORIDE 104 MEQ/L (98-107); CREATININE 0.91 MG/DL (0.60-1.30); GLOMERULAR FILTRATION RATE 103 ML/MIN (>89); GLUCOSE,RANDOM 99 MG/DL (74-106); SODIUM (NA) 136 MEQ/L (136-145); TOTAL BILIRUBIN ADULT 0.4 MG/DL (0.2-1.0); TOTAL PROTEIN 6.1 GM/DL (6.4-8.2)
[2018-01-26] MEDS ORDERED: PHENAZOPYRIDINE HCL 100 MG TAB PO ONE (11:15)
[2018-01-26] MEDS ORDERED: oxyCODONE HCL 40 MG CONTROLLED RELEASE TAB PO ONE (11:15)
[2018-01-26] MEDS: AMINOCAPROIC ACID INJ 3,000 MG in SODIUM CHLORIDE 0.9% IRR BAG 3,000 ML IRRIGATION SCH ×2 (13:28→22:35)
--- NOTE | 2018-01-26 13:59 | MB ---
cc: Sergo Carreramerritt Estrada DO DATE: 01/26/2018 HISTORY OF PRESENT ILLNESS: Mr. Mckeon is a pleasant 62-year-old male with a history of prostate cancer, had prior radiation therapy. He underwent cystoscopy with clot evacuation and fulguration on 01/07/[address] Alcazar. He had a Amaya catheter indwelling until this past weekend when it fell out and he developed gross hematuria. He was initially under the care of Dr. Wallace and has undergone cystoscopic examination within the last month also. At the bedside, I was able to irrigate manually and remove multiple clots with a 22-[place] 3-way Amaya catheter in place. CBI was then restarted and we will switch him over to Amicar CBI, which will help to reduce his hematuria output. PAST MEDICAL HISTORY: His medical history includes prostate cancer, status post radiation therapy many years ago, anxiety, hypertension, diabetes, hyperlipidemia, GERD, chronic back pain. PAST SURGICAL HISTORY: Brachytherapy for prostate cancer, cystoscopy with fulguration last month, back surgery, right shoulder surgery and right carpal tunnel surgery. MEDICATIONS: Please refer to the chart. ALLERGIES: HE HAS NO KNOWN DRUG ALLERGIES. FAMILY HISTORY: Noted for diabetes mellitus. SOCIAL HISTORY: Denies smoking, drinking or using drugs. REVIEW OF SYSTEMS: Notes gross hematuria. No chest pain, shortness of breath, bleeding disorders, gait disturbances. Notes anxiety. Denies heat or cold intolerance. Denies skin lesions. Denies psychiatric problems. Remaining review of systems were reviewed and were negative. PHYSICAL EXAMINATION: VITAL SIGNS: Temperature is 98.6, heart rate 83, respiratory rate 17, 150/79 is his blood pressure. GENERAL: A well-developed, well-nourished, 62-year-old male in no acute distress. HEENT: Normocephalic, atraumatic. Pupils equal, round, regular and reactive to light. Extraocular movements intact. NECK: Supple. HEART: Regular rate and rhythm. LUNGS: Clear. ABDOMEN: Soft, nontender, nondistended. Amaya, gross hematuria noted, clots evacuated manually with manual irrigation. Testes descended. EXTREMITIES: Show no cyanosis, clubbing, or edema. NEUROLOGIC: Cranial nerves 2-12 are intact. LABORATORY DATA: White count is 8.3, hemoglobin 9.5, hematocrit 29.5, platelet count of 331. Sodium 136, potassium 4.2, chloride 104, CO2 25.3, BUN 14, creatinine 0.91, glucose of 99. PT is 10.1. INR 1.0. PTT is 22.9. Urinalysis shows numerous red cells with some white cells noted. ASSESSMENT AND PLAN: A 62-year-old male with a history of radiation cystitis and gross hematuria, status post cystoscopy, fulguration 1 month ago. Would recommend starting Amicar CBI for now to control hematuria. Continue supportive measures, pain control. Would recommend hyperbaric oxygen therapy in the future to treat his radiation cystitis, which will hopefully resolve his hematuria. Thank you for the consult and allowing me to participate in the care of this patient. DO RICKEY Conti/TL/rr , 12:12 PM , 12:40 PM
[2018-01-26] MEDS: PHENAZOPYRIDINE HCL 100 MG TAB PO SCH ×2 (14:37→20:32)
[2018-01-26] MEDS: oxyCODONE HCL 40 MG CONTROLLED RELEASE TAB PO SCH (20:33)
[2018-01-27] VITALS (8 sets, daily range): BP systolic 120–155; BP diastolic 58–87; PULSE 73–100; RESP 18–19; TEMP 97.8–99.4; O2SAT 95–100
[2018-01-27] MEDS: AMINOCAPROIC ACID INJ 3,000 MG in SODIUM CHLORIDE 0.9% IRR BAG 3,000 ML IRRIGATION SCH ×6 (01:00→19:12)
[2018-01-27] MEDS: PHENAZOPYRIDINE HCL 100 MG TAB PO SCH ×3 (05:00→21:26)
[2018-01-27] MEDS: glipiZIDE 5 MG TAB PO SCH ×2 (06:15→17:56)
[2018-01-27] MEDS: SODIUM CHLOR 0.9% 1000 ML INJ 1,000 ML IV SCH ×2 (06:15→17:57)
[2018-01-27 07:30] LABS: AUTOMATED NEUTROPHIL # 5.8 TH/MM3 (1.8-7.7); BASOPHIL # 0.1 TH/MM3 (0-0.2); BASOPHIL % 0.7 % (0.0-2.0); EOSINOPHIL # 0.3 TH/MM3 (0-0.4); EOSINOPHIL % 3.4 % (0.0-4.0); HEMATOCRIT 21.7 % (39.0-51.0); HEMOGLOBIN 7.1 GM/DL (13.0-17.0); LYMPH % 19.7 % (9.0-44.0); LYMPHOCYTE # 1.7 TH/MM3 (1.0-4.8); MEAN CELL VOLUME 78.4 FL (80.0-100.0); MEAN CORPUSCULAR HEMOGLOBIN 25.6 PG (27.0-34.0); MEAN CORPUSCULAR HGB CONC 32.7 % (32.0-36.0); MEAN PLATELET VOLUME 7.5 FL (7.0-11.0); MONO % 8.8 % (0.0-8.0); MONOCYTE # 0.8 TH/MM3 (0-0.9); NEUT % 67.4 % (16.0-70.0); PLATELET COUNT 282 TH/MM3 (150-450); RED BLOOD COUNT 2.76 MIL/MM3 (4.50-5.90); RED CELL DISTRIBUTION WIDTH 16.9 % (11.6-17.2); WHITE BLOOD COUNT 8.6 TH/MM3 (4.0-11.0)
[2018-01-27 07:52] LABS: ALBUMIN 2.6 GM/DL (3.4-5.0); AST (GOT) 10 U/L (15-37); BICARBONATE 26.4 MEQ/L (21.0-32.0); BLOOD UREA NITROGEN 13 MG/DL (7-18); CALCIUM 8.3 MG/DL (8.5-10.1); CHLORIDE 101 MEQ/L (98-107); CREATININE 0.98 MG/DL (0.60-1.30); GLOMERULAR FILTRATION RATE 94 ML/MIN (>89); GLUCOSE,RANDOM 125 MG/DL (74-106); SODIUM (NA) 135 MEQ/L (136-145)
[2018-01-27 07:53] LABS: ALT (GPT) 15 U/L (12-78)
[2018-01-27 07:55] LABS: ALKALINE PHOSPHATASE 101 U/L (45-117); TOTAL BILIRUBIN ADULT 0.1 MG/DL (0.2-1.0); TOTAL PROTEIN 5.7 GM/DL (6.4-8.2)
[2018-01-27] MEDS: INSULIN ASPART SUPPLEMENTAL SCALE SQ SCH ×4 (08:00→21:00)
[2018-01-27] MEDS: INSULIN ASPART 1,000 UNITS/10 ML VIAL SQ SCH ×2 (08:00→17:00)
[2018-01-27] MEDS ORDERED: SODIUM CHLOR 0.9% 250 ML INJ 250 ML IV ONE (08:45)
[2018-01-27] MEDS: FINASTERIDE 5 MG TAB PO SCH (08:58)
[2018-01-27] MEDS: DOCUSATE SODIUM 50 MG/SENNA 8.6 MG TAB PO SCH ×2 (08:58→21:26)
[2018-01-27] MEDS: oxyCODONE HCL 40 MG CONTROLLED RELEASE TAB PO SCH ×2 (08:58→21:26)
[2018-01-27] MEDS: OXYBUTYNIN CHLORIDE 5 MG TAB PO SCH ×2 (08:58→21:26)
[2018-01-27] MEDS: MULTIVITAMIN TAB PO SCH (09:00)
[2018-01-27] MEDS: SODIUM CHLORIDE 0.9% FLUSH 10 ML FLUSH IV FLUSH SCH ×2 (09:00→21:00)
--- NOTE | 2018-01-27 11:58 | HHI.PR ---
Subjective Remarks Patient's clot burden is still high. Urinary obstruction is present despite Amaya catheter due to clot burden. Pain improved with Pyridium. Drop in hemoglobin seen this morning, patient transfused 1 unit packed red blood cells. Objective Vital Signs Date Time Temp Pulse Resp B/P (MAP) Pulse Ox O2 Delivery O2 Flow Rate FiO2 01/27/18 08:00 Room Air 01/27/18 08:00 99.2 93 19 135/63 (87) 100 01/27/18 04:00 Room Air 01/27/18 04:00 98.1 89 18 120/75 (90) 99 01/27/18 00:00 Room Air 01/27/18 00:00 97.8 100 19 129/65 (86) 98 01/26/18 20:00 98.9 97 18 128/60 (82) 98 01/26/18 20:00 Room Air 01/26/18 16:00 98.5 88 20 139/79 (99) 98 01/26/18 12:00 97.5 89 20 110/81 (91) 100 I/O 01/26/18 01/26/18 01/26/18 01/27/18 01/27/18 01/27/18 07:00 15:00 23:00 07:00 15:00 23:00 Intake Total 345 ml 3350 ml 2430 ml 3518 ml Output Total 4550 ml 4090 ml 78721 ml Balance -4205 ml 3350 ml -1660 ml -53417 ml Intake Oral 120 ml 480 ml 2500 ml IV Total 225 ml 3350 ml 1950 ml 1018 ml Output Urine Total 4550 ml 4090 ml 20737 ml # Bowel Movements 0 Result Diagram: 01/27/18 0547 01/27/18 0547 Objective Remarks GENERAL: NAD, A&Ox3 HEAD: Normocephalic. NECK: Supple, trachea midline. No lymphadenopathy. EYES: No scleral icterus. No injection or drainage. CARDIOVASCULAR: Regular rate and rhythm without murmurs, gallops, or rubs. RESPIRATORY: Breath sounds equal bilaterally. No accessory muscle use. GASTROINTESTINAL: Abdomen soft, non-tender, nondistended. MUSCULOSKELETAL: No cyanosis, or edema. SKIN: Warm and dry. NEURO: No focal neurological deficitis. A/P Problem List: (1) DM (diabetes mellitus) ICD Code: E11.9 - Type 2 diabetes mellitus without complications (2) Gross hematuria ICD Code: R31.0 - Gross hematuria Status: Acute Assessment and Plan 62-year-old male admitted secondary to hematuria, with UTI. Hematuria Acute blood loss anemia Patient transfused 1 unit packed red blood cells on 01/27/18 Urology following Continue CBI Continue catheter management Urinary tract infection Continue Rocephin Follow cultures Diabetes mellitus type 2 Follow blood sugars Insulin sliding scale Diabetic diet DVT prophylaxis SCDs Anticoagulation avoided due to active Ronan Golden MD Jan 27, 2018 11:58
--- NOTE | 2018-01-27 12:09 | HHI.PR ---
Subjective Patient symptoms today Pt seen and examined. Amaya irrigated with clot removed at bedside. On Amicar CBI. Objective Vital Signs Vital Signs Date Time Temp Pulse Resp B/P (MAP) Pulse Ox O2 Delivery O2 Flow Rate FiO2 01/27/18 08:00 Room Air 01/27/18 08:00 99.2 93 19 135/63 (87) 100 01/27/18 04:00 Room Air 01/27/18 04:00 98.1 89 18 120/75 (90) 99 01/27/18 00:00 Room Air 01/27/18 00:00 97.8 100 19 129/65 (86) 98 01/26/18 20:00 98.9 97 18 128/60 (82) 98 01/26/18 20:00 Room Air 01/26/18 16:00 98.5 88 20 139/79 (99) 98 Intake & Output 01/27/18 01/27/18 07:00 19:00 Intake Total 3518 ml Output Total 19952 ml Balance -80018 ml Intake Oral 2500 ml IV Total 1018 ml Output Urine Total 15238 ml # Bowel Movements 0 Result Diagram: 01/27/18 0547 01/27/18 0547 Objective Remarks Abd: bladder distended Amaya with gross hematuria and clots Medications and IVs Current Medications Medications (Trade) Dose Ordered Sig/Daisy Route Start Time Stop Time Status Last Admin Ceftriaxone Sodium 1000 mg/ Sodium Chloride 100 ml @ 200 mls/hr Q24H IV 01/26/18 00:00 01/26/18 23:12 (D50w (Vial) Inj) 50 ml UNSCH PRN IV PUSH 01/26/18 00:00 (Glucagon Inj) 1 mg UNSCH PRN OTHER 01/26/18 00:00 (NovoLOG SUPPLEMENTAL SCALE) 1 ACHS SLIDING SCALE SQ 01/26/18 08:00 01/26/18 20:33 Sodium Chloride 1,000 ml @ 100 mls/hr Q10H IV 01/25/18 23:51 01/27/18 06:15 (NS Flush) 2 ml UNSCH PRN IV FLUSH 01/26/18 00:00 (NS Flush) 2 ml BID IV FLUSH 01/26/18 09:00 01/26/18 20:33 (Zofran Inj) 4 mg Q6H PRN IVP 01/26/18 00:00 (Tylenol) 650 mg Q6H PRN PO 01/26/18 00:00 (Arianna-Colace) 1 tab BID PO 01/26/18 09:00 01/27/18 08:58 (Milk Of Magnesia Liq) 30 ml Q12H PRN PO 01/26/18 00:00 (Senokot) 17.2 mg Q12H PRN PO 01/26/18 00:00 (Dulcolax Supp) 10 mg DAILY PRN RECTAL 01/26/18 00:00 (Lactulose Liq) 30 ml DAILY PRN PO 01/26/18 00:00 (Proscar) 5 mg DAILY PO 01/26/18 09:00 01/27/18 08:58 (Glucotrol) 5 mg BIDAC PO 01/26/18 07:00 01/27/18 06:15 (NovoLOG INJ) 34 units DAILY@0800,1700 SQ 01/26/18 08:00 (Ditropan) 5 mg Q12HR PO 01/26/18 09:00 01/27/18 08:58 (Theragran) 1 tab DAILY PO 01/26/18 09:00 01/27/18 09:00 (Pyridium) 100 mg Q8HR PO 01/26/18 14:00 01/27/18 05:00 (Roxicodone) 5 mg Q4H PRN PO 01/26/18 11:15 01/26/18 16:57 (Roxicodone) 10 mg Q4H PRN PO 01/26/18 11:15 01/27/18 05:00 (OxyCONTIN CR) 40 mg Q12HR PO 01/26/18 21:00 01/27/18 08:58 Aminocaproic Acid 3000 mg/Sodium Chloride 3,012 ml @ 0 mls/hr CONTINUOUS IRRIGATION 01/26/18 13:00 01/27/18 05:00 Sodium Chloride 250 ml @ 15 mls/hr ONCE ONCE IV 01/27/18 08:45 01/28/18 01:24 Assessment and Plan Assessment and Plan 62 y.o male with 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 Ramos Carrera DO Jan 27, 2018 12:09
[2018-01-27] MEDS: cefTRIAXone INJ 1,000 MG in SODIUM CHLORIDE 0.9% INJ 100 ML IV SCH (23:24)
[2018-01-28] VITALS (7 sets, daily range): BP systolic 101–198; BP diastolic 60–91; PULSE 86–126; RESP 16–20; TEMP 97.2–100.8; O2SAT 96–100
[2018-01-28] MEDS ORDERED: LACTATED RINGER'S 1000 ML IV PRN (02:45)
[2018-01-28] MEDS ORDERED: CHLORHEXIDINE GLUCONATE 2 % 1 PACK (2 CLOTHS) TOPICAL PRN (02:45)
[2018-01-28] MEDS ORDERED: POVIDONE IODINE 5% (ANTISEPSIS KIT) 4 APPLICATIONS EACH NARE PRN (02:45)
[2018-01-28] MEDS ORDERED: SODIUM CHLORID 0.9% 500 ML IV PRN (02:45)
[2018-01-28] MEDS: SODIUM CHLOR 0.9% 1000 ML INJ 1,000 ML IV SCH ×3 (04:34→22:17)
[2018-01-28] MEDS: PHENAZOPYRIDINE HCL 100 MG TAB PO SCH ×3 (05:08→22:16)
[2018-01-28] MEDS: glipiZIDE 5 MG TAB PO SCH ×2 (06:06→16:00)
[2018-01-28 07:17] LABS: AUTOMATED NEUTROPHIL # 13.6 TH/MM3 (1.8-7.7); BASOPHIL # 0.1 TH/MM3 (0-0.2); BASOPHIL % 0.5 % (0.0-2.0); EOSINOPHIL # 0.2 TH/MM3 (0-0.4); EOSINOPHIL % 1.2 % (0.0-4.0); HEMATOCRIT 23.8 % (39.0-51.0); HEMOGLOBIN 7.9 GM/DL (13.0-17.0); MEAN CELL VOLUME 79.1 FL (80.0-100.0); MEAN CORPUSCULAR HEMOGLOBIN 26.4 PG (27.0-34.0); MEAN CORPUSCULAR HGB CONC 33.4 % (32.0-36.0); MEAN PLATELET VOLUME 7.9 FL (7.0-11.0); MONO % 5.9 % (0.0-8.0); NEUT % 80.4 % (16.0-70.0); PLATELET COUNT 356 TH/MM3 (150-450); RED CELL DISTRIBUTION WIDTH 16.4 % (11.6-17.2); WHITE BLOOD COUNT 16.9 TH/MM3 (4.0-11.0)
[2018-01-28] MEDS: SODIUM CHLORIDE 0.9% FLUSH 10 ML FLUSH IV FLUSH SCH ×2 (07:34→22:18)
[2018-01-28 07:43] LABS: ALBUMIN 3.1 GM/DL (3.4-5.0); ALT (GPT) 19 U/L (12-78); AST (GOT) 17 U/L (15-37); BICARBONATE 22.4 MEQ/L (21.0-32.0); BLOOD UREA NITROGEN 14 MG/DL (7-18); CALCIUM 8.8 MG/DL (8.5-10.1); CHLORIDE 99 MEQ/L (98-107); CREATININE 1.64 MG/DL (0.60-1.30); GLOMERULAR FILTRATION RATE 52 ML/MIN (>89); GLUCOSE,RANDOM 182 MG/DL (74-106); SODIUM (NA) 135 MEQ/L (136-145)
[2018-01-28 07:46] LABS: ALKALINE PHOSPHATASE 109 U/L (45-117); TOTAL BILIRUBIN ADULT 0.4 MG/DL (0.2-1.0); TOTAL PROTEIN 6.9 GM/DL (6.4-8.2)
[2018-01-28] MEDS: INSULIN ASPART SUPPLEMENTAL SCALE SQ SCH ×4 (08:00→22:17)
[2018-01-28] MEDS: INSULIN ASPART 1,000 UNITS/10 ML VIAL SQ SCH ×2 (08:00→17:00)
[2018-01-28] MEDS: FINASTERIDE 5 MG TAB PO SCH (08:25)
[2018-01-28] MEDS: MULTIVITAMIN TAB PO SCH (08:25)
[2018-01-28] MEDS: OXYBUTYNIN CHLORIDE 5 MG TAB PO SCH ×2 (08:25→22:15)
[2018-01-28] MEDS: oxyCODONE HCL 40 MG CONTROLLED RELEASE TAB PO SCH ×2 (08:25→22:15)
[2018-01-28] MEDS: DOCUSATE SODIUM 50 MG/SENNA 8.6 MG TAB PO SCH ×2 (08:25→22:15)
--- NOTE | 2018-01-28 09:00 | PD.WOU.CON ---
Patient Intake Chief Complaint Gross Hematuria Consult Requested by Dr. Ramos Carrera Reason for Consult Evaluation for HBOT Primary Care Physician Unknown History of Present Illness Patient seen at bedside for hyperbaric therapy evaluation by myself today and previously seen by mold maintenance technician Glenny Espinal patient is a 62-year-old -Malagasy male with a past medical history of anxiety, depression, hypertension, diabetes mellitus, prostate cancer status post TURP and radiation cystitis and hematuria. He presented to the ED on January 25 after his Amaya dislodged. Per patient the Amaya fell out on its own and he has been passing multiple blood clots since then. He reports that in December he was also in the hospital for hematuria and found to have anemia and required a transfusion. Patient was in some distress as he was trying to cath during this encounter and therefore the rest of his information was gleaned from his medical records. Patient was diagnosed with prostate cancer in 2009 and started treatment with respect to radiation therapy on 05/09/2010 until 07/07/2010. He was treated with [id number] and he tolerated this well. He is now experiencing the sequelae of radiation therapy and is desirous of being treated with HBOT. He has no other acute concerns at this time. He does relate that he will be having surgery tomorrow and upon further investigation, he will be having cystoscopy with clot evacuation and fulguration. He denies any suicidal or homicidal ideation or even any depression or anxiety at this time. Coded Allergies: No Known Allergies (Verified Allergy, Unknown, 01/25/18) Preferred Language to Discuss: Cameroonian Barriers to Learning: None Teaching Method: Discussion Vital Signs Date Time Temp Pulse Resp B/P (MAP) Pulse Ox O2 Delivery O2 Flow Rate FiO2 01/28/18 05:34 99.9 01/28/18 04:48 100.8 126 18 107/60 (76) 97 01/28/18 04:00 Room Air 01/28/18 00:44 99.6 104 16 141/75 (97) 98 01/28/18 00:00 Room Air 01/27/18 21:38 99 155/61 (92) 95 01/27/18 20:00 Room Air 01/27/18 16:00 99.3 78 19 132/58 (82) 99 01/27/18 16:00 Room Air 01/27/18 14:54 99.1 73 18 125/68 99 01/27/18 14:38 99.4 81 18 136/69 100 01/27/18 12:00 Room Air 01/27/18 12:00 99.2 89 19 142/87 (105) 99 Pain scale used: 0-10 numeric scale Pain score: 8 Past, Family & Social History Past Medical History Endocrine: REPORTS HX OF: Diabetes mellitus Cardiovascular: REPORTS HX OF: Hyperlipidemia, Hypertension Gastrointestinal: REPORTS HX OF: GERD Genitourinary: DENIES HX OF: Chlamydia, Gonorrhea, Hemodialysis, Herpes genitalis, Human papillomavirus, Kidney disease, Kidney failure, Kidney stones, Past UTI, Peritoneal dialysis, Urinary incontinence, Other history Genitourinary - Male: DENIES HX OF: Benign prost. hyperplasia, Erectile dysfunction, Prostatitis, Testicular problems, Undescended testicle Musculoskeletal: REPORTS HX OF: Osteoarthritis Cancer/Hematology: REPORTS HX OF: Anemia, DENIES HX OF: Bladder Cancer, Blood cancer, Brain cancer, Breast cancer, Colorectal cancer, Endocrine cancer, Eye cancer, GI cancer, cancer, Kidney cancer, Leukemia, Liver cancer, Lung cancer , Lymphoma, Musculoskeletal cancer, Neurologic cancer, Oral cancer, Skin cancer , Stomach cancer, Thyroid cancer, Other cancer/hematology Cancer - Male: REPORTS HX OF: Prostate cancer, DENIES HX OF: Testicular cancer Infectious Disease: DENIES HX OF: AIDS, Chickenpox, Hepatitis, HIV, Measles, MRSA, Mumps, Polio, Positive PPD, Rheumatic fever, Rubella, Syphilis, Tuberculosis, Vanc-resistant enterococc, Other inf disease history Integumentary: DENIES HX OF: Acne, Eczema, Psoriasis, Other integumentary hx Neurologic: DENIES HX OF: ADHD, Autism, Dementia, Developmental delay, Headaches, Multiple sclerosis, Parkinson disease, Peripheral neuropathy, Restless leg syndrome, Seizures, Stroke, Transient ischemic attack, Other neurologic history Psychiatric: REPORTS HX OF: Anxiety, Depression Past Surgical History Genitourinary - Male: REPORTS HX OF: TURP Musculoskeletal: REPORTS HX OF: Other musculoskeletal srg Social History Social History: Adopted: No Alcohol Use Alcohol Intake: None Counseling Given: None Substance Use Substance Use: Denies use Britni/Catholic Britni Tradition/Catholic: Protestant Review of Systems Genitourinary: COMPLAINS OF: Blood in urine, Difficulty in urination Integumentary: COMPLAINS OF: Slow to heal after cuts Other: COMPLAINS OF: Radiation treatments Physical Exam Remarks GENERAL: Well-nourished, well-developed patient. SKIN: Warm and dry. HEAD: Normocephalic. EYES: No scleral icterus. No injection or drainage. NECK: Supple, trachea midline. No JVD or lymphadenopathy. CARDIOVASCULAR: Regular rate and rhythm without murmurs, gallops, or rubs. RESPIRATORY: Breath sounds equal bilaterally. No accessory muscle use. GASTROINTESTINAL: Abdomen soft, non-tender, nondistended. EXTREMITIES: No cyanosis, or edema. NEUROLOGICAL: Awake, alert, and oriented x 3. Non-focal. Assessment/Plan Problem List: (1) Irradiation cystitis with hematuria Status: Chronic Plan: Patient evaluated for hyperbaric therapy for treatment of his radiation cystitis. The science of hyperbaric therapy, the side effects as well as the benefits and goals were discussed with patient and he has voiced understanding. Will treat once he has been discharged and qualifies. (2) Prostate cancer Status: Chronic Plan: Status post TURP and radiation treatment. Patient now with the sequela of his radiation treatment which is radiation cystitis with hematuria. Patient evaluated for hyperbaric therapy. Will await approval. (3) DM (diabetes mellitus) Status: Chronic Plan: Is well controlled as his last hemoglobin A1c which was in November was 6.1. Patient to continue ADA diet as well as the current regimen. Discussed the hypoglycemic protocol for hyperbaric therapy and he has voiced understanding. (4) Hypertension Status: Chronic Plan: Stable on medication. Compliance reiterated. Problem Qualifiers (1) DM (diabetes mellitus): Latrice Arredondo MD Jan 28, 2018 09:00
[2018-01-28] MEDS ORDERED: LIDOCAINE HCL 1% PF 5 ML SYRINGE OTHER ONE (12:00)
[2018-01-28] MEDS ORDERED: LABETALOL HCL 100 MG/20 ML VIAL IV ONE (12:00)
[2018-01-28] MEDS ORDERED: DEXAMETHASONE SOD PHOS 4 MG/ML VIAL IV ONE (12:00)
[2018-01-28] MEDS ORDERED: PROPOFOL 200 MG/20 ML AMP IV ONE (12:00)
[2018-01-28] MEDS ORDERED: SUCCINYLCHOLINE CHLORIDE 200 MG/10 ML VIAL IV ONE (12:00)
[2018-01-28] MEDS ORDERED: ONDANSETRON HCL 4 MG/2 ML VIAL IV ONE (12:00)
[2018-01-28] MEDS ORDERED: PHENYLEPH/NS 1000 MCG/10 ML SYR IV ONE (12:00)
[2018-01-28] MEDS ORDERED: NORMOSOL R INJ 2,000 ML IV ONE (12:00)
[2018-01-28] MEDS ORDERED: ROCURONIUM INJ 50 MG/5 ML SYRINGE IV PUSH ONE (12:00)
[2018-01-28] MEDS ORDERED: ceFAZolin INJ 1,000 MG VIAL IV ONE ×2 (12:00→16:51)
--- NOTE | 2018-01-28 12:22 | HHI.PR ---
Subjective Remarks Hematuria continues. Surgical procedure plan today. No new complaints from the patient. Objective Vital Signs Date Time Temp Pulse Resp B/P (MAP) Pulse Ox O2 Delivery O2 Flow Rate FiO2 01/28/18 08:00 99.5 116 20 101/60 (74) 96 01/28/18 05:34 99.9 01/28/18 04:48 100.8 126 18 107/60 (76) 97 01/28/18 04:00 Room Air 01/28/18 00:44 99.6 104 16 141/75 (97) 98 01/28/18 00:00 Room Air 01/27/18 21:38 99 155/61 (92) 95 01/27/18 20:00 Room Air 01/27/18 16:00 99.3 78 19 132/58 (82) 99 01/27/18 16:00 Room Air 01/27/18 14:54 99.1 73 18 125/68 99 01/27/18 14:38 99.4 81 18 136/69 100 I/O 01/27/18 01/27/18 01/27/18 01/28/18 01/28/18 01/28/18 07:00 15:00 23:00 07:00 15:00 23:00 Intake Total 3518 ml 1600 ml 1100 ml Output Total 20649 ml 3650 ml Balance -71309 ml 1600 ml -2550 ml Intake Oral 2500 ml 1200 ml IV Total 1018 ml 1100 ml Packed Cells 400 ml Output Urine Total 26866 ml 3650 ml # Bowel Movements 0 1 Result Diagram: 01/28/1815 01/28/18 0615 Objective Remarks GENERAL: NAD, A&Ox3 HEAD: Normocephalic. NECK: Supple, trachea midline. No lymphadenopathy. EYES: No scleral icterus. No injection or drainage. CARDIOVASCULAR: Regular rate and rhythm without murmurs, gallops, or rubs. RESPIRATORY: Breath sounds equal bilaterally. No accessory muscle use. GASTROINTESTINAL: Abdomen soft, non-tender, nondistended. MUSCULOSKELETAL: No cyanosis, or edema. SKIN: Warm and dry. NEURO: No focal neurological deficitis. A/P Problem List: (1) DM (diabetes mellitus) ICD Code: E11.9 - Type 2 diabetes mellitus without complications (2) Gross hematuria ICD Code: R31.0 - Gross hematuria Status: Acute Assessment and Plan 62-year-old male admitted secondary to hematuria, with UTI. No improvement thus far in hematuria. Patient will be transfused as needed. Continue to monitor hemoglobin. Interventional surgery planned today. Hematuria Acute blood loss anemia Patient transfused 1 unit packed red blood cells on 01/27/18 Urology following Continue CBI Continue catheter management Urinary tract infection Continue Rocephin Follow cultures Diabetes mellitus type 2 Follow blood sugars Insulin sliding scale Diabetic diet DVT prophylaxis SCDs Anticoagulation avoided due to active Ronan Golden MD Jan 28, 2018 12:22
--- NOTE | 2018-01-28 13:20 | HHI.PR ---
Subjective Patient symptoms today Pt seen and examined. Bleeding with clots. Objective Vital Signs Vital Signs Date Time Temp Pulse Resp B/P (MAP) Pulse Ox O2 Delivery O2 Flow Rate FiO2 01/28/18 12:00 98.8 114 20 198/91 (126) 100 01/28/18 08:00 99.5 116 20 101/60 (74) 96 01/28/18 05:34 99.9 01/28/18 04:48 100.8 126 18 107/60 (76) 97 01/28/18 04:00 Room Air 01/28/18 00:44 99.6 104 16 141/75 (97) 98 01/28/18 00:00 Room Air 01/27/18 21:38 99 155/61 (92) 95 01/27/18 20:00 Room Air 01/27/18 16:00 99.3 78 19 132/58 (82) 99 01/27/18 16:00 Room Air 01/27/18 14:54 99.1 73 18 125/68 99 01/27/18 14:38 99.4 81 18 136/69 100 Intake & Output 01/28/18 01/28/18 07:00 19:00 Intake Total 1100 ml Output Total 3650 ml Balance -2550 ml IV Total 1100 ml Output Urine Total 3650 ml Result Diagram: 01/28/1861401/28/18614 Objective Remarks Abd: bladder distended Amaya with gross hematuria and clots 01/28 Abd:bladder distended; catheter not draining. Irrigated at bedside. Still bleeding; clots removed. Medications and IVs Current Medications Medications (Trade) Dose Ordered Sig/Daisy Route Start Time Stop Time Status Last Admin Ceftriaxone Sodium 1000 mg/ Sodium Chloride 100 ml @ 200 mls/hr Q24H IV 01/26/18 00:00 01/27/18 23:24 (D50w (Vial) Inj) 50 ml UNSCH PRN IV PUSH 01/26/18 00:00 (Glucagon Inj) 1 mg UNSCH PRN OTHER 01/26/18 00:00 (NovoLOG SUPPLEMENTAL SCALE) 1 ACHS SLIDING SCALE SQ 01/26/18 08:00 01/27/18 13:14 Sodium Chloride 1,000 ml @ 100 mls/hr Q10H IV 01/25/18 23:51 01/28/18 08:26 (NS Flush) 2 ml UNSCH PRN IV FLUSH 01/26/18 00:00 (NS Flush) 2 ml BID IV FLUSH 01/26/18 09:00 01/28/18 07:34 (Zofran Inj) 4 mg Q6H PRN IVP 01/26/18 00:00 (Tylenol) 650 mg Q6H PRN PO 01/26/18 00:00 01/28/18 04:24 (Arianna-Colace) 1 tab BID PO 01/26/18 09:00 01/28/18 08:25 (Milk Of Magnesia Liq) 30 ml Q12H PRN PO 01/26/18 00:00 (Senokot) 17.2 mg Q12H PRN PO 01/26/18 00:00 (Dulcolax Supp) 10 mg DAILY PRN RECTAL 01/26/18 00:00 (Lactulose Liq) 30 ml DAILY PRN PO 01/26/18 00:00 (Proscar) 5 mg DAILY PO 01/26/18 09:00 01/28/18 08:25 (Glucotrol) 5 mg BIDAC PO 01/26/18 07:00 01/28/18 06:06 (NovoLOG INJ) 34 units DAILY@0800,1700 SQ 01/26/18 08:00 (Ditropan) 5 mg Q12HR PO 01/26/18 09:00 01/28/18 08:25 (Theragran) 1 tab DAILY PO 01/26/18 09:00 01/28/18 08:25 (Pyridium) 100 mg Q8HR PO 01/26/18 14:00 01/28/18 05:08 (Roxicodone) 5 mg Q4H PRN PO 01/26/18 11:15 01/26/18 16:57 (Roxicodone) 10 mg Q4H PRN PO 01/26/18 11:15 01/28/18 02:57 (OxyCONTIN CR) 40 mg Q12HR PO 01/26/18 21:00 01/28/18 08:25 Aminocaproic Acid 3000 mg/Sodium Chloride 3,012 ml @ 0 mls/hr CONTINUOUS IRRIGATION 01/26/18 13:00 01/27/18 19:12 Lactated Ringer's 1,000 ml @ 30 mls/hr Q24H PRN IV 01/28/18 02:45 01/31/18 02:44 Sodium Chloride 500 ml @ 30 mls/hr [id number] PRN IV 01/28/18 02:45 01/31/18 02:44 (Betadine 5% Antisepsis Kit) 1 applic SPEECH PATHOLOGY SUPERVISOR PRN EACH NARE 01/28/18 02:45 01/31/18 02:44 (Chlorhexidine 2% Cloth) 3 pack SPEECH PATHOLOGY SUPERVISOR PRN TOPICAL 01/28/18 02:45 01/31/18 02:44 Assessment and Plan Assessment and Plan 62 y.o male with 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 02/06 62 y.o male with XRT cystitis and gross hematuria For cysto/clot evacuation with fulguration once OR is available Ramos Carrera DO Jan 28, 2018 13:20
[2018-01-28] MEDS: AMINOCAPROIC ACID INJ 3,000 MG in SODIUM CHLORIDE 0.9% IRR BAG 3,000 ML IRRIGATION SCH (14:05)
[2018-01-28] MEDS ORDERED: LIDOCAINE HCL 1% PF 10 ML VIAL ONE (15:25)
[2018-01-28 16:35] LABS: HEMATOCRIT 15.6 % (39.0-51.0); HEMOGLOBIN 5.2 GM/DL (13.0-17.0)
--- NOTE | 2018-01-28 17:33 | PD.OP ---
Operative Report Date of Surgery: Jan 28, 2018 Preoperative Diagnosis: Radiation cystitis with ongoing gross hematuria with clots Postoperative Diagnosis: Same Procedure: Cystoscopy, clot evacuation with fulguration Anesthesia: ANJUA Surgeon: Ramos Carrera Needle Loom Tender(s): None Resident Surgeon: None Operation and Findings: 62-year-old male with history of prostate cancer and a diagnosis of radiation/ cystitis. The patient presented to the hospital this week with gross hematuria with clots. He was admitted last month for the same problem and underwent cystoscopy with fulguration. Due to ongoing bleeding and a hemoglobin of 5.2 decision made to bring the patient to the operating room to undergo emergent clot evacuation with fulguration. The patient was brought to the operating room and identified by myself as Sid Mckeon. He was placed in dorsal lithotomy position, prepped draped in a sterile fashion, received preprocedure antibiotics and general endotracheal tube anesthesia was administered. The 24 obturator sheath was placed into the bladder and a large clot was identified throughout the bladder. Multiple evacuations were performed using the iliac evacuator. This took approximately 1 hour. Once all the clots were removed, the area of the bladder neck was identified as the source of bleeding. Using the rollerball, cauterization was performed circumferentially. Significant bleeding was also noted near the trigone. Identifying both ureteral orifices the rollerball was used to blanket the area of the trigone around both right and left ureteral orifice. The bleeding from around the 10:00 and 12 o'clock position was also fulgurated at this time. Once hemostasis was obtained, a 24 Croatian three-way catheter was inserted and he was resumed on Amicar CBI. Patient received 2 units of packed red blood cells during the procedure. Blood loss was approximately 750 cc. The patient tolerated procedure well and was awoken and extubated and transferred recovery in stable condition. The patient will require hyperbaric oxygen to treat his radiation cystitis. Ramos Carrera DO Jan 28, 2018 17:33
[2018-01-28] MEDS ORDERED: *morphine SULFATE 4 MG/ML PERIprocedure ONLY ONE ×2 (17:46→17:56)
[2018-01-28] MEDS ORDERED: MIDAZOLAM HCL 2 MG/2 ML VIAL ONE (17:47)
[2018-01-28] MEDS ORDERED: *ENALAPRILAT 1.25 MG/ML VIAL PERIprocedural Use ONLY ONE (18:30)
[2018-01-28 18:41] LABS: HEMATOCRIT 23.2 % (39.0-51.0); HEMOGLOBIN 7.8 GM/DL (13.0-17.0); MEAN CELL VOLUME 79.2 FL (80.0-100.0); MEAN CORPUSCULAR HEMOGLOBIN 26.6 PG (27.0-34.0); MEAN CORPUSCULAR HGB CONC 33.6 % (32.0-36.0); MEAN PLATELET VOLUME 7.5 FL (7.0-11.0); PLATELET COUNT 231 TH/MM3 (150-450); RED BLOOD COUNT 2.93 MIL/MM3 (4.50-5.90); RED CELL DISTRIBUTION WIDTH 17.2 % (11.6-17.2); WHITE BLOOD COUNT 11.3 TH/MM3 (4.0-11.0)
[2018-01-28] MEDS ORDERED: DO NOT ADM ANY ANTICOAGULANT DRUGS PRN (19:00)
[2018-01-28 19:19] LABS: BICARBONATE 26.3 MEQ/L (21.0-32.0); CALCIUM 7.6 MG/DL (8.5-10.1); CREATININE 1.08 MG/DL (0.60-1.30)
[2018-01-29] VITALS (8 sets, daily range): BP systolic 114–158; BP diastolic 64–80; PULSE 70–90; RESP 18–20; TEMP 97.3–99.9; O2SAT 98–100
[2018-01-29] MEDS: cefTRIAXone INJ 1,000 MG in SODIUM CHLORIDE 0.9% INJ 100 ML IV SCH ×2
[2018-01-29 05:24] LABS: AUTOMATED NEUTROPHIL # 8.8 TH/MM3 (1.8-7.7); BASOPHIL % 0.4 % (0.0-2.0); EOSINOPHIL # 0.1 TH/MM3 (0-0.4); EOSINOPHIL % 0.5 % (0.0-4.0); HEMATOCRIT 23.7 % (39.0-51.0); HEMOGLOBIN 8.1 GM/DL (13.0-17.0); LYMPH % 12.7 % (9.0-44.0); LYMPHOCYTE # 1.4 TH/MM3 (1.0-4.8); MEAN CELL VOLUME 79.9 FL (80.0-100.0); MEAN CORPUSCULAR HEMOGLOBIN 27.3 PG (27.0-34.0); MEAN CORPUSCULAR HGB CONC 34.1 % (32.0-36.0); MEAN PLATELET VOLUME 7.6 FL (7.0-11.0); MONO % 7.4 % (0.0-8.0); MONOCYTE # 0.8 TH/MM3 (0-0.9); PLATELET COUNT 219 TH/MM3 (150-450); RED BLOOD COUNT 2.96 MIL/MM3 (4.50-5.90); RED CELL DISTRIBUTION WIDTH 17.4 % (11.6-17.2); WHITE BLOOD COUNT 11.1 TH/MM3 (4.0-11.0)
[2018-01-29 05:37] LABS: ALBUMIN 1.4 GM/DL (3.4-5.0); ALKALINE PHOSPHATASE 72 U/L (45-117); ALT (GPT) 14 U/L (12-78); AST (GOT) 22 U/L (15-37); BICARBONATE 20.6 MEQ/L (21.0-32.0); BLOOD UREA NITROGEN 13 MG/DL (7-18); CALCIUM 7.8 MG/DL (8.5-10.1); CHLORIDE 104 MEQ/L (98-107); CREATININE 1.03 MG/DL (0.60-1.30); GLOMERULAR FILTRATION RATE 89 ML/MIN (>89); GLUCOSE,RANDOM 109 MG/DL (74-106); SODIUM (NA) 132 MEQ/L (136-145); TOTAL BILIRUBIN ADULT 0.7 MG/DL (0.2-1.0); TOTAL PROTEIN 5.2 GM/DL (6.4-8.2)
[2018-01-29] MEDS: PHENAZOPYRIDINE HCL 100 MG TAB PO SCH (06:14)
[2018-01-29] MEDS: glipiZIDE 5 MG TAB PO SCH ×2 (06:40→16:13)
[2018-01-29] MEDS: SODIUM CHLORIDE 0.9% FLUSH 10 ML FLUSH IV FLUSH SCH ×2 (07:41→21:10)
[2018-01-29] MEDS: SODIUM CHLOR 0.9% 1000 ML INJ 1,000 ML IV SCH ×3 (07:44→21:10)
[2018-01-29] MEDS: INSULIN ASPART SUPPLEMENTAL SCALE SQ SCH ×4 (08:00→21:00)
[2018-01-29] MEDS: OXYBUTYNIN CHLORIDE 5 MG TAB PO SCH ×2 (08:57→21:04)
[2018-01-29] MEDS: DOCUSATE SODIUM 50 MG/SENNA 8.6 MG TAB PO SCH ×2 (08:57→21:04)
[2018-01-29] MEDS: oxyCODONE HCL 40 MG CONTROLLED RELEASE TAB PO SCH ×2 (08:58→21:04)
[2018-01-29] MEDS: MULTIVITAMIN TAB PO SCH (08:58)
[2018-01-29] MEDS: FINASTERIDE 5 MG TAB PO SCH (08:59)
[2018-01-29] MEDS: INSULIN ASPART 1,000 UNITS/10 ML VIAL SQ SCH ×2 (09:00→16:13)
[2018-01-29] MEDS: AMINOCAPROIC ACID INJ 3,000 MG in SODIUM CHLORIDE 0.9% IRR BAG 3,000 ML IRRIGATION SCH (09:05)
--- NOTE | 2018-01-29 09:18 | HHI.PR ---
Subjective Patient symptoms today Pt seen and examined. Feeling better. Urine clear Objective Vital Signs Vital Signs Date Time Temp Pulse Resp B/P (MAP) Pulse Ox O2 Delivery O2 Flow Rate FiO2 01/29/18 08:00 98.7 80 18 142/69 (93) 100 01/29/18 03:15 98.3 78 18 152/73 100 01/29/18 00:13 99.9 90 18 158/77 100 01/29/18 00:00 Nasal Cannula 2.00 01/28/18 23:57 99.8 86 18 158/72 98 01/28/18 20:00 Nasal Cannula 2.00 01/28/18 20:00 97.2 88 18 178/86 (116) 100 01/28/18 19:00 99.5 80 16 175/85 (115) 100 Nasal Cannula 3 01/28/18 18:45 78 16 178/89 (118) 100 Nasal Cannula 3 01/28/18 18:30 82 16 179/95 (123) 100 Nasal Cannula 3 01/28/18 18:15 80 15 179/92 (121) 100 Nasal Cannula 3 01/28/18 18:00 83 17 177/92 (120) 100 Nasal Cannula 3 01/28/18 17:45 96 15 183/89 (120) 100 Nasal Cannula 3 01/28/18 17:36 99.4 95 15 198/91 (126) 100 Nasal Cannula 3 01/28/18 12:00 98.8 114 20 198/91 (126) 100 Intake & Output 01/29/18 01/29/18 07:00 19:00 Intake Total 750 ml Output Total 1425 ml Balance -675 ml Packed Cells 400 ml Blood Product IV Normal Saline Flush 350 ml Output Urine Total 1425 ml Result Diagram: 01/29/1841901/29/18419 Objective Remarks Abd: bladder distended Amaya with gross hematuria and clots 01/28 Abd:bladder distended; catheter not draining. Irrigated at bedside. Still bleeding; clots removed. 01/29 Abd:soft,nt,nd Amaya with clear urine CBI clamped at bedside. Medications and IVs Current Medications Medications (Trade) Dose Ordered Sig/Daisy Route Start Time Stop Time Status Last Admin Ceftriaxone Sodium 1000 mg/ Sodium Chloride 100 ml @ 200 mls/hr Q24H IV 01/26/18 00:00 01/29/18 00:00 (D50w (Vial) Inj) 50 ml UNSCH PRN IV PUSH 01/26/18 00:00 (Glucagon Inj) 1 mg UNSCH PRN OTHER 01/26/18 00:00 (NovoLOG SUPPLEMENTAL SCALE) 1 ACHS SLIDING SCALE SQ 01/26/18 08:00 01/28/18 22:17 Sodium Chloride 1,000 ml @ 100 mls/hr Q10H IV 01/25/18 23:51 01/29/18 07:44 (NS Flush) 2 ml UNSCH PRN IV FLUSH 01/26/18 00:00 (NS Flush) 2 ml BID IV FLUSH 01/26/18 09:00 01/29/18 07:41 (Zofran Inj) 4 mg Q6H PRN IVP 01/26/18 00:00 (Tylenol) 650 mg Q6H PRN PO 01/26/18 00:00 01/28/18 04:24 (Arianna-Colace) 1 tab BID PO 01/26/18 09:00 01/29/18 08:57 (Milk Of Magnesia Liq) 30 ml Q12H PRN PO 01/26/18 00:00 (Senokot) 17.2 mg Q12H PRN PO 01/26/18 00:00 (Dulcolax Supp) 10 mg DAILY PRN RECTAL 01/26/18 00:00 (Lactulose Liq) 30 ml DAILY PRN PO 01/26/18 00:00 (Proscar) 5 mg DAILY PO 01/26/18 09:00 01/29/18 08:59 (Glucotrol) 5 mg BIDAC PO 01/26/18 07:00 01/29/18 06:40 (NovoLOG INJ) 34 units DAILY@0800,1700 SQ 01/26/18 08:00 01/29/18 09:00 (Ditropan) 5 mg Q12HR PO 01/26/18 09:00 01/29/18 08:57 (Theragran) 1 tab DAILY PO 01/26/18 09:00 01/29/18 08:58 (Pyridium) 100 mg Q8HR PO 01/26/18 14:00 01/29/18 06:14 (Roxicodone) 5 mg Q4H PRN PO 01/26/18 11:15 01/26/18 16:57 (Roxicodone) 10 mg Q4H PRN PO 01/26/18 11:15 01/29/18 01:07 (OxyCONTIN CR) 40 mg Q12HR PO 01/26/18 21:00 01/29/18 08:58 Aminocaproic Acid 3000 mg/Sodium Chloride 3,012 ml @ 0 mls/hr CONTINUOUS IRRIGATION 01/26/18 13:00 01/29/18 09:05 Lactated Ringer's 1,000 ml @ 30 mls/hr Q24H PRN IV 01/28/18 02:45 01/31/18 02:44 Sodium Chloride 500 ml @ 30 mls/hr [id number] PRN IV 01/28/18 02:45 01/31/18 02:44 (Betadine 5% Antisepsis Kit) 1 applic LOAD PLANNER PRN EACH NARE 01/28/18 02:45 01/31/18 02:44 (Chlorhexidine 2% Cloth) 3 pack LOAD PLANNER PRN TOPICAL 01/28/18 02:45 01/31/18 02:44 Miscellaneous Information ALL NURSING DEPARTME... UNSCH PRN .XX 01/28/18 19:00 01/29/18 18:59 Assessment and Plan Assessment and Plan 62 y.o male with 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 Ramos Carrera DO Jan 29, 2018 09:18
[2018-01-29] MEDS: NEOMYCIN/POLYMYXIN/BACITRACIN OINT 15 GM TUBE TOPICAL SCH ×2 (10:25→21:05)
[2018-01-29] MEDS ORDERED: WHEEMIS3 (11:09)
--- NOTE | 2018-01-29 11:15 | HHI.PR ---
Subjective Remarks Status post clot evacuation and fulguration yesterday. Less bleeding evident today. No new complaints from patient. Objective Vital Signs Date Time Temp Pulse Resp B/P (MAP) Pulse Ox O2 Delivery O2 Flow Rate FiO2 01/29/18 08:00 98.7 80 18 142/69 (93) 100 01/29/18 03:15 98.3 78 18 152/73 100 01/29/18 00:13 99.9 90 18 158/77 100 01/29/18 00:00 Nasal Cannula 2.00 01/28/18 23:57 99.8 86 18 158/72 98 01/28/18 20:00 Nasal Cannula 2.00 01/28/18 20:00 97.2 88 18 178/86 (116) 100 01/28/18 19:00 99.5 80 16 175/85 (115) 100 Nasal Cannula 3 01/28/18 18:45 78 16 178/89 (118) 100 Nasal Cannula 3 01/28/18 18:30 82 16 179/95 (123) 100 Nasal Cannula 3 01/28/18 18:15 80 15 179/92 (121) 100 Nasal Cannula 3 01/28/18 18:00 83 17 177/92 (120) 100 Nasal Cannula 3 01/28/18 17:45 96 15 183/89 (120) 100 Nasal Cannula 3 01/28/18 17:36 99.4 95 15 198/91 (126) 100 Nasal Cannula 3 01/28/18 12:00 98.8 114 20 198/91 (126) 100 I/O 01/28/18 01/28/18 01/28/18 01/29/18 01/29/18 01/29/18 07:00 15:00 23:00 07:00 15:00 23:00 Intake Total 1100 ml 2450 ml 750 ml Output Total 3650 ml 5400 ml 2450 ml 1425 ml Balance -2550 ml -5400 ml 0 ml -675 ml IV Total 1100 ml Packed Cells 1050 ml 400 ml Blood Product IV Normal Saline Flush 350 ml Other 1400 ml Output Urine Total 3650 ml 5400 ml 1700 ml 1425 ml Estimated Blood Loss 750 ml # Bowel Movements 0 Result Diagram: 01/29/18 04201/29/18 042 Objective Remarks GENERAL: NAD, A&Ox3 HEAD: Normocephalic. NECK: Supple, trachea midline. No lymphadenopathy. EYES: No scleral icterus. No injection or drainage. CARDIOVASCULAR: Regular rate and rhythm without murmurs, gallops, or rubs. RESPIRATORY: Breath sounds equal bilaterally. No accessory muscle use. GASTROINTESTINAL: Abdomen soft, non-tender, nondistended. MUSCULOSKELETAL: No cyanosis, or edema. SKIN: Warm and dry. NEURO: No focal neurological deficitis. A/P Problem List: (1) DM (diabetes mellitus) ICD Code: E11.9 - Type 2 diabetes mellitus without complications (2) Gross hematuria ICD Code: R31.0 - Gross hematuria Status: Acute Assessment and Plan 62-year-old male admitted secondary to hematuria, with UTI. Improving hematuria. Pyridium discontinued. Follow urine output and appearance. Change to PO antibiotics. Follow H&H. Hematuria Acute blood loss anemia Patient transfused 1 unit packed red blood cells on 01/27/18 Urology following Continue CBI Continue catheter management Urinary tract infection Continue Rocephin Follow cultures Diabetes mellitus type 2 Follow blood sugars Insulin sliding scale Diabetic diet DVT prophylaxis SCDs Anticoagulation avoided due to active Ronan Golden MD Jan 29, 2018 11:15
[2018-01-29] MEDS: SULFAMETHOXAZOLE-TRIMETHOPRIM DS 800-160 MG TAB PO SCH (21:04)
[2018-01-30 04:00] VITALS: BP 109/63; PULSE 72; RESP 18; TEMP 98.1; O2SAT 98
[2018-01-30] MEDS: glipiZIDE 5 MG TAB PO SCH (06:12)
[2018-01-30 08:00] VITALS: BP 148/86; PULSE 63; RESP 16; TEMP 98.5; O2SAT 99
[2018-01-30] MEDS: INSULIN ASPART SUPPLEMENTAL SCALE SQ SCH ×2 (08:00→12:00)
[2018-01-30 08:51] LABS: AUTOMATED NEUTROPHIL # 7.2 TH/MM3 (1.8-7.7); BASOPHIL % 0.3 % (0.0-2.0); EOSINOPHIL # 0.4 TH/MM3 (0-0.4); HEMATOCRIT 22.7 % (39.0-51.0); HEMOGLOBIN 7.7 GM/DL (13.0-17.0); LYMPH % 14.1 % (9.0-44.0); LYMPHOCYTE # 1.4 TH/MM3 (1.0-4.8); MEAN CELL VOLUME 81.3 FL (80.0-100.0); MEAN CORPUSCULAR HEMOGLOBIN 27.5 PG (27.0-34.0); MEAN CORPUSCULAR HGB CONC 33.8 % (32.0-36.0); MEAN PLATELET VOLUME 7.2 FL (7.0-11.0); MONO % 7.4 % (0.0-8.0); MONOCYTE # 0.7 TH/MM3 (0-0.9); NEUT % 74.2 % (16.0-70.0); PLATELET COUNT 271 TH/MM3 (150-450); RED BLOOD COUNT 2.78 MIL/MM3 (4.50-5.90); RED CELL DISTRIBUTION WIDTH 17.3 % (11.6-17.2); WHITE BLOOD COUNT 9.8 TH/MM3 (4.0-11.0)
[2018-01-30] MEDS: INSULIN ASPART 1,000 UNITS/10 ML VIAL SQ SCH (08:54)
[2018-01-30] MEDS: FINASTERIDE 5 MG TAB PO SCH (08:54)
[2018-01-30] MEDS: DOCUSATE SODIUM 50 MG/SENNA 8.6 MG TAB PO SCH (08:54)
[2018-01-30] MEDS: OXYBUTYNIN CHLORIDE 5 MG TAB PO SCH (08:54)
[2018-01-30] MEDS: SULFAMETHOXAZOLE-TRIMETHOPRIM DS 800-160 MG TAB PO SCH (08:54)
[2018-01-30] MEDS: MULTIVITAMIN TAB PO SCH (08:54)
[2018-01-30] MEDS: oxyCODONE HCL 40 MG CONTROLLED RELEASE TAB PO SCH (08:56)
[2018-01-30] MEDS: NEOMYCIN/POLYMYXIN/BACITRACIN OINT 15 GM TUBE TOPICAL SCH (08:58)
[2018-01-30] MEDS: SODIUM CHLORIDE 0.9% FLUSH 10 ML FLUSH IV FLUSH SCH (09:00)
[2018-01-30 09:07] LABS: ALBUMIN 2.3 GM/DL (3.4-5.0); ALKALINE PHOSPHATASE 73 U/L (45-117); ALT (GPT) 14 U/L (12-78); AST (GOT) 20 U/L (15-37); BICARBONATE 26.8 MEQ/L (21.0-32.0); BLOOD UREA NITROGEN 6 MG/DL (7-18); CALCIUM 8.4 MG/DL (8.5-10.1); CHLORIDE 106 MEQ/L (98-107); CREATININE 0.96 MG/DL (0.60-1.30); GLOMERULAR FILTRATION RATE 97 ML/MIN (>89); GLUCOSE,RANDOM 136 MG/DL (74-106); SODIUM (NA) 140 MEQ/L (136-145); TOTAL BILIRUBIN ADULT 0.2 MG/DL (0.2-1.0); TOTAL PROTEIN 5.4 GM/DL (6.4-8.2)
[2018-01-30 09:28] VITALS: O2SAT 97
--- NOTE | 2018-01-30 10:26 | HHI.PR ---
Subjective Patient symptoms today Pt seen and examined. Urine clear. Amaya removed. Objective Vital Signs Vital Signs Date Time Temp Pulse Resp B/P (MAP) Pulse Ox O2 Delivery O2 Flow Rate FiO2 01/30/18 09:28 97 Nasal Cannula 2.00 01/30/18 08:00 98.5 63 16 148/86 (106) 99 01/30/18 04:00 98.1 72 18 109/63 (78) 98 01/29/18 23:50 98.9 71 18 114/64 (81) 98 01/29/18 21:00 99 21 01/29/18 20:00 Room Air 01/29/18 20:00 97.3 83 20 133/71 (91) 99 01/29/18 16:00 98.3 70 18 135/80 (98) 100 01/29/18 11:39 98.3 78 18 140/79 (99) 100 Intake & Output 01/30/18 01/30/18 07:00 19:00 Intake Total 600 ml Output Total 2050 ml Balance -1450 ml Intake Oral 600 ml Output Urine Total 2050 ml Result Diagram: 01/30/1882701/30/18827 Objective Remarks Abd: bladder distended Amaya with gross hematuria and clots 01/28 Abd:bladder distended; catheter not draining. Irrigated at bedside. Still bleeding; clots removed. 01/29 Abd:soft,nt,nd Amaya with clear urine CBI clamped at bedside. 01/30 Abd:soft,nt,nd Amaya with clear urine. Removed at bedside Medications and IVs Current Medications Medications (Trade) Dose Ordered Sig/Daisy Route Start Time Stop Time Status Last Admin (D50w (Vial) Inj) 50 ml UNSCH PRN IV PUSH 01/26/18 00:00 01/30/18 06:21 (Glucagon Inj) 1 mg UNSCH PRN OTHER 01/26/18 00:00 (NovoLOG SUPPLEMENTAL SCALE) 1 ACHS SLIDING SCALE SQ 01/26/18 08:00 01/28/18 22:17 Sodium Chloride 1,000 ml @ 100 mls/hr Q10H IV 01/25/18 23:51 01/29/18 21:10 (NS Flush) 2 ml UNSCH PRN IV FLUSH 01/26/18 00:00 (NS Flush) 2 ml BID IV FLUSH 01/26/18 09:00 01/30/18 09:00 (Zofran Inj) 4 mg Q6H PRN IVP 01/26/18 00:00 (Tylenol) 650 mg Q6H PRN PO 01/26/18 00:00 01/28/18 04:24 (Arianna-Colace) 1 tab BID PO 01/26/18 09:00 01/30/18 08:54 (Milk Of Magnesia Liq) 30 ml Q12H PRN PO 01/26/18 00:00 (Senokot) 17.2 mg Q12H PRN PO 01/26/18 00:00 (Dulcolax Supp) 10 mg DAILY PRN RECTAL 01/26/18 00:00 (Lactulose Liq) 30 ml DAILY PRN PO 01/26/18 00:00 (Proscar) 5 mg DAILY PO 01/26/18 09:00 01/30/18 08:54 (Glucotrol) 5 mg BIDAC PO 01/26/18 07:00 01/29/18 16:13 (NovoLOG INJ) 34 units DAILY@0800,1700 SQ 01/26/18 08:00 01/30/18 08:54 (Ditropan) 5 mg Q12HR PO 01/26/18 09:00 01/30/18 08:54 (Theragran) 1 tab DAILY PO 01/26/18 09:00 01/30/18 08:54 (Roxicodone) 5 mg Q4H PRN PO 01/26/18 11:15 01/26/18 16:57 (Roxicodone) 10 mg Q4H PRN PO 01/26/18 11:15 01/30/18 02:51 (OxyCONTIN CR) 40 mg Q12HR PO 01/26/18 21:00 01/30/18 08:56 Aminocaproic Acid 3000 mg/Sodium Chloride 3,012 ml @ 0 mls/hr CONTINUOUS IRRIGATION 01/26/18 13:00 01/29/18 09:05 Lactated Ringer's 1,000 ml @ 30 mls/hr Q24H PRN IV 01/28/18 02:45 01/31/18 02:44 Sodium Chloride 500 ml @ 30 mls/hr [id number] PRN IV 01/28/18 02:45 01/31/18 02:44 (Betadine 5% Antisepsis Kit) 1 applic CLAM TREADER PRN EACH NARE 01/28/18 02:45 01/31/18 02:44 (Chlorhexidine 2% Cloth) 3 pack CLAM TREADER PRN TOPICAL 01/28/18 02:45 01/31/18 02:44 (Neosporin Oint) 1 applic Q12HR TOPICAL 01/29/18 09:15 01/30/18 08:58 (Bactrim Ds 800-160 Mg) 1 tab Q12HR PO 01/29/18 21:00 01/30/18 08:54 Assessment and Plan Assessment and Plan 62 y.o male with 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 01/30 62 y.o male s/p cysto with fulguration and clot evacuation Amaya removed. Void trial today. As long as he voids he can go home. Start HBO as outpt. Ramos Carrera DO Jan 30, 2018 10:26
[2018-01-30 12:00] VITALS: BP 156/72; PULSE 74; RESP 18; TEMP 98.6; O2SAT 100
[2018-01-30 13:46] LABS: HEMOGLOBIN 8.1 GM/DL (13.0-17.0)
[2018-01-30] MEDS ORDERED: SULF1TAB23 PO (14:32)
--- NOTE | 2018-01-30 14:33 | HHI.DS ---
Discharge Summary Admission Date Jan 25, 2018 at 23:53 Discharge Date: Jan 30, 2018 Admitting Diagnosis Gross hematuria (1) Gross hematuria ICD Code: R31.0 - Gross hematuria Status: Acute (2) UTI (urinary tract infection) ICD Code: N39.0 - Urinary tract infection, site not specified (3) DM (diabetes mellitus) ICD Code: E11.9 - Type 2 diabetes mellitus without complications Procedures Cystoscopy with clot evacuation and fulguration. Brief History - From Admission This is a 62-year-old male with a PMH of Anxiety, Depression, HTN, DM, Prostate CA, s/p TURP, Radiation Cystitis and Hematuria who presented to the ER after Amaya dislodged. [facility] Amaya fell out on its own and has been passing multiple clots since then. Recent admit 01/06-01/08/18 for Hematuria, found to have Anemia requiring transfusion, s/p Cystoscopy w/ evacuation of clots and TURP by Dr. Alcazar on 01/06/18. [facility] had been doing well until today, has upcoming appt w/ [place] this coming Saturday. On arrival, P10 , HR 77, O2 sat 95% RA, Afebrile. Hemoglobin 10.7. Chemistry essentially unremarkable. UA was significant hematuria and bacteriuria. S/p 3-way Amaya w/ CBI, however persistent hematuria despite 3L. CBC/BMP: 01/30/18 1312 01/30/18 0828 Significant Findings Laboratory Tests Test 01/28/18 06:15 01/28/18 16:15 01/28/18 18:30 01/28/18 18:40 White Blood Count 16.9 TH/MM3 (4.0-11.0) 11.3 TH/MM3 (4.0-11.0) Red Blood Count 3.00 MIL/MM3 (4.50-5.90) 2.93 MIL/MM3 (4.50-5.90) Hemoglobin 7.9 GM/DL (13.0-17.0) 5.2 GM/DL (13.0-17.0) 7.8 GM/DL (13.0-17.0) Hematocrit 23.8 % (39.0-51.0) 15.6 % (39.0-51.0) 23.2 % (39.0-51.0) Mean Corpuscular Volume 79.1 FL (80.0-100.0) 79.2 FL (80.0-100.0) Mean Corpuscular Hemoglobin 26.4 PG (27.0-34.0) 26.6 PG (27.0-34.0) Neutrophils (%) (Auto) 80.4 % (16.0-70.0) Neutrophils # (Auto) 13.6 TH/MM3 (1.8-7.7) Monocytes # (Auto) 1.0 TH/MM3 (0-0.9) Creatinine 1.64 MG/DL (0.60-1.30) Random Glucose 182 MG/DL (74-106) 162 MG/DL (74-106) Albumin 3.1 GM/DL (3.4-5.0) Sodium Level 135 MEQ/L (136-145) Estimat Glomerular Filtration Rate 52 ML/MIN (>89) 84 ML/MIN (>89) Calcium Level 7.6 MG/DL (8.5-10.1) Potassium Level 5.2 MEQ/L (3.5-5.1) Test 01/29/18 04:20 01/30/18 08:28 01/30/18 13:12 White Blood Count 11.1 TH/MM3 (4.0-11.0) Red Blood Count 2.96 MIL/MM3 (4.50-5.90) 2.78 MIL/MM3 (4.50-5.90) Hemoglobin 8.1 GM/DL (13.0-17.0) 7.7 GM/DL (13.0-17.0) 8.1 GM/DL (13.0-17.0) Hematocrit 23.7 % (39.0-51.0) 22.7 % (39.0-51.0) 24.0 % (39.0-51.0) Mean Corpuscular Volume 79.9 FL (80.0-100.0) Red Cell Distribution Width 17.4 % (11.6-17.2) 17.3 % (11.6-17.2) Neutrophils (%) (Auto) 79.0 % (16.0-70.0) 74.2 % (16.0-70.0) Neutrophils # (Auto) 8.8 TH/MM3 (1.8-7.7) Random Glucose 109 MG/DL (74-106) 136 MG/DL (74-106) Total Protein 5.2 GM/DL (6.4-8.2) 5.4 GM/DL (6.4-8.2) Albumin 1.4 GM/DL (3.4-5.0) 2.3 GM/DL (3.4-5.0) Calcium Level 7.8 MG/DL (8.5-10.1) 8.4 MG/DL (8.5-10.1) Sodium Level 132 MEQ/L (136-145) Carbon Dioxide Level 20.6 MEQ/L (21.0-32.0) Blood Urea Nitrogen 6 MG/DL (7-18) PE at Discharge GENERAL: This is a well-nourished, well-developed patient, in no apparent distress. CARDIOVASCULAR: Normal rate and regular rhythm without murmurs, gallops, or rubs. RESPIRATORY: Good respiratory efforts. Breath sounds equal and clear to auscultation bilaterally. GASTROINTESTINAL: Abdomen soft, non-tender, non-distended. Normal active bowel sounds MUSCULOSKELETAL: Extremities without cyanosis, or edema. NEURO: Alert & Oriented x4 to person, place, time, situation. Moves all ext x4 PSYCH: Appropriate mood and affect. Pt update on day of discharge Patient reports he is feeling much better. Amaya catheter removed this morning. Discussed with urology. If no further bleeding and he is voiding, he may be discharged later today. Hospital Course 62-year-old male admitted secondary to hematuria, with UTI. 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 He underwent cystoscopy with clot evacuation and fulguration. He had CBI. Urine cleared up. Successful voiding trial. He is to start HBO therapy outpatient. Patient transfused 1 unit packed red blood cells on 01/27/18. H&H remained stable Urinary tract infection Urine grew Klebsiella. Patient treated Rocephin. He is discharged on Bactrim to complete the course of treatment. Diabetes mellitus type 2 Follow blood sugars Insulin sliding scale Diabetic diet Pt Condition on Discharge: Good Discharge Disposition: Discharge Home Discharge Time: <= 30 minutes Discharge Instructions Follow up Referrals: Appointment for Follow Up @ [facility] New Medications: Wheelchair (Wheelchair) 1 Mis Mis EA .XX DIRECTED, #1 0 Refills Minimal ambulation recommended by urology, to allow bladder to heal. Sulfamethoxazole-Trimethoprim (Sulfamethoxazole-Trimethoprim) 800-160 Mg Tab 1 TAB PO Q12HR, #10 TAB Continued Medications: Cholecalciferol (Vitamin D-1000) 1,000 Unit Tab 1000 UNITS PO DAILY for Nutritional Supplement, #1 BOTTLE 0 Refills Cyanocobalamin (Vitamin B-12) 1,000 Mcg Tab 1000 MCG PO DAILY for Nutritional Supplement, #1 BOTTLE 0 Refills Finasteride (Finasteride) 5 Mg Tab 5 MG PO DAILY for urinary retention for 30 Days, #30 TAB Do not crush. Furosemide (Furosemide) 40 Mg Tab 40 MG PO BID, #60 TAB 0 Refills Glipizide (Glipizide) 5 Mg Tab 5 MG PO BIDAC for Blood Sugar Management, #60 TAB 0 Refills Take 30 minutes before a meal Hydrocodone-Acetaminophen (Hydrocodone-Acetaminophen) 10-325 mg Tab 1 TAB PO Q6H PRN for PAIN, TAB 0 Refills Insulin Aspart Inj (Novolog Inj) 1,000 Unit/10 Ml Vial 34 UNITS SQ BID for Blood Sugar Management, #10 ML 0 Refills Lisinopril (Lisinopril) 10 Mg Tab 10 MG PO DAILY, #30 TAB 0 Refills Metformin (Metformin) 1,000 Mg Tab 1000 MG PO BIDPC for Blood Sugar Management, #60 TAB 0 Refills Multiple Vitamin (Multiple Vitamin) 1 Tab 1 TAB PO DAILY for Nutritional Supplement, TAB 0 Refills Omeprazole (Omeprazole) 20 Mg Tab 20 MG PO DAILY, #30 TAB 0 Refills Oxybutynin (Ditropan) 5 Mg Tab 5 MG PO Q12HR for bladder spasms for 30 Days, TAB Oxycodone (Oxycodone) 30 Mg Tab 30 MG PO Q6H PRN for PAIN, TAB 0 Refills Discontinued Medications: Carisoprodol (Soma) 350 Mg Tab 350 MG PO DAILY PRN for PAIN, TAB 0 Refills Hydrochlorothiazide (Hydrochlorothiazide) 12.5 Mg Cap 12.5 MG PO BID, #60 CAP 0 Refills Jaylen Valera MD Jan 30, 2018 14:33
[2018-01-30 16:00] VITALS: BP 150/82; PULSE 74; RESP 18; TEMP 98.4; O2SAT 98
== END 2018-01-30 18:42 | disposition home or self-care (01) | DRG 663 ==
LOC: NEPE 20:33 → NEDA 23:53 → N04A 01-26 02:00
PROVIDERS: ADMIT Family Medicine; ATTEND Family Medicine
PROC: 30233N1 Transfusion of Nonautologous Red Blood Cells into Peripheral Vein, Percutaneous Approach (ICD-10-PCS; 2018-01-27)
PROC: 0TCB8ZZ Extirpation of Matter from Bladder, Via Natural or Artificial Opening Endoscopic (ICD-10-PCS; 2018-01-28)
PROC: 0W3R8ZZ Control Bleeding in Genitourinary Tract, Via Natural or Artificial Opening Endoscopic (ICD-10-PCS; principal; 2018-01-28 15:46)
DX: N30.41 Irradiation cystitis with hematuria (principal); D62 Acute posthemorrhagic anemia; I10 Essential (primary) hypertension; N39.0 Urinary tract infection, site not specified; B96.1 Klebsiella pneumoniae [K. pneumoniae] as the cause of diseases classified elsewhere; E11.9 Type 2 diabetes mellitus without complications; Z79.4 Long term (current) use of insulin; Z79.84 Long term (current) use of oral hypoglycemic drugs; Y84.2 Radiological procedure and radiotherapy as the cause of abnormal reaction of the patient, or of later complication, without mention of misadventure at the time of the procedure; Z85.46 Personal history of malignant neoplasm of prostate; K21.9 Gastro-esophageal reflux disease without esophagitis; E78.5 Hyperlipidemia, unspecified; M54.9 Dorsalgia, unspecified; G89.29 Other chronic pain
CPT/HCPCS: 36430; 51702; 80048; 80053; 81001; 82948; 85014; 85018; 85025; 85027; 86850; 86900; 86901; 86920; 87077; 87086; 87186; J0330; J0690; J0696; J1100; J1815; J2250; J2270; J2370; J2405; J3010; J7030; J7050; P9016

== ENCOUNTER 2018-02-05 16:11 | Observation (INO) | payer OTHER ==
[~2018-02-05] VITALS: Ht 188 cm; Wt 125.0 kg
[~2018-02-05 16:11] MED LIST changes: +FURO40TA PO; +GLIP5TAB8 PO; -HYDR12.57 PO; +MULTTAB67 PO; +NOVOLOGP2 SQ; +OMEP20TA93 PO; -SOMA350T PO; +SULF1TAB23 PO; +VITA1000 PO; +VITA10002 PO; +WHEEMIS3
[2018-02-05 16:33] VITALS: BP 143/64; PULSE 71; RESP 16; TEMP 97.8; O2SAT 100
[2018-02-05 17:02] VITALS: BP 132/68; PULSE 71; RESP 17; O2SAT 100
--- NOTE | 2018-02-05 17:27 | PD ---
HPI Chief Complaint: Bleeding Time Seen by Provider: 17:03 Travel History International Travel<30 days: No Contact w/Intl Traveler<30days: No Traveled to known affect area: No History of Present Illness HPI 62-year-old male presents to the emergency department for evaluation of hematuria. Patient's past medical history of anxiety, depression, hypertension , DM, prostate cancer status post TURP, radiation cystitis and hematuria. Patient was recently discharged on January 25, 2018 for hematuria. Patient states that he was doing well until today he noticed some blood clots in his urine. He states that he is still able to urinate at this point. Patient states that he is concerned because he has been admitted twice for this and has had to receive blood transfusion. He states he went for his hyper baric oxygen treatment today. He states he started this on Saturday. He denies any headache or fevers. No chest pain or shortness breath. He denies any abdominal pain. No nausea, vomiting, diarrhea. Patient states he has seen urologist, Dr. Wallace , Dr. Alcazar, and the most recent urologist was Dr. Carrera. No exacerbating or alleviating factors. Moderate severity. PFSH Past Medical History Anemia: Yes Arthritis: No Asthma: No Autoimmune Disease: No Blood Disorders: No Anxiety: Yes Depression: Yes Heart Rhythm Problems: No Cancer: Yes (PROSTATE) Cardiovascular Problems: Yes High Cholesterol: Yes Chemotherapy: No Chest Pain: No Congestive Heart Failure: No COPD: No Cerebrovascular Accident: No Diabetes: Yes Patient Takes Glucophage: Yes Diminished Hearing: No Endocrine: Yes Gastrointestinal Disorders: Yes (COLON POLYP) GERD: Yes Glaucoma: No Genitourinary: Yes Hiatal Hernia: No Heparin Induced Thrombocytopen: No Hypertension: Yes Immune Disorder: No Implanted Vascular Access Dvce: No Musculoskeletal: Yes (CERVICAL STENOSIS, DISC DEGENERATIVE) Neurologic: Yes (PERIPHERAL NEUROPATHY) Psychiatric: Yes Reproductive: No Respiratory: Yes Integumentary: Yes Immunizations Current: Yes Migraines: No Radiation Therapy: Yes (2009) Seizures: No Sickle Cell Disease: No Sleep Apnea: Yes (no Cpap) Thyroid Disease: No Ulcer: No Influenza Vaccination: No ?: Not Past Surgical History Abdominal Surgery: No AICD: No Arteriovenous Shunt: No Body Medical Devices: titanium in back Cardiac Surgery: No Ear Surgery: No Endocrine Surgery: No Eye Surgery: No Genitourinary Surgery: Yes (BLADDER SURGERY ) Gynecologic Surgery: No Insulin Pump: No Joint Replacement: No Oral Surgery: No Pacemaker: No Thoracic Surgery: No Other Surgery: Yes (TITANIAN RODS PLACED IN LOW BACK 1996) Social History Alcohol Use: No Tobacco Use: No Substance Use: No Allergies-Medications (Allergen,Severity, Reaction): Coded Allergies: No Known Allergies (Verified Allergy, Unknown, 01/25/18) Reported Meds & Prescriptions Reported Meds & Active Scripts Active Sulfamethoxazole-Trimethoprim 800-160 Mg Tab 1 Tab PO Q12HR Finasteride 5 Mg Tab 5 Mg PO DAILY 30 Days Do not crush. Ditropan (Oxybutynin Chloride) 5 Mg Tab 5 Mg PO Q12HR 30 Days Reported Furosemide 40 Mg Tab 40 Mg PO BID Omeprazole 20 Mg Tab 20 Mg PO DAILY Vitamin B-12 (Cyanocobalamin) 1,000 Mcg Tab 1,000 Mcg PO DAILY Multiple Vitamin 1 Tab 1 Tab PO DAILY Vitamin D-1000 (Cholecalciferol) 1,000 Unit Tab 1,000 Units PO DAILY Novolog Inj (Insulin Aspart) 1,000 Unit/10 Ml Vial 34 Units SQ BID Glipizide 5 Mg Tab 5 Mg PO BIDAC Take 30 minutes before a meal Hydrocodone-Acetaminophen 10-325 mg Tab 1 Tab PO Q6H PRN Oxycodone (Oxycodone HCl) 30 Mg Tab 30 Mg PO Q6H PRN Lisinopril 10 Mg Tab 10 Mg PO DAILY Metformin (Metformin HCl) 1,000 Mg Tab 1,000 Mg PO BIDPC Review of Systems Except as stated in HPI: all other systems reviewed are Neg Physical Exam Narrative GENERAL: Well-nourished, well-developed male patient, afebrile. SKIN: Focused skin assessment warm/dry. HEAD: Normocephalic. Atraumatic. EYES: No scleral icterus. No injection or drainage. NECK: Supple, trachea midline. No JVD or lymphadenopathy. CARDIOVASCULAR: Regular rate and rhythm without murmurs, gallops, or rubs. RESPIRATORY: Breath sounds equal bilaterally. No accessory muscle use. Lungs sounds are clear to auscultation GASTROINTESTINAL: Abdomen soft, non-tender, nondistended. No abdominal pain to palpation. MUSCULOSKELETAL: No cyanosis, or edema. BACK: Nontender without obvious deformity. No CVA tenderness. Data Data Last Documented VS Vital Signs Date Time Temp Pulse Resp B/P (MAP) Pulse Ox O2 Delivery O2 Flow Rate FiO2 02/05/18 19:34 70 13 100 Room Air 02/05/18 19:33 145/71 (95) 02/05/18 16:33 97.8 Orders Orders Complete Blood Count With Diff (02/05/18 17:11) Basic Metabolic Panel (Bmp) (02/05/18 17:11) Act Partial Throm Time (Ptt) (02/05/18 17:11) Urinalysis - C+S If Indicated (02/05/18 17:11) Prothrombin Time / Inr (Pt) (02/05/18 17:11) Type And Screen (02/05/18 17:11) Urine Culture (02/05/18 17:57) Urinary Catheter Insert/Apply (02/05/18 19:33) Ceftriaxone Inj (Rocephin Inj) (02/05/18 19:45) Admit Order (Ed Use Only) (02/05/18 20:04) Labs Laboratory Tests Test 02/05/18 17:25 02/05/18 17:57 White Blood Count 6.6 TH/MM3 Red Blood Count 2.90 MIL/MM3 Hemoglobin 8.0 GM/DL Hematocrit 23.9 % Mean Corpuscular Volume 82.3 FL Mean Corpuscular Hemoglobin 27.5 PG Mean Corpuscular Hemoglobin Concent 33.4 % Red Cell Distribution Width 17.5 % Platelet Count 410 TH/MM3 Mean Platelet Volume 6.9 FL Neutrophils (%) (Auto) 75.4 % Lymphocytes (%) (Auto) 13.6 % Monocytes (%) (Auto) 7.0 % Eosinophils (%) (Auto) 3.5 % Basophils (%) (Auto) 0.5 % Neutrophils # (Auto) 5.0 TH/MM3 Lymphocytes # (Auto) 0.9 TH/MM3 Monocytes # (Auto) 0.5 TH/MM3 Eosinophils # (Auto) 0.2 TH/MM3 Basophils # (Auto) 0.0 TH/MM3 CBC Comment DIFF FINAL Differential Comment Prothrombin Time 9.8 SEC Prothromb Time International Ratio 1.0 RATIO Activated Partial Thromboplast Time 26.8 SEC Blood Urea Nitrogen 10 MG/DL Creatinine 1.18 MG/DL Random Glucose 102 MG/DL Calcium Level 8.9 MG/DL Sodium Level 140 MEQ/L Potassium Level 4.1 MEQ/L Chloride Level 102 MEQ/L Carbon Dioxide Level 30.7 MEQ/L Anion Gap 7 MEQ/L Estimat Glomerular Filtration Rate 76 ML/MIN Urine Color LIGHT-RED Urine Turbidity CLEAR Urine pH 8.0 Urine Specific [place] 1.005 Urine Protein 100 mg/dL Urine Glucose (UA) NEG mg/dL Urine Ketones TRACE mg/dL Urine Occult Blood LARGE Urine Nitrite NEG Urine Bilirubin NEG Urine Urobilinogen LESS THAN 2.0 MG/DL Urine Leukocyte Esterase MOD Urine RBC /hpf Urine WBC 66 /hpf Urine Squamous Epithelial Cells <1 /hpf Urine Amorphous Sediment RARE Urine Bacteria OCC /hpf Microscopic Urinalysis Comment CULTURE INDICATED MDM Medical Decision Making Medical Screen Exam Complete: Yes Emergency Medical Condition: Yes Medical Record Reviewed: Yes Differential Diagnosis Hematuria versus UTI versus urinary retention versus anemia Narrative Course 62-year-old male presents to the emergency department for evaluation of hematuria. Patient has been admitted twice for this, the risks recently was January 25 through the . IV access established. CBC, BMP, PTT, PT/INR, UA, type and screen are ordered and pending. CBC shows hemoglobin 8.0, hematocrit 23.9. BMP showed no acute abnormality. Coags are unremarkable. UA shows large occult blood, innumerable rbc's, 66 WBC , occasional bacteria. Patient had Amaya placed after urinating, he had 100 mL of dark red urine out. Patient has history of symptomatic anemia due to hematuria. He'll be admitted for observation to recheck hemoglobin. Patient is given Rocephin 1 g IV for UTI. [facility] is paged for admission. Dr. Capps accepted admission. Diagnosis Primary Impression: Irradiation cystitis with hematuria Admitting Information Admitting Physician Requests: Observation Valentine Armendariz Feb 05, 2018 17:27
[2018-02-05 18:28] LABS: AMORPHOUS SEDIMENT, URINE RARE; BACTERIA, URINE OCC /hpf; BILIRUBIN, URINE NEG (NEG); BLOOD, URINE LARGE (NEG); GLUCOSE,URINE NEG (NEG); KETONE, URINE TRACE mg/dL (NEG); NITRITE,URINE NEG (NEG); SQUAMOUS EPITHELIAL CELL URINE <1 /hpf (0-5); URINE LEUKOCYTE ESTERASE MOD (NEG)
[2018-02-05 18:29] LABS: URINE COLOR LIGHT-RED (YELLW/STRAW)
[2018-02-05 18:52] LABS: BICARBONATE 30.7 MEQ/L (21.0-32.0); CALCIUM 8.9 MG/DL (8.5-10.1); CREATININE 1.18 MG/DL (0.60-1.30)
[2018-02-05 18:54] LABS: BASOPHIL % 0.5 % (0.0-2.0); EOSINOPHIL # 0.2 TH/MM3 (0-0.4); EOSINOPHIL % 3.5 % (0.0-4.0); HEMATOCRIT 23.9 % (39.0-51.0); LYMPH % 13.6 % (9.0-44.0); LYMPHOCYTE # 0.9 TH/MM3 (1.0-4.8); MEAN CELL VOLUME 82.3 FL (80.0-100.0); MEAN CORPUSCULAR HEMOGLOBIN 27.5 PG (27.0-34.0); MEAN CORPUSCULAR HGB CONC 33.4 % (32.0-36.0); MEAN PLATELET VOLUME 6.9 FL (7.0-11.0); MONOCYTE # 0.5 TH/MM3 (0-0.9); NEUT % 75.4 % (16.0-70.0); PLATELET COUNT 410 TH/MM3 (150-450); RED CELL DISTRIBUTION WIDTH 17.5 % (11.6-17.2); WHITE BLOOD COUNT 6.6 TH/MM3 (4.0-11.0)
[2018-02-05 19:12] LABS: PROTHROMBIN TIME - PATIENT 9.8 SEC (9.8-11.6)
[2018-02-05 19:33] VITALS: BP 145/71; PULSE 71; RESP 16; O2SAT 100
[2018-02-05] MEDS ORDERED: cefTRIAXone INJ 1,000 MG in SODIUM CHLORIDE 0.9% INJ 100 ML IV ONE (19:45)
[2018-02-05] MEDS ORDERED: SODIUM CHLOR 0.9% 1000 ML INJ 1,000 ML IV SCH (22:21)
[2018-02-05] MEDS ORDERED: SODIUM CHLORIDE 0.9% FLUSH 10 ML FLUSH IV FLUSH PRN (22:30)
[2018-02-05] MEDS ORDERED: LACTULOSE SYRUP 20 GM/30 ML CUP PO PRN (22:30)
[2018-02-05] MEDS ORDERED: BISACODYL 10 MG SUPP RECTAL PRN (22:30)
[2018-02-05] MEDS ORDERED: DEXTROSE 50% IN WATER 50 ML VIAL(D50) IV PUSH PRN (22:30)
[2018-02-05] MEDS ORDERED: GLUCAGON 1 MG/ML VIAL OTHER PRN (22:30)
[2018-02-05] MEDS ORDERED: NALOXONE HCL 0.4 MG/ML AMP IV PUSH PRN (22:30)
[2018-02-05] MEDS ORDERED: MAGNESIUM HYDROXIDE SUSP 30 ML CUP PO PRN (22:30)
[2018-02-05] MEDS ORDERED: SENNOSIDES 8.6 MG TAB PO PRN (22:30)
[2018-02-05] MEDS ORDERED: ACETAMINOPHEN 325 MG TAB PO PRN (22:30)
[2018-02-05] MEDS ORDERED: ONDANSETRON HCL 4 MG/2 ML VIAL IVP PRN (22:30)
[2018-02-06 00:14] LABS: HEMATOCRIT 22.4 % (39.0-51.0); HEMOGLOBIN 7.4 GM/DL (13.0-17.0)
[2018-02-06 02:23] VITALS: BP 134/66; PULSE 67; RESP 16; O2SAT 100
[2018-02-06 03:59] VITALS: BP 158/81; PULSE 61; RESP 16; TEMP 98.1; O2SAT 99
--- NOTE | 2018-02-06 04:27 | HHI.HP ---
HPI Service [facility] Primary Care Physician Unknown Admission Diagnosis gross hematuria, UTI Diagnoses: Travel History International Travel<30 Days: No Contact w/Intl Traveler <30 Da: No Traveled to Known Affected Are: No History of Present Illness 62-year-old male with past medical history significant for chronic back pain, history of prostate cancer, radiation induced cystitis, diabetes mellitus, hypertension and hyperlipidemia presents the emergency department for the evaluation of hematuria. The patient has an indwelling catheter and earlier yesterday he noticed blood in his urine. He reports he went to his hyperbaric treatment for his cystitis today. He denies any fatigue or dizziness. No heart palpitations. No chest pain or shortness of breath. No abdominal pain. No nausea/vomiting/diarrhea. No fever/chills. No lateralizing signs/symptoms. Review of Systems Except as stated in HPI: all other systems reviewed are Neg Past Family Social History Past Medical History Radiation cystitis History of prostate cancer Diabetes mellitus Hypertension Hyperlipidemia Past Surgical History Back surgery Right cellular surgery Right arm surgery Prostate radiation Reported Medications Reported Meds & Active Scripts Active Sulfamethoxazole-Trimethoprim 800-160 Mg Tab 1 Tab PO Q12HR Finasteride 5 Mg Tab 5 Mg PO DAILY 30 Days Do not crush. Ditropan (Oxybutynin Chloride) 5 Mg Tab 5 Mg PO Q12HR 30 Days Reported Furosemide 40 Mg Tab 40 Mg PO BID Omeprazole 20 Mg Tab 20 Mg PO DAILY Vitamin B-12 (Cyanocobalamin) 1,000 Mcg Tab 1,000 Mcg PO DAILY Multiple Vitamin 1 Tab 1 Tab PO DAILY Vitamin D-1000 (Cholecalciferol) 1,000 Unit Tab 1,000 Units PO DAILY Novolog Inj (Insulin Aspart) 1,000 Unit/10 Ml Vial 34 Units SQ BID Glipizide 5 Mg Tab 5 Mg PO BIDAC Take 30 minutes before a meal Hydrocodone-Acetaminophen 10-325 mg Tab 1 Tab PO Q6H PRN Oxycodone (Oxycodone HCl) 30 Mg Tab 30 Mg PO Q6H PRN Lisinopril 10 Mg Tab 10 Mg PO DAILY Metformin (Metformin HCl) 1,000 Mg Tab 1,000 Mg PO BIDPC Allergies: Coded Allergies: No Known Allergies (Verified Allergy, Unknown, 01/25/18) Family History Father with diabetes mellitus Social History Denies alcohol, tobacco and illicit drugs. Physical Exam Vital Signs Vital Signs Date Time Temp Pulse Resp B/P (MAP) Pulse Ox O2 Delivery O2 Flow Rate FiO2 02/06/18 03:59 98.1 61 16 158/81 (106) 99 Room Air 02/06/18 02:23 67 16 134/66 (88) 100 Room Air 02/05/18 19:34 70 13 100 Room Air 02/05/18 19:33 71 16 145/71 (95) 100 Room Air 02/05/18 17:02 71 17 132/68 (89) 100 Room Air 02/05/18 16:33 97.8 71 16 143/64 (90) 100 Physical Exam GENERAL: -[place] male patient lying in bed SKIN: No rashes, ecchymoses or lesions. Cool and dry. HEAD: Atraumatic. Normocephalic. No temporal or scalp tenderness. EYES: Pupils equal round and reactive. Extraocular motions intact. No scleral icterus. No injection or drainage. ENT: Nose without bleeding, purulent drainage or septal hematoma. Throat without erythema, tonsillar hypertrophy or exudate. Uvula midline. Airway patent. NECK: Trachea midline. No JVD or lymphadenopathy. Supple, nontender, no meningeal signs. CARDIOVASCULAR: Regular rate and rhythm without murmurs, gallops, or rubs. RESPIRATORY: Clear to auscultation. Breath sounds equal bilaterally. No wheezes , rales, or rhonchi. GASTROINTESTINAL: Abdomen soft, non-tender, nondistended. No hepato-splenomegaly , or palpable masses. No guarding. : Amaya in place with [place] colored clear urine MUSCULOSKELETAL: Extremities without clubbing, cyanosis, or edema. No joint tenderness, effusion, or edema noted. No calf tenderness. NEUROLOGICAL: Awake and alert. Cranial nerves II through XII intact. Motor and sensory grossly within normal limits. Normal speech. Laboratory Laboratory Tests Test 02/05/18 17:25 02/05/18 17:57 02/06/18 00:00 White Blood Count 6.6 Red Blood Count 2.90 Hemoglobin 8.0 7.4 Hematocrit 23.9 22.4 Mean Corpuscular Volume 82.3 Mean Corpuscular Hemoglobin 27.5 Mean Corpuscular Hemoglobin Concent 33.4 Red Cell Distribution Width 17.5 Platelet Count 410 Mean Platelet Volume 6.9 Neutrophils (%) (Auto) 75.4 Lymphocytes (%) (Auto) 13.6 Monocytes (%) (Auto) 7.0 Eosinophils (%) (Auto) 3.5 Basophils (%) (Auto) 0.5 Neutrophils # (Auto) 5.0 Lymphocytes # (Auto) 0.9 Monocytes # (Auto) 0.5 Eosinophils # (Auto) 0.2 Basophils # (Auto) 0.0 CBC Comment DIFF FINAL Differential Comment Prothrombin Time 9.8 Prothromb Time International Ratio 1.0 Activated Partial Thromboplast Time 26.8 Blood Urea Nitrogen 10 Creatinine 1.18 Random Glucose 102 Calcium Level 8.9 Sodium Level 140 Potassium Level 4.1 Chloride Level 102 Carbon Dioxide Level 30.7 Anion Gap 7 Estimat Glomerular Filtration Rate 76 Urine Color LIGHT-RED Urine Turbidity CLEAR Urine pH 8.0 Urine Specific [place] 1.005 Urine Protein 100 Urine Glucose (UA) NEG Urine Ketones TRACE Urine Occult Blood LARGE Urine Nitrite NEG Urine Bilirubin NEG Urine Urobilinogen LESS THAN 2.0 Urine Leukocyte Esterase MOD Urine RBC Urine WBC 66 Urine Squamous Epithelial Cells <1 Urine Amorphous Sediment RARE Urine Bacteria OCC Microscopic Urinalysis Comment CULTURE INDICATED Date/Time Source Procedure Growth Status 02/05/18 17:57 Urine Clean Catch Urine Culture Pending Received Result Diagram: 02/06/18 0000 02/05/18 1725 Caprini VTE Risk Assessment Caprini VTE Risk Assessment: No/Low Risk (score <= 1) Caprini Risk Assessment Model Point Value = 1 Point Value = 2 Point Value = 3 Point Value = 5 Age 41-60 Minor surgery BMI > 25 kg/m2 Swollen legs Varicose veins or History of unexplained or recurrent spontaneous Oral contraceptives or hormone replacement Sepsis (< 1 month) Serious lung disease, including pneumonia (< 1 month) Abnormal pulmonary function Acute myocardial infarction Congestive heart failure (< 1 month) History of inflammatory bowel disease Medical patient at bed rest Age 61-74 Arthroscopic surgery Major open surgery (> 45 min) Laparoscopic surgery (> 45 min) Malignancy Confined to bed (> 72 hours) Immobilizing plaster cast Central venous access Age >= 75 History of VTE Family history of VTE Factor V Leiden Prothrombin [id number] Lupus anticoagulant Anticardiolipin antibodies Elevated serum homocysteine Heparin-induced thrombocytopenia Other congenital or acquired thrombophilia Stroke (< 1 month) Elective arthroplasty Hip, pelvis, or leg fracture Acute spinal cord injury (< 1 month) Prophylaxis Regimen Total Risk Factor Score Risk Level Prophylaxis Regimen 0-1 Low Early ambulation 2 Moderate Order ONE of the following: *Sequential Compression Device (SCD) *Heparin 5000 units SQ BID 3-4 Higher Order ONE of the following medications: *Heparin 5000 units SQ TID *Enoxaparin/Lovenox 40 mg SQ daily (WT < 150 kg, CrCl > 30 mL/min) *Enoxaparin/Lovenox 30 mg SQ daily (WT < 150 kg, CrCl > 10-29 mL/min) *Enoxaparin/Lovenox 30 mg SQ BID (WT < 150 kg, CrCl > 30 mL/min) AND/OR *Sequential Compression Device (SCD) 5 or more Highest Order ONE of the following medications: *Heparin 5000 units SQ TID (Preferred with Epidurals) *Enoxaparin/Lovenox 40 mg SQ daily (WT < 150 kg, CrCl > 30 mL/min) *Enoxaparin/Lovenox 30 mg SQ daily (WT < 150 kg, CrCl > 10-29 mL/min) *Enoxaparin/Lovenox 30 mg SQ BID (WT < 150 kg, CrCl > 30 mL/min) AND *Sequential Compression Device (SCD) Assessment and Plan Assessment and Plan Assessment/plan: 1. Hematuria/anemia Patient currently undergoing hyperbaric oxygen treatment for his cystitis History of hematuria requiring blood transfusions in the past Initial H&H 8.0/23.9, repeat 7.4/22.4 1 unit packed red blood cells on hold H&H every 6 hours Transfuse as needed Urology consulted, appreciate assistance 2. Diabetes mellitus Sliding-scale insulin Monitor blood glucose 3. Hypertension/hyperlipidemia Continue home medications 4. UTI UA consistent with UTI Urine culture pending Rocephin Urine culture from 01/25/18 Klebsiella, pansensitive 5. Chronic back pain [place] FEN NPO Electrolytes: monitor and replete prn Holding pharmacologic anticoagulation secondary to active bleeding Grace Capps MD Feb 06, 2018 04:26
[2018-02-06 07:10] LABS: AUTOMATED NEUTROPHIL # 5.2 TH/MM3 (1.8-7.7); BASOPHIL % 0.5 % (0.0-2.0); EOSINOPHIL # 0.3 TH/MM3 (0-0.4); EOSINOPHIL % 4.5 % (0.0-4.0); HEMATOCRIT 21.8 % (39.0-51.0); HEMOGLOBIN 7.4 GM/DL (13.0-17.0); LYMPH % 19.2 % (9.0-44.0); LYMPHOCYTE # 1.4 TH/MM3 (1.0-4.8); MEAN CELL VOLUME 80.9 FL (80.0-100.0); MEAN CORPUSCULAR HEMOGLOBIN 27.2 PG (27.0-34.0); MEAN CORPUSCULAR HGB CONC 33.6 % (32.0-36.0); MEAN PLATELET VOLUME 6.6 FL (7.0-11.0); MONO % 7.3 % (0.0-8.0); MONOCYTE # 0.6 TH/MM3 (0-0.9); NEUT % 68.5 % (16.0-70.0); PLATELET COUNT 400 TH/MM3 (150-450); RED CELL DISTRIBUTION WIDTH 17.7 % (11.6-17.2); WHITE BLOOD COUNT 7.6 TH/MM3 (4.0-11.0)
[2018-02-06 07:35] LABS: BICARBONATE 29.2 MEQ/L (21.0-32.0); CALCIUM 8.6 MG/DL (8.5-10.1); CREATININE 1.06 MG/DL (0.60-1.30)
[2018-02-06] MEDS: INSULIN ASPART SUPPLEMENTAL SCALE SQ SCH ×4 (08:00→21:00)
[2018-02-06 08:22] VITALS: BP 136/69; PULSE 80; RESP 20; TEMP 99.1; O2SAT 98
[2018-02-06] MEDS ORDERED: NON-FORMULARY DRUG (Omeprazole 20 MG) PO SCH (09:00)
--- NOTE | 2018-02-06 09:34 | HHI.PR ---
Subjective Remarks Follow up for hematuria. The patient reports continued hematuria overnight with small amount of clots. RN reports catheter draining well with good output. The patient denies any abdominal pain, nausea/vomiting, or fevers/chills. Denies any lightheadedness, dizziness, chest pain, or shortness of breath. He states he goes to hyperbaric treatments 5x/week. He states yesterday he had some blood tinged urine prior to treatment, however during the hyperbaric treatment developed dark gross hematuria with clots. He has no other medical complaints at this time. Objective Vitals Vital Signs Date Time Temp Pulse Resp B/P (MAP) Pulse Ox O2 Delivery O2 Flow Rate FiO2 02/06/18 08:22 99.1 80 20 136/69 (91) 98 02/06/18 03:59 98.1 61 16 158/81 (106) 99 Room Air 02/06/18 02:23 67 16 134/66 (88) 100 Room Air 02/05/18 19:34 70 13 100 Room Air 02/05/18 19:33 71 16 145/71 (95) 100 Room Air 02/05/18 17:02 71 17 132/68 (89) 100 Room Air 02/05/18 16:33 97.8 71 16 143/64 (90) 100 I/O 02/05/18 02/05/18 02/05/18 02/06/18 02/06/18 02/06/18 07:00 15:00 23:00 07:00 15:00 23:00 Output Total 900 ml 1550 ml Balance -900 ml -1550 ml Output Urine Total 900 ml 1550 ml Result Diagram: 02/06/1838 02/06/18 06 Objective Remarks GENERAL: Well-nourished, well-developed male patient in [facility]. SKIN: Warm and dry. No rash. HEENT: Normocephalic. Atraumatic.Pupils equal and round. Mucous membranes pink and moist. CARDIOVASCULAR: Regular rate and rhythm. No murmur appreciated. RESPIRATORY: No accessory muscle use. Clear to auscultation. Breath sounds equal bilaterally. GASTROINTESTINAL: Abdomen soft, non-tender, nondistended. Normoactive bowel sounds x4. GENITOURINARY: Velazquez in place with gross hematuria, small amount of dark clots in tubing. MUSCULOSKELETAL: No obvious deformities. 1+ bilateral anterior tibial edema. NEUROLOGICAL: Awake and alert. No obvious cranial nerve deficits. Motor grossly within normal limits. Normal speech. PSYCHIATRIC: Appropriate mood and affect; insight and judgment normal. Medications and IVs Current Medications Medications (Trade) Dose Ordered Sig/Daisy Route Start Time Stop Time Status Last Admin (NS Flush) 2 ml UNSCH PRN IV FLUSH 02/05/18 22:30 (NS Flush) 2 ml BID IV FLUSH 02/06/18 09:00 02/06/18 10:17 (Tylenol) 650 mg Q4H PRN PO 02/05/18 22:30 (Zofran Inj) 4 mg Q6H PRN IVP 02/05/18 22:30 (Narcan Inj) 0.4 mg UNSCH PRN IV PUSH 02/05/18 22:30 (Arianna-Colace) 1 tab BID PO 02/06/18 09:00 02/06/18 10:15 (Milk Of Magnesia Liq) 30 ml Q12H PRN PO 02/05/18 22:30 (Senokot) 17.2 mg Q12H PRN PO 02/05/18 22:30 (Dulcolax Supp) 10 mg DAILY PRN RECTAL 02/05/18 22:30 (Lactulose Liq) 30 ml DAILY PRN PO 02/05/18 22:30 (Proscar) 5 mg DAILY PO 02/06/18 09:00 02/06/18 10:16 (Lasix) 40 mg BID PO 02/06/18 09:00 02/06/18 10:16 ([place] 10-325 Mg) 1 tab Q6H PRN PO 02/05/18 22:30 (Prinivil) 10 mg DAILY PO 02/06/18 09:00 02/06/18 10:15 (Ditropan) 5 mg Q12HR PO 02/06/18 09:00 02/06/18 10:16 (D50w (Vial) Inj) 50 ml UNSCH PRN IV PUSH 02/05/18 22:30 (Glucagon Inj) 1 mg UNSCH PRN OTHER 02/05/18 22:30 (NovoLOG SUPPLEMENTAL SCALE) 1 ACHS SLIDING SCALE SQ 02/06/18 08:00 (Protonix) 20 mg DAILY PO 02/06/18 09:00 02/06/18 10:15 Ceftriaxone Sodium 2000 mg/ Sodium Chloride 100 ml @ 200 mls/hr Q24H IV 02/06/18 21:00 A/P Assessment and Plan 62-year-old male with past medical history significant for chronic back pain, history of prostate cancer, radiation induced cystitis, diabetes mellitus, hypertension and hyperlipidemia presents the emergency department for the evaluation of hematuria. Hematuria/anemia: patient currently undergoing hyperbaric oxygen treatment for his cystitis. History of hematuria requiring blood transfusions in the past. -Hgb currently stable at 8.0 --> 7.4 --> 7.4 -1 unit packed red blood cells on hold -Continue to monitor H&H every 6 hours, transfuse if Hgb < 7.0 -Monitor output from velazquez -Urology consulted, appreciate assistance UTI: UA consistent with UTI. EMR reviewed, Urine culture from 01/25/18 Klebsiella , pansensitive -Continue antibiotics with IV Rocephin -Urine culture pending Diabetes mellitus: chronic -hold patient's metformin and glipizide for now as patient is NPO -Monitor Accu-checks and cover with SSI Hypertension/hyperlipidemia: chronic, stable -continue home meds including lisinopril and lasix Chronic back pain: chronic -Continue [place] DVT Prophylaxis: teds/SCDs; Holding pharmacologic anticoagulation secondary to active bleeding Discharge Planning Not yet ready for discharge. Continue to monitor H&H. Await urology consult. Rose Hale PA-C Feb 06, 2018 9:33 am
[2018-02-06] MEDS: LISINOPRIL 10 MG TAB PO SCH (10:15)
[2018-02-06] MEDS: DOCUSATE SODIUM 50 MG/SENNA 8.6 MG TAB PO SCH ×2 (10:15→23:27)
[2018-02-06] MEDS: PANTOPRAZOLE SOD 20 MG DELAYED RELEASE TAB PO SCH (10:15)
[2018-02-06] MEDS: OXYBUTYNIN CHLORIDE 5 MG TAB PO SCH ×2 (10:16→23:28)
[2018-02-06] MEDS: FUROSEMIDE 40 MG TAB PO SCH ×2 (10:16→23:25)
[2018-02-06] MEDS: FINASTERIDE 5 MG TAB PO SCH (10:16)
[2018-02-06] MEDS: SODIUM CHLORIDE 0.9% FLUSH 10 ML FLUSH IV FLUSH SCH ×2 (10:17→21:00)
[2018-02-06] MEDS ORDERED: SODIUM CHLOR 0.9% 1000 ML INJ 1,000 ML IV ONE (12:00)
[2018-02-06 13:27] VITALS: BP 146/72; PULSE 66; RESP 18; TEMP 99; O2SAT 100
[2018-02-06 13:29] LABS: HEMATOCRIT 23.3 % (39.0-51.0); HEMOGLOBIN 7.7 GM/DL (13.0-17.0)
[2018-02-06] MEDS: ACETAMINOPHEN/HYDROcodone 325 MG/10 MG TAB PO PRN ×3 (13:39→23:25)
[2018-02-06 15:51] VITALS: BP 128/59; PULSE 61; RESP 18; TEMP 99.3; O2SAT 100
--- NOTE | 2018-02-06 16:21 | PD.CONS ---
HPI Service Urology Consult Requested By Dr Capps Reason for Consult Hematuria Primary Care Physician Unknown Diagnosis: (1) Hematuria ICD Code: R31.9 - Hematuria, unspecified (2) Prostate cancer ICD Code: C61 - Malignant neoplasm of prostate History of Present Illness 62y.o M pt of Dr Wallace but also sees Urologist Dr Carrera at [place]. he has h/ o Prostate cancer, treated with XRT in 2009. He was doing well until 2017 when started to have hematuria episodes. he is now started hyperbaric chamber treatment for radiation cystitis and had 4 out 40 sessions. yesterday developed hematuria with clots again and came to ER. has [address]. urine is light red color. Not on CBI. has a few clots in tubing. no f/c/n/v, no pain. H/ H is now better and blood transfusion is on hold. ( had Hgb 7.4, now its 8). No other c/o Review of Systems Except as stated in HPI: all other systems reviewed are Neg Past Family Social History Past Medical History Radiation cystitis History of prostate cancer Diabetes mellitus Hypertension Hyperlipidemia Past Surgical History Back surgery Right cellular surgery Right arm surgery Prostate radiation Allergies: Coded Allergies: No Known Allergies (Verified Allergy, Unknown, 01/25/18) Family History Father with diabetes mellitus Social History Denies alcohol, tobacco and illicit drugs. Physical Exam Vital Signs Date Time Temp Pulse Resp B/P (MAP) Pulse Ox O2 Delivery O2 Flow Rate FiO2 02/06/18 15:51 99.3 61 18 128/59 (82) 100 02/06/18 13:27 99.0 66 18 146/72 (96) 100 02/06/18 08:22 99.1 80 20 136/69 (91) 98 02/06/18 03:59 98.1 61 16 158/81 (106) 99 Room Air 02/06/18 02:23 67 16 134/66 (88) 100 Room Air 02/05/18 19:34 70 13 100 Room Air 02/05/18 19:33 71 16 145/71 (95) 100 Room Air 02/05/18 17:02 71 17 132/68 (89) 100 Room Air 02/05/18 16:33 97.8 71 16 143/64 (90) 100 Physical Exam GENERAL: This is a well-nourished, well-developed patient, in no apparent distress. CARDIOVASCULAR: Regular rate and rhythm without murmurs, gallops, or rubs. RESPIRATORY: Clear to auscultation. Breath sounds equal bilaterally. No wheezes , rales, or rhonchi. GASTROINTESTINAL: Abdomen soft, non-tender, nondistended. GENITOURINARY:Velazquez is in place draining pink urine. Bladder not distended MUSCULOSKELETAL: Extremities without clubbing, cyanosis, or edema. NEUROLOGICAL: Awake and alert. Lab results reviewed: Yes Laboratory Tests Test 02/05/18 17:25 02/05/18 17:57 02/06/18 00:00 02/06/18 06:38 White Blood Count 6.6 7.6 Red Blood Count 2.90 2.70 Hemoglobin 8.0 7.4 7.4 Hematocrit 23.9 22.4 21.8 Mean Corpuscular Volume 82.3 80.9 Mean Corpuscular Hemoglobin 27.5 27.2 Mean Corpuscular Hemoglobin Concent 33.4 33.6 Red Cell Distribution Width 17.5 17.7 Platelet Count 410 400 Mean Platelet Volume 6.9 6.6 Neutrophils (%) (Auto) 75.4 68.5 Lymphocytes (%) (Auto) 13.6 19.2 Monocytes (%) (Auto) 7.0 7.3 Eosinophils (%) (Auto) 3.5 4.5 Basophils (%) (Auto) 0.5 0.5 Neutrophils # (Auto) 5.0 5.2 Lymphocytes # (Auto) 0.9 1.4 Monocytes # (Auto) 0.5 0.6 Eosinophils # (Auto) 0.2 0.3 Basophils # (Auto) 0.0 0.0 CBC Comment DIFF FINAL DIFF FINAL Differential Comment Prothrombin Time 9.8 Prothromb Time International Ratio 1.0 Activated Partial Thromboplast Time 26.8 Blood Urea Nitrogen 10 8 Creatinine 1.18 1.06 Random Glucose 102 95 Calcium Level 8.9 8.6 Sodium Level 140 143 Potassium Level 4.1 3.9 Chloride Level 102 107 Carbon Dioxide Level 30.7 29.2 Anion Gap 7 7 Estimat Glomerular Filtration Rate 76 86 Urine Color LIGHT-RED Urine Turbidity CLEAR Urine pH 8.0 Urine Specific [place] 1.005 Urine Protein 100 Urine Glucose (UA) NEG Urine Ketones TRACE Urine Occult Blood LARGE Urine Nitrite NEG Urine Bilirubin NEG Urine Urobilinogen LESS THAN 2.0 Urine Leukocyte Esterase MOD Urine RBC Urine WBC 66 Urine Squamous Epithelial Cells <1 Urine Amorphous Sediment RARE Urine Bacteria OCC Microscopic Urinalysis Comment CULTURE INDICATED Test 02/06/18 13:14 Hemoglobin 7.7 Hematocrit 23.3 Date/Time Source Procedure Growth Status 02/05/18 17:57 Urine Clean Catch Urine Culture - Preliminary NO GROWTH IN 24 HOURS. Resulted Result Diagram: 02/06/18 1314 02/06/18 0638 Assessment and Plan Assessment and Plan 62y.o m with radiation cystitis and hematuria. he is s/p xrt for [employer] in 2009. Started hyperbaric oxygen chamber treatment recently No acute intervention by needed Continue care as per primary team Monitor I&O Do bladder scan to make sure he is not in clot retention Monitor H/H and transfuse as needed based on numbers Keep velazquez cath in. Manually irrigate to remove clots, if unable to irrigate manually or velazquez is clogged start CBI Remove velazquez once hematuria improves Pt to f/u with Dr Wallace as outpt Discussed Condition With Discussed with Dr Matthew SOLOMON attending who agrees with this plan Barry Howard Feb 06, 2018 16:21
[2018-02-06 17:36] LABS: HEMOGLOBIN 7.4 GM/DL (13.0-17.0)
[2018-02-06 20:02] VITALS: BP 132/63; PULSE 82; RESP 18; TEMP 99.2; O2SAT 99
[2018-02-06] MEDS ORDERED: cefTRIAXone INJ 2,000 MG in SODIUM CHLORIDE 0.9% INJ 100 ML IV SCH (21:00)
[2018-02-07] VITALS (14 sets, daily range): BP systolic 132–164; BP diastolic 64–80; PULSE 60–88; RESP 16–20; TEMP 97.4–99.2; O2SAT 96–100
[2018-02-07] MEDS: ACETAMINOPHEN/HYDROcodone 325 MG/10 MG TAB PO PRN ×3 (06:07→21:53)
[2018-02-07] MEDS: INSULIN ASPART SUPPLEMENTAL SCALE SQ SCH ×4 (08:00→22:45)
[2018-02-07 08:40] LABS: AUTOMATED NEUTROPHIL # 6.8 TH/MM3 (1.8-7.7); BASOPHIL % 0.4 % (0.0-2.0); EOSINOPHIL # 0.2 TH/MM3 (0-0.4); EOSINOPHIL % 2.5 % (0.0-4.0); HEMATOCRIT 22.1 % (39.0-51.0); HEMOGLOBIN 7.3 GM/DL (13.0-17.0); LYMPH % 13.2 % (9.0-44.0); LYMPHOCYTE # 1.1 TH/MM3 (1.0-4.8); MEAN CELL VOLUME 80.8 FL (80.0-100.0); MEAN CORPUSCULAR HEMOGLOBIN 26.8 PG (27.0-34.0); MEAN CORPUSCULAR HGB CONC 33.1 % (32.0-36.0); MEAN PLATELET VOLUME 6.5 FL (7.0-11.0); MONO % 5.3 % (0.0-8.0); MONOCYTE # 0.5 TH/MM3 (0-0.9); NEUT % 78.6 % (16.0-70.0); PLATELET COUNT 409 TH/MM3 (150-450); RED BLOOD COUNT 2.73 MIL/MM3 (4.50-5.90); RED CELL DISTRIBUTION WIDTH 17.6 % (11.6-17.2); WHITE BLOOD COUNT 8.6 TH/MM3 (4.0-11.0)
[2018-02-07 09:09] LABS: BICARBONATE 29.9 MEQ/L (21.0-32.0); CALCIUM 8.8 MG/DL (8.5-10.1); CREATININE 1.17 MG/DL (0.60-1.30)
--- NOTE | 2018-02-07 10:12 | HHI.PR ---
Subjective Remarks Follow up for hematuria. The patient reports continued hematuria, although he does believe it is slightly improved compared to yesterday. No clots in Velazquez bag currently. Denies any lightheadedness, dizziness, chest pain, or shortness of breath. Denies any abdominal pain, nausea/vomiting. Last BM 2 days ago. He has no other medical complaints at this time. Objective Vitals Vital Signs Date Time Temp Pulse Resp B/P (MAP) Pulse Ox O2 Delivery O2 Flow Rate FiO2 02/07/18 07:55 98.2 66 20 140/74 (96) 98 02/07/18 04:28 98.3 73 16 146/71 (96) 99 02/07/18 01:02 97.4 88 16 134/64 (87) 97 02/07/18 00:49 18 02/07/18 00:49 18 02/06/18 20:02 99.2 82 18 132/63 (86) 99 02/06/18 15:51 99.3 61 18 128/59 (82) 100 02/06/18 13:27 99.0 66 18 146/72 (96) 100 I/O 02/06/18 02/06/18 02/06/18 02/07/18 02/07/18 02/07/18 07:00 15:00 23:00 07:00 15:00 23:00 Intake Total 200 ml Output Total 1550 ml 3100 ml 1450 ml Balance -1550 ml -3100 ml -1450 ml 200 ml Intake Oral 200 ml Output Urine Total 1550 ml 3100 ml 1450 ml Result Diagram: 02/07/18 0815 02/07/18 0815 Objective Remarks GENERAL: Well-nourished, well-developed male patient in [facility]. SKIN: Warm and dry. No rash. HEENT: Normocephalic. Atraumatic.Pupils equal and round. Mucous membranes pink and moist. CARDIOVASCULAR: Regular rate and rhythm. No murmur appreciated. RESPIRATORY: No accessory muscle use. Clear to auscultation. Breath sounds equal bilaterally. GASTROINTESTINAL: Abdomen soft, non-tender, nondistended. Normoactive bowel sounds x4. GENITOURINARY: Velazquez in place with gross hematuria, no noticeable clots in Velazquez. MUSCULOSKELETAL: No obvious deformities. 1+ bilateral anterior tibial edema, improved. NEUROLOGICAL: Awake and alert. No obvious cranial nerve deficits. Motor grossly within normal limits. Normal speech. PSYCHIATRIC: Appropriate mood and affect; insight and judgment normal. Medications and IVs Current Medications Medications (Trade) Dose Ordered Sig/Daisy Route Start Time Stop Time Status Last Admin (NS Flush) 2 ml UNSCH PRN IV FLUSH 02/05/18 22:30 (NS Flush) 2 ml BID IV FLUSH 02/06/18 09:00 02/07/18 11:04 (Tylenol) 650 mg Q4H PRN PO 02/05/18 22:30 02/06/18 23:27 (Zofran Inj) 4 mg Q6H PRN IVP 02/05/18 22:30 (Narcan Inj) 0.4 mg UNSCH PRN IV PUSH 02/05/18 22:30 (Arianna-Colace) 1 tab BID PO 02/06/18 09:00 02/07/18 11:04 (Milk Of Magnesia Liq) 30 ml Q12H PRN PO 02/05/18 22:30 (Senokot) 17.2 mg Q12H PRN PO 02/05/18 22:30 (Dulcolax Supp) 10 mg DAILY PRN RECTAL 02/05/18 22:30 (Lactulose Liq) 30 ml DAILY PRN PO 02/05/18 22:30 (Proscar) 5 mg DAILY PO 02/06/18 09:00 02/07/18 11:06 (Lasix) 40 mg BID PO 02/06/18 09:00 02/07/18 11:05 ([place] 10-325 Mg) 1 tab Q6H PRN PO 02/05/18 22:30 02/07/18 06:07 (Prinivil) 10 mg DAILY PO 02/06/18 09:00 02/07/18 11:06 (Ditropan) 5 mg Q12HR PO 02/06/18 09:00 02/07/18 11:06 (D50w (Vial) Inj) 50 ml UNSCH PRN IV PUSH 02/05/18 22:30 (Glucagon Inj) 1 mg UNSCH PRN OTHER 02/05/18 22:30 (NovoLOG SUPPLEMENTAL SCALE) 1 ACHS SLIDING SCALE SQ 02/06/18 08:00 (Protonix) 20 mg DAILY PO 02/06/18 09:00 02/07/18 11:05 Ceftriaxone Sodium 2000 mg/ Sodium Chloride 100 ml @ 200 mls/hr Q24H IV 02/06/18 21:00 02/07/18 02:48 A/P Problem List: (1) Hematuria ICD Code: R31.9 - Hematuria, unspecified (2) Prostate cancer ICD Code: C61 - Malignant neoplasm of prostate Assessment and Plan 62-year-old male with past medical history significant for chronic back pain, history of prostate cancer, radiation induced cystitis, diabetes mellitus, hypertension and hyperlipidemia presents the emergency department for the evaluation of hematuria. Hematuria/anemia: patient currently undergoing hyperbaric oxygen treatment for his cystitis. History of hematuria requiring blood transfusions in the past. -Hgb currently stable at 8.0 --> 7.4 --> 7.4 --> 7.3 -1 unit packed red blood cells on hold -Continue to monitor H&H, transfuse if Hgb < 7.0 -Monitor output from velazquez -Urology consulted, appreciate assistance, no acute surgical intervention at this time, continue Velazquez, irrigate as needed to remove clots -hematuria improving slowly, continue to monitor UTI: UA consistent with UTI. EMR reviewed, Urine culture from 01/25/18 Klebsiella , pansensitive -Continue antibiotics with IV Rocephin -Urine culture with no growth so far, if final culture with no growth, will d /c antibiotics Diabetes mellitus: chronic -hold patient's metformin and glipizide for now as patient is NPO -Monitor Accu-checks and cover with SSI Hypertension/hyperlipidemia: chronic, stable -continue home meds including lisinopril and lasix Chronic back pain: chronic -Continue [place] DVT Prophylaxis: teds/SCDs; Holding pharmacologic anticoagulation secondary to active bleeding Discharge Planning Not yet ready for discharge. Continue to monitor H&H and hematuria. Attending Statement patient was seen and examined today. Hematuria is improving. no chest pain, sob or dizziness. dc planning within the next 24 hrs if hematuria continues to improve and remains stable. Rose Hale PA-C Feb 07, 2018 10:12 Yovani Meade MD Feb 07, 2018 12:58
[2018-02-07] MEDS ORDERED: BISACODYL EC 5 MG TABEC PO ONE (11:00)
[2018-02-07] MEDS: DOCUSATE SODIUM 50 MG/SENNA 8.6 MG TAB PO SCH ×2 (11:04→21:52)
[2018-02-07] MEDS: SODIUM CHLORIDE 0.9% FLUSH 10 ML FLUSH IV FLUSH SCH ×2 (11:04→21:53)
[2018-02-07] MEDS: FUROSEMIDE 40 MG TAB PO SCH ×2 (11:05→21:51)
[2018-02-07] MEDS: PANTOPRAZOLE SOD 20 MG DELAYED RELEASE TAB PO SCH (11:05)
[2018-02-07] MEDS: OXYBUTYNIN CHLORIDE 5 MG TAB PO SCH ×2 (11:06→21:52)
[2018-02-07] MEDS: FINASTERIDE 5 MG TAB PO SCH (11:06)
[2018-02-07] MEDS: LISINOPRIL 10 MG TAB PO SCH (11:06)
[2018-02-07 15:06] LABS: HEMATOCRIT 21.9 % (39.0-51.0); HEMOGLOBIN 7.3 GM/DL (13.0-17.0)
[2018-02-07] MEDS ORDERED: SODIUM CHLOR 0.9% 250 ML INJ 250 ML IV ONE (15:30)
[2018-02-08 04:00] VITALS: BP 154/74; PULSE 64; RESP 18; TEMP 98.8; O2SAT 99
[2018-02-08 07:58] VITALS: BP 152/72; PULSE 63; RESP 20; TEMP 99.1; O2SAT 99
[2018-02-08] MEDS: INSULIN ASPART SUPPLEMENTAL SCALE SQ SCH ×2 (08:00→12:00)
--- NOTE | 2018-02-08 08:07 | HHI.DCPOC ---
Discharge Care Plan Diagnosis: (1) Hematuria (2) Irradiation cystitis with hematuria (3) DM (diabetes mellitus) (4) Hypertension Goals to Promote Your Health * To prevent worsening of your condition and complications * To maintain your health at the optimal level Directions to Meet Your Goals Take your medications as prescribed Follow your dietary instruction Follow activity as directed Keep your appointments as scheduled Take your immunizations and boosters as scheduled If your symptoms worsen call your PCP, if no PCP go to Urgent Care Center or Emergency Room Smoking is Dangerous to Your Health. Avoid second hand smoke Call the 24-hour hour crisis hotline for domestic abuse at Rose Hale PA-C Feb 08, 2018 08:07
--- NOTE | 2018-02-08 08:08 | HHI.DS ---
cc: Derrick Wallace MD Discharge Summary Admission Date Feb 05, 2018 at 8:06 pm Discharge Date: Feb 08, 2018 Admitting Diagnosis gross hematuria, UTI (1) Hematuria ICD Code: R31.9 - Hematuria, unspecified Diagnosis: Principal Status: Acute (2) Prostate cancer ICD Code: C61 - Malignant neoplasm of prostate Diagnosis: Secondary Status: Chronic (3) Anemia ICD Code: D64.9 - Anemia, unspecified Diagnosis: Secondary Status: Acute (4) DM (diabetes mellitus) ICD Code: E11.9 - Type 2 diabetes mellitus without complications Diagnosis: Secondary Status: Chronic (5) Hypertension ICD Code: I10 - Essential (primary) hypertension Diagnosis: Secondary Status: Chronic Procedures None. Brief History - From Admission 62-year-old male with past medical history significant for chronic back pain, history of prostate cancer, radiation induced cystitis, diabetes mellitus, hypertension and hyperlipidemia presents the emergency department for the evaluation of hematuria. The patient has an indwelling catheter and earlier yesterday he noticed blood in his urine. He reports he went to his hyperbaric treatment for his cystitis today. He denies any fatigue or dizziness. No heart palpitations. No chest pain or shortness of breath. No abdominal pain. No nausea/vomiting/diarrhea. No fever/chills. No lateralizing signs/symptoms. CBC/BMP: 02/07/18 1447 02/07/18 0815 Significant Findings Laboratory Tests Test 02/05/18 17:25 02/05/18 17:57 02/06/18 00:00 02/06/18 06:38 Red Blood Count 2.90 MIL/MM3 (4.50-5.90) 2.70 MIL/MM3 (4.50-5.90) Hemoglobin 8.0 GM/DL (13.0-17.0) 7.4 GM/DL (13.0-17.0) 7.4 GM/DL (13.0-17.0) Hematocrit 23.9 % (39.0-51.0) 22.4 % (39.0-51.0) 21.8 % (39.0-51.0) Red Cell Distribution Width 17.5 % (11.6-17.2) 17.7 % (11.6-17.2) Mean Platelet Volume 6.9 FL (7.0-11.0) 6.6 FL (7.0-11.0) Neutrophils (%) (Auto) 75.4 % (16.0-70.0) Lymphocytes # (Auto) 0.9 TH/MM3 (1.0-4.8) Estimat Glomerular Filtration Rate 76 ML/MIN (>89) 86 ML/MIN (>89) Urine Color LIGHT-RED (YELLW/STRAW) Urine Protein 100 mg/dL (NEG-TRACE) Urine Ketones TRACE mg/dL (NEG) Urine Occult Blood LARGE (NEG) Urine Leukocyte Esterase MOD (NEG) Urine WBC 66 /hpf (0-5) Urine Bacteria OCC /hpf (NONE) Eosinophils (%) (Auto) 4.5 % (0.0-4.0) Test 02/06/18 13:14 02/06/18 17:22 02/07/18 08:15 02/07/18 14:47 Hemoglobin 7.7 GM/DL (13.0-17.0) 7.4 GM/DL (13.0-17.0) 7.3 GM/DL (13.0-17.0) 7.3 GM/DL (13.0-17.0) Hematocrit 23.3 % (39.0-51.0) 22.0 % (39.0-51.0) 22.1 % (39.0-51.0) 21.9 % (39.0-51.0) Red Blood Count 2.73 MIL/MM3 (4.50-5.90) Mean Corpuscular Hemoglobin 26.8 PG (27.0-34.0) Red Cell Distribution Width 17.6 % (11.6-17.2) Mean Platelet Volume 6.5 FL (7.0-11.0) Neutrophils (%) (Auto) 78.6 % (16.0-70.0) Random Glucose 71 MG/DL (74-106) Estimat Glomerular Filtration Rate 77 ML/MIN (>89) PE at Discharge GENERAL: Well-nourished, well-developed male patient in [facility]. SKIN: Warm and dry. No rash. HEENT: Normocephalic. Atraumatic.Pupils equal and round. Mucous membranes pink and moist. CARDIOVASCULAR: Regular rate and rhythm. No murmur appreciated. RESPIRATORY: No accessory muscle use. Clear to auscultation. Breath sounds equal bilaterally. GASTROINTESTINAL: Abdomen soft, non-tender, nondistended. Normoactive bowel sounds x4. GENITOURINARY: Amaya in place with light pink hematuria, no noticeable clots in Amaya. MUSCULOSKELETAL: No obvious deformities. 1+ bilateral anterior tibial edema, improved. NEUROLOGICAL: Awake and alert. No obvious cranial nerve deficits. Motor grossly within normal limits. Normal speech. PSYCHIATRIC: Appropriate mood and affect; insight and judgment normal. Pt update on day of discharge Follow up for hematuria. The patient reports continued improvement of the hematuria. His urine is now a pale pink color and has not noticed any clots in the past 24hours. RN reports Amaya flowing well without obstruction. Patient overall feels better. Denies any lightheadedness, dizziness, chest pain, shortness of breath, or abdominal complaints. He feels ready for discharge. He plans to follow up with urologist Dr. Wallace this week. Hospital Course 62-year-old male with past medical history significant for chronic back pain, history of prostate cancer, radiation induced cystitis, diabetes mellitus, hypertension and hyperlipidemia presents the emergency department for the evaluation of hematuria. Hematuria/anemia: patient currently undergoing hyperbaric oxygen treatment for his cystitis. History of hematuria requiring blood transfusions in the past. Urology consulted, appreciate assistance, no acute surgical intervention at this time, continue Amaya, irrigate as needed to remove clots. Hgb trended 8.0 - -> 7.4 --> 7.4 --> 7.3. Patient continued to bleed with Hgb 7.3 therefore transfused 1u pRBC on 02/07. Patient with good output from Amaya, no obstruction. Urine became more clear with only pale pink hematuria and no clots in the past 24 hours. Repeat CBC with Hgb 8.6, stable for discharge. Patient plans to follow up with urologist Dr. Wallace this week. Instructed to keep Amaya in place until seen by Dr. Wallace. Will change to leg bag prior to discharge. Abnormal UA: UA consistent with UTI. EMR reviewed, Urine culture from 01/25/18 Klebsiella, pansensitive. Given 2 days of IV Antibiotics with Rocephin. Urine culture resulted with no growth. Discontinue antibiotics. Diabetes mellitus: chronic. Held patient's metformin and glipizide for now. Monitor Accu-checks and cover with SSI. Stable. Hypertension/hyperlipidemia: chronic, stable. Continued home meds including lisinopril and lasix Chronic back pain: chronic. Continue [place] DVT Prophylaxis: teds/SCDs; Held pharmacologic anticoagulation secondary to active bleeding Pt Condition on Discharge: Stable Discharge Disposition: Discharge Home Discharge Time: <= 30 minutes Discharge Instructions DIET: Follow Instructions for: Heart Healthy Diet Activities you can perform: Regular-No Restrictions Follow up Referrals: PCP Follow-up - 2-3 Days with [facility] - 3-5 Days with Derrick Wallace MD Continued Medications: Cholecalciferol (Vitamin D-1000) 1,000 Unit Tab 1000 UNITS PO DAILY for Nutritional Supplement, #1 BOTTLE 0 Refills Cyanocobalamin (Vitamin B-12) 1,000 Mcg Tab 1000 MCG PO DAILY for Nutritional Supplement, #1 BOTTLE 0 Refills Finasteride (Finasteride) 5 Mg Tab 5 MG PO DAILY for urinary retention for 30 Days, #30 TAB Do not crush. Furosemide (Furosemide) 40 Mg Tab 40 MG PO BID, #60 TAB 0 Refills Glipizide (Glipizide) 5 Mg Tab 5 MG PO BIDAC for Blood Sugar Management, #60 TAB 0 Refills Take 30 minutes before a meal Hydrocodone-Acetaminophen (Hydrocodone-Acetaminophen) 10-325 mg Tab 1 TAB PO Q6H PRN for PAIN, TAB 0 Refills Insulin Aspart Inj (Novolog Inj) 1,000 Unit/10 Ml Vial 34 UNITS SQ BID for Blood Sugar Management, #10 ML 0 Refills Lisinopril (Lisinopril) 10 Mg Tab 10 MG PO DAILY, #30 TAB 0 Refills Metformin (Metformin) 1,000 Mg Tab 1000 MG PO BIDPC for Blood Sugar Management, #60 TAB 0 Refills Multiple Vitamin (Multiple Vitamin) 1 Tab 1 TAB PO DAILY for Nutritional Supplement, TAB 0 Refills Omeprazole (Omeprazole) 20 Mg Tab 20 MG PO DAILY, #30 TAB 0 Refills Oxybutynin (Ditropan) 5 Mg Tab 5 MG PO Q12HR for bladder spasms for 30 Days, TAB Oxycodone (Oxycodone) 30 Mg Tab 30 MG PO Q6H PRN for PAIN, TAB 0 Refills Discontinued Medications: Sulfamethoxazole-Trimethoprim (Sulfamethoxazole-Trimethoprim) 800-160 Mg Tab 1 TAB PO Q12HR, #10 TAB Rose Hale PA-C Feb 08, 2018 08:08
[2018-02-08] MEDS: LISINOPRIL 10 MG TAB PO SCH (08:30)
[2018-02-08] MEDS: ACETAMINOPHEN/HYDROcodone 325 MG/10 MG TAB PO PRN (08:30)
[2018-02-08] MEDS: DOCUSATE SODIUM 50 MG/SENNA 8.6 MG TAB PO SCH (08:30)
[2018-02-08] MEDS: OXYBUTYNIN CHLORIDE 5 MG TAB PO SCH (08:31)
[2018-02-08] MEDS: FUROSEMIDE 40 MG TAB PO SCH (08:31)
[2018-02-08] MEDS: PANTOPRAZOLE SOD 20 MG DELAYED RELEASE TAB PO SCH (08:31)
[2018-02-08] MEDS: FINASTERIDE 5 MG TAB PO SCH (08:44)
[2018-02-08] MEDS: SODIUM CHLORIDE 0.9% FLUSH 10 ML FLUSH IV FLUSH SCH (09:00)
[2018-02-08 09:30] VITALS: RESP 20
[2018-02-08 11:08] LABS: HEMATOCRIT 25.6 % (39.0-51.0); HEMOGLOBIN 8.6 GM/DL (13.0-17.0); MEAN CELL VOLUME 82.1 FL (80.0-100.0); MEAN CORPUSCULAR HEMOGLOBIN 27.5 PG (27.0-34.0); MEAN CORPUSCULAR HGB CONC 33.5 % (32.0-36.0); MEAN PLATELET VOLUME 6.6 FL (7.0-11.0); PLATELET COUNT 381 TH/MM3 (150-450); RED BLOOD COUNT 3.12 MIL/MM3 (4.50-5.90); RED CELL DISTRIBUTION WIDTH 16.7 % (11.6-17.2); WHITE BLOOD COUNT 7.6 TH/MM3 (4.0-11.0)
--- NOTE | 2018-02-08 15:04 | HHI.FF ---
Face to Face Verification Diagnosis: (1) Irradiation cystitis with hematuria (2) Hematuria (3) Anemia (4) Hypertension (5) DM (diabetes mellitus) Physical Therapy Order: Evaluate and Treat, Improve ambulation, Strength and gait training Home Health Nursing Order: Medical education Signs/symptoms of disease process Nursing assessment with vital signs I have seen patient Sid Mckeon on 02/08/18. My clinical findings support the need for the requested home health care services because: Deconditioned w/ increased weakness Limited ability to care for self I certify that my clinical findings support that this patient is homebound because: Unsteady gait/balance Unsafe to leave home unassisted Unable to use public transportation Rose Hale PA-C Feb 08, 2018 3:04 pm
== END 2018-02-08 16:06 | disposition home or self-care (01) ==
LOC: NEPC 16:11 → NEDA 20:06 → NEDH 02-06 00:17 → NEPGCP 02-06 13:22
PROVIDERS: ADMIT Internal Medicine; ATTEND Internal Medicine
DX: N30.41 Irradiation cystitis with hematuria (principal); D64.9 Anemia, unspecified; E11.9 Type 2 diabetes mellitus without complications; I10 Essential (primary) hypertension; E78.00 Pure hypercholesterolemia, unspecified; K21.9 Gastro-esophageal reflux disease without esophagitis; G47.30 Sleep apnea, unspecified; M54.9 Dorsalgia, unspecified; G89.29 Other chronic pain; F41.9 Anxiety disorder, unspecified; F32.9 Major depressive disorder, single episode, unspecified; Z85.46 Personal history of malignant neoplasm of prostate; Z79.899 Other long term (current) drug therapy; Z79.84 Long term (current) use of oral hypoglycemic drugs; Z92.3 Personal history of irradiation; Y84.2 Radiological procedure and radiotherapy as the cause of abnormal reaction of the patient, or of later complication, without mention of misadventure at the time of the procedure
CPT/HCPCS: 36430; 51702; 80048; 81001; 82948; 85014; 85018; 85025; 85027; 85610; 85730; 86850; 86900; 86901; 86920; 87086; 96361; 96365; 96366; 99285; G0378; J0696; J1815; J7030; J7050; P9016

== ENCOUNTER 2018-03-06 14:17 | Inpatient (IN) | payer OTHER, MEDICARE ==
[~2018-03-06] VITALS: Ht 188 cm; Wt 110.0 kg
[~2018-03-06 14:17] MED LIST changes: -SULF1TAB23 PO; -WHEEMIS3
[2018-03-06 14:30] VITALS: BP 136/58; PULSE 72; RESP 18; TEMP 98.3; O2SAT 100
[2018-03-06 16:18] VITALS: BP 106/55; PULSE 63; RESP 12; O2SAT 99
[2018-03-06 16:35] LABS: HEMATOCRIT 24.4 % (39.0-51.0); HEMOGLOBIN 7.8 GM/DL (13.0-17.0); MEAN CELL VOLUME 83.5 FL (80.0-100.0); MEAN CORPUSCULAR HEMOGLOBIN 26.8 PG (27.0-34.0); MEAN CORPUSCULAR HGB CONC 32.1 % (32.0-36.0); PLATELET COUNT 369 TH/MM3 (150-450); RED BLOOD COUNT 2.92 MIL/MM3 (4.50-5.90); RED CELL DISTRIBUTION WIDTH 17.1 % (11.6-17.2)
[2018-03-06 16:48] LABS: PROTHROMBIN TIME - PATIENT 9.9 SEC (9.8-11.6)
[2018-03-06 17:01] LABS: BICARBONATE 30.3 MEQ/L (21.0-32.0); CREATININE 1.06 MG/DL (0.60-1.30)
--- NOTE | 2018-03-06 17:34 | PD ---
HPI Chief Complaint: Abnormal Results Time Seen by Provider: 16:41 Travel History International Travel<30 days: No Contact w/Intl Traveler<30days: No Traveled to known affect area: No History of Present Illness HPI 62-year-old male that presents to the ED for evaluation of low hemoglobin. Per patient he was told by his doctor from the [place] that he needed to come here because his hemoglobin was low. He has a history of chronic hematuria and he gets hyperbaric chamber for this problem. He has has been here multiple times for similar evaluation. He appears to have bleeding from his urine and appears to have clots and blood in the urine. Per patient he is urine has been changing colors and is definitely red. Per patient he has been able to urinate well with the Velazquez catheter. Patient reports that he takes no blood thinners. No chest pain or shortness of breath. States feeling a little bit weak. He has had blood transfusions in the past. Per patient he follows with urologist in the [place]. he has no other medical issues. No fevers chills or sweats. No back pain or neck pain. PFSH Past Medical History Anemia: Yes Arthritis: No Asthma: No Autoimmune Disease: No Blood Disorders: No Anxiety: Yes Depression: Yes Heart Rhythm Problems: No Cancer: Yes (PROSTATE) Cardiovascular Problems: Yes High Cholesterol: Yes Chemotherapy: No Chest Pain: No Congestive Heart Failure: No COPD: No Cerebrovascular Accident: No Diabetes: Yes Patient Takes Glucophage: Yes Diminished Hearing: No Endocrine: Yes Gastrointestinal Disorders: Yes (COLON POLYP) GERD: Yes Glaucoma: No Genitourinary: Yes (hematuria, indwelling catheter) Hiatal Hernia: No Heparin Induced Thrombocytopen: No Hypertension: Yes Immune Disorder: No Implanted Vascular Access Dvce: No Musculoskeletal: Yes (CERVICAL STENOSIS, DISC DEGENERATIVE) Neurologic: Yes (PERIPHERAL NEUROPATHY) Psychiatric: Yes Reproductive: Yes (prostate CA) Respiratory: Yes Integumentary: Yes Immunizations Current: Yes Migraines: No Radiation Therapy: Yes (2009) Seizures: No Sickle Cell Disease: No Sleep Apnea: Yes (no Cpap) Thyroid Disease: No Ulcer: No Past Surgical History Abdominal Surgery: No AICD: No Arteriovenous Shunt: No Body Medical Devices: titanium in back Cardiac Surgery: No Ear Surgery: No Endocrine Surgery: No Eye Surgery: No Genitourinary Surgery: Yes (BLADDER SURGERY ) Gynecologic Surgery: No Insulin Pump: No Joint Replacement: No Oral Surgery: No Pacemaker: No Thoracic Surgery: No Other Surgery: Yes (TITANIUM RODS PLACED IN LOW BACK 2000, Carpal tunnel, R shoulder) Social History Alcohol Use: No Tobacco Use: No Substance Use: No Allergies-Medications (Allergen,Severity, Reaction): Coded Allergies: No Known Allergies (Verified Allergy, Unknown, 01/25/18) Reported Meds & Prescriptions Reported Meds & Active Scripts Active Finasteride 5 Mg Tab 5 Mg PO DAILY 30 Days Do not crush. Ditropan (Oxybutynin Chloride) 5 Mg Tab 5 Mg PO Q12HR 30 Days Reported Furosemide 40 Mg Tab 40 Mg PO BID Omeprazole 20 Mg Tab 20 Mg PO DAILY Vitamin B-12 (Cyanocobalamin) 1,000 Mcg Tab 1,000 Mcg PO DAILY Multiple Vitamin 1 Tab 1 Tab PO DAILY Vitamin D-1000 (Cholecalciferol) 1,000 Unit Tab 1,000 Units PO DAILY Novolog Inj (Insulin Aspart) 1,000 Unit/10 Ml Vial 34 Units SQ BID Glipizide 5 Mg Tab 5 Mg PO BIDAC Take 30 minutes before a meal Hydrocodone-Acetaminophen 10-325 mg Tab 1 Tab PO Q6H PRN Oxycodone (Oxycodone HCl) 30 Mg Tab 30 Mg PO Q6H PRN Lisinopril 10 Mg Tab 10 Mg PO DAILY Metformin (Metformin HCl) 1,000 Mg Tab 1,000 Mg PO BIDPC Review of Systems Except as stated in HPI: all other systems reviewed are Neg Physical Exam Narrative GENERAL: SKIN: Warm and dry. HEAD: Atraumatic. Normocephalic. EYES: Pupils equal and round. No scleral icterus. No injection or drainage. ENT: No nasal bleeding or discharge. Mucous membranes pink and moist. Tongue is midline. No uvula deviation. NECK: Trachea midline. No JVD. CARDIOVASCULAR: Regular rate and rhythm. No murmurs, S3, S4. RESPIRATORY: No accessory muscle use. Clear to auscultation. Breath sounds equal bilaterally. GASTROINTESTINAL: Abdomen soft, non-tender, nondistended. Hepatic and splenic margins not palpable. Patient has a Velazquez bag and catheter noted. Some bleeding noted on the tip of the penis as well as on the velazquez bag. Urine appears to be red and dark. MUSCULOSKELETAL: Extremities without clubbing, cyanosis, or edema. No obvious deformities. Full range of motion of the upper and lower extremities bilaterally. 2+ pulses bilaterally. NEUROLOGICAL: Awake and alert. No obvious cranial nerve deficits. Motor grossly within normal limits. Five out of 5 muscle strength in the arms and legs. Normal speech. PSYCHIATRIC: Appropriate mood and affect; insight and judgment normal. Data Data Last Documented VS Vital Signs Date Time Temp Pulse Resp B/P (MAP) Pulse Ox O2 Delivery O2 Flow Rate FiO2 03/06/18 16:18 63 12 106/55 (72) 99 Room Air 03/06/18 14:30 98.3 Orders Orders Cbc No Diff, Includes Plts (03/06/18 14:33) Basic Metabolic Panel (Bmp) (03/06/18 14:33) Act Partial Throm Time (Ptt) (03/06/18 14:33) Prothrombin Time / Inr (Pt) (03/06/18 14:33) Type And Screen (03/06/18 14:33) Urinalysis - C+S If Indicated (03/06/18 16:42) Red Blood Cells (Rbc) (03/06/18 17:08) Blood Product Administration (03/06/18 17:08) Admit To Inpatient (03/06/18 ) Vital Signs (Adult) Q4H (03/06/18 17:43) Activity Oob Ad Vandana (03/06/18 17:43) Diet Regular Basic (03/06/18 Dinner) Sodium Chloride 0.9% Flush (Ns Flush) (03/06/18 17:45) Sodium Chloride 0.9% Flush (Ns Flush) (03/06/18 21:00) Complete Blood Count With Diff (03/07/18 06:00) Scd Bilateral/Knee High WILLA.BID (03/06/18 17:43) Pharmacologic Contraindication (03/06/18 17:43) Naloxone Inj (Narcan Inj) (03/06/18 17:45) Magnesium Hydroxide Liq (Milk Of Magnesi (03/06/18 17:45) Sennosides (Senokot) (03/06/18 17:45) Bisacodyl Supp (Dulcolax Supp) (03/06/18 17:45) Lactulose Liq (Lactulose Liq) (03/06/18 17:45) Inpatient Certification (5/17/18 ) Urine Culture (03/06/18 16:50) Ceftriaxone Inj (Rocephin Inj) (03/06/18 18:00) Admit Order (Ed Use Only) (03/06/18 18:31) Labs Laboratory Tests Test 03/06/18 16:13 03/06/18 16:50 White Blood Count 7.0 TH/MM3 Red Blood Count 2.92 MIL/MM3 Hemoglobin 7.8 GM/DL Hematocrit 24.4 % Mean Corpuscular Volume 83.5 FL Mean Corpuscular Hemoglobin 26.8 PG Mean Corpuscular Hemoglobin Concent 32.1 % Red Cell Distribution Width 17.1 % Platelet Count 369 TH/MM3 Mean Platelet Volume 7.0 FL Prothrombin Time 9.9 SEC Prothromb Time International Ratio 1.0 RATIO Activated Partial Thromboplast Time 25.9 SEC Blood Urea Nitrogen 18 MG/DL Creatinine 1.06 MG/DL Random Glucose 153 MG/DL Calcium Level 9.0 MG/DL Sodium Level 135 MEQ/L Potassium Level 4.4 MEQ/L Chloride Level 99 MEQ/L Carbon Dioxide Level 30.3 MEQ/L Anion Gap 6 MEQ/L Estimat Glomerular Filtration Rate 86 ML/MIN Urine Color RED Urine Turbidity HAZY Urine pH 6.5 Urine Specific [place] 1.016 Urine Protein 100 mg/dL Urine Glucose (UA) NEG mg/dL Urine Ketones 10 mg/dL Urine Occult Blood LARGE Urine Nitrite POS Urine Bilirubin NEG Urine Urobilinogen LESS THAN 2.0 MG/DL Urine Leukocyte Esterase LARGE Urine RBC /hpf Urine WBC 142 /hpf Urine Squamous Epithelial Cells 2 /hpf Urine Amorphous Sediment RARE Urine Bacteria FEW /hpf Microscopic Urinalysis Comment CULTURE INDICATED MDM Medical Decision Making Medical Screen Exam Complete: Yes Emergency Medical Condition: Yes Medical Record Reviewed: Yes Interpretation(s) CBC & BMP Diagram 03/06/18 16:13 Calcium Level 9.0 coags WNL UA shows blood, nitrates and leukerase esterase. Differential Diagnosis Acute blood loss anemia versus hematuria versus anemia versus symptomatically anemia versus UTI Narrative Course 62-year-old male that presents to the ED for evaluation of anemia and hematuria. Patient was properly examined and was found to have signs and symptoms consistent with appears to be anemia secondary to hematuria. Patient had his Velazquez catheter bag removed and replaced and it was flushed and was found to have more blood. Because of patient's low hemoglobin and symptomatic patient was given 1 dose of blood here. Case discussed with my attending Dr. Rao who recommends admission for CBI and hemoglobin rechecks. Patient was admitted to [facility] team. Diagnosis Primary Impression: Acute blood loss anemia Additional Impressions: Hematuria Qualified Codes: R31.9 - Hematuria, unspecified UTI (urinary tract infection) Qualified Codes: N30.01 - Acute cystitis with hematuria Admitting Information Admitting Physician Requests: Observation Rashaad Meza March 06, 2018 17:34
[2018-03-06] MEDS ORDERED: LACTULOSE SYRUP 20 GM/30 ML CUP PO PRN (17:45)
[2018-03-06] MEDS ORDERED: BISACODYL 10 MG SUPP RECTAL PRN (17:45)
[2018-03-06] MEDS ORDERED: SODIUM CHLORIDE 0.9% FLUSH 10 ML FLUSH IV FLUSH PRN (17:45)
[2018-03-06] MEDS ORDERED: NALOXONE HCL 0.4 MG/ML AMP IV PUSH PRN (17:45)
[2018-03-06 17:49] LABS: AMORPHOUS SEDIMENT, URINE RARE; BACTERIA, URINE FEW /hpf; BILIRUBIN, URINE NEG (NEG); BLOOD, URINE LARGE (NEG); GLUCOSE,URINE NEG (NEG); KETONE, URINE 10 mg/dL (NEG); NITRITE,URINE POS (NEG); PH, URINE 6.5 (5.0-8.5); SQUAMOUS EPITHELIAL CELL URINE 2 /hpf (0-5); URINE COLOR RED (YELLW/STRAW); URINE LEUKOCYTE ESTERASE LARGE (NEG)
[2018-03-06] MEDS ORDERED: cefTRIAXone INJ 1,000 MG in SODIUM CHLORIDE 0.9% INJ 100 ML IV ONE (18:00)
[2018-03-06 18:35] VITALS: BP 111/58; PULSE 59; RESP 12; TEMP 98.3; O2SAT 98
--- NOTE | 2018-03-06 18:39 | HHI.HP ---
[facility] Service [facility] Primary Care Physician [facility] Admission Diagnosis symptomatic anemia, hematuria Diagnoses: Chief Complaint: My doctor sent me over here. I was feeling dizzy Travel History International Travel<30 Days: No Contact w/Intl Traveler <30 Da: No Traveled to Known Affected Are: No History of Present Illness 62-year-old -Mexican male with a history of urinary retention and previous indwelling Amaya catheter with radiation cystitis and prostate cancer was sent to the emergency room by his primary care physician from the [place]. He states that he saw his primary care physician 2 days ago followed by his urologist due to recurrent urinary retention in which he had Amaya placed to a half weeks ago. Since then he has had on and off hematuria and during the past 3-4 days has had large clots that he seen. He also gets hyperbaric treatments 5 weeks a day for 2 hours. His next appointment is 11:00 in the morning. He does report some fatigue and dizziness. He denies any shortness of breath. He denies any blood in stools or black tarry stools. He has consented and receiving blood due to his symptomatic anemia today. He also reports some bilateral inguinal hernia pressure pain in which he rates as a 3 out of 10 in pain intensity. Review of Systems Constitutional: COMPLAINS OF: Fatigue, Dizziness, DENIES: Fever, Chills, Change in appetite Endocrine: DENIES: Heat/cold intolerance Eyes: DENIES: Blurred vision, Eye pain, Vision loss Ears, nose, mouth, throat: DENIES: Hearing loss, Nasal discharge, Throat pain, Ear Pain, Sinus Pain Respiratory: DENIES: Cough, Shortness of breath Cardiovascular: DENIES: Chest pain, Palpitations, Dyspnea on Exertion, Lower Extremity Edema Gastrointestinal: COMPLAINS OF: Abdominal pain (Lower abdomen bilateral pain), DENIES: Black stools, Bloody stools, Constipation, Diarrhea, Nausea, Vomiting Genitourinary: COMPLAINS OF: Hematuria Musculoskeletal: DENIES: Joint pain, Muscle aches, Stiffness Integumentary: DENIES: Rash Hematologic/lymphatic: DENIES: Bruising, Lymphadenopathy Immunologic/allergic: DENIES: Eczema Neurologic: DENIES: Headache, Localized weakness, Paresthesias Psychiatric: DENIES: Anxiety, Depression, Suicidal Ideation Past Family Social History Past Medical History Radiation cystitis and prostate cancer Diabetes mellitus type 2 Hypertension Hyperlipidemia Past Surgical History Back surgery Right arm surgery Prostate right Reported Medications Furosemide 40 Mg Tab 40 Mg PO BID Omeprazole 20 Mg Tab 20 Mg PO DAILY Vitamin B-12 (Cyanocobalamin) 1,000 Mcg Tab 1,000 Mcg PO DAILY Multiple Vitamin 1 Tab 1 Tab PO DAILY Vitamin D-1000 (Cholecalciferol) 1,000 Unit Tab 1,000 Units PO DAILY Novolog Inj (Insulin Aspart) 1,000 Unit/10 Ml Vial 34 Units SQ BID Glipizide 5 Mg Tab 5 Mg PO BIDAC Hydrocodone-Acetaminophen 10-325 mg Tab 1 Tab PO Q6H PRN Oxycodone (Oxycodone HCl) 30 Mg Tab 30 Mg PO Q6H PRN Lisinopril 10 Mg Tab 10 Mg PO DAILY Metformin (Metformin HCl) 1,000 Mg Tab 1,000 Mg PO BIDPC Allergies: Coded Allergies: No Known Allergies (Verified Allergy, Unknown, 03/07/18) Family History Mother has diabetes father had prostate cancer Social History Does not smoke cigarettes or drink alcohol Physical Exam Vital Signs Vital Signs Date Time Temp Pulse Resp B/P (MAP) Pulse Ox O2 Delivery O2 Flow Rate FiO2 03/06/18 16:18 63 12 106/55 (72) 99 Room Air 03/06/18 14:30 98.3 72 18 136/58 (84) 100 Physical Exam GENERAL: This is a well-nourished, well-developed patient, in no apparent distress. SKIN: No rashes, ecchymoses or lesions. Cool and dry. HEAD: Atraumatic. Normocephalic. No temporal or scalp tenderness. EYES: Pupils equal round and reactive. Extraocular motions intact. No scleral icterus. No injection or drainage. ENT: Nose without bleeding, purulent drainage or septal hematoma. T NECK: Trachea midline. No JVD or lymphadenopathy. Supple, nontender, no meningeal signs. CARDIOVASCULAR: Regular rate and rhythm RESPIRATORY: Clear to auscultation. Breath sounds equal bilaterally. No wheezes , rales, or rhonchi. GASTROINTESTINAL: Abdomen soft, mild lower mid abdominal tenderness with no rebound or guarding, nondistended. No hepato-splenomegaly, or palpable masses. No guarding. Normoactive bowel sounds : Amaya in place with bloody urine and clots MUSCULOSKELETAL: Extremities without clubbing, cyanosis, or edema. NEUROLOGICAL: Awake and alert to person place and time and situation. Cranial nerves II through XII intact. Motor and sensory grossly within normal limits. Five out of 5 muscle strength in all muscle groups. Normal speech. Laboratory Laboratory Tests Test 03/06/18 16:13 03/06/18 16:50 White Blood Count 7.0 Red Blood Count 2.92 Hemoglobin 7.8 Hematocrit 24.4 Mean Corpuscular Volume 83.5 Mean Corpuscular Hemoglobin 26.8 Mean Corpuscular Hemoglobin Concent 32.1 Red Cell Distribution Width 17.1 Platelet Count 369 Mean Platelet Volume 7.0 Prothrombin Time 9.9 Prothromb Time International Ratio 1.0 Activated Partial Thromboplast Time 25.9 Blood Urea Nitrogen 18 Creatinine 1.06 Random Glucose 153 Calcium Level 9.0 Sodium Level 135 Potassium Level 4.4 Chloride Level 99 Carbon Dioxide Level 30.3 Anion Gap 6 Estimat Glomerular Filtration Rate 86 Urine Color RED Urine Turbidity HAZY Urine pH 6.5 Urine Specific [place] 1.016 Urine Protein 100 Urine Glucose (UA) NEG Urine Ketones 10 Urine Occult Blood LARGE Urine Nitrite POS Urine Bilirubin NEG Urine Urobilinogen LESS THAN 2.0 Urine Leukocyte Esterase LARGE Urine RBC Urine WBC 142 Urine Squamous Epithelial Cells 2 Urine Amorphous Sediment RARE Urine Bacteria FEW Microscopic Urinalysis Comment CULTURE INDICATED Date/Time Source Procedure Growth Status 03/06/18 16:50 Urine Random Urine Urine Culture Pending Received Result Diagram: 03/06/18 1613 03/06/18 1613 Caprini VTE Risk Assessment Caprini VTE Risk Assessment: Mod/High Risk (score >= 2) VTE Pharm Contraindication: Hemorrhage Caprini Risk Assessment Model Point Value = 1 Point Value = 2 Point Value = 3 Point Value = 5 Age 41-60 Minor surgery BMI > 25 kg/m2 Swollen legs Varicose veins or History of unexplained or recurrent spontaneous Oral contraceptives or hormone replacement Sepsis (< 1 month) Serious lung disease, including pneumonia (< 1 month) Abnormal pulmonary function Acute myocardial infarction Congestive heart failure (< 1 month) History of inflammatory bowel disease Medical patient at bed rest Age 61-74 Arthroscopic surgery Major open surgery (> 45 min) Laparoscopic surgery (> 45 min) Malignancy Confined to bed (> 72 hours) Immobilizing plaster cast Central venous access Age >= 75 History of VTE Family history of VTE Factor V Leiden Prothrombin [id number] Lupus anticoagulant Anticardiolipin antibodies Elevated serum homocysteine Heparin-induced thrombocytopenia Other congenital or acquired thrombophilia Stroke (< 1 month) Elective arthroplasty Hip, pelvis, or leg fracture Acute spinal cord injury (< 1 month) Prophylaxis Regimen Total Risk Factor Score Risk Level Prophylaxis Regimen 0-1 Low Early ambulation 2 Moderate Order ONE of the following: *Sequential Compression Device (SCD) *Heparin 5000 units SQ BID 3-4 Higher Order ONE of the following medications: *Heparin 5000 units SQ TID *Enoxaparin/Lovenox 40 mg SQ daily (WT < 150 kg, CrCl > 30 mL/min) *Enoxaparin/Lovenox 30 mg SQ daily (WT < 150 kg, CrCl > 10-29 mL/min) *Enoxaparin/Lovenox 30 mg SQ BID (WT < 150 kg, CrCl > 30 mL/min) AND/OR *Sequential Compression Device (SCD) 5 or more Highest Order ONE of the following medications: *Heparin 5000 units SQ TID (Preferred with Epidurals) *Enoxaparin/Lovenox 40 mg SQ daily (WT < 150 kg, CrCl > 30 mL/min) *Enoxaparin/Lovenox 30 mg SQ daily (WT < 150 kg, CrCl > 10-29 mL/min) *Enoxaparin/Lovenox 30 mg SQ BID (WT < 150 kg, CrCl > 30 mL/min) AND *Sequential Compression Device (SCD) Assessment and Plan Assessment and Plan 1. Post hemorrhage acute anemia due to hematuria -admit the patient for transfusion 2 units of packed red blood cells, monitor hemoglobin 2. Hematuria with a history of urinary retention and radiation cystitis IV fluid hydration was continuous bladder irrigation continue to monitor for improvement. Based on clinical course consider urology consultation with Dr. Wallace if hematuria does not improve with CBI. 3. Diabetes mellitus type 2continue Accu-Cheks and sliding scale insulin and resume home metformin and glipizide. 4. DVT prophylaxis -bilateral SCDs, anticoagulant contraindicated secondary to hematuria Physician Certification 2 Midnight Certification Type: Admission for Inpatient Services Order for Inpatient Services The services are ordered in accordance with Medicare regulations or non- Medicare payer requirements, as applicable. In the case of services not specified as inpatient-only, they are appropriately provided as inpatient services in accordance with the 2-midnight benchmark. Estimated LOS (days): 2 days is the estimated time the patient will need to remain in the hospital, assuming treatment plan goals are met and no additional complications. Post-Hospital Plan: Home Health Columba Naranjo MD March 06, 2018 18:39
[2018-03-06 19:05] VITALS: BP 135/66; PULSE 67; RESP 18; TEMP 97.9; O2SAT 100
[2018-03-06 20:00] VITALS: BP 137/66; PULSE 59; RESP 16; TEMP 98.5; O2SAT 100
[2018-03-06] MEDS: INSULIN ASPART 1,000 UNITS/10 ML VIAL SQ SCH (20:47)
[2018-03-06] MEDS: OXYBUTYNIN CHLORIDE 5 MG TAB PO SCH (20:47)
[2018-03-06] MEDS: ACETAMINOPHEN/HYDROcodone 325 MG/10 MG TAB PO PRN (20:47)
[2018-03-06] MEDS: FUROSEMIDE 40 MG TAB PO SCH (20:47)
[2018-03-06] MEDS: SODIUM CHLORIDE 0.9% FLUSH 10 ML FLUSH IV FLUSH SCH (20:48)
[2018-03-06 20:56] VITALS: BP 133/71; PULSE 69; RESP 17; TEMP 98.7; O2SAT 100
[2018-03-07 00:40] VITALS: BP 159/71; PULSE 63; RESP 16; TEMP 98.7; O2SAT 100
[2018-03-07 03:50] LABS: AUTOMATED NEUTROPHIL # 4.1 TH/MM3 (1.8-7.7); BASOPHIL % 0.5 % (0.0-2.0); EOSINOPHIL # 0.2 TH/MM3 (0-0.4); EOSINOPHIL % 3.6 % (0.0-4.0); HEMATOCRIT 24.2 % (39.0-51.0); HEMOGLOBIN 8.1 GM/DL (13.0-17.0); LYMPHOCYTE # 1.6 TH/MM3 (1.0-4.8); MEAN CORPUSCULAR HEMOGLOBIN 27.6 PG (27.0-34.0); MEAN CORPUSCULAR HGB CONC 33.3 % (32.0-36.0); MEAN PLATELET VOLUME 6.9 FL (7.0-11.0); MONO % 9.4 % (0.0-8.0); MONOCYTE # 0.6 TH/MM3 (0-0.9); NEUT % 62.5 % (16.0-70.0); PLATELET COUNT 317 TH/MM3 (150-450); RED BLOOD COUNT 2.92 MIL/MM3 (4.50-5.90); RED CELL DISTRIBUTION WIDTH 16.8 % (11.6-17.2); WHITE BLOOD COUNT 6.5 TH/MM3 (4.0-11.0)
[2018-03-07] MEDS: ACETAMINOPHEN/HYDROcodone 325 MG/10 MG TAB PO PRN ×3 (06:49→23:27)
[2018-03-07] MEDS: glipiZIDE 5 MG TAB PO SCH ×2 (06:50→17:52)
[2018-03-07] MEDS: SENNOSIDES 8.6 MG TAB PO PRN ×2 (06:50→20:04)
[2018-03-07 08:00] VITALS: BP 158/83; PULSE 66; RESP 18; TEMP 98.3; O2SAT 100
[2018-03-07] MEDS ORDERED: GLUCAGON 1 MG/ML VIAL OTHER PRN (08:00)
[2018-03-07] MEDS ORDERED: DEXTROSE 50% IN WATER 50 ML VIAL(D50) IV PUSH PRN (08:00)
[2018-03-07 08:05] LABS: ACANTHOCYTES OCC (NORMAL)
--- NOTE | 2018-03-07 08:48 | HHI.PR ---
Subjective Remarks RN denies any deterioration since last night. Pt says that he was only sent in by his PCP in light of concern for possible dropping h/h given hematuria. Pt denies any abd pain. Objective Vital Signs Date Time Temp Pulse Resp B/P (MAP) Pulse Ox O2 Delivery O2 Flow Rate FiO2 03/07/18 07:49 18 03/07/18 00:40 98.7 63 16 159/71 (100) 100 03/06/18 20:56 98.7 69 17 133/71 100 03/06/18 20:00 98.5 59 16 137/66 (89) 100 03/06/18 19:05 97.9 67 18 135/66 (89) 100 Room Air 03/06/18 18:35 98.3 59 12 111/58 98 03/06/18 16:18 63 12 106/55 (72) 99 Room Air 03/06/18 14:30 98.3 72 18 136/58 (84) 100 I/O 03/06/18 03/06/18 03/06/18 03/07/18 03/07/18 03/07/18 07:00 15:00 23:00 07:00 15:00 23:00 Intake Total 502 ml 720 ml Output Total 700 ml 4650 ml Balance -198 ml -3930 ml Intake Oral 720 ml IV Total 100 ml Packed Cells 400 ml Blood Product IV Normal Saline Flush 2 ml Output Urine Total 700 ml 4650 ml # Voids 1 # Bowel Movements 0 Result Diagram: 03/07/18 0320 03/06/18 1613 Objective Remarks velazquez catheter in place with red urine awake alert, NAD, no suprapubic TTP A/P Assessment and Plan D/w pt's personal urologist Dr. Wallace on 03/07 whom recommended against changing Velazquez since his bacteruria could likely be colonization and changing catheters could worsen hematuria. Meanwhile consulted urologist has cleared pt for discharge if stable w/ primary team. Can dc'd pt on 03/08 if AM h/h is stable. No need to add further abx unless pt becomes symptomatic. Mark Michel MD March 07, 2018 08:48
[2018-03-07] MEDS: metFORMIN HCL 500 MG TAB PO SCH ×2 (09:00→17:52)
[2018-03-07] MEDS: INSULIN ASPART 1,000 UNITS/10 ML VIAL SQ SCH ×2 (09:00→20:18)
[2018-03-07] MEDS: OXYBUTYNIN CHLORIDE 5 MG TAB PO SCH ×2 (09:00→20:04)
[2018-03-07] MEDS: SODIUM CHLORIDE 0.9% FLUSH 10 ML FLUSH IV FLUSH SCH ×2 (09:00→20:06)
[2018-03-07] MEDS: FINASTERIDE 5 MG TAB PO SCH (09:01)
[2018-03-07] MEDS: FUROSEMIDE 40 MG TAB PO SCH ×2 (09:01→20:04)
[2018-03-07] MEDS: MULTIVITAMIN TAB PO SCH (09:01)
[2018-03-07] MEDS: PANTOPRAZOLE SOD 20 MG DELAYED RELEASE TAB PO SCH (09:01)
[2018-03-07] MEDS: LISINOPRIL 10 MG TAB PO SCH (09:01)
[2018-03-07] MEDS: CHOLECALCIFEROL (VIT D3) 1000 UNIT TAB PO SCH (09:02)
[2018-03-07] MEDS: CYANOCOBALAMIN 1,000 MCG TAB PO SCH (09:02)
[2018-03-07 12:00] VITALS: BP 143/68; PULSE 62; RESP 18; TEMP 98.1; O2SAT 100
--- NOTE | 2018-03-07 13:43 | PD.CONS ---
HPI Service Urology Consult Requested By HAN Lucas Reason for Consult Hematuria Primary Care Physician [facility] Diagnosis: History of Present Illness 62y.o M well known to our practice, pt of Dr Wallace. He has a h/o prostate cancer, s/p XRT and now had radiation cystitis with hematuria and clots. he had several visits to ER with hematuria issues and required CBI and blood transfusions. [facility] due to [facility] H/H again and had blood transfusions. his velazquez is in place, urine is draining ok its light red color with some small clots. H/H is better. pt has no pain, no other c/ o. His last hyperbaric chamber treatment for radiation cystitis was on saturday, he still has about two week f treatment. He knows how to irrigate bladder at home if needs to Review of Systems Except as stated in HPI: all other systems reviewed are Neg Past Family Social History Past Medical History Radiation cystitis and prostate cancer Diabetes mellitus type 2 Hypertension Hyperlipidemia Past Surgical History Back surgery Right arm surgery Prostate right Allergies: Coded Allergies: No Known Allergies (Verified Allergy, Unknown, 03/07/18) Family History Mother has diabetes father had prostate cancer Social History Does not smoke cigarettes or drink alcohol Physical Exam Vital Signs Date Time Temp Pulse Resp B/P (MAP) Pulse Ox O2 Delivery O2 Flow Rate FiO2 03/07/18 12:00 98.1 62 18 143/68 (93) 100 03/07/18 08:00 98.3 66 18 158/83 (108) 100 03/07/18 07:49 18 03/07/18 00:40 98.7 63 16 159/71 (100) 100 03/06/18 20:56 98.7 69 17 133/71 100 03/06/18 20:00 98.5 59 16 137/66 (89) 100 03/06/18 19:05 97.9 67 18 135/66 (89) 100 Room Air 03/06/18 18:35 98.3 59 12 111/58 98 03/06/18 16:18 63 12 106/55 (72) 99 Room Air 03/06/18 14:30 98.3 72 18 136/58 (84) 100 Physical Exam GENERAL: This is a well-nourished, well-developed patient, in no apparent distress. CARDIOVASCULAR: Regular rate and rhythm without murmurs, gallops, or rubs. RESPIRATORY: Clear to auscultation. Breath sounds equal bilaterally. No wheezes , rales, or rhonchi. GASTROINTESTINAL: Abdomen soft, non-tender, nondistended. GENITOURINARY: no CVAT, Velazquez is in place MUSCULOSKELETAL: Extremities without clubbing, cyanosis, or edema. NEUROLOGICAL: Awake and alert. Lab results reviewed: Yes Laboratory Tests Test 03/06/18 16:13 03/06/18 16:50 03/07/18 03:20 White Blood Count 7.0 6.5 Red Blood Count 2.92 2.92 Hemoglobin 7.8 8.1 Hematocrit 24.4 24.2 Mean Corpuscular Volume 83.5 83.0 Mean Corpuscular Hemoglobin 26.8 27.6 Mean Corpuscular Hemoglobin Concent 32.1 33.3 Red Cell Distribution Width 17.1 16.8 Platelet Count 369 317 Mean Platelet Volume 7.0 6.9 Prothrombin Time 9.9 Prothromb Time International Ratio 1.0 Activated Partial Thromboplast Time 25.9 Blood Urea Nitrogen 18 Creatinine 1.06 Random Glucose 153 Calcium Level 9.0 Sodium Level 135 Potassium Level 4.4 Chloride Level 99 Carbon Dioxide Level 30.3 Anion Gap 6 Estimat Glomerular Filtration Rate 86 Urine Color RED Urine Turbidity HAZY Urine pH 6.5 Urine Specific [place] 1.016 Urine Protein 100 Urine Glucose (UA) NEG Urine Ketones 10 Urine Occult Blood LARGE Urine Nitrite POS Urine Bilirubin NEG Urine Urobilinogen LESS THAN 2.0 Urine Leukocyte Esterase LARGE Urine RBC Urine WBC 142 Urine Squamous Epithelial Cells 2 Urine Amorphous Sediment RARE Urine Bacteria FEW Microscopic Urinalysis Comment CULTURE INDICATED Neutrophils (%) (Auto) 62.5 Lymphocytes (%) (Auto) 24.0 Monocytes (%) (Auto) 9.4 Eosinophils (%) (Auto) 3.6 Basophils (%) (Auto) 0.5 Neutrophils # (Auto) 4.1 Lymphocytes # (Auto) 1.6 Monocytes # (Auto) 0.6 Eosinophils # (Auto) 0.2 Basophils # (Auto) 0.0 CBC Comment AUTO DIFF Differential Comment AUTO DIFF CONFIRMED Acanthocytes OCC Date/Time Source Procedure Growth Status 03/06/18 16:50 Urine Random Urine Urine Culture - Preliminary Gram Negative Martin Resulted Result Diagram: 03/07/18 0320 03/06/18 1613 Assessment and Plan Assessment and Plan 62 y.o M with Prostate cancer, s/p XRT, Undergoing treatment for radiation hemorrhagic cystitis with hyperbaric chamber - No additional acute intervention needed - Continue care and monitoring pt's h/h as per primary team - Pt can be d/c home when cleared by primary team - Continue his treatments as scheduled -Follow up with Dr Wallace as planned in about 2-3 weeks Discussed Condition With Dr Matthew SOLOMON attending who also agrees with this plan Barry Howard March 07, 2018 13:43
[2018-03-07 20:00] VITALS: BP 134/66; PULSE 66; RESP 18; TEMP 97.9; O2SAT 100
[2018-03-07] MEDS: MAGNESIUM HYDROXIDE SUSP 30 ML CUP PO PRN (20:04)
[2018-03-08 00:01] VITALS: BP 135/75; PULSE 69; RESP 18; TEMP 98.6; O2SAT 98
[2018-03-08 04:00] VITALS: BP 160/71; PULSE 61; RESP 17; TEMP 97.9; O2SAT 99
[2018-03-08] MEDS: ACETAMINOPHEN/HYDROcodone 325 MG/10 MG TAB PO PRN ×2 (05:21→11:59)
[2018-03-08] MEDS: glipiZIDE 5 MG TAB PO SCH (06:28)
[2018-03-08 08:00] VITALS: BP 134/70; PULSE 63; RESP 16; TEMP 98.2; O2SAT 100
[2018-03-08 08:28] LABS: HEMATOCRIT 27.8 % (39.0-51.0); HEMOGLOBIN 9.1 GM/DL (13.0-17.0); MEAN CELL VOLUME 83.3 FL (80.0-100.0); MEAN CORPUSCULAR HEMOGLOBIN 27.3 PG (27.0-34.0); MEAN CORPUSCULAR HGB CONC 32.8 % (32.0-36.0); PLATELET COUNT 361 TH/MM3 (150-450); RED BLOOD COUNT 3.33 MIL/MM3 (4.50-5.90); RED CELL DISTRIBUTION WIDTH 17.3 % (11.6-17.2); WHITE BLOOD COUNT 7.1 TH/MM3 (4.0-11.0)
[2018-03-08] MEDS: FINASTERIDE 5 MG TAB PO SCH (08:38)
[2018-03-08] MEDS: CYANOCOBALAMIN 1,000 MCG TAB PO SCH (08:39)
[2018-03-08] MEDS: MULTIVITAMIN TAB PO SCH (08:39)
[2018-03-08] MEDS: PANTOPRAZOLE SOD 20 MG DELAYED RELEASE TAB PO SCH (08:39)
[2018-03-08] MEDS: OXYBUTYNIN CHLORIDE 5 MG TAB PO SCH (08:39)
[2018-03-08] MEDS: metFORMIN HCL 500 MG TAB PO SCH (08:39)
[2018-03-08] MEDS: CHOLECALCIFEROL (VIT D3) 1000 UNIT TAB PO SCH (08:39)
[2018-03-08] MEDS: FUROSEMIDE 40 MG TAB PO SCH (08:40)
[2018-03-08] MEDS: LISINOPRIL 10 MG TAB PO SCH (08:40)
[2018-03-08] MEDS: SODIUM CHLORIDE 0.9% FLUSH 10 ML FLUSH IV FLUSH SCH (08:40)
[2018-03-08] MEDS: INSULIN ASPART 1,000 UNITS/10 ML VIAL SQ SCH (08:41)
[2018-03-08] MEDS: MAGNESIUM HYDROXIDE SUSP 30 ML CUP PO PRN (08:48)
[2018-03-08] MEDS ORDERED: GLUCAGON 1 MG/ML VIAL OTHER PRN (09:15)
[2018-03-08] MEDS ORDERED: DEXTROSE 50% IN WATER 50 ML VIAL(D50) IV PUSH PRN (09:15)
[2018-03-08 12:00] VITALS: BP 158/81; PULSE 60; RESP 18; TEMP 97.8; O2SAT 100
[2018-03-08] MEDS ORDERED: INSULIN ASPART SUPPLEMENTAL SCALE SQ SCH (12:00)
--- NOTE | 2018-03-08 17:26 | HHI.DS ---
Discharge Summary Admission Date March 06, 2018 at 18:53 Discharge Date: March 08, 2018 Admitting Diagnosis symptomatic anemia, hematuria (1) Hematuria ICD Code: R31.9 - Hematuria, unspecified Status: Acute (2) Anemia ICD Code: D64.9 - Anemia, unspecified Status: Acute Procedures None Brief History - From Admission 62-year-old -Kazakh male with a history of urinary retention and previous indwelling Amaya catheter with radiation cystitis and prostate cancer was sent to the emergency room by his primary care physician from the [place]. He states that he saw his primary care physician 2 days ago followed by his urologist due to recurrent urinary retention in which he had Amaya placed to a half weeks ago. Since then he has had on and off hematuria and during the past 3-4 days has had large clots that he seen. He also gets hyperbaric treatments 5 weeks a day for 2 hours. His next appointment is 11:00 in the morning. He does report some fatigue and dizziness. He denies any shortness of breath. He denies any blood in stools or black tarry stools. He has consented and receiving blood due to his symptomatic anemia today. He also reports some bilateral inguinal hernia pressure pain in which he rates as a 3 out of 10 in pain intensity. CBC/BMP: 03/08/18 0742 03/06/18 1613 Significant Findings Laboratory Tests Test 03/06/18 16:13 03/06/18 16:50 03/07/18 03:20 03/08/18 07:42 Red Blood Count 2.92 MIL/MM3 (4.50-5.90) 2.92 MIL/MM3 (4.50-5.90) 3.33 MIL/MM3 (4.50-5.90) Hemoglobin 7.8 GM/DL (13.0-17.0) 8.1 GM/DL (13.0-17.0) 9.1 GM/DL (13.0-17.0) Hematocrit 24.4 % (39.0-51.0) 24.2 % (39.0-51.0) 27.8 % (39.0-51.0) Mean Corpuscular Hemoglobin 26.8 PG (27.0-34.0) Random Glucose 153 MG/DL (74-106) Sodium Level 135 MEQ/L (136-145) Estimat Glomerular Filtration Rate 86 ML/MIN (>89) Urine Color RED (YELLW/STRAW) Urine Turbidity HAZY (CLEAR) Urine Protein 100 mg/dL (NEG-TRACE) Urine Ketones 10 mg/dL (NEG) Urine Occult Blood LARGE (NEG) Urine Nitrite POS (NEG) Urine Leukocyte Esterase LARGE (NEG) Urine WBC 142 /hpf (0-5) Urine Bacteria FEW /hpf (NONE) Mean Platelet Volume 6.9 FL (7.0-11.0) Monocytes (%) (Auto) 9.4 % (0.0-8.0) Red Cell Distribution Width 17.3 % (11.6-17.2) PE at Discharge GENERAL: This is a well-nourished, well-developed patient, in no apparent distress. CARDIOVASCULAR: Regular rate and rhythm RESPIRATORY: Clear to auscultation. Breath sounds equal bilaterally. GASTROINTESTINAL: Abdomen soft, non-tender, nondistended. Normal active bowel sounds GENITOURINARY: Amaya draining MUSCULOSKELETAL: Extremities without clubbing, cyanosis, or edema. NEURO: Alert & Oriented x4 to person, place, time, situation. Moves all ext x4 Hospital Course 1. Post hemorrhage acute anemia due to hematuria -s/p transfusion 1 units of packed red blood cells 03/06, hemoglobin stable 2. Hematuria with a history of urinary retention and radiation cystitis IV fluid hydration with bladder irrigation. urology consultation to Dr. Wallace, patient cleared for DC per urology. Patient seen by Barry SHORT Per Dr. Michel note: D/w pt's personal urologist Dr. Wallace on 03/07 whom recommended against changing Amaya since his bacteruria could likely be colonization and changing catheters could worsen hematuria. Meanwhile consulted urologist has cleared pt for discharge if stable w primary team.Can dc'd pt on 03/08 if AM h/h is stable. No need to add further abx unless pt becomes symptomatic. 3. Diabetes mellitus type 2continue Accu-Cheks and sliding scale insulin and continue home metformin and glipizide. 4. DVT prophylaxis -bilateral SCDs, anticoagulant contraindicated secondary to hematuria Supervising physician Dr. Murray Pt Condition on Discharge: Stable Discharge Disposition: Discharge Home Discharge Time: <= 30 minutes Discharge Instructions DIET: Follow Instructions for: As Tolerated, No Restrictions, Diabetic Diet Activities you can perform: Regular-No Restrictions Follow up Referrals: PCP Follow-up - 1 Week Urology - 2 Weeks with Derrick Wallace MD Continued Medications: Cholecalciferol (Vitamin D-1000) 1,000 Unit Tab 1000 UNITS PO DAILY for Nutritional Supplement, #1 BOTTLE 0 Refills Cyanocobalamin (Vitamin B-12) 1,000 Mcg Tab 1000 MCG PO DAILY for Nutritional Supplement, #1 BOTTLE 0 Refills Finasteride (Finasteride) 5 Mg Tab 5 MG PO DAILY for urinary retention for 30 Days, #30 TAB Do not crush. Furosemide (Furosemide) 40 Mg Tab 40 MG PO BID, #60 TAB 0 Refills Glipizide (Glipizide) 5 Mg Tab 5 MG PO BIDAC for Blood Sugar Management, #60 TAB 0 Refills Take 30 minutes before a meal Hydrocodone-Acetaminophen (Hydrocodone-Acetaminophen) 10-325 mg Tab 1 TAB PO Q6H PRN for PAIN, TAB 0 Refills Lisinopril (Lisinopril) 10 Mg Tab 10 MG PO DAILY, #30 TAB 0 Refills Metformin (Metformin) 1,000 Mg Tab 1000 MG PO BIDPC for Blood Sugar Management, #60 TAB 0 Refills Multiple Vitamin (Multiple Vitamin) 1 Tab 1 TAB PO DAILY for Nutritional Supplement, TAB 0 Refills Omeprazole (Omeprazole) 20 Mg Tab 20 MG PO DAILY, #30 TAB 0 Refills Oxybutynin (Ditropan) 5 Mg Tab 5 MG PO Q12HR for bladder spasms for 30 Days, TAB Oxycodone (Oxycodone) 30 Mg Tab 30 MG PO Q6H PRN for PAIN, TAB 0 Refills Erna Cox March 08, 2018 17:26
== END 2018-03-08 15:59 | disposition home or self-care (01) | DRG 812 ==
LOC: NEPC 14:17 → OBSVTOIN 18:37 → INTOOBSV 18:37 → NEDA 18:37 → OBSVTOIN 18:53 → N06B 20:03
PROVIDERS: ADMIT Hospitalist; ATTEND Hospitalist
PROC: 30233N1 Transfusion of Nonautologous Red Blood Cells into Peripheral Vein, Percutaneous Approach (ICD-10-PCS; principal; 2018-03-06)
DX: D62 Acute posthemorrhagic anemia (principal); N30.41 Irradiation cystitis with hematuria; I10 Essential (primary) hypertension; Y84.2 Radiological procedure and radiotherapy as the cause of abnormal reaction of the patient, or of later complication, without mention of misadventure at the time of the procedure; R33.9 Retention of urine, unspecified; E11.9 Type 2 diabetes mellitus without complications; Z79.84 Long term (current) use of oral hypoglycemic drugs; E78.5 Hyperlipidemia, unspecified; Z85.46 Personal history of malignant neoplasm of prostate; Z80.42 Family history of malignant neoplasm of prostate
CPT/HCPCS: 36430; 80048; 81001; 82948; 85025; 85027; 85610; 85730; 86850; 86900; 86901; 86920; 87077; 87086; 87186; 99285; J0696; P9016

== ENCOUNTER 2018-04-01 15:25 | Inpatient (IN) | payer OTHER, MEDICARE ==
[~2018-04-01] VITALS: Ht 188 cm; Wt 109.5 kg
[2018-04-01] VITALS (10 sets, daily range): BP systolic 102–146; BP diastolic 51–73; PULSE 59–88; RESP 16–19; TEMP 97.9–99.6; O2SAT 96–100
[2018-04-01 16:30] LABS: EOSINOPHIL # 0.1 TH/MM3 (0-0.4); EOSINOPHIL % 3.2 % (0.0-4.0); HEMATOCRIT 22.4 % (39.0-51.0); HEMOGLOBIN 7.3 GM/DL (13.0-17.0); LYMPH % 30.5 % (9.0-44.0); LYMPHOCYTE # 1.1 TH/MM3 (1.0-4.8); MEAN CELL VOLUME 83.3 FL (80.0-100.0); MEAN CORPUSCULAR HEMOGLOBIN 27.1 PG (27.0-34.0); MEAN CORPUSCULAR HGB CONC 32.5 % (32.0-36.0); MEAN PLATELET VOLUME 6.7 FL (7.0-11.0); MONO % 10.3 % (0.0-8.0); MONOCYTE # 0.4 TH/MM3 (0-0.9); PLATELET COUNT 343 TH/MM3 (150-450); RED BLOOD COUNT 2.69 MIL/MM3 (4.50-5.90); RED CELL DISTRIBUTION WIDTH 16.8 % (11.6-17.2); WHITE BLOOD COUNT 3.6 TH/MM3 (4.0-11.0)
[2018-04-01 16:46] LABS: PROTHROMBIN TIME - PATIENT 10.3 SEC (9.8-11.6)
[2018-04-01 17:07] LABS: ALBUMIN 3.3 GM/DL (3.4-5.0); ALT (GPT) 26 U/L (12-78); AST (GOT) 22 U/L (15-37); BICARBONATE 28.3 MEQ/L (21.0-32.0); BLOOD UREA NITROGEN 17 MG/DL (7-18); CALCIUM 8.7 MG/DL (8.5-10.1); CHLORIDE 101 MEQ/L (98-107); CREATININE 1.35 MG/DL (0.60-1.30); GLOMERULAR FILTRATION RATE 65 ML/MIN (>89); GLUCOSE,RANDOM 162 MG/DL (74-106); SODIUM (NA) 137 MEQ/L (136-145)
[2018-04-01 17:10] LABS: ALKALINE PHOSPHATASE 84 U/L (45-117); TOTAL BILIRUBIN ADULT 0.2 MG/DL (0.2-1.0); TOTAL PROTEIN 6.3 GM/DL (6.4-8.2)
[2018-04-01] MEDS ORDERED: SODIUM CHLOR 0.9% 250 ML INJ 250 ML IV ONE ×2 (17:45→18:45)
[2018-04-01] MEDS ORDERED: LACTULOSE SYRUP 20 GM/30 ML CUP PO PRN (18:30)
[2018-04-01] MEDS ORDERED: GLUCAGON 1 MG/ML VIAL OTHER PRN (18:30)
[2018-04-01] MEDS ORDERED: SENNOSIDES 8.6 MG TAB PO PRN (18:30)
[2018-04-01] MEDS ORDERED: METOCLOPRAMIDE HCL 10 MG/2 ML VIAL IV PUSH PRN (18:30)
[2018-04-01] MEDS ORDERED: DEXTROSE 50% IN WATER 50 ML VIAL(D50) IV PUSH PRN (18:30)
[2018-04-01] MEDS ORDERED: ONDANSETRON ODT 4 MG TAB PO PRN (18:30)
[2018-04-01] MEDS ORDERED: SODIUM CHLORIDE 0.9% FLUSH 10 ML FLUSH IV FLUSH PRN (18:30)
[2018-04-01] MEDS ORDERED: MORPHINE SULFATE 4 MG/ML INJ IV PUSH PRN ×3 (18:30)
[2018-04-01] MEDS ORDERED: BISACODYL 10 MG SUPP RECTAL PRN (18:30)
[2018-04-01] MEDS ORDERED: NALOXONE HCL 0.4 MG/ML AMP IV PUSH PRN (18:30)
[2018-04-01] MEDS ORDERED: ACETAMINOPHEN 325 MG TAB PO PRN ×3 (18:30→18:45)
[2018-04-01] MEDS ORDERED: MAGNESIUM HYDROXIDE SUSP 30 ML CUP PO PRN (18:30)
[2018-04-01] MEDS ORDERED: oxyCODONE/ACETAMINOPHEN 5 MG/325 MG TAB PO PRN (18:30)
--- NOTE | 2018-04-01 18:36 | PD ---
HPI Chief Complaint: Abnormal Results Time Seen by Provider: 17:22 Travel History International Travel<30 days: No Contact w/Intl Traveler<30days: No Traveled to known affect area: No History of Present Illness HPI 62-year-old male that presents to the ED for evaluation of low hemoglobin. Patient has a chronic history of anemia has been here multiple times in the past. Patient has chronic hematuria secondary to prostate cancer. Patient apparently is getting hyperbaric chamber treatment for his bleeding and his hematuria and per patient for about 2 weeks now he has had the catheter removed by his urologist to see if it will heal better for him. He states that sometimes he has clots in his urine and sometimes his urine turns red blood for the most part it has been clear per patient. His urine here does appear to be somewhat red. He denies any clots today. He denies any pain. He denies any chest pain or shortness of breath. He states feeling weak and tired. [facility] work did show a low hemoglobin of 7.5. He was told to come here for a blood transfusion. He has not seen his urologist this week but he did got his hyperbaric chamber treatment recently. Has no allergies to medication. No other medical issues. PFSH Past Medical History Hx Anticoagulant Therapy: No Anemia: Yes Arthritis: No Asthma: No Autoimmune Disease: No Blood Disorders: No Anxiety: Yes Depression: Yes Heart Rhythm Problems: No Cancer: Yes (PROSTATE) Cardiovascular Problems: Yes High Cholesterol: Yes Chemotherapy: No Chest Pain: No Congestive Heart Failure: No COPD: No Cerebrovascular Accident: No Diabetes: Yes Patient Takes Glucophage: No Diminished Hearing: No Endocrine: Yes Gastrointestinal Disorders: Yes (COLON POLYP) GERD: Yes Glaucoma: No Genitourinary: Yes (hematuria, indwelling catheter) Hiatal Hernia: No Heparin Induced Thrombocytopen: No Hypertension: Yes Immune Disorder: No Implanted Vascular Access Dvce: No Musculoskeletal: Yes (CERVICAL STENOSIS, DISC DEGENERATIVE) Neurologic: Yes (PERIPHERAL NEUROPATHY) Psychiatric: Yes Reproductive: Yes (prostate CA) Respiratory: Yes Integumentary: Yes Immunizations Current: Yes Migraines: No Radiation Therapy: Yes (2009) Seizures: No Sickle Cell Disease: No Sleep Apnea: Yes (no Cpap) Thyroid Disease: No Ulcer: No ?: Unknown Past Surgical History Abdominal Surgery: No AICD: No Arteriovenous Shunt: No Body Medical Devices: titanium in back Cardiac Surgery: No Ear Surgery: No Endocrine Surgery: No Eye Surgery: No Genitourinary Surgery: Yes (BLADDER SURGERY ) Gynecologic Surgery: No Insulin Pump: No Joint Replacement: No Oral Surgery: No Pacemaker: No Thoracic Surgery: No Other Surgery: Yes (TITANIUM RODS PLACED IN LOW BACK 2000, Carpal tunnel, R shoulder) Social History Alcohol Use: No Tobacco Use: No Substance Use: No Allergies-Medications (Allergen,Severity, Reaction): Coded Allergies: No Known Allergies (Verified Allergy, Unknown, 04/01/18) Reported Meds & Prescriptions Reported Meds & Active Scripts Active Finasteride 5 Mg Tab 5 Mg PO DAILY 30 Days Do not crush. Ditropan (Oxybutynin Chloride) 5 Mg Tab 5 Mg PO Q12HR 30 Days Reported Furosemide 40 Mg Tab 40 Mg PO BID Omeprazole 20 Mg Tab 20 Mg PO DAILY Vitamin B-12 (Cyanocobalamin) 1,000 Mcg Tab 1,000 Mcg PO DAILY Multiple Vitamin 1 Tab 1 Tab PO DAILY Vitamin D-1000 (Cholecalciferol) 1,000 Unit Tab 1,000 Units PO DAILY Novolog Inj (Insulin Aspart) 1,000 Unit/10 Ml Vial 34 Units SQ BID Glipizide 5 Mg Tab 5 Mg PO BIDAC Take 30 minutes before a meal Hydrocodone-Acetaminophen 10-325 mg Tab 1 Tab PO Q6H PRN Oxycodone (Oxycodone HCl) 30 Mg Tab 30 Mg PO Q6H PRN Lisinopril 10 Mg Tab 10 Mg PO DAILY Metformin (Metformin HCl) 1,000 Mg Tab 1,000 Mg PO BIDPC Review of Systems Except as stated in HPI: all other systems reviewed are Neg Physical Exam Narrative GENERAL: SKIN: Warm and dry. HEAD: Atraumatic. Normocephalic. EYES: Pupils equal and round. No scleral icterus. No injection or drainage. ENT: No nasal bleeding or discharge. Mucous membranes pink and moist. Tongue is midline. No uvula deviation. NECK: Trachea midline. No JVD. CARDIOVASCULAR: Regular rate and rhythm. No murmurs, S3, S4. RESPIRATORY: No accessory muscle use. Clear to auscultation. Breath sounds equal bilaterally. GASTROINTESTINAL: Abdomen soft, non-tender, nondistended. Hepatic and splenic margins not palpable. MUSCULOSKELETAL: Extremities without clubbing, cyanosis, or edema. No obvious deformities. Full range of motion of the upper and lower extremities bilaterally. 2+ pulses bilaterally. NEUROLOGICAL: Awake and alert. No obvious cranial nerve deficits. Motor grossly within normal limits. Five out of 5 muscle strength in the arms and legs. Normal speech. PSYCHIATRIC: Appropriate mood and affect; insight and judgment normal. Data Data Last Documented VS Vital Signs Date Time Temp Pulse Resp B/P (MAP) Pulse Ox O2 Delivery O2 Flow Rate FiO2 04/01/18 17:37 60 16 102/51 (68) 62 16 112/54 (73) 69 16 113/59 (77) 04/01/18 17:33 100 Room Air 04/01/18 15:45 99.1 Orders Orders Complete Blood Count With Diff (04/01/18 15:49) Comprehensive Metabolic Panel (04/01/18 15:49) Prothrombin Time / Inr (Pt) (04/01/18 15:49) Act Partial Throm Time (Ptt) (04/01/18 15:49) Ecg Monitoring (04/01/18 15:49) Orthostatic Vital Signs (04/01/18 15:49) Oximetry (04/01/18 15:49) Oxygen Administration (04/01/18 15:49) Iv Access Insert/Monitor (04/01/18 15:49) Type And Screen (04/01/18 15:49) Red Blood Cells (Rbc) (04/01/18 17:39) Blood Product Administration (04/01/18 17:39) Sodium Chlor 0.9% 250 Ml Inj (Ns 250 Ml (04/01/18 17:45) Urinalysis - C+S If Indicated (04/01/18 18:19) Comprehensive Metabolic Panel (04/02/18 06:00) Free Thyroxine (T4) (04/02/18 06:00) Hemoglobin (Hgb) A1c (04/02/18 06:00) Magnesium (Mg) (04/02/18 06:00) Phosphorus (Po4) (04/02/18 06:00) Thyroid Stimulating Hormone (04/02/18 06:00) Complete Blood Count With Diff (04/02/18 06:00) Bedside Glucose WILLA.CSUGAR (04/01/18 18:25) Blood Glucose Goal (Criteria) (04/01/18 18:25) Hypoglycemia 70 Mg/Dl Or < (04/01/18 18:25) Notify Dr: Other (04/01/18 18:25) Dextrose 50% In [place] (Vial) Inj (D50w (Vi (04/01/18 18:30) Glucagon Inj (Glucagon Inj) (04/01/18 18:30) Case Management Consult (04/01/18 ) Insulin Aspart Supplemtl Scale (Novolog (04/01/18 21:00) Admit Order (Ed Use Only) (04/01/18 18:) Admit To Inpatient (04/01/18 ) Code Status (04/01/18 18:) Vital Signs (Adult) Q4H (04/01/18:) Activity Oob Ad Vandana (04/01/18) Photo Offset Printer / Telemetry .CONTINUOUS (04/01/18) Intake + Output WILLA.QSHIFT (04/01/18 18:) Diet Heart Healthy (04/01/18 Dinner) Sodium Chloride 0.9% Flush (Ns Flush) (04/01/18 18:30) Sodium Chloride 0.9% Flush (Ns Flush) (04/01/18 21:00) Acetaminophen (Tylenol) (04/01/18 18:30) Ondansetron Inj (Zofran Inj) (04/01/18 18:30) Metoclopramide Inj (Reglan Inj) (04/01/18 18:30) Resp Oxygen Rupert C Titrat 1-4 L (04/01/18 ) Pt Request For Service (04/01/18 18:) Ot Request For Service (04/01/18 18:) Case Management Consult (04/01/18 18:) Scd Bilateral/Knee High WILLA.BID (04/01/18 18:26) Jim Bilateral/Knee High WILLA.QSHIFT (04/01/18 18:45) Acetaminophen (Tylenol) (04/01/18 18:30) Oxycodone-Acetamin 5-325 Mg (Percocet (04/01/18 18:30) Oxycodone-Acetamin 10-325 Mg (Percocet 1 (04/01/18 18:30) Morphine Inj (Morphine Inj) (04/01/18 18:30) Morphine Inj (Morphine Inj) (04/01/18 18:30) Morphine Inj (Morphine Inj) (04/01/18 18:30) Naloxone Inj (Narcan Inj) (04/01/18 18:30) Docusate Sodium-Senna (Arianna-Colace) (04/01/18 21:00) Magnesium Hydroxide Liq (Milk Of Magnesi (04/01/18 18:30) Sennosides (Senokot) (04/01/18 18:30) Bisacodyl Supp (Dulcolax Supp) (04/01/18 18:30) Lactulose Liq (Lactulose Liq) (04/01/18 18:30) Inpatient Certification (04/01/18 ) Cholecalciferol (Vitamin D3) (04/02/18 09:00) Cyanocobalamin (Vitamin B12) (04/02/18 09:00) Finasteride (Proscar) (04/01/18 18:45) Furosemide (Lasix) (04/01/18 21:00) Glipizide (Glucotrol) (04/02/18 07:00) Insulin Aspart Inj (Novolog Inj) (04/01/18 21:00) Lisinopril (Prinivil) (04/02/18 09:00) Metformin (Glucophage) (04/02/18 09:00) Oxybutynin (Ditropan) (04/01/18 21:00) (Nf) Multiple Vitamin (04/02/18 09:00) (Nf) Omeprazole (04/02/18 09:00) (Nf) Oxycodone (04/01/18 18:45) Blood Product Administration .UPON TRANSFUSION (04/01/18 18:32) Sodium Chlor 0.9% 250 Ml Inj (Ns 250 Ml (04/01/18 18:45) Acetaminophen (Tylenol) (04/01/18 18:45) Diphenhydramine (Benadryl) (04/01/18 18:45) Furosemide Inj (Lasix Inj) (04/01/18 18:45) Consult Urology (04/01/18 ) Labs Laboratory Tests Test 04/01/18 16:00 White Blood Count 3.6 TH/MM3 Red Blood Count 2.69 MIL/MM3 Hemoglobin 7.3 GM/DL Hematocrit 22.4 % Mean Corpuscular Volume 83.3 FL Mean Corpuscular Hemoglobin 27.1 PG Mean Corpuscular Hemoglobin Concent 32.5 % Red Cell Distribution Width 16.8 % Platelet Count 343 TH/MM3 Mean Platelet Volume 6.7 FL Neutrophils (%) (Auto) 55.0 % Lymphocytes (%) (Auto) 30.5 % Monocytes (%) (Auto) 10.3 % Eosinophils (%) (Auto) 3.2 % Basophils (%) (Auto) 1.0 % Neutrophils # (Auto) 2.0 TH/MM3 Lymphocytes # (Auto) 1.1 TH/MM3 Monocytes # (Auto) 0.4 TH/MM3 Eosinophils # (Auto) 0.1 TH/MM3 Basophils # (Auto) 0.0 TH/MM3 CBC Comment DIFF FINAL Differential Comment Prothrombin Time 10.3 SEC Prothromb Time International Ratio 1.0 RATIO Activated Partial Thromboplast Time 27.1 SEC Blood Urea Nitrogen 17 MG/DL Creatinine 1.35 MG/DL Random Glucose 162 MG/DL Total Protein 6.3 GM/DL Albumin 3.3 GM/DL Calcium Level 8.7 MG/DL Alkaline Phosphatase 84 U/L Aspartate Amino Transf (AST/SGOT) 22 U/L Alanine Aminotransferase (ALT/SGPT) 26 U/L Total Bilirubin 0.2 MG/DL Sodium Level 137 MEQ/L Potassium Level 4.2 MEQ/L Chloride Level 101 MEQ/L Carbon Dioxide Level 28.3 MEQ/L Anion Gap 8 MEQ/L Estimat Glomerular Filtration Rate 65 ML/MIN MDM Medical Decision Making Medical Screen Exam Complete: Yes Emergency Medical Condition: Yes Medical Record Reviewed: Yes Interpretation(s) CBC & BMP Diagram 04/01/18 16:00 Total Protein 6.3 L, Albumin 3.3 L, Calcium Level 8.7, Alkaline Phosphatase 84, Aspartate Amino Transf (AST/SGOT) 22, Alanine Aminotransferase (ALT/SGPT) 26, Total Bilirubin 0.2 Differential Diagnosis Anemia versus symptomatic anemia versus hematuria versus prostate cancer Narrative Course 62-year-old male that presents to the ED for evaluation of low hemoglobin. Patient was properly examined and was found to have signs and symptoms consistent with appears to be hematuria as well as symptomatic anemia. Patient currently has no Amaya in place. His urine here is slightly reddish but no sign of clots. Labs were drawn here and does show worsening hemoglobin of 7.3 here. Patient is symptomatic with dizziness and weakness. Blood was ordered. Case was discussed with my attending Dr. Navarro who recommends admission for blood transfusion. I spoke with Dr. Valentine over the phone who recommends that we consult with urologist to see if patient will warrant CBI or just transfusion. Dr Alcazar customer acquisition manager for [employer] recommends to not do CBI for now and transfuse and reasses. Diagnosis Primary Impression: Anemia Qualified Codes: D64.9 - Anemia, unspecified Additional Impression: Hematuria Qualified Codes: R31.9 - Hematuria, unspecified Admitting Information Admitting Physician Requests: Rashaad Smith Apr 01, 2018 18:36
[2018-04-01] MEDS ORDERED: diphenhydrAMINE HCL 25 MG CAP PO PRN (18:45)
[2018-04-01] MEDS ORDERED: FUROSEMIDE 20 MG/2 ML VIAL IV PUSH ONE (18:45)
[2018-04-01 19:47] LABS: BACTERIA, URINE OCC /hpf; BILIRUBIN, URINE NEG (NEG); BLOOD, URINE LARGE (NEG); GLUCOSE,URINE NEG (NEG); KETONE, URINE NEG (NEG); NITRITE,URINE NEG (NEG); PH, URINE 6.5 (5.0-8.5); SQUAMOUS EPITHELIAL CELL URINE 2 /hpf (0-5); URINE LEUKOCYTE ESTERASE MOD (NEG)
[2018-04-01 19:50] LABS: URINE COLOR LIGHT-RED (YELLW/STRAW)
--- NOTE | 2018-04-01 20:24 | HHI.HP ---
HPI Service [facility] Primary Care Physician [facility] Admission Diagnosis symptomatic anemia, hematuria, prostate cancer Diagnoses: Travel History International Travel<30 Days: No Contact w/Intl Traveler <30 Da: No Traveled to Known Affected Are: No History of Present Illness 62-year-old male with past medical history significant for urinary retention and radiation cystitis with prostate cancer was sent to the emergency department for evaluation of abnormal lab values. The patient reports he has a chronic history of anemia requiring transfusion secondary to chronic hematuria from his prostate cancer. He is currently receiving hyperbaric chamber treatment for his bleeding and hematuria. He reports occasional clots in his urine. He endorses weakness, lightheadedness and shortness of breath. Positive heart palpitations. No chest pain. No abdominal pain. No nausea/ vomiting/diarrhea. No fevers/chills. No lateralizing signs/symptoms. Review of Systems Except as stated in HPI: all other systems reviewed are Neg Past Family Social History Past Medical History Radiation cystitis and prostate cancer Diabetes mellitus type 2 Hypertension Hyperlipidemia Past Surgical History Back surgery Right arm surgery Prostate Reported Medications Reported Meds & Active Scripts Active Finasteride 5 Mg Tab 5 Mg PO DAILY 30 Days Do not crush. Ditropan (Oxybutynin Chloride) 5 Mg Tab 5 Mg PO Q12HR 30 Days Reported Furosemide 40 Mg Tab 40 Mg PO BID Omeprazole 20 Mg Tab 20 Mg PO DAILY Vitamin B-12 (Cyanocobalamin) 1,000 Mcg Tab 1,000 Mcg PO DAILY Multiple Vitamin 1 Tab 1 Tab PO DAILY Vitamin D-1000 (Cholecalciferol) 1,000 Unit Tab 1,000 Units PO DAILY Novolog Inj (Insulin Aspart) 1,000 Unit/10 Ml Vial 34 Units SQ BID Glipizide 5 Mg Tab 5 Mg PO BIDAC Take 30 minutes before a meal Hydrocodone-Acetaminophen 10-325 mg Tab 1 Tab PO Q6H PRN Oxycodone (Oxycodone HCl) 30 Mg Tab 30 Mg PO Q6H PRN Lisinopril 10 Mg Tab 10 Mg PO DAILY Metformin (Metformin HCl) 1,000 Mg Tab 1,000 Mg PO BIDPC Allergies: Coded Allergies: No Known Allergies (Verified Allergy, Unknown, 04/01/18) Family History Mother has diabetes father had prostate cancer Social History Negative for alcohol, tobacco and illicit drugs Physical Exam Vital Signs Vital Signs Date Time Temp Pulse Resp B/P (MAP) Pulse Ox O2 Delivery O2 Flow Rate FiO2 04/01/18 18:42 97.9 61 16 106/54 100 04/01/18 18:36 99.6 59 16 105/57 100 04/01/18 17:37 60 16 102/51 (68) 62 16 112/54 (73) 69 16 113/59 (77) 04/01/18 17:33 100 Room Air 04/01/18 17:33 62 16 112/54 (73) 100 Room Air 04/01/18 17:33 100 Room Air 04/01/18 17:33 62 16 112/54 (73) 100 Room Air 04/01/18 15:45 99.1 88 19 110/56 (74) 96 Physical Exam GENERAL: -[place] male lying in bed SKIN: No rashes, ecchymoses or lesions. Cool and dry. HEAD: Atraumatic. Normocephalic. No temporal or scalp tenderness. EYES: Pupils equal round and reactive. Extraocular motions intact. No scleral icterus. No injection or drainage. ENT: Nose without bleeding, purulent drainage or septal hematoma. Throat without erythema, tonsillar hypertrophy or exudate. Uvula midline. Airway patent. NECK: Trachea midline. No JVD or lymphadenopathy. Supple, nontender, no meningeal signs. CARDIOVASCULAR: Regular rate and rhythm without murmurs, gallops, or rubs. RESPIRATORY: Clear to auscultation. Breath sounds equal bilaterally. No wheezes , rales, or rhonchi. GASTROINTESTINAL: Abdomen soft, non-tender, nondistended. No hepato-splenomegaly , or palpable masses. No guarding. MUSCULOSKELETAL: Extremities without clubbing, cyanosis, or edema. No joint tenderness, effusion, or edema noted. No calf tenderness. NEUROLOGICAL: Awake and alert. Cranial nerves II through XII intact. Motor and sensory grossly within normal limits. Normal speech. Laboratory Laboratory Tests Test 04/01/18 16:00 04/01/18 18:15 White Blood Count 3.6 Red Blood Count 2.69 Hemoglobin 7.3 Hematocrit 22.4 Mean Corpuscular Volume 83.3 Mean Corpuscular Hemoglobin 27.1 Mean Corpuscular Hemoglobin Concent 32.5 Red Cell Distribution Width 16.8 Platelet Count 343 Mean Platelet Volume 6.7 Neutrophils (%) (Auto) 55.0 Lymphocytes (%) (Auto) 30.5 Monocytes (%) (Auto) 10.3 Eosinophils (%) (Auto) 3.2 Basophils (%) (Auto) 1.0 Neutrophils # (Auto) 2.0 Lymphocytes # (Auto) 1.1 Monocytes # (Auto) 0.4 Eosinophils # (Auto) 0.1 Basophils # (Auto) 0.0 CBC Comment DIFF FINAL Differential Comment Prothrombin Time 10.3 Prothromb Time International Ratio 1.0 Activated Partial Thromboplast Time 27.1 Blood Urea Nitrogen 17 Creatinine 1.35 Random Glucose 162 Total Protein 6.3 Albumin 3.3 Calcium Level 8.7 Alkaline Phosphatase 84 Aspartate Amino Transf (AST/SGOT) 22 Alanine Aminotransferase (ALT/SGPT) 26 Total Bilirubin 0.2 Sodium Level 137 Potassium Level 4.2 Chloride Level 101 Carbon Dioxide Level 28.3 Anion Gap 8 Estimat Glomerular Filtration Rate 65 Urine Color LIGHT-RED Urine Turbidity HAZY Urine pH 6.5 Urine Specific [place] 1.016 Urine Protein 100 Urine Glucose (UA) NEG Urine Ketones NEG Urine Occult Blood LARGE Urine Nitrite NEG Urine Bilirubin NEG Urine Urobilinogen LESS THAN 2.0 Urine Leukocyte Esterase MOD Urine RBC Urine WBC 75 Urine Squamous Epithelial Cells 2 Urine Bacteria OCC Microscopic Urinalysis Comment CULTURE INDICATED Date/Time Source Procedure Growth Status 04/01/18 18:15 Urine Clean Catch Urine Culture Pending Received Result Diagram: 04/01/18 1600 04/01/18 1600 Caprini VTE Risk Assessment Caprini VTE Risk Assessment: Mod/High Risk (score >= 2) Caprini Risk Assessment Model Point Value = 1 Point Value = 2 Point Value = 3 Point Value = 5 Age 41-60 Minor surgery BMI > 25 kg/m2 Swollen legs Varicose veins or History of unexplained or recurrent spontaneous Oral contraceptives or hormone replacement Sepsis (< 1 month) Serious lung disease, including pneumonia (< 1 month) Abnormal pulmonary function Acute myocardial infarction Congestive heart failure (< 1 month) History of inflammatory bowel disease Medical patient at bed rest Age 61-74 Arthroscopic surgery Major open surgery (> 45 min) Laparoscopic surgery (> 45 min) Malignancy Confined to bed (> 72 hours) Immobilizing plaster cast Central venous access Age >= 75 History of VTE Family history of VTE Factor V Leiden Prothrombin [id number] Lupus anticoagulant Anticardiolipin antibodies Elevated serum homocysteine Heparin-induced thrombocytopenia Other congenital or acquired thrombophilia Stroke (< 1 month) Elective arthroplasty Hip, pelvis, or leg fracture Acute spinal cord injury (< 1 month) Prophylaxis Regimen Total Risk Factor Score Risk Level Prophylaxis Regimen 0-1 Low Early ambulation 2 Moderate Order ONE of the following: *Sequential Compression Device (SCD) *Heparin 5000 units SQ BID 3-4 Higher Order ONE of the following medications: *Heparin 5000 units SQ TID *Enoxaparin/Lovenox 40 mg SQ daily (WT < 150 kg, CrCl > 30 mL/min) *Enoxaparin/Lovenox 30 mg SQ daily (WT < 150 kg, CrCl > 10-29 mL/min) *Enoxaparin/Lovenox 30 mg SQ BID (WT < 150 kg, CrCl > 30 mL/min) AND/OR *Sequential Compression Device (SCD) 5 or more Highest Order ONE of the following medications: *Heparin 5000 units SQ TID (Preferred with Epidurals) *Enoxaparin/Lovenox 40 mg SQ daily (WT < 150 kg, CrCl > 30 mL/min) *Enoxaparin/Lovenox 30 mg SQ daily (WT < 150 kg, CrCl > 10-29 mL/min) *Enoxaparin/Lovenox 30 mg SQ BID (WT < 150 kg, CrCl > 30 mL/min) AND *Sequential Compression Device (SCD) Assessment and Plan Assessment and Plan Assessment/plan: 1. Symptomatic anemia Transfuse 2 units packed red blood cells Secondary to hematuria H&H 7.3/22.4 2. Hematuria/radiation cystitis/history of prostate cancer Neurology consulted, appreciate recommendations Continue outpatient hyperbaric oxygen treatments 3. Diabetes mellitus Continue home and for Sliding-scale Monitor blood glucose 4. Hypertension/hyperlipidemia Continue home medications 5. MIAH Creatinine 1.35, baseline 1.0 Monitor renal function FEN Heart healthy diet Electrolytes: Monitor and replete as needed Holding pharmacologic anticoagulation secondary to symptomatic anemia Physician Certification 2 Midnight Certification Type: Admission for Inpatient Services Order for Inpatient Services The services are ordered in accordance with Medicare regulations or non- Medicare payer requirements, as applicable. In the case of services not specified as inpatient-only, they are appropriately provided as inpatient services in accordance with the 2-midnight benchmark. Estimated LOS (days): 2 2 days is the estimated time the patient will need to remain in the hospital, assuming treatment plan goals are met and no additional complications. Post-Hospital Plan: Not yet determined Grace Capps MD Apr 01, 2018 20:24
[2018-04-01] MEDS: FUROSEMIDE 40 MG TAB PO SCH (21:00)
[2018-04-01] MEDS: INSULIN ASPART SUPPLEMENTAL SCALE SQ SCH (21:00)
[2018-04-01] MEDS ORDERED: GABA300C5 PO (21:13)
[2018-04-01] MEDS: DOCUSATE SODIUM 50 MG/SENNA 8.6 MG TAB PO SCH (21:33)
[2018-04-01] MEDS: OXYBUTYNIN CHLORIDE 5 MG TAB PO SCH (21:33)
[2018-04-01] MEDS: FINASTERIDE 5 MG TAB PO SCH (21:33)
[2018-04-01] MEDS: oxyCODONE/ACETAMINOPHEN 10 MG/325 MG TAB PO PRN (21:33)
[2018-04-01] MEDS: SODIUM CHLORIDE 0.9% FLUSH 10 ML FLUSH IV FLUSH SCH (21:34)
[2018-04-01] MEDS: INSULIN ASPART 1,000 UNITS/10 ML VIAL SQ SCH (21:34)
[2018-04-01] MEDS: GABAPENTIN 300 MG CAP PO SCH (22:22)
[2018-04-02] VITALS (7 sets, daily range): BP systolic 134–152; BP diastolic 76–85; PULSE 48–96; RESP 14–16; TEMP 98.3–99.1; O2SAT 98–100
[2018-04-02] MEDS: oxyCODONE/ACETAMINOPHEN 10 MG/325 MG TAB PO PRN ×2 (04:10→10:43)
[2018-04-02] MEDS: glipiZIDE 5 MG TAB PO SCH ×2 (07:00→16:00)
[2018-04-02 07:13] LABS: ALBUMIN 3.2 GM/DL (3.4-5.0); AST (GOT) 25 U/L (15-37); BICARBONATE 29.6 MEQ/L (21.0-32.0); BLOOD UREA NITROGEN 15 MG/DL (7-18); CALCIUM 8.6 MG/DL (8.5-10.1); CHLORIDE 98 MEQ/L (98-107); CREATININE 1.24 MG/DL (0.60-1.30); GLOMERULAR FILTRATION RATE 72 ML/MIN (>89); GLUCOSE,RANDOM 96 MG/DL (74-106); MAGNESIUM 2.1 MG/DL (1.5-2.5); SODIUM (NA) 136 MEQ/L (136-145)
[2018-04-02 07:15] LABS: AUTOMATED NEUTROPHIL # 2.9 TH/MM3 (1.8-7.7); BASOPHIL % 0.7 % (0.0-2.0); EOSINOPHIL # 0.2 TH/MM3 (0-0.4); EOSINOPHIL % 3.7 % (0.0-4.0); HEMATOCRIT 25.1 % (39.0-51.0); HEMOGLOBIN 8.4 GM/DL (13.0-17.0); LYMPH % 32.5 % (9.0-44.0); LYMPHOCYTE # 1.8 TH/MM3 (1.0-4.8); MEAN CELL VOLUME 82.4 FL (80.0-100.0); MEAN CORPUSCULAR HEMOGLOBIN 27.6 PG (27.0-34.0); MEAN CORPUSCULAR HGB CONC 33.5 % (32.0-36.0); MEAN PLATELET VOLUME 6.9 FL (7.0-11.0); MONO % 9.8 % (0.0-8.0); MONOCYTE # 0.5 TH/MM3 (0-0.9); NEUT % 53.3 % (16.0-70.0); PLATELET COUNT 327 TH/MM3 (150-450); RED BLOOD COUNT 3.04 MIL/MM3 (4.50-5.90); WHITE BLOOD COUNT 5.4 TH/MM3 (4.0-11.0)
[2018-04-02 07:23] LABS: ALKALINE PHOSPHATASE 80 U/L (45-117); ALT (GPT) 27 U/L (12-78); FREE T4 0.83 NG/DL (0.76-1.46); PHOSPHORUS 4.6 MG/DL (2.5-4.9); TOTAL BILIRUBIN ADULT 0.3 MG/DL (0.2-1.0); TOTAL PROTEIN 6.2 GM/DL (6.4-8.2)
[2018-04-02] MEDS: INSULIN ASPART SUPPLEMENTAL SCALE SQ SCH ×3 (08:00→17:00)
[2018-04-02] MEDS: FINASTERIDE 5 MG TAB PO SCH (08:41)
[2018-04-02] MEDS: FUROSEMIDE 40 MG TAB PO SCH (08:41)
[2018-04-02] MEDS: DOCUSATE SODIUM 50 MG/SENNA 8.6 MG TAB PO SCH (08:41)
[2018-04-02] MEDS: GABAPENTIN 300 MG CAP PO SCH ×3 (08:41→17:51)
[2018-04-02] MEDS: OXYBUTYNIN CHLORIDE 5 MG TAB PO SCH (08:41)
[2018-04-02] MEDS: SODIUM CHLORIDE 0.9% FLUSH 10 ML FLUSH IV FLUSH SCH (08:42)
[2018-04-02] MEDS ORDERED: cefTRIAXone INJ 1,000 MG in SODIUM CHLORIDE 0.9% INJ 100 ML IV SCH (09:00)
[2018-04-02] MEDS ORDERED: CYANOCOBALAMIN 1,000 MCG TAB PO SCH (09:00)
[2018-04-02] MEDS: INSULIN ASPART 1,000 UNITS/10 ML VIAL SQ SCH (09:00)
[2018-04-02] MEDS ORDERED: CHOLECALCIFEROL (VIT D3) 1000 UNIT TAB PO SCH (09:00)
[2018-04-02] MEDS ORDERED: PANTOPRAZOLE SOD 20 MG DELAYED RELEASE TAB PO SCH (09:00)
[2018-04-02] MEDS ORDERED: MULTIVITAMIN TAB PO SCH (09:00)
[2018-04-02] MEDS: LACTOBACILLUS ACIDOPHILUS TAB PO SCH ×3 (09:00→17:51)
[2018-04-02] MEDS ORDERED: LISINOPRIL 10 MG TAB PO SCH (09:00)
[2018-04-02] MEDS ORDERED: GABAPENTIN 300 MG CAP PO SCH (09:00)
[2018-04-02] MEDS: metFORMIN HCL 500 MG TAB PO SCH ×2 (09:00→17:51)
--- NOTE | 2018-04-02 10:50 | PD.CONS ---
[facility] Service Urology Consult Requested By Dr. Valentine Reason for Consult Gross hematuria Primary Care Physician [facility] Diagnosis: History of Present Illness 62-year-old gentleman with history prostate cancer treated with radiation therapy with subsequent developed radiation cystitis. Patient has been dealing with recurrent gross hematuria over the past year and is under the care of Dr. Wallace. Patient is presently receiving hyperbaric oxygen therapy treatments for the hematuria. He was admitted for a blood transfusion as his hematocrit was slowly dropping. At the time of consultation the patient was voiding spontaneously with only minimal blood noted in the urine. He denied dysuria or having a fever. Review of Systems Constitutional: DENIES: Fever, Chills Cardiovascular: DENIES: Chest pain Gastrointestinal: DENIES: Abdominal pain Genitourinary: COMPLAINS OF: Hematuria, DENIES: Dysuria Except as stated in HPI: all other systems reviewed are Neg Past Family Social History Past Medical History Prostate cancer status post radiation therapy Radiation cystitis Hypertension Hyperlipidemia Diabetes mellitus Past Surgical History Back surgery Right upper extremity surgery Reported Medications Refer to EMR Allergies: Coded Allergies: No Known Allergies (Verified Allergy, Unknown, 04/01/18) Active Ordered Medications Refer to EMR Family History Mother with history diabetes mellitus Father with history prostate cancer Social History Denies tobacco, alcohol or intravenous drug abuse history Physical Exam Vital Signs Date Time Temp Pulse Resp B/P (MAP) Pulse Ox O2 Delivery O2 Flow Rate FiO2 04/02/18 08:00 98.3 96 16 152/85 (107) 100 04/02/18 04:05 99.1 66 14 134/78 (96) 98 04/02/18 04:00 59 04/02/18 01:30 99.0 65 16 135/76 100 04/02/18 00:00 69 04/01/18 22:56 99.4 72 16 110/63 98 04/01/18 22:46 98.5 76 16 139/56 100 04/01/18 22:32 98.0 78 16 140/73 98 04/01/18 21:40 97.9 79 16 146/66 100 04/01/18 21:30 67 04/01/18 18:42 97.9 61 16 106/54 100 04/01/18 18:36 99.6 59 16 105/57 100 04/01/18 17:37 60 16 102/51 (68) 62 16 112/54 (73) 69 16 113/59 (77) 04/01/18 17:33 100 Room Air 04/01/18 17:33 62 16 112/54 (73) 100 Room Air 04/01/18 17:33 100 Room Air 04/01/18 17:33 62 16 112/54 (73) 100 Room Air 04/01/18 15:45 99.1 88 19 110/56 (74) 96 Physical Exam GENERAL: This is a well-nourished, well-developed patient, in no apparent distress. SKIN: No rashes, ecchymoses or lesions. Cool and dry. HEAD: Atraumatic. Normocephalic. No temporal or scalp tenderness. EYES: Pupils equal round and reactive. Extraocular motions intact. No scleral icterus. No injection or drainage. ENT: Nose without bleeding, purulent drainage or septal hematoma. Throat without erythema, tonsillar hypertrophy or exudate. Uvula midline. Airway patent. NECK: Trachea midline. No JVD or lymphadenopathy. Supple, nontender, no meningeal signs. GASTROINTESTINAL: Abdomen soft, non-tender, nondistended. No hepato-splenomegaly , or palpable masses. No guarding. GENITOURINARY: Bladder not distended, no CVA tenderness MUSCULOSKELETAL: Extremities without clubbing, cyanosis, or edema. No joint tenderness, effusion, or edema noted. No calf tenderness. Negative Homans sign bilaterally. NEUROLOGICAL: Awake and alert. Cranial nerves II through XII intact. Motor and sensory grossly within normal limits. Five out of 5 muscle strength in all muscle groups. Normal speech. Lab results reviewed: Yes Laboratory Tests Test 04/01/18 16:00 04/01/18 18:15 04/02/18 06:18 White Blood Count 3.6 5.4 Red Blood Count 2.69 3.04 Hemoglobin 7.3 8.4 Hematocrit 22.4 25.1 Mean Corpuscular Volume 83.3 82.4 Mean Corpuscular Hemoglobin 27.1 27.6 Mean Corpuscular Hemoglobin Concent 32.5 33.5 Red Cell Distribution Width 16.8 16.0 Platelet Count 343 327 Mean Platelet Volume 6.7 6.9 Neutrophils (%) (Auto) 55.0 53.3 Lymphocytes (%) (Auto) 30.5 32.5 Monocytes (%) (Auto) 10.3 9.8 Eosinophils (%) (Auto) 3.2 3.7 Basophils (%) (Auto) 1.0 0.7 Neutrophils # (Auto) 2.0 2.9 Lymphocytes # (Auto) 1.1 1.8 Monocytes # (Auto) 0.4 0.5 Eosinophils # (Auto) 0.1 0.2 Basophils # (Auto) 0.0 0.0 CBC Comment DIFF FINAL DIFF FINAL Differential Comment Prothrombin Time 10.3 Prothromb Time International Ratio 1.0 Activated Partial Thromboplast Time 27.1 Blood Urea Nitrogen 17 15 Creatinine 1.35 1.24 Random Glucose 162 96 Total Protein 6.3 6.2 Albumin 3.3 3.2 Calcium Level 8.7 8.6 Alkaline Phosphatase 84 80 Aspartate Amino Transf (AST/SGOT) 22 25 Alanine Aminotransferase (ALT/SGPT) 26 27 Total Bilirubin 0.2 0.3 Sodium Level 137 136 Potassium Level 4.2 4.2 Chloride Level 101 98 Carbon Dioxide Level 28.3 29.6 Anion Gap 8 8 Estimat Glomerular Filtration Rate 65 72 Urine Color LIGHT-RED Urine Turbidity HAZY Urine pH 6.5 Urine Specific Inman 1.016 Urine Protein 100 Urine Glucose (UA) NEG Urine Ketones NEG Urine Occult Blood LARGE Urine Nitrite NEG Urine Bilirubin NEG Urine Urobilinogen LESS THAN 2.0 Urine Leukocyte Esterase MOD Urine RBC Urine WBC 75 Urine Squamous Epithelial Cells 2 Urine Bacteria OCC Microscopic Urinalysis Comment CULTURE INDICATED Phosphorus Level 4.6 Magnesium Level 2.1 Free Thyroxine 0.83 Thyroid Stimulating Hormone 3rd Gen 1.890 Date/Time Source Procedure Growth Status 04/01/18 18:15 Urine Clean Catch Urine Culture Pending Received Result Diagram: 04/02/18 0618 04/02/18 0618 Assessment and Plan Assessment and Plan Urologic impression: 1. Ongoing gross hematuria related to radiation cystitis which is now resolving 2. Anemia related to chronic hematuria Recommendations: 1. As hematuria is resolving, would continue to allow patient to spontaneously void 2. Urologically stable to discharge home with ongoing follow-up by his established urologist Dr. Wallace 3. Continue with outpatient hyperbaric oxygen therapy as prescribed by Darryl Paul MD Apr 02, 2018 10:50
--- NOTE | 2018-04-02 13:44 | HHI.DS ---
Discharge Summary Admission Date Apr 01, 2018 at 18:27 Discharge Date: Apr 02, 2018 Admitting Diagnosis symptomatic anemia, hematuria, prostate cancer (1) Hematuria ICD Code: R31.9 - Hematuria, unspecified Diagnosis: Principal Status: Acute (2) Anemia ICD Code: D64.9 - Anemia, unspecified Diagnosis: Principal Status: Acute Procedures 2 units PRBC transfusion Brief History - From Admission 62-year-old male with past medical history significant for urinary retention and radiation cystitis with prostate cancer was sent to the emergency department for evaluation of abnormal lab values. The patient reports he has a chronic history of anemia requiring transfusion secondary to chronic hematuria from his prostate cancer. He is currently receiving hyperbaric chamber treatment for his bleeding and hematuria. He reports occasional clots in his urine. He endorses weakness, lightheadedness and shortness of breath. Positive heart palpitations. No chest pain. No abdominal pain. No nausea/ vomiting/diarrhea. No fevers/chills. No lateralizing signs/symptoms. CBC/BMP: 04/02/18 0618 04/02/18 0618 Significant Findings Laboratory Tests Test 04/01/18 16:00 04/01/18 18:15 04/02/18 06:18 White Blood Count 3.6 TH/MM3 (4.0-11.0) Red Blood Count 2.69 MIL/MM3 (4.50-5.90) 3.04 MIL/MM3 (4.50-5.90) Hemoglobin 7.3 GM/DL (13.0-17.0) 8.4 GM/DL (13.0-17.0) Hematocrit 22.4 % (39.0-51.0) 25.1 % (39.0-51.0) Mean Platelet Volume 6.7 FL (7.0-11.0) 6.9 FL (7.0-11.0) Monocytes (%) (Auto) 10.3 % (0.0-8.0) 9.8 % (0.0-8.0) Creatinine 1.35 MG/DL (0.60-1.30) Random Glucose 162 MG/DL (74-106) Total Protein 6.3 GM/DL (6.4-8.2) 6.2 GM/DL (6.4-8.2) Albumin 3.3 GM/DL (3.4-5.0) 3.2 GM/DL (3.4-5.0) Estimat Glomerular Filtration Rate 65 ML/MIN (>89) 72 ML/MIN (>89) Urine Color LIGHT-RED (YELLW/STRAW) Urine Turbidity HAZY (CLEAR) Urine Protein 100 mg/dL (NEG-TRACE) Urine Occult Blood LARGE (NEG) Urine Leukocyte Esterase MOD (NEG) Urine WBC 75 /hpf (0-5) Urine Bacteria OCC /hpf (NONE) Hospital Course Mr. Mckeon is a 62-year-old male. He has a chronic history of recurrent hematuria. He was admitted secondary to an exacerbation of his have bacteria and anemia requiring transfusion of 2 units packed red blood cells. Patient is status post transfusion and doing well. His hematuria is improving. He has been evaluated by urology and they have cleared him for discharge. Patient is medically stable and cleared at this point for discharge to home. He will continue hyperbaric oxygen therapy treatments as an outpatient. Pt Condition on Discharge: Stable Discharge Disposition: Discharge Home Discharge Time: <= 30 minutes Discharge Instructions DIET: Follow Instructions for: As Tolerated, No Restrictions Activities you can perform: Regular-No Restrictions Follow up Referrals: PCP Follow-up - 2 Weeks Urology - 2 Weeks Continued Medications: Cholecalciferol (Vitamin D-1000) 1,000 Unit Tab 1000 UNITS PO DAILY for Nutritional Supplement, #1 BOTTLE 0 Refills Cyanocobalamin (Vitamin B-12) 1,000 Mcg Tab 1000 MCG PO DAILY for Nutritional Supplement, #1 BOTTLE 0 Refills Finasteride (Finasteride) 5 Mg Tab 5 MG PO DAILY for urinary retention for 30 Days, #30 TAB Do not crush. Furosemide (Furosemide) 40 Mg Tab 40 MG PO BID, #60 TAB 0 Refills Gabapentin (Gabapentin) 300 Mg Cap 300 MG PO TID, #90 CAP 0 Refills Glipizide (Glipizide) 5 Mg Tab 5 MG PO BIDAC for Blood Sugar Management, #60 TAB 0 Refills Take 30 minutes before a meal Hydrocodone-Acetaminophen (Hydrocodone-Acetaminophen) 10-325 mg Tab 1 TAB PO Q6H PRN for PAIN, TAB 0 Refills Insulin Aspart Inj (Novolog Inj) 1,000 Unit/10 Ml Vial 34 UNITS SQ BID for Blood Sugar Management, #10 ML 0 Refills Lisinopril (Lisinopril) 10 Mg Tab 10 MG PO DAILY, #30 TAB 0 Refills Metformin (Metformin) 1,000 Mg Tab 1000 MG PO BIDPC for Blood Sugar Management, #60 TAB 0 Refills Multiple Vitamin (Multiple Vitamin) 1 Tab 1 TAB PO DAILY for Nutritional Supplement, TAB 0 Refills Omeprazole (Omeprazole) 20 Mg Tab 20 MG PO DAILY, #30 TAB 0 Refills Oxybutynin (Ditropan) 5 Mg Tab 5 MG PO Q12HR for bladder spasms for 30 Days, TAB Oxycodone (Oxycodone) 30 Mg Tab 30 MG PO Q6H PRN for PAIN, TAB 0 Refills Ronan Golden MD Apr 02, 2018 13:44
== END 2018-04-02 18:36 | disposition home or self-care (01) | DRG 812 ==
LOC: NEPE 15:25 → NEDA 18:27 → HCIN 20:43
PROVIDERS: ADMIT Hospitalist; ATTEND Hospitalist
PROC: 30233N1 Transfusion of Nonautologous Red Blood Cells into Peripheral Vein, Percutaneous Approach (ICD-10-PCS; principal; 2018-04-01)
DX: D50.0 Iron deficiency anemia secondary to blood loss (chronic) (principal); N17.9 Acute kidney failure, unspecified; E11.42 Type 2 diabetes mellitus with diabetic polyneuropathy; N30.41 Irradiation cystitis with hematuria; E78.5 Hyperlipidemia, unspecified; K21.9 Gastro-esophageal reflux disease without esophagitis; I10 Essential (primary) hypertension; G47.30 Sleep apnea, unspecified; F32.9 Major depressive disorder, single episode, unspecified; F41.9 Anxiety disorder, unspecified; Y84.2 Radiological procedure and radiotherapy as the cause of abnormal reaction of the patient, or of later complication, without mention of misadventure at the time of the procedure; Z79.4 Long term (current) use of insulin; Z80.42 Family history of malignant neoplasm of prostate; Z83.3 Family history of diabetes mellitus; Z85.46 Personal history of malignant neoplasm of prostate
CPT/HCPCS: 36430; 80053; 81001; 82948; 83036; 83735; 84100; 84439; 84443; 85025; 85610; 85730; 86850; 86900; 86901; 86920; 87086; J0696; J1815; J1940; J7050; P9016

== ENCOUNTER 2018-06-28 01:30 | Inpatient (IN) ==
[2018-06-28] MEDS ORDERED: Morphine Inj 4 MG/ML Vial IV.PUSH ONE (02:30)
--- NOTE | 2018-06-28 02:35 | ED ---
HPI General Chief Complaint: Urogenital-Male Stated Complaint: Unable to urinate Time Seen by Provider: 06/28/18 02:32 History of Present Illness HPI narrative: 62-year-old male with history of bladder cancer prostate cancer and recurrent urinary retention presents to the emergency department for urinary retention and inability to urinate since 7 PM Saturday evening. Patient does not have nausea vomiting flank pain. No fever chills. Therapy with hyperbaric oxygen and has not had an indwelling catheter since March. Related Data Home Medications Medication Instructions Recorded Confirmed bupropion HCl 150 mg PO DAILY 04/25/18 06/28/18 buspirone 15 mg PO BID 04/25/18 06/28/18 calcium carbonate-vitamin D3 1 tab PO DAILY PRN 04/25/18 06/28/18 cyanocobalamin (vitamin B-12) 1,000 mcg PO DAILY 04/25/18 06/28/18 docusate calcium 240 mg PO DAILY 04/25/18 06/28/18 furosemide 40 mg PO DAILY 04/25/18 06/28/18 gabapentin 600 mg PO TID 04/25/18 06/28/18 glipizide 5 mg PO BID 04/25/18 06/28/18 insulin NPH and regular human 28 unit SUB-Q BID 04/25/18 06/28/18 lisinopril-hydrochlorothiazide 1 tab PO DAILY 04/25/18 06/28/18 magnesium oxide 400 mg PO DAILY 04/25/18 06/28/18 metformin 1,000 mg PO BID 04/25/18 06/28/18 rosuvastatin 1 tab PO DAILY 04/25/18 06/28/18 sulfamethoxazole-trimethoprim 1 tab PO DAILY 04/25/18 06/28/18 tadalafil 1 tab PO DAILY PRN 04/25/18 06/28/18 tamsulosin 1 cap PO DAILY 04/25/18 06/28/18 topiramate 2 tab PO BID 04/25/18 06/28/18 trazodone 1 tab PO DAILY 04/25/18 06/28/18 Previous Rx's Medication Instructions Recorded ciprofloxacin HCl [Cipro] 500 mg PO BID #14 tab 04/26/18 Allergies Allergy/AdvReac Type Severity Reaction Status Date / Time No Known Allergies Allergy Verified 05/01/18 07:47 Review of Systems ROS: all other systems reviewed are negative PMFSH History History Provided By: Patient Medical History Medical History Anemia (Acute) Chronic kidney disease (CKD) (Acute) Diabetes (Acute) MDD (major depressive disorder) (Acute) Prostate CA (Acute) Surgical History Surgical History H/O hand surgery (Acute) History of prostate surgery (Acute) Previous back surgery (Acute) Social History Social History Substance History: No History of Abuse Second Hand Smoke Exposure: No Smoking Status: Never smoker How Often Do You Have a Drink Containing Alcohol: Never Recent Travel in [facility] within the Last 8 Weeks: No Recent Out of Country Travel within the Last 8 Weeks: No Exam Narrative Exam Narrative: GENERAL: Well-nourished, well-developed patient. In apparent discomfort no respiratory distress SKIN: Focused skin assessment warm/dry. HEAD: Normocephalic. EYES: No scleral icterus. No injection or drainage. NECK: Supple, trachea midline. No JVD or lymphadenopathy. CARDIOVASCULAR: Regular rate and rhythm without murmurs, gallops, or rubs. RESPIRATORY: Breath sounds equal bilaterally. No accessory muscle use. GASTROINTESTINAL: Abdomen soft, non-tender, mildly suprapubically distended and tender to palpation. : Circumcised male with bilaterally descended testicles no scrotal edema erythema no blood at the meatus urinary catheter in place no leaking of urine around the meatus. MUSCULOSKELETAL: No cyanosis, or edema. BACK: Nontender without obvious deformity. No CVA tenderness. Course Consultations Consultation #1: discussed with DR Wallace --known to the patient Initial Documented Vital Signs Temperature 98.8 F 06/28/18 02:23 Pulse Rate 80 06/28/18 02:23 Respiratory Rate 24 06/28/18 02:23 Blood Pressure 196/93 H 06/28/18 02:23 Pulse Oximetry 100 06/28/18 02:23 Last Documented Vital Signs Temperature 98.8 F 06/28/18 02:23 Pulse Rate 80 06/28/18 02:23 Respiratory Rate 24 06/28/18 02:23 Blood Pressure 196/93 H 06/28/18 02:23 Pulse Oximetry 100 06/28/18 02:23 Medical Decision Making MDM Narrative Medical decision making narrative: 62-year-old male with history of prostate cancer bladder palpitations and urinary retention presents with no urine output since 7 PM and suprapubic tenderness and mild distention. Bladder scan performed and urinary catheter inserted was planned for three-way catheter for irrigation because patient has history of bladder cancer with recurrent hematuria and clot formation as well as chronic anemia. Insertion of 0 urinary catheter for irrigation not successful catheter removed 24 [place] urinary catheter placed per recommendation of Dr. Yun unable to irrigate successfully the bladder or withdraw clot this was called to Dr. Yun who recommended a 24 [place] hematuria catheter however unable to remove the 24 [place] rib catheter and unable to decompress the balloon with the catheter to remove the catheter this was discussed with Dr. Yun who recommends patient be admitted to medicine service with consult to him and for him to take patient to the OR this morning for cystogram and removal of clot under general anesthesia and removal of urinary catheter under general anesthesia. Call was placed to Dr. Patrick who graciously admits the patient to observation to her service for medical history with consult to Dr. Yun per Dr. Patrick requests a consult be put into the urologist Dr. Wallace to the emergency department this was done as a stat order. Dr. Wallace is aware patient 's renal function his hemoglobin of 8.3 which is chronically low and compared to last hemoglobin in April is unchanged. He is also a patient is received morphine sulfate 4 mg IV 1 dose and Dilaudid 1 mg for pain management. Medical Screen Exam Complete: Yes Emergency Medical Condition: Yes Differential Diagnosis Differential Diagnosis: Urinary retention, acute renal failure, hematuria, UTI Medical Records Medical records reviewed: Yes I reviewed the patient's medical records. Lab Data Result diagrams: 06/28/18 02:45 06/28/18 02:45 Lab Results 06/28/18 06/28/18 06/28/18 Range/Units 02:45 02:45 04:42 WBC 12.7 H (4.0-11.0) th/mm3 RBC 3.25 L (4.50-5.90) mil/mm3 Hgb 8.3 L (13.0-17.0) gm/dL Hct 27.0 L (39.0-51.0) % MCV 83.2 (80.0-100.0) fL MCH 25.6 L (27.0-34.0) pg MCHC 30.7 L (32.0-36.0) % RDW 21.7 H (11.6-17.2) % Plt Count 307 (150-450) th/mm3 MPV 6.8 L (7.0-11.0) fL Neut % (Auto) 82.2 H (16.0-70.0) % Lymph % (Auto) 10.7 (9.0-44.0) % Mcleod % (Auto) 5.7 (0.0-8.0) % Eos % (Auto) 0.9 (0.0-4.0) % Baso % (Auto) 0.5 (0.0-2.0) % Neut # (Auto) 10.5 H (1.8-7.7) th/mm3 Lymph # (Auto) 1.4 (1.0-4.8) th/mm3 Mcleod # (Auto) 0.7 (0.0-0.9) th/mm3 Eos # (Auto) 0.1 (0.0-0.4) th/mm3 Baso # (Auto) 0.1 (0.0-0.2) th/mm3 WBC Differential . Differential Comment Auto diff final PT 9.9 (9.8-11.6) sec INR 1.0 Ratio APTT 23.8 L (24.3-30.1) sec Sodium 138 (136-145) meq/L Potassium 4.3 (3.5-5.1) meq/L Chloride 101 (98-107) meq/L Carbon Dioxide 28.0 (21.0-32.0) meq/L Anion Gap 9 (5-15) meq/L BUN 20 H (7-18) mg/dL Creatinine 1.67 H (0.60-1.30) mg/dL Estimated GFR 51 L (>89) mL/min Random Glucose 152 H (74-106) mg/dL Calcium 9.0 (8.5-10.1) mg/dL Blood Type Blood Type Recheck Antibody Screen 06/28/18 Range/Units 04:42 WBC (4.0-11.0) th/mm3 RBC (4.50-5.90) mil/mm3 Hgb (13.0-17.0) gm/dL Hct (39.0-51.0) % MCV (80.0-100.0) fL MCH (27.0-34.0) pg MCHC (32.0-36.0) % RDW (11.6-17.2) % Plt Count (150-450) th/mm3 MPV (7.0-11.0) fL Neut % (Auto) (16.0-70.0) % Lymph % (Auto) (9.0-44.0) % Mcleod % (Auto) (0.0-8.0) % Eos % (Auto) (0.0-4.0) % Baso % (Auto) (0.0-2.0) % Neut # (Auto) (1.8-7.7) th/mm3 Lymph # (Auto) (1.0-4.8) th/mm3 Mcleod # (Auto) (0.0-0.9) th/mm3 Eos # (Auto) (0.0-0.4) th/mm3 Baso # (Auto) (0.0-0.2) th/mm3 WBC Differential Differential Comment PT (9.8-11.6) sec INR Ratio APTT (24.3-30.1) sec Sodium (136-145) meq/L Potassium (3.5-5.1) meq/L Chloride (98-107) meq/L Carbon Dioxide (21.0-32.0) meq/L Anion Gap (5-15) meq/L BUN (7-18) mg/dL Creatinine (0.60-1.30) mg/dL Estimated GFR (>89) mL/min Random Glucose (74-106) mg/dL Calcium (8.5-10.1) mg/dL Blood Type O Negative Blood Type Recheck Not needed Antibody Screen Negative Discharge Plan Discharge Disposition Patient Disposition: 30 Still Patient Discharge Condition Condition: Stable Discharge Details Diagnosis: Hematuria, Bladder obstruction, Anemia Physicians Team ED Provider: Alicja Momin Primary Care Provider: [facility],Physician 's Rxs /Orders / Referrals /Forms Prescriptions: No Action bupropion HCl 150 mg Tablet Extended Release 12 Hr 150 mg PO DAILY RF: 0 buspirone 15 mg Tablet 15 mg PO BID RF: 0 calcium carbonate-vitamin D3 600 mg(1,500mg) -400 unit Tablet 1 tab PO DAILY PRN (Reason: Constipation) RF: 0 furosemide 40 mg Tablet 40 mg PO DAILY RF: 0 trazodone 50 mg Tablet 1 tab PO DAILY RF: 0 lisinopril-hydrochlorothiazide 20-12.5 mg Tablet 1 tab PO DAILY RF: 0 docusate calcium 240 mg Capsule 240 mg PO DAILY RF: 0 cyanocobalamin (vitamin B-12) 1,000 mcg Tablet 1,000 mcg PO DAILY RF: 0 magnesium oxide 400 mg Tablet 400 mg PO DAILY RF: 0 tamsulosin 0.4 mg Capsule,Extended Release 24hr 1 cap PO DAILY RF: 0 metformin 1,000 mg Tablet 1,000 mg PO BID RF: 0 gabapentin 300 mg Capsule 600 mg PO TID RF: 0 glipizide 5 mg Tablet 5 mg PO BID RF: 0 rosuvastatin 20 mg Tablet 1 tab PO DAILY RF: 0 tadalafil 20 mg Tablet 1 tab PO DAILY PRN (Reason: Erectile Dysfunction) RF: 0 topiramate 50 mg Tablet 2 tab PO BID RF: 0 insulin NPH and regular human 100 unit/mL (70-30) Insulin Pen 28 unit SUB-Q BID RF: 0 sulfamethoxazole-trimethoprim 400-80 mg Tablet 1 tab PO DAILY RF: 0 ciprofloxacin HCl [Cipro] 500 mg tablet 500 mg PO BID Qty: 14 RF: 0 Status ED Status: With Doctor
[2018-06-28 02:53] LABS: Baso # (Auto) 0.1 th/mm3 (0.0-0.2); Baso % (Auto) 0.5 % (0.0-2.0); Eos # (Auto) 0.1 th/mm3 (0.0-0.4); Eos % (Auto) 0.9 % (0.0-4.0); Hemoglobin 8.3 gm/dL (13.0-17.0); Lymph # (Auto) 1.4 th/mm3 (1.0-4.8); Lymph % (Auto) 10.7 % (9.0-44.0); Mean Corpuscular Hemoglobin 25.6 pg (27.0-34.0); Mean Corpuscular Volume 83.2 fL (80.0-100.0); Mean Platelet Volume 6.8 fL (7.0-11.0); Mono # (Auto) 0.7 th/mm3 (0.0-0.9); Mono % (Auto) 5.7 % (0.0-8.0); Neut # (Auto) 10.5 th/mm3 (1.8-7.7); Neut % (Auto) 82.2 % (16.0-70.0); Platelet Count 307 th/mm3 (150-450); Red Blood Count 3.25 mil/mm3 (4.50-5.90); Red Cell Distribution Width 21.7 % (11.6-17.2); White Blood Count 12.7 th/mm3 (4.0-11.0)
[2018-06-28 02:56] LABS: Mean Corpuscular HGB Conc 30.7 % (32.0-36.0)
[2018-06-28] MEDS ORDERED: HYDROmorphone PF Inj 2 MG/ML Vial IV.PUSH ONE ×2 (03:18→06:20)
[2018-06-28 03:22] LABS: Potassium 4.3 meq/L (3.5-5.1)
[2018-06-28] MEDS ORDERED: Lidocaine 2% Jelly 5 ML Syringe TOPICAL ONE (04:46)
[2018-06-28 05:01] LABS: Activated Partial Thrombo Time 23.8 sec (24.3-30.1); Prothrombin Time 9.9 sec (9.8-11.6)
[2018-06-28] MEDS ORDERED: Dextrose 50% in Water 50 ML Vial IV.PUSH PRN (06:04)
[2018-06-28] MEDS ORDERED: Acetaminophen 325 MG Tablet PO PRN (06:05)
[2018-06-28] MEDS ORDERED: Bisacodyl 10 MG Supp RECTAL PRN (06:05)
[2018-06-28] MEDS ORDERED: HYDROmorphone PF Inj 2 MG/ML Vial IV.PUSH PRN (06:07)
--- NOTE | 2018-06-28 06:54 | XR ---
EXAM DATE: 06/28/2018 6:45 AM EDT AGE/SEX: 62 years / Male INDICATIONS: Infiltrate. Congestion. CLINICAL DATA: This is the patient's initial encounter. Patient reports that signs and symptoms have been present for 3 days and indicates a pain score of 5/10. MEDICAL/SURGICAL HISTORY: None. None. [place]PAR[place] [facility] [place]. . FINDINGS: A single AP view of the chest demonstrates the lungs to be symmetrically aerated without evidence of mass, infiltrate or effusion. There is a lesser degree of inspiration on the prior with associated c rowding of the bronchopulmonary markings. The cardiomediastinal contours are unremarkable. Osseous s tructures are intact. CONCLUSION: The lungs are clear. Electronically signed by: Deandre Eli MD 06/28/2018 6:53 AM EDT
[2018-06-28] MEDS ORDERED: Lidocaine 1% Inj 50 ML Vial ONE (08:33)
[2018-06-28] MEDS ORDERED: Phenylephrine/NS 1000 MCG/10ML Syringe IV.PUSH ONE (09:20)
[2018-06-28] MEDS ORDERED: Lidocaine PF 1% Inj 5 ML Syringe INFILTRATN ONE (09:20)
[2018-06-28] MEDS ORDERED: Chlorhexidine Gluconate 2% 1 Pack (2 Cloths) TOPICAL ONE (10:45)
[2018-06-28] MEDS ORDERED: Metoprolol Tartrate 25 MG Tablet PO ONE (10:45)
[2018-06-28] MEDS ORDERED: Sodium Chlor 0.9% Inj 500 ML IV.CONT ONE (10:45)
--- NOTE | 2018-06-28 11:15 | MB ---
cc: Derrick Wallace MD DATE: 06/28/2018 REASON FOR CONSULTATION: Clot hematuria. HISTORY OF PRESENT ILLNESS: This 62-year-old gentleman has been a patient of ours. He has evidently still undergoing bariatric therapy because of difficult to manage recurrent hematuria and clot hematuria associated with previous radiation for his prostate. He presented to the emergency room and we received a phone call approximately [address] Alicja Momin stating that they were able to get a catheter into the gentleman, but could not irrigate it. They removed that catheter, placed a 24-[place]izen [place] 3-way Amaya catheter and then they could not get that catheter out because the balloon failed evidently. They were trying to remove that catheter so that they could place a 24[place]izen [place] hematuria catheter to manage the clots. So that failed. We then had to make arrangements to have the gentleman given an anesthetic and for that purpose he was seen by the [employer] staff, which I believe is still [facility] this weekend, and was cleared to take him to the operating room with them so that he can have the benefit of an anesthetic. So arrangements were made for that to happen. MD LARRY Escamilla/monique , 10:02 AM , 10:05 AM
--- NOTE | 2018-06-28 11:19 | MP ---
cc: Derrick Wallace MD DATE OF OPERATION: 06/28/2018 PREOPERATIVE DIAGNOSES: 1. Retained Amaya catheter. 2. Clot retention. 3. History of prostatic carcinoma with clot urinary retention. POSTOPERATIVE DIAGNOSES: 1. Retained Amaya catheter. 2. Clot retention. 3. History of prostatic carcinoma with clot urinary retention. PROCEDURES PERFORMED: 1. Complex removal of an existing 3-way Amaya catheter. 2. Cystoscopy with evacuation of clots. SURGEON: Derrick Wallace MD ANESTHESIA: General. PROCEDURE IN DETAIL: This 62-year-old gentleman has been undergoing hyperbaric therapy to help manage his recurrent hematuria associated with his radiation therapy to his prostatic carcinoma. He presented to the emergency room early this morning in clot retention. There was quite a bit of difficulty with managing the catheter and irrigating in the emergency room, which subsequently required our services and the decision to take him to the operating room. He was taken to the operating room, given a general anesthetic. A timeout was taken for identification purposes. He did receive appropriate preoperative antibiotics ahead of the procedure. He was then placed in a dorsal lithotomy position. The 3-way 24-Cuban Amaya catheter that was in place, the valve for the balloon had evidently failed. I tried cutting the port as close to the main shaft of the catheter as possible. Passing guidewires, I tried to palpate the balloon rectally, was unable to do so. We then slid a 17-Cuban cystoscope alongside of the catheter. The gentleman was capacious enough in his urethra to accommodate that. I was able to guide that down to the area in the prostatic cavity where the balloon was inflated. Then through the sheath of the cystoscope, I tried cold cup biopsies that slid off of the balloon. I tried graspers, and that slid off of the balloon. Finally, we were able to find a very long needle that I was able to pass down the sheath and pop the balloon, so we were able to successfully remove that. We then finished draining the gentleman's bladder and took a look up in it. I do not see too much in the way of clot. We were able to irrigate this out with the use of the Ellik evacuators. With the use of a catheter guide then, I reinserted a 22-Cuban hematuria catheter with a 30 mL balloon. I inflated it to 30 mL, and we will leave that irrigating overnight. We will keep him in one of the intensive care unit because this needs to be watched very closely. If it clots off, we will have to put him to sleep again, and we simply cannot take that chance. If he remains clear or clot-free overnight, then we can move him to a floor tomorrow. In the meantime from a medical standpoint, he is being managed by the [facility] service. MD LARRY Escamilla/gaston , 10:07 AM , 10:14 AM
[2018-06-28] MEDS: Insulin NovoLOG Aspart Correctional Sugar Inj SQ SCH ×4 (12:00→22:49)
[2018-06-28] MEDS: traZODone 50 MG Tablet PO SCH (13:57)
[2018-06-28] MEDS: Gabapentin 300 MG Capsule PO SCH ×2 (13:57→20:15)
[2018-06-28] MEDS: Furosemide 40 MG Tablet PO SCH (13:57)
[2018-06-28] MEDS: buPROPion 150 MG 12 HR Tablet PO SCH (13:58)
[2018-06-28] MEDS: Senna/Docusate Sodium 8.6/50 MG Tablet PO SCH ×2 (13:58→20:16)
[2018-06-28] MEDS: Sod Chloride 0.9% Inj 1,000 ML IV.CONT SCH ×3 (13:58→16:22)
[2018-06-28] MEDS: Topiramate 100 MG Tablet PO SCH ×2 (13:58→20:16)
--- NOTE | 2018-06-28 15:12 | P.HPIM ---
History of Present Illness Service: [facility] Primary Care Physician: [facility] History of Present Illness: This is a 62-year-old male with history of bladder cancer, prostate cancer, recurrent urinary retention that presents to the emergency room for inability to urinate since Saturday evening. Patient did not have any nausea or vomiting denies any fever or chills. Patient is having hyperbaric therapy due to recurrent hematuria, and glottic hematuria status post post prostate radiation therapy. Velazquez catheter was placed in the ED with no urine output. Dr. Wallace was consulted and suggested a three-way catheter for irrigation but failed. He he was then required to have a surgical removal and placement of another three- way catheter for irrigation. Patient was transferred to the medical floor and went straight to the OR came back to [facility] for monitoring of the three-way catheter postop. Patient is seen and evaluated. Patient was awake but sleepy, laying in bed just came back from the surgical procedure for a complex removal of a three-way catheter and cystoscopy with removal of clots with Dr. Wallace. Patient denies any pain or any discomfort, denies any nausea or vomiting, denies any abdominal discomfort. Patient stated he was in so much pain when he first got to the hospital but now it is better. Patient drifting to sleep with conversation most likely due to the sedation from the surgical procedure with general anesthesia. Most information obtained from the medical record. - Diagnosis (1) Hematuria (2) Bladder obstruction (3) Anemia Inpatient Certification: I certify that the inpatient services were ordered in accordance with Medicare regulations governing the order. This includes certification that hospital inpatient services are reasonable and necessary and in the case of services not specified as inpatient-only under 42 CFR 419.22(n), that they are appropriately provided as inpatient services in accordance to with the 2-midnight benchmark under 43 CFR 412.3(e) Estimated Total Length of Stay (Days): 2 Plans for Post Hospital Care: Not yet determined PMFSH - History History Provided By: Patient - Medical History Medical History: Medical History (Last Reviewed 06/28/18 @ 16:25 by RONEN Cespedes) Anemia Chronic kidney disease (CKD) Diabetes MDD (major depressive disorder) Prostate CA - Surgical History Surgical History: Surgical History (Last Reviewed 06/28/18 @ 16:26 by RONEN Cespedes) H/O hand surgery History of prostate surgery Previous back surgery - Social History I have reviewed the patient's Social History: Yes - Tobacco History Second Hand Smoke Exposure: No Smoking Status: Never smoker - Alcohol History How Often Do You Have a Drink Containing Alcohol: Never - Substance Use History Substance History: No History of Abuse - Travel History Recent Travel in the [place] Within the Last 8 Weeks: No Recent Travel Out of the Country Within the Last 8 Weeks: No - Immunization History Tetanus Immunization: Unsure Hx Influenza Vaccine This Season: No Medications and Allergies Active Medications: Active Medications Acetaminophen (Tylenol) 650 mg PO Q4H PRN PRN Reason: Temp > 100.4 Al Hydroxide/Mg Hydroxide (Milk Of Magnesia Liq) 30 ml PO Q12H PRN PRN Reason: Mild Constipation Atorvastatin Calcium (Lipitor) 40 mg PO DAILY [facility] Last Admin: 06/28/18 13:57 Dose: Not Given Bisacodyl (Dulcolax Supp) 10 mg RECTAL DAILY PRN PRN Reason: SEVERE CONSITIPATION Bupropion HCl (Wellbutrin Sr) 150 mg PO DAILY [facility] Last Admin: 06/28/18 13:58 Dose: Not Given Dextrose (D50w Vial) 50 ml IV.PUSH UNSCH PRN PRN Reason: PER HYPOGLYCEMIA PROTOCOL Furosemide (Lasix) 40 mg PO DAILY [facility] Last Admin: 06/28/18 13:57 Dose: Not Given Gabapentin (Neurontin) 600 mg PO Q12HR [facility] Last Admin: 06/28/18 13:57 Dose: Not Given Glucagon (Glucagon Inj) 1 mg OTHER PRN PRN PRN Reason: for Hypoglycemia Protocol Hydromorphone HCl (Dilaudid Pf Inj) 1 mg IV.PUSH Q4H PRN PRN Reason: PAIN 6-10 Sodium Chloride (Ns Inj) 1,000 mls @ 100 mls/hr IV.CONT .Q10H [facility] Last Admin: 06/28/18 13:58 Dose: Not Given Lactated Ringer's (Lr 1000 Ml Inj) 1,000 mls @ 30 mls/hr IV.CONT .Q24H ONE Stop: 06/29/18 10:44 Last Admin: 06/28/18 14:00 Dose: Not Given Sodium Chloride (Ns Inj) 500 mls @ 30 mls/hr IV.CONT .[id number] ONE Stop: 06/29/18 03:24 Last Admin: 06/28/18 14:00 Dose: Not Given Insulin Aspart (Novolog Insulin Correctional Sugar Inj) 0 unit SQ ACHS [facility]; Protocol Last Admin: 06/28/18 13:57 Dose: Not Given Lactulose (Lactulose Liq) 30 ml PO DAILY PRN PRN Reason: SEVERE CONSITIPATION Miscellaneous Information ([facility] Nursing Information) 1 each OTHER UNSCH PRN PRN Reason: SEE LABEL COMMENTS Stop: 06/29/18 10:06 Ondansetron HCl (Zofran Inj) 4 mg IV.PUSH Q6H PRN PRN Reason: NAUSEA OR VOMITING Senna/Docusate Sodium (Arianna-Colace) 1 tab PO BID [facility] Last Admin: 06/28/18 13:58 Dose: Not Given Sennosides (Senokot) 17.2 mg PO Q12H PRN PRN Reason: Moderate Constipation Sodium Chloride (Ns Flush) 2 ml IV.FLUSH BID [facility] Last Admin: 06/28/18 13:58 Dose: Not Given Sodium Chloride (Ns Flush) 2 ml IV.FLUSH PRN PRN PRN Reason: FLUSH AFTER USING IV ACCESS Tamsulosin HCl (Flomax) 0.4 mg PO DAILY [facility] Last Admin: 06/28/18 13:57 Dose: Not Given Topiramate (Topamax) 100 mg PO BID [facility] Last Admin: 06/28/18 13:58 Dose: Not Given Trazodone HCl (Desyrel) 50 mg PO DAILY [facility] Last Admin: 06/28/18 13:57 Dose: Not Given Allergies Allergy/AdvReac Type Severity Reaction Status Date / Time No Known Allergies Allergy Verified 05/01/18 07:47 Home Medications Medication Instructions Recorded Confirmed Type bupropion HCl 150 mg PO DAILY 04/25/18 06/28/18 History buspirone 15 mg PO BID 04/25/18 06/28/18 History calcium carbonate-vitamin D3 1 tab PO DAILY PRN 04/25/18 06/28/18 History cyanocobalamin (vitamin B-12) 1,000 mcg PO DAILY 04/25/18 06/28/18 History docusate calcium 240 mg PO DAILY 04/25/18 06/28/18 History furosemide 40 mg PO DAILY 04/25/18 06/28/18 History gabapentin 600 mg PO TID 04/25/18 06/28/18 History glipizide 5 mg PO BID 04/25/18 06/28/18 History insulin NPH and regular human 28 unit SUB-Q BID 04/25/18 06/28/18 History lisinopril-hydrochlorothiazide 1 tab PO DAILY 04/25/18 06/28/18 History magnesium oxide 400 mg PO DAILY 04/25/18 06/28/18 History metformin 1,000 mg PO BID 04/25/18 06/28/18 History rosuvastatin 1 tab PO DAILY 04/25/18 06/28/18 History sulfamethoxazole-trimethoprim 1 tab PO DAILY 04/25/18 06/28/18 History tadalafil 1 tab PO DAILY PRN 04/25/18 06/28/18 History tamsulosin 1 cap PO DAILY 04/25/18 06/28/18 History topiramate 2 tab PO BID 04/25/18 06/28/18 History trazodone 1 tab PO DAILY 04/25/18 06/28/18 History Exam Vital signs: Vital Signs 06/28/18 02:23 06/28/18 08:00 06/28/18 10:06 Temperature 98.8 F 98.7 F 99.0 F Pulse Rate 80 87 88 Respiratory Rate 24 18 16 Blood Pressure 196/93 H 207/87 H 115/55 L Pulse Oximetry 100 94 L 96 06/28/18 10:30 06/28/18 10:55 Temperature 99.0 F Pulse Rate 81 81 Respiratory Rate 16 16 Blood Pressure 119/54 L 126/56 L Pulse Oximetry 98 98 Intake & Output 06/27/18 06/28/18 06/28/18 18:59 06:59 18:59 Intake Total 900 / 900 Output Total 1185 / 1185 Balance -285 / -285 Weight 113.398 kg Intake: Anesthesia Amount 900 / 900 Output: Estimated Blood Loss 10 / 10 Urine Amount (Catheter) 1175 / 1175 3-way Urethral 1175 / 1175 Other: Bladder Irrigation Fluid - Amount Instilled 3-way Urethral 1,500 Narrative: GENERAL: well built, well developed male, sleepy, answers questions but drifting to sleep, in no apparent distress SKIN: Warm and dry. HEAD: Atraumatic. Normocephalic. EYES: Pupils equal and round. No scleral icterus. No injection or drainage. ENT: No nasal bleeding or discharge. Mucous membranes pink and moist. NECK: Trachea midline. No JVD. CARDIOVASCULAR: Regular rate and rhythm. RESPIRATORY: No accessory muscle use. Clear to auscultation. Breath sounds equal bilaterally. GASTROINTESTINAL: Abdomen obese, soft, non-tender, nondistended. Hepatic and splenic margins not palpable. : 3 way velazquez catheter in place with middleton red color output MUSCULOSKELETAL: Extremities without clubbing, cyanosis, or edema. No obvious deformities. NEUROLOGICAL: Awake and alert. No obvious cranial nerve deficits. Motor grossly within normal limits. Five out of 5 muscle strength in the arms and legs. Normal speech. PSYCHIATRIC: Appropriate mood and affect; insight and judgment normal. Results - Labs CBC & Chem 7: 06/28/18 14:29 06/28/18 02:45 Labs: Short CBC 06/28/18 Range/Units 02:45 WBC 12.7 H (4.0-11.0) th/mm3 Hgb 8.3 L (13.0-17.0) gm/dL Hct 27.0 L (39.0-51.0) % Plt Count 307 (150-450) th/mm3 BMP 06/28/18 02:45 Sodium 138 Potassium 4.3 Chloride 101 Carbon Dioxide 28.0 BUN 20 H Creatinine 1.67 H Calcium 9.0 - Imaging Impressions Chest X-Ray 06/28/18 06:12 CONCLUSION: The lungs are clear. Caprini VTE Risk Assessment Caprini VTE Risk Assessment: No/Low Risk (score <= 1) VTE Pharmacological Exception Reason: Active bleeding Caprini Risk Assessment Model: Point Value = 1 Point Value = 2 Point Value = 3 Point Value = 5 Age 41-60 Minor surgery BMI > 25 kg/m2 Swollen legs Varicose veins or History of unexplained or recurrent spontaneous Oral contraceptives or hormone replacement Sepsis (< 1 month) Serious lung disease, including pneumonia (< 1 month) Abnormal pulmonary function Acute myocardial infarction Congestive heart failure (< 1 month) History of inflammatory bowel disease Medical patient at bed rest Age 61-74 Arthroscopic surgery Major open surgery (> 45 min) Laparoscopic surgery (> 45 min) Malignancy Confined to bed (> 72 hours) Immobilizing plaster cast Central venous access Age >= 75 History of VTE Family history of VTE Factor V Leiden Prothrombin [id number] Lupus anticoagulant Anticardiolipin antibodies Elevated serum homocysteine Heparin-induced thrombocytopenia Other congenital or acquired thrombophilia Stroke (< 1 month) Elective arthroplasty Hip, pelvis, or leg fracture Acute spinal cord injury (< 1 month) Prophylaxis Regimen: Total Risk Factor Score Risk Level Prophylaxis Regimen 0-1 Low Early ambulation 2 Moderate Order ONE of the following: *Sequential Compression Device (SCD) *Heparin 5000 units SQ BID 3-4 Higher Order ONE of the following medications: *Heparin 5000 units SQ TID *Enoxaparin/Lovenox 40 mg SQ daily (WT < 150 kg, CrCl > 30 mL/min) *Enoxaparin/Lovenox 30 mg SQ daily (WT < 150 kg, CrCl > 10-29 mL/min) *Enoxaparin/Lovenox 30 mg SQ BID (WT < 150 kg, CrCl > 30 mL/min) AND/OR *Sequential Compression Device (SCD) 5 or more Highest Order ONE of the following medications: *Heparin 5000 units SQ TID (Preferred with Epidurals) *Enoxaparin/Lovenox 40 mg SQ daily (WT < 150 kg, CrCl > 30 mL/min) *Enoxaparin/Lovenox 30 mg SQ daily (WT < 150 kg, CrCl > 10-29 mL/min) *Enoxaparin/Lovenox 30 mg SQ BID (WT < 150 kg, CrCl > 30 mL/min) AND *Sequential Compression Device (SCD) Assessment and Plan - Assessment (1) Hematuria Code(s): R31.9 - Hematuria, unspecified Status: Acute (2) Bladder obstruction Code(s): N32.0 - Bladder-neck obstruction Status: Acute (3) Anemia Code(s): D64.9 - Anemia, unspecified Status: Acute - Plan This is a 62-year-old male with past medical history of anemia ,chronic kidney disease ,diabetes, major depressive disorder, bladder cancer, prostate cancer, and recurrent urinary retention that presents to the emergency room for inability to urinate since Saturday evening. Patient did not have any nausea or vomiting denies any fever or chills. Patient is having hyperbaric therapy due to recurrent hematuria, and clotting hematuria status post prostate radiation therapy. Velazquez catheter was placed in the ED with no urine output. Dr. Wallace was consulted and suggested a three-way catheter for irrigation but failed. He he was then required to have a surgical removal and placement of another three- way catheter for irrigation. Prostate Cancer with Clot/Urinary Retention/Clot -Status post cystoscopy and evacuation of clots -Status post complex removal and placement of three-way Velazquez catheter - continue CBI Anemia with history of chronic anemia -appears to be chronic, however we will monitor for blood count due to hematuria - Hgb 8.1/ Hct 25.6, Slightly elevated WBC - monitor CBC, will provide blood transfusion if Hgb less than 7 Acute on Chronic Kidney Injury - start IVF - monitor BMP -avoid nephrotoxins -hold lisinopril/hctz for now Diabetes Mellitus -monitor Accu checks AC and HS and cover with Insulin sliding scale Hypertension - BP elevated on admission, likely related to pain and discomfort with urinary retention, blood pressure better 126/56 -continue current medications, monitor BP Hx of Major Depressive Disorder/ neuropathy - continue current medications DVT Prophylaxis: SCD Discussed Condition With: [facility] Nurse
[2018-06-28] MEDS ORDERED: fentaNYL Citrate Inj 100 MCG/2 ML Ampul ONE (15:23)
[2018-06-28 15:28] LABS: Hematocrit 25.6 % (39.0-51.0); Hemoglobin 8.1 gm/dL (13.0-17.0)
[2018-06-29 05:25] LABS: Baso % (Auto) 0.2 % (0.0-2.0); Eos # (Auto) 0.1 th/mm3 (0.0-0.4); Eos % (Auto) 1.2 % (0.0-4.0); Hematocrit 24.8 % (39.0-51.0); Hemoglobin 7.8 gm/dL (13.0-17.0); Lymph # (Auto) 1.7 th/mm3 (1.0-4.8); Lymph % (Auto) 18.3 % (9.0-44.0); Mean Corpuscular HGB Conc 31.5 % (32.0-36.0); Mean Corpuscular Hemoglobin 26.3 pg (27.0-34.0); Mean Corpuscular Volume 83.6 fL (80.0-100.0); Mean Platelet Volume 7.5 fL (7.0-11.0); Mono # (Auto) 0.8 th/mm3 (0.0-0.9); Mono % (Auto) 8.2 % (0.0-8.0); Neut # (Auto) 6.7 th/mm3 (1.8-7.7); Neut % (Auto) 72.1 % (16.0-70.0); Platelet Count 272 th/mm3 (150-450); Red Blood Count 2.96 mil/mm3 (4.50-5.90); Red Cell Distribution Width 22.1 % (11.6-17.2); White Blood Count 9.3 th/mm3 (4.0-11.0)
[2018-06-29 05:49] LABS: Albumin 3.1 g/dL (3.4-5.0); Anion Gap 6 meq/L (5-15); Aspartate Aminotransferase 28 U/L (15-37); Blood Urea Nitrogen 22 mg/dL (7-18); Calcium 8.5 mg/dL (8.5-10.1); Carbon Dioxide 29.8 meq/L (21.0-32.0); Chloride 105 meq/L (98-107); Glomerular Filtration Rate 62 mL/min (>89); Glucose,Random 137 mg/dL (74-106); Sodium 141 meq/L (136-145)
[2018-06-29 05:50] LABS: Alanine Aminotransferase 33 U/L (12-78)
[2018-06-29 05:52] LABS: Alkaline Phosphatase 90 U/L (45-117); Total Protein 6.3 g/dL (6.4-8.2)
[2018-06-29] MEDS: Sod Chloride 0.9% Inj 1,000 ML IV.CONT SCH ×3 (06:10→16:01)
[2018-06-29] MEDS: Furosemide 40 MG Tablet PO SCH (09:06)
[2018-06-29] MEDS: Gabapentin 300 MG Capsule PO SCH ×2 (09:06→20:24)
[2018-06-29] MEDS: buPROPion 150 MG 12 HR Tablet PO SCH (09:06)
[2018-06-29] MEDS: Senna/Docusate Sodium 8.6/50 MG Tablet PO SCH ×2 (09:07→20:25)
[2018-06-29] MEDS: traZODone 50 MG Tablet PO SCH (09:07)
[2018-06-29] MEDS: Topiramate 100 MG Tablet PO SCH ×2 (09:07→20:34)
--- NOTE | 2018-06-29 09:15 | P.PNIM ---
Subjective Interval history: Follow-up urinary retention with chronic hematuria. Patient seen and evaluated laying in bed with CBI in place draining middleton red from the CBL. Patient denies any abdominal discomfort. Denies any nausea or vomiting. No headache or dizziness. Complains of lower back pain which is chronic of 10 out of 10 states that he is taking Percocet at home. Patient stated he usually sleeps in his stomach to relieve the back pain but he is unable to do it here. Physical Exam Vital signs: Vital Signs 06/28/18 10:06 06/28/18 10:30 06/28/18 10:55 Temperature 99.0 F 99.0 F Pulse Rate 88 81 81 Respiratory Rate 16 16 16 Blood Pressure 115/55 L 119/54 L 126/56 L Pulse Oximetry 96 98 98 06/28/18 12:00 06/28/18 16:00 06/28/18 20:00 Temperature 99.2 F 98.4 F 98.0 F Pulse Rate 74 71 77 Respiratory Rate 12 13 20 Blood Pressure 159/67 H 163/76 H 160/72 H Pulse Oximetry 100 100 99 06/29/18 00:00 06/29/18 04:00 Temperature 98.1 F 98.0 F Pulse Rate 82 83 Respiratory Rate 13 20 Blood Pressure 124/56 L 143/73 H Pulse Oximetry 99 99 Intake & Output 06/28/18 06/29/18 06/29/18 18:59 06:59 18:59 Intake Total 900 / 900 1500 / 1500 Output Total 02964 / 09983 4000 / 4000 Balance -47421 / -03888 -2500 / -2500 Weight 121.9 kg Intake: IV 1000 / 1000 NS Inj 1,000 ML @ 100 mls/hr IV 1000 / 1000 .CONT .Q10H [facility] Rx#:[id number] Oral 500 / 500 Anesthesia Amount 900 / 900 Output: Estimated Blood Loss 10 / 10 Urine Amount (Catheter) 62800 / 97217 4000 / 4000 3-way Urethral 56343 / 91364 4000 / 4000 Other: Bladder Irrigation Fluid - Amount Instilled 3-way Urethral 12,000 Bladder Irrigation Fluid - Amount Drained 3-way Urethral 1,500 # Bowel Movements 0 - Urinary Catheter Management 3-way Urethral Cath placed during this visit: yes, but has since been removed by the nurse Reason for continuing: Acute urinary retention Insertion date: 06/28/18 Insertion time: 10:00 Removal date: 06/28/18 Removal time: 04:00 Results - Labs CBC & Chem 7: 06/29/18 04:27 06/29/18 04:27 Laboratory Results - last 24 hr 06/28/18 06/28/18 06/28/18 14:29 18:05 19:48 WBC RBC Hgb 8.1 L Hct 25.6 L MCV MCH MCHC RDW Plt Count MPV Neut % (Auto) Lymph % (Auto) Tyrrell % (Auto) Eos % (Auto) Baso % (Auto) Neut # (Auto) Lymph # (Auto) Tyrrell # (Auto) Eos # (Auto) Baso # (Auto) WBC Differential Differential Comment Sodium Potassium Chloride Carbon Dioxide Anion Gap BUN Creatinine Estimated GFR POC Glucose 170 H 124 H Random Glucose Calcium Total Bilirubin AST ALT Alkaline Phosphatase Total Protein Albumin 06/29/18 06/29/18 04:27 04:27 WBC 9.3 RBC 2.96 L Hgb 7.8 L Hct 24.8 L MCV 83.6 MCH 26.3 L MCHC 31.5 L RDW 22.1 H Plt Count 272 MPV 7.5 Neut % (Auto) 72.1 H Lymph % (Auto) 18.3 Tyrrell % (Auto) 8.2 H Eos % (Auto) 1.2 Baso % (Auto) 0.2 Neut # (Auto) 6.7 Lymph # (Auto) 1.7 Tyrrell # (Auto) 0.8 Eos # (Auto) 0.1 Baso # (Auto) 0.0 WBC Differential . Differential Comment Auto diff final Sodium 141 Potassium 4.0 Chloride 105 Carbon Dioxide 29.8 Anion Gap 6 BUN 22 H Creatinine 1.41 H Estimated GFR 62 L POC Glucose Random Glucose 137 H Calcium 8.5 Total Bilirubin 0.3 AST 28 ALT 33 Alkaline Phosphatase 90 Total Protein 6.3 L Albumin 3.1 L Assessment and Plan - Assessment (1) Hematuria Code(s): R31.9 - Hematuria, unspecified Status: Acute (2) Bladder obstruction Code(s): N32.0 - Bladder-neck obstruction Status: Acute (3) Anemia Code(s): D64.9 - Anemia, unspecified Status: Acute - Plan This is a 62-year-old male with past medical history of anemia ,chronic kidney disease ,diabetes, major depressive disorder, bladder cancer, prostate cancer, and recurrent urinary retention that presents to the emergency room for inability to urinate since Saturday evening. Patient did not have any nausea or vomiting denies any fever or chills. Patient is having hyperbaric therapy due to recurrent hematuria, and clotting hematuria status post prostate radiation therapy. Amaya catheter was placed in the ED with no urine output. Dr. Wallace was consulted and suggested a three-way catheter for irrigation but failed. He he was then required to have a surgical removal and placement of another three- way catheter for irrigation. Prostate Cancer with Clot/Urinary Retention/Clot -Status post cystoscopy and evacuation of clots -Status post complex removal and placement of three-way Amaya catheter - CBI with middleton-red output, 1 small clot noted from a 1.2 L bag -Urology is following -needed pain medication for discomfort Acute on chronic Anemia with history of chronic anemia - pt with ongoing hematuria, status post cystoscopy and evacuation of clots 06/28 - hemoglobin today low at 7.8 was Hgb 8.1/ Hct 25.6, likely due to hematuria and clot hematuria - monitor CBC, will provide blood transfusion if Hgb less than 7 and if symptomatic Acute on Chronic Kidney Injury - start IVF - Creatinine improving at 1.41, continue to monitor BMP -avoid nephrotoxins -continue to hold lisinopril/hctz for now Diabetes Mellitus -monitor Accu checks AC and HS and cover with Insulin sliding scale -restarted on diet Hypertension - BP elevated on admission, likely related to pain and discomfort with urinary retention, blood pressure better -continue current medications, monitor BP Hx of Major Depressive Disorder/ neuropathy - continue current medications Back Pain -Continue home meds-Percocet, monitor pain response DVT Prophylaxis: SCD Discussed Condition With: [facility] Nurse
[2018-06-29] MEDS: Insulin NovoLOG Aspart Correctional Sugar Inj SQ SCH ×4 (11:07→20:26)
--- NOTE | 2018-06-29 12:25 | ECG ---
Date Performed: 06/28/2018 Time Performed: 05:41:00 PTAGE: 62 years EKG: Sinus rhythm WITH OCCASIONAL SUPRAVENTRICULAR PREMATURE COMPLEXES BORDERLINE ECG PREVIOUS TRACING : 12/16/2017 18.10 Since the previous tracing, no significant change noted DOCTOR: Boone Mckeon Interpretating Date/Time 06/29/2018 12:24:04
[2018-06-30] MEDS: Sod Chloride 0.9% Inj 1,000 ML IV.CONT SCH ×2 (00:24→08:44)
[2018-06-30 06:50] LABS: Hematocrit 23.6 % (39.0-51.0); Hemoglobin 7.5 gm/dL (13.0-17.0); Mean Corpuscular HGB Conc 31.6 % (32.0-36.0); Mean Corpuscular Hemoglobin 26.2 pg (27.0-34.0); Mean Corpuscular Volume 82.7 fL (80.0-100.0); Mean Platelet Volume 7.2 fL (7.0-11.0); Platelet Count 256 th/mm3 (150-450); Red Blood Count 2.85 mil/mm3 (4.50-5.90); Red Cell Distribution Width 21.2 % (11.6-17.2); White Blood Count 6.6 th/mm3 (4.0-11.0)
[2018-06-30 07:48] LABS: Calcium 8.7 mg/dL (8.5-10.1); Carbon Dioxide 29.2 meq/L (21.0-32.0); Potassium 3.7 meq/L (3.5-5.1)
[2018-06-30] MEDS: Topiramate 100 MG Tablet PO SCH ×2 (08:42→20:59)
[2018-06-30] MEDS: Senna/Docusate Sodium 8.6/50 MG Tablet PO SCH ×2 (08:42→20:59)
[2018-06-30] MEDS: traZODone 50 MG Tablet PO SCH (08:43)
[2018-06-30] MEDS: Furosemide 40 MG Tablet PO SCH (08:43)
[2018-06-30] MEDS: Gabapentin 300 MG Capsule PO SCH ×2 (08:43→20:59)
[2018-06-30] MEDS: Insulin NovoLOG Aspart Correctional Sugar Inj SQ SCH ×4 (08:46→20:57)
[2018-06-30] MEDS: buPROPion 150 MG 12 HR Tablet PO SCH (08:47)
--- NOTE | 2018-06-30 13:26 | P.PN ---
Subjective Interval history: Follow-up visit for urinary retention, hematuria, history of prostate cancer. Spoke with nurse reports patient continues to have middleton colored urine with CBI , also noted blood clots with Velazquez today. Patient seen and examined sitting up in bed and appears to be in no acute distress. He denies any nausea, vomiting, diarrhea, fevers, chills, cough or shortness of breath. Verbalizes concerns over having Velazquez removed in not being able to urinate, trying to drink fluids. Physical Exam Vital signs: Vital Signs 06/29/18 16:00 06/29/18 20:00 06/30/18 00:00 Temperature 98.6 F 98.2 F 98.4 F Pulse Rate 75 76 74 Respiratory Rate 16 18 18 Blood Pressure 126/59 L 140/63 117/53 L Pulse Oximetry 99 99 98 06/30/18 08:00 06/30/18 12:00 Temperature 98.0 F 98.3 F Pulse Rate 79 70 Respiratory Rate 16 16 Blood Pressure 106/57 L 130/60 Pulse Oximetry 100 97 Intake & Output 06/29/18 06/30/18 06/30/18 18:59 06:59 18:59 Intake Total 1900 / 1900 1000 / 1000 1000 / 1000 Output Total 650 / 650 3800 / 3800 Balance 1250 / 1250 -2800 / -2800 1000 / 1000 Weight 125.4 kg Intake: IV 1000 / 1000 1000 / 1000 1000 / 1000 NS Inj 1,000 ML @ 100 mls/hr IV 1000 / 1000 1000 / 1000 1000 / 1000 .CONT .Q10H [facility] Rx#:[id number] Oral 900 / 900 Output: Urine 650 / 650 0 / 0 Urine Amount (Catheter) 3800 / 3800 3-way Urethral 3800 / 3800 Other: Bladder Irrigation Fluid - Amount Instilled 3-way Urethral 300 Date of Last Bowel Movement 06/27/18 06/27/18 # Bowel Movements 1 Narrative: GENERAL: well built, well developed male, in no apparent distress SKIN: Warm and dry. HEAD: Atraumatic. Normocephalic. EYES: Pupils equal and round. ENT: No nasal bleeding. Mucous membranes pink and moist. NECK: Trachea midline. No JVD. CARDIOVASCULAR: Regular rate and rhythm. RESPIRATORY: No accessory muscle use. Clear to auscultation. Breath sounds equal bilaterally. GASTROINTESTINAL: Abdomen obese, soft, non-tender, nondistended. Positive bowel sounds. : 3 way velazquez catheter in place with middleton red color output MUSCULOSKELETAL: Extremities without clubbing, cyanosis, or edema. No obvious deformities. NEUROLOGICAL: Awake and alert. No obvious cranial nerve deficits. Motor grossly within normal limits. Normal speech. PSYCHIATRIC: Appropriate mood and affect; insight and judgment normal. - Urinary Catheter Management 3-way Urethral Cath placed during this visit: yes, but has since been removed by the nurse Reason for continuing: Gross Hematuria Insertion date: 06/28/18 Insertion time: 10:00 Removal date: 06/28/18 Removal time: 04:00 Results - Labs CBC & Chem 7: 06/30/18 06:17 06/30/18 06:17 Laboratory Results - last 24 hr 06/29/18 06/29/18 06/30/18 16:13 20:22 06:17 WBC 6.6 RBC 2.85 L Hgb 7.5 L Hct 23.6 L MCV 82.7 MCH 26.2 L MCHC 31.6 L RDW 21.2 H Plt Count 256 MPV 7.2 Sodium Potassium Chloride Carbon Dioxide Anion Gap BUN Creatinine Estimated GFR POC Glucose 217 H 252 H Random Glucose Calcium 06/30/18 06/30/18 06/30/18 06:17 07:51 12:04 WBC RBC Hgb Hct MCV MCH MCHC RDW Plt Count MPV Sodium 139 Potassium 3.7 Chloride 104 Carbon Dioxide 29.2 Anion Gap 6 BUN 18 Creatinine 1.16 Estimated GFR 78 L POC Glucose 119 H 196 H Random Glucose 114 H Calcium 8.7 Assessment and Plan - Assessment (1) Hematuria Code(s): R31.9 - Hematuria, unspecified Status: Acute (2) Bladder obstruction Code(s): N32.0 - Bladder-neck obstruction Status: Acute (3) Anemia Code(s): D64.9 - Anemia, unspecified Status: Acute - Plan This is a 62-year-old male with past medical history of anemia ,chronic kidney disease ,diabetes, major depressive disorder, bladder cancer, prostate cancer, and recurrent urinary retention that presents to the emergency room for inability to urinate since Addi evening. Patient did not have any nausea or vomiting denies any fever or chills. Patient is having hyperbaric therapy due to recurrent hematuria, and clotting hematuria status post prostate radiation therapy. Velazquez catheter was placed in the ED with no urine output. Dr. Wallace was consulted and suggested a three-way catheter for irrigation but failed. He he was then required to have a surgical removal and placement of another three- way catheter for irrigation. Prostate Cancer with Clot/Urinary Retention/Clot -Status post cystoscopy and evacuation of clots -Status post complex removal and placement of three-way Velazquez catheter -Urology saw and evaluated patient with recommendations to remove Velazquez catheter today, DC home tomorrow if stable, scheduled for hyperbaric oxygen treatment later this week. Anemia with history of chronic anemia -appears to be chronic, however we will monitor for blood count due to hematuria -Slight drop in hemoglobin to 7.5/23.6, recheck in the a.m., restart iron supplementation. Acute on Chronic Kidney Injury -Renal function improved, discontinue IV fluids patient taking p.o. well. -avoid nephrotoxins -hold lisinopril/hctz for now Diabetes Mellitus -monitor Accu checks AC and HS and cover with Insulin sliding scale Hypertension -Antihypertensives on hold, BP stable. Hx of Major Depressive Disorder/ neuropathy - continue current medications DVT Prophylaxis: SCD Discussed Condition With: Patient and RN. Discharge Planning: Patient has been cleared by urology for discharge. Velazquez to be removed today and if stable and able to void DC tomorrow.
--- NOTE | 2018-06-30 16:12 | P.PNURO ---
Subjective Patient symptoms today: Pt was seen at the bedside this afternoon. Doing well. NAD. No pain, LAbs and vitals are stable. CBI is not running, Urine is light pink, no clots. He is planning to go for hyperbaric O2 treatment on Sat, this week Objective Vital Signs: Vital Signs 06/29/18 20:00 06/30/18 00:00 06/30/18 08:00 Temperature 98.2 F 98.4 F 98.0 F Pulse Rate 76 74 79 Respiratory Rate 18 18 16 Blood Pressure 140/63 117/53 L 106/57 L Pulse Oximetry 99 98 100 06/30/18 12:00 Temperature 98.3 F Pulse Rate 70 Respiratory Rate 16 Blood Pressure 130/60 Pulse Oximetry 97 Intake & Output 06/29/18 06/30/18 06/30/18 18:59 06:59 18:59 Intake Total 1900 / 1900 1000 / 1000 1000 / 1000 Output Total 650 / 650 3800 / 3800 Balance 1250 / 1250 -2800 / -2800 1000 / 1000 Weight 125.4 kg Intake: IV 1000 / 1000 1000 / 1000 1000 / 1000 NS Inj 1,000 ML @ 100 mls/hr IV 1000 / 1000 1000 / 1000 1000 / 1000 .CONT .Q10H [facility] Rx#:[id number] Oral 900 / 900 Output: Urine 650 / 650 0 / 0 Urine Amount (Catheter) 3800 / 3800 3-way Urethral 3800 / 3800 Other: Bladder Irrigation Fluid - Amount Instilled 3-way Urethral 300 Date of Last Bowel Movement 06/27/18 06/27/18 # Bowel Movements 1 Result Diagrams: 06/30/18 06:17 06/30/18 06:17 Medications and IVs: Active Medications Generic Name Dose Route Start Last Admin Trade Name Freq PRN Reason Stop Dose Admin Acetaminophen 650 mg 06/28/18 06:05 06/29/18 00:27 Tylenol PO 650 mg Q4H PRN Administration Temp > 100.4 Al Hydroxide/Mg Hydroxide 30 ml 06/28/18 06:05 06/29/18 20:34 Milk Of Magnesia Liq PO 30 ml Q12H PRN Administration Mild Constipation Atorvastatin Calcium 40 mg 06/28/18 09:00 06/30/18 08:43 Lipitor PO 40 mg DAILY [facility] Administration Bisacodyl 10 mg 09/08/18 06:05 Dulcolax Supp RECTAL DAILY PRN SEVERE CONSITIPATION Bupropion HCl 150 mg 06/28/18 09:00 06/30/18 08:47 Wellbutrin Sr PO 150 mg DAILY [facility] Administration Buspirone HCl 15 mg 06/28/18 21:00 06/30/18 08:42 Buspar PO 15 mg BID [facility] Administration Clonidine HCl 0.1 mg 06/28/18 21:00 Catapres PO Q6H PRN SBP > 160,DBP>100; HR > 60 Dextrose 50 ml 06/28/18 06:04 D50w Vial IV.PUSH UNSCH PRN PER HYPOGLYCEMIA PROTOCOL Ferrous Sulfate 325 mg 06/30/18 17:00 Ferosul PO BID@1200,1700 [facility] Furosemide 40 mg 06/28/18 09:00 06/30/18 08:43 Lasix PO 40 mg DAILY [facility] Administration Gabapentin 600 mg 06/28/18 09:00 06/30/18 08:43 Neurontin PO 600 mg Q12HR [facility] Administration Glucagon 1 mg 06/28/18 06:04 Glucagon Inj OTHER PRN PRN for Hypoglycemia Protocol Hydromorphone HCl 1 mg 06/28/18 06:07 Dilaudid Pf Inj IV.PUSH Q4H PRN PAIN 6-10 Sodium Chloride 1,000 mls @ 100 mls/hr 06/28/18 06:15 06/30/18 08:44 Ns Inj IV.CONT 100 mls/hr .Q10H [facility] Administration Insulin Aspart 0 unit 06/28/18 08:00 06/30/18 12:34 Novolog Insulin Correctional Sugar Inj SQ 1 unit ACHS [facility] Administration Protocol Lactulose 30 ml 06/28/18 06:05 Lactulose Liq PO DAILY PRN SEVERE CONSITIPATION Ondansetron HCl 4 mg 06/28/18 06:05 Zofran Inj IV.PUSH Q6H PRN NAUSEA OR VOMITING Oxycodone/Acetaminophen 1 tab 06/29/18 05:55 Percocet 5/325 Mg PO Q4H PRN PAIN 1-5 Oxycodone/Acetaminophen 2 tab 06/29/18 05:56 06/30/18 14:13 Percocet 5/325 Mg PO 2 tab Q4H PRN Administration PAIN 6-10 Senna/Docusate Sodium 1 tab 06/28/18 09:00 06/30/18 08:42 Arianna-Colace PO 1 tab BID [facility] Administration Sennosides 17.2 mg 06/28/18 06:05 Senokot PO Q12H PRN Moderate Constipation Sodium Chloride 2 ml 06/28/18 09:00 06/30/18 08:47 Ns Flush IV.FLUSH Not Given BID [facility] Sodium Chloride 2 ml 06/28/18 06:39 Ns Flush IV.FLUSH PRN PRN FLUSH AFTER USING IV ACCESS Tamsulosin HCl 0.4 mg 06/28/18 09:00 06/30/18 08:43 Flomax PO 0.4 mg DAILY [facility] Administration Topiramate 100 mg 06/28/18 09:00 06/30/18 08:42 Topamax PO 100 mg BID [facility] Administration Trazodone HCl 50 mg 06/28/18 09:00 06/30/18 08:43 Desyrel PO 50 mg DAILY [facility] Administration Objective Remarks: NAD RRR Clear lungs Velazquez is in place. 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 - Continue care as per primary team - No additional intervention needed - D/c velazquez catheter, pt to void on his own - D/c home tomorrow if remains stable - Pt to continue his Hyperbaric oxygen treatment as planned. Discussed Condition With: Dr Madison SOLOMON attending
[2018-06-30] MEDS: Ferrous Sulfate 325 MG Tablet PO SCH (17:28)
[2018-07-01 06:28] LABS: Hematocrit 23.2 % (39.0-51.0); Hemoglobin 7.2 gm/dL (13.0-17.0)
[2018-07-01] MEDS: Insulin NovoLOG Aspart Correctional Sugar Inj SQ SCH ×3 (08:10→17:11)
[2018-07-01] MEDS ORDERED: Sodium Chlor 0.9% Inj 250 ML IV.SIG SCH (09:00)
[2018-07-01] MEDS: Gabapentin 300 MG Capsule PO SCH (09:08)
[2018-07-01] MEDS: Senna/Docusate Sodium 8.6/50 MG Tablet PO SCH (09:09)
[2018-07-01] MEDS: traZODone 50 MG Tablet PO SCH (09:09)
[2018-07-01] MEDS: buPROPion 150 MG 12 HR Tablet PO SCH (09:09)
[2018-07-01] MEDS: Topiramate 100 MG Tablet PO SCH (09:09)
[2018-07-01] MEDS: Furosemide 40 MG Tablet PO SCH (09:14)
--- NOTE | 2018-07-01 09:58 | P.DS ---
Date of admission: 06/28/18 11:10 Primary care physician: Physician 's [facility] Brief History from admission: This is a 62-year-old male with history of bladder cancer, prostate cancer, recurrent urinary retention that presents to the emergency room for inability to urinate since Saturday evening. Patient did not have any nausea or vomiting denies any fever or chills. Patient is having hyperbaric therapy due to recurrent hematuria, and glottic hematuria status post post prostate radiation therapy. Amaya catheter was placed in the ED with no urine output. Dr. Wallace was consulted and suggested a three-way catheter for irrigation but failed. He he was then required to have a surgical removal and placement of another three- way catheter for irrigation. Patient was transferred to the medical floor and went straight to the OR came [place] [facility] [place] monitoring of the three-way catheter postop. Patient is seen and evaluated. Patient was awake but sleepy, laying in bed just came back from the surgical procedure for a complex removal of a three-way catheter and cystoscopy with removal of clots with Dr. Wallace. Patient denies any pain or any discomfort, denies any nausea or vomiting, denies any abdominal discomfort. Patient stated he was in so much pain when he first got to the hospital but now it is better. Patient drifting to sleep with conversation most likely due to the sedation from the surgical procedure with general anesthesia. Most information obtained from the medical record. Patient update on day of discharge: Patient has not had any hematuria and voiding without the catheter. He however feels dizzy and [facility] transfusion prior to discharge to home. DS: Diagnosis - Discharge Diagnosis (1) Hematuria Status: Resolved Diagnosis: Principal (2) Bladder obstruction Status: Resolved Diagnosis: Principal (3) Anemia Status: Chronic Diagnosis: Secondary DS: Summary Hospital Course: These are the medical issues addressed during this hospitalization: This is a 62-year-old male with past medical history of anemia ,chronic kidney disease ,diabetes, major depressive disorder, bladder cancer, prostate cancer, and recurrent urinary retention that presents to the emergency room for inability to urinate since Saturday evening. Patient did not have any nausea or vomiting denies any fever or chills. Patient is having hyperbaric therapy due to recurrent hematuria, and clotting hematuria status post prostate radiation therapy. Amaya catheter was placed in the ED with no urine output. Dr. Wallace was consulted and suggested a three-way catheter for irrigation but failed. He he was then required to have a surgical removal and placement of another three- way catheter for irrigation. Prostate Cancer with Clot/Urinary Retention/Clot -Status post cystoscopy and evacuation of clots -Status post complex removal and placement of three-way Amaya catheter -Urology saw and evaluated patient with recommendations to remove Amaya catheter yesterday with follow-up as an outpatient. Anemia with history of chronic anemia -appears to be chronic, however we will monitor for blood count due to hematuria -Continue drop in hemoglobin to to 7.3 with continue symptomatic dizziness therefore transfuse 2 units of packed red blood cell prior to discharge to home. Acute on Chronic Kidney Injurythis has been stable during hospitalization -Renal function improved, discontinue IV fluids patient taking p.o. well. -avoid nephrotoxins -hold lisinopril/hctz for now Diabetes Mellitus, type II [id number], with no complications, chronic essential -monitor Accu checks AC and HS and cover with Insulin sliding scale Hypertension -Antihypertensives on hold, BP stable. Hx of Major Depressive Disorder/ neuropathy - continue current medications DVT Prophylaxis: SCD At this time, patient has gained maximum benefit from hospitalization is ready to be discharged to home - Time Spent with Patient Total time spent providing and/or coordinating discharge services: Less than 30 minutes Exam Vital signs: Vital Signs 06/30/18 12:00 06/30/18 16:00 06/30/18 20:00 Temperature 98.3 F 97.7 F 99.5 F Pulse Rate 70 76 87 Respiratory Rate 16 16 20 Blood Pressure 130/60 128/62 133/66 Pulse Oximetry 97 98 99 07/01/18 00:00 Temperature 98.6 F Pulse Rate 68 Respiratory Rate 20 Blood Pressure 146/67 H Pulse Oximetry 100 Intake & Output 06/30/18 07/01/18 07/01/18 18:59 06:59 18:59 Intake Total 3900 / 3900 240 / 240 Output Total 6800 / 6800 1400 / 1400 Balance -2900 / -2900 -1160 / -1160 Weight 125.6 kg Intake: IV 1900 / 1900 NS Inj 1,000 ML @ 100 mls/hr IV 1900 / 1900 .CONT .Q10H [facility] Rx#:[id number] Oral 1999 / 1999 240 / 240 Output: Urine 5000 / 5000 1400 / 1400 Urine Amount (Catheter) 1800 / 1800 3-way Urethral 1800 / 1800 Other: Date of Last Bowel Movement 06/27/18 06/27/18 # Bowel Movements 0 0 Narrative: GENERAL: This is a well-nourished, well-developed patient, in no apparent distress. CARDIOVASCULAR: Regular rate and rhythm without murmurs, gallops, or rubs. RESPIRATORY: Clear to auscultation. Breath sounds equal bilaterally. No wheezes , rales, or rhonchi. GASTROINTESTINAL: Abdomen soft, non-tender, nondistended. Normal active bowel sounds MUSCULOSKELETAL: Extremities without clubbing, cyanosis, or edema. NEURO: Alert & Oriented x4 to person, place, time, situation. Moves all ext x4 Results Procedures completed during hospitalization: 06/28 complex removal of three-way continuous bladder irrigation Amaya, cystoscope with Dr. Wallace urologist. Labs on day of discharge: Labs from last 24 hours 07/01/18 07/01/18 06/30/18 07:36 04:55 20:57 Hgb 7.2 L Hct 23.2 L POC Glucose 129 H 216 H 06/30/18 06/30/18 16:42 12:04 Hgb Hct POC Glucose 145 H 196 H - Impressions ITS Impressions Chest X-Ray 06/28/18 06:12 CONCLUSION: The lungs are clear. Discharge Plan - Discharge Disposition Patient Disposition: 01 Discharge Home - Discharge Condition Condition: Stable - Discharge Order Discharge Orders: Discharge Order (Routine); Ordered 07/01/18 Ordered By: Columba Naranjo - Discharge Details Anticipated Discharge Date: 07/01/18 - Physicians Team Primary Care Provider: [facility] 's Attending Provider: Columba Naranjo Other Providers: Derrick Wallace MD ; Nanda Vee
[2018-07-01] MEDS: Ferrous Sulfate 325 MG Tablet PO SCH ×2 (12:41→17:11)
--- NOTE | 2018-07-01 17:48 | US ---
EXAM DATE: 07/01/2018 5:42 PM EDT AGE/SEX: 62 years / Male INDICATIONS: Right arm swelling. CLINICAL DATA: This is the patient's initial encounter. Patient reports that signs and symptoms have been present for 1 day and indicates a pain score of 3/10. MEDICAL/SURGICAL HISTORY: Anemia. Diabetes. Chronic kidney disease. Prostate cancer. . Back s urgery. Hand surgery. Prostate surgery. COMPARISON: No prior exams available for comparison. FINDINGS: The jugular, subclavian, axillary, basilic, brachial, radial and ulnar veins are patent wi th a normal grayscale and color Doppler appearance. There is occlusive thrombus identified within the mid and distal portions of the cephalic vein. Other: None. CONCLUSION: 1. Cephalic vein occlusive thrombus. Electronically signed by: Pramod Perez MD 07/01/2018 5:47 PM EDT
== END 2018-07-01 20:16 | disposition home or self-care (01) ==
LOC: NEDA 01:30 → NEPC 01:30 → N06 08:00 → N03 11:09 → N07 06-29 16:01
PROVIDERS: ADMIT Family Medicine; ATTEND Family Medicine